=== PATIENT | female | born 1935 | race Caucasian/White ===

== ENCOUNTER → 2017-08-09 | Outpatient (REF) | payer MEDICARE, OTHER ==
[2017-08-09 18:35] LABS: C REACTIVE PROTEIN QUANTITATIV 0.51 MG/DL (0.00-0.30)
== END ==
LOC: M LAB REF 16:33
DX: R79.82 Elevated C-reactive protein (CRP) (principal); M19.90 Unspecified osteoarthritis, unspecified site
CPT/HCPCS: 86140

== ENCOUNTER → 2019-03-09 | Outpatient (REF) | payer MEDICARE ==
[2019-03-10 13:34] LABS: PERCENT SATURATION 20.6 % (13.2-45.0)
== END ==
LOC: M LAB REF 12:43
PROVIDERS: ATTEND Internal Medicine
DX: D64.9 Anemia, unspecified (principal)

== ENCOUNTER → 2020-03-23 | Outpatient (REF) | payer MEDICARE | LOC: M LAB REF 12:21 | PROVIDERS: ATTEND Internal Medicine | DX: M19.90 Unspecified osteoarthritis, unspecified site (principal); R79.82 Elevated C-reactive protein (CRP) ==

== ENCOUNTER 2020-06-27 15:12 | Emergency (ER) | payer MEDICARE ==
[~2020-06-27] VITALS: Ht 149.9 cm; Wt 63.6 kg
--- NOTE | 2020-06-27 16:08 | ECGEPIP ---
[facility] - ED Test Date: 2020-06-27 Pat Name: KAREEN CHOW Department: Room: - Gender: Female Solderer Dipper: ty : 1935 Requested By: Acacia Dye Order Number: [id number] Reading MD: Jason Jefferson Measurements Intervals Rand Rate: 88 P: 59 WA: 164 QRS: 2 QRSD: 82 T: 59 QT: 348 QTc: 421 Interpretive Statements Normal sinus rhythm with sinus arrhythmia Minimal voltage criteria for LVH, may be normal variant Nonspecific ST abnormality NO PRIORS FOR COMPARISON Electronically Signed on 06-27-2020 16:08:16 EST by Jason Jefferson
--- NOTE | 2020-06-27 16:17 | REP ---
INDICATION: Altered Mental Status COMPARISON: None. TECHNIQUE: Axial noncontrast images from the skull base to the thoracic inlet with coronal reformations. This CT examination was performed using the following dose reduction techniques: Automated exposure control, adjustment of mA and/or kv according to the patient's size, and use of iterative reconstruction technique. FINDINGS: Age-related atrophy and microvascular ischemic changes are appreciated. The ventricles and sulci are symmetric. Perez-white differentiation is maintained. There is no evidence for acute intracranial hemorrhage, mass/mass effect, pathology or infarction. No extra-axial fluid collection. Calvarium is intact. Paranasal sinuses and mastoid air cells are clear. IMPRESSION: Age related atrophy and microvascular ischemic changes. No acute intracranial hemorrhage, infarction, or mass/mass effect. <Electronically signed by Jacinto Wolff > 06/27/20 [id number]
[2020-06-27 17:12] LABS: BASO # 0.1 10^3/uL (0.0-0.2); BASO % 0.9 % (0.0-1.0); HEMATOCRIT 38.1 % (36.0-47.0); HEMOGLOBIN 12.1 g/dl (12.0-15.5); LYMPH # 1.5 10^3/uL (1.5-5.0); LYMPH % 15.9 % (24.0-44.0); MEAN CORPUSCULAR HEMOGLOBIN 33.4 pg (27.0-33.0); MEAN CORPUSCULAR HGB CONC 31.8 g/dl (32.0-36.5); MEAN CORPUSCULAR VOLUME 105.2 fl (80.0-96.0); MONO # 0.9 10^3/uL (0.0-0.8); NEUTROPHILS # 5.6 10^3/uL (1.5-8.5); NEUTROPHILS % 61.7 % (36.0-66.0); PLATELET COUNT, AUTOMATED 227 10^3/uL (150-450); RED BLOOD COUNT 3.62 10^6/uL (4.00-5.40); WHITE BLOOD COUNT 9.1 10^3/uL (4.0-10.0)
[2020-06-27 17:43] LABS: ALBUMIN 3.9 GM/DL (3.2-5.2); ALT/SGPT 19 U/L (12-78); BILIRUBIN,DIRECT < 0.1 MG/DL (0.0-0.2); BILIRUBIN,TOTAL 0.2 MG/DL (0.2-1.0); BLOOD UREA NITROGEN 54 MG/DL (7-18); CALCIUM LEVEL 9.4 MG/DL (8.8-10.2); CARBON DIOXIDE LEVEL 26 MEQ/L (21-32); CHLORIDE LEVEL 104 MEQ/L (98-107); CK-MB VALUE MASS 2.3 NG/ML (<3.6); CPK CREATINE PHOSPHOKINASE 56 U/L (26-192); CREATININE FOR GFR 1.12 MG/DL (0.55-1.30); GLOMERULAR FILTRATION RATE 49.2 (>32); GLUCOSE, FASTING 100 MG/DL (70-100); MB/CK RELATIVE INDEX 4.11 (< OR =4); SODIUM LEVEL 138 MEQ/L (136-145); TOTAL PROTEIN 7.6 GM/DL (6.4-8.2); TROPONIN I < 0.02 NG/ML (< 0.10)
[2020-06-27 18:00] LABS: OSMOLALITY SERUM 303 MOSM/KG (280-301)
[2020-06-27 18:51] VITALS: BP 211/98
== END 2020-06-27 18:54 | disposition home or self-care (01) ==
LOC: M ED 15:12
DX: R40.4 Transient alteration of awareness (principal); I10 Essential (primary) hypertension; E03.9 Hypothyroidism, unspecified; Z88.1 Allergy status to other antibiotic agents; Z88.8 Allergy status to other drugs, medicaments and biological substances

== ENCOUNTER → 2021-02-08 | Outpatient (CLI) | payer MEDICARE ==
--- NOTE | 2021-02-08 11:09 | REP ---
INDICATION: RT LEG PAIN SWELLING ? DVT. COMPARISON: None. TECHNIQUE: Multiple ultrasonographic images of the deep venous structures of the right lower extremity were obtained from the inguinal ligament to the ankle. Venous compression techniques, color doppler imaging, and augmentation techniques were also obtained where appropriate. As per the ACR guidelines the anterior tibial vein can not be effectively evaluated. Only compression techniques in the calf on the peroneal and posterior tibial veins was attempted/performed. FINDINGS: There is no abnormal echogenic material seen within any of the visualized deep venous structures that would suggest acute thrombosis. Coaptation is unremarkable throughout. Doppler interrogation shows an expected response to respiratory variability and augmentation in the thigh. Compression techniques in the calf were unobtainable. The color flow images show what appears to be a normal vascular pattern throughout the thigh. IMPRESSION: There is no ultrasonographic evidence of deep venous thrombosis involving any of the visualized deep venous structures of the right lower extremity as described above. Due to technical parameters calf vein DVT can not be ruled out. <Electronically signed by To Cruz > 02/08/21 [id number]
== END ==
LOC: M RAD 10:14
PROVIDERS: ATTEND Internal Medicine
DX: M79.604 Pain in right leg (principal)

== ENCOUNTER 2021-02-21 09:31 | Inpatient (IN) | payer MEDICARE ==
[~2021-02-21] VITALS: Ht 149.9 cm; Wt 67.9 kg
--- OUTSIDE RECORDS SUMMARY | 2021-02-21 09:37 | CCD | Continuity of Care Document ---
Author Author Jessica Coronel M.D. Organization Unknown Address [address] [address] Phone [phone] Care Team Providers Care Accounting Recruiter Name Role Phone Maira Coronel MD AUTM [phone] Koko Sher MD AUTM [phone] Bg Bardales DO AUTM [phone] Problems Active Problems Provider Date Gastroesophageal reflux disease Maira Coronel M.D. Onse t: 12/27/2010 Benign essential hypertension Maira Coronel M.D. Onset: 12/27/2010 Osteoarthritis Maira Coronel M.D. Onset: 1 Osteoporosis Maira Coronel M.D. Onset: 1 Rheumatoid arthritis Maira Coronel M.D. Onset: 12/28/19 11 Pure hypercholesterolemia Maira Coronel M.D. Onset: 10/2010 Anemia Maira Coronel M.D. Onset: 1 Unspecified osteoarthritis, unspecified site Maira slaughter M.D. Onset: 12/21/2014 Social History Type Date Description Comments Sex Unknown ETOH Use Denies alcohol use Tobacco Use Start: Unknown Patient has never smoked Allergies and adverse reactions Active Allergies Criticality Reaction | Severity Comments Date Biaxin Unable to assess criticality 01/05/2010 Sudafed Unable to assess criticality 01/05/2010 Medications Active Medications SIG Qnty Indications Ordering Provide r Date Cephalexin 500mg Capsules 1 by mouth twice times a day x 10 days 20caps Maira Coronel M.D. Salonpas Deep Relieving 3.1-10-15% Gel roll 2-4x/d Maira Coronel M.D. 02/09/20 21 Pepto-Bismol 262mg/15ML Suspension 30ml three times a day by mouth as needed dyspepsia 236ml J shelby Coronel M.D. 09/28/[address] 1 by mouth every day 90caps Maira Coronel M.D. 06/30/19 21 Aspercreme W/Lidocaine 4% Cream 2-4x/d as directed 30gm Maira Coronel M.D. 03/24/20 20 Tums Chewy Delights 1177mg Chewtab s 1-2 every night at bedtime as needed Maira slaughter M.D. 03/10/2019 Excedrin Extra Strength [id number] Tablets 2 po 1-2x/d with food prn Maira slaughter M.D. 11/04/2018 Walker W/ Seat W/Basket as prescribed dx-OA, ra, dysequalibrium 1un its Maira Coronel M.D. 11/04/2018 Prednisone 10mg Tablets 1 by mouth every day for 5 days 5tabs Maira Coronel M.D. 08/27/19 19 Align 4mg Capsules 1 by mo [facility] every day Maira Coronel M.D. 07/28/2018 Flonase Allergy Relief 50mcg/Act Suspension one spray each nare twice a day as needed 1mo Maira Coronel M.D. 08/12/2017 Tylenol Extra Strength 500mg Table ts 2 pills 2-3x/d as needed Maira Coronel M.D. 1 Biofreeze 4% Gel 2-4x/dejesus nee ded Maira Coronel M.D. 01/26/2016 Magnesium 500mg Tablets 1 by mouth every day Maira Coronel M.D. 01/11/20 15 Calcium Citrate-Vitamin D3 [id number] Tablets 3/d Maira Coronel M.D. 04/2014 Saline Nasal Ramsay 0.65% Solution 3-4x/d as directed 1units Maira Coronel M.D. 08/15/19 13 Zyrtec Allergy 10mg Tablets 1 by mouth every day prn 30tabs Maira Coronel M.D. 08/15/19 13 Vitamin D-3 1000Unit Tablets 2 po qd Maira Coronel M.D. 01/29/2012 27-1mg Tablets Take 1 Tablet Daily 90tabs Maira Coronel M.D. 11/21/19 12 Amoxicillin 500mg 4 Tabs Po1 HR Before Procedure 4undelphine Coronel M.D. 03/23/20 03 Medications Administered in Office Medication SIG Qnty Indications Ordering Provider Date Reclast 1MG [id number] Injection Dhara Diaz, TOLU 09/19/2011 IV Infusion Up To 1 Hour Injection Dhara Diaz, TOLU 09/19/2011 Reclast 1MG [id number] Injection Dhara Diaz, [facility] 08/31/2010 IV Infusion Up To 1 Hour Injection Dhara Diaz, [facility] 08/31/2010 Reclast 1MG [id number] Injection Dhara Diaz, [facility] 08/29/2009 IV Infusion Up To 1 Hour Injection Dhara Diaz, [facility] 08/29/2009 Immunizations CPT Code Status Date Vaccine Lot # [id number] Given 07/04/2020 Covid-19 Moderna vaccine, 13779 Given 06/06/2020 Covid-19 Moderna vaccine, U-Flu Given 03/26/2020 Influenza,Unspecified U-Td Refused 03/24/2020 Td(Adult)(Tetanus, Diphtheri a) unspecified [id number] Refused 03/24/2020 Pneumovax 23 [id number] Refused 03/24/2020 Prevnar 13 [id number] Refused 07/28/2018 Influenza Virus Vaccine, Quadrivalent (Cciiv4), Derived From Cell 60621 Refused 07/28/2018 Shingrix Zoster Vaccine (HZV), Recombinant, Subunit, Adjuvanted 38859 Refused 07/28/2018 Zoster Vaccine 23638 Refused 07/28/2018 Pneumovax 23 52591 Refused 07/28/2018 Adacel- Tetanus Diphtheria P ertussis 02428 Refused 07/28/2018 Prevnar 13 [id number] Refused 01/29/2012 Fluvirin Virus Vaccine Q2037 Refused 02/26/2011 Fluvirin Virus Vaccine Vital Signs Date Vital Result Comment 02/08/2021 8:44am BP Systolic 134 mmHg RT Arm BP Diastolic 84 mmHg RT Arm Heart Rate 88 /min Height 59.50 inches 4'11.50" Weight 145.25 lb BMI (Body Mass Index) 28.8 kg/m2 09/28/2020 12:08pm BP Systolic 140 mmHg BP Diastolic 70 mmHg BP Systolic Recheck 138 mmHg BP Diastolic Recheck 66 mmHg Heart Rate 68 /min Height 59.50 inches 4'11.50" Weight 148.00 lb BMI (Body Mass Index) 29.4 kg/m2 Results Test Acquired Date Facility Test Result H/L Range Note Complete Blood Count 02/08/2021 [facility] Toggle Press Folder And Feeder: Dr Alcon Guzman [place], [place] [id number] [phone] WBC 7.9 x10*3/UL 4.1 - 10.9 1 RBC 3.58 x10*6/UL Low 4.20 - 6.30 Hemoglobin 11.8 g/dL Low 12.0 - 18.0 Hematocrit 35.5 % Low 37.0 - 51.0 MCV 99.2 fL High 80.0 - 97.0 MCH 33.0 pg High 26.0 - 32.0 MCHC 33.3 g/dL 31.0 - 38.0 RDW 15.0 % High 11.6 - 13.7 PLT 291 x10*3/UL 140 - 440 MPV 8.2 FL 7.8 - 11.0 Lymph % 20.8 % 10.0 - 58.5 Mid % 5.7 % 1.7 - 9.3 Neut % 73.5 % 37.0 - 92.0 Lymph # 1.6 x10*3/UL 0.6 - 4.1 Mid # 0.5 x10*3/UL 0.1 - 0.6 Neut # 5.8 x10*3/UL 2.0 - 7.8 Laboratory test finding 02/08/2021 [facility] Toggle Press Folder And Feeder: [place] [address] [phone] Sed Rate 50 mm/hr High 0 - 15 Basic Metabolic Panel 02/08/2021 [facility] Toggle Press Folder And Feeder: [place] [address] [phone] Glucose 97 mg/dL 74 - 99 2 BUN 33 mg/dL High 7 - 18 Creatinine 1.2 mg/dL 0.6 - 1.3 Sodium 140 mEq/L 136 - 145 Potassium 4.5 mEq/L 3.5 - 5.1 Chloride 103 mEq/L 98 - 107 Carbon Dioxide 26 mEq/L 21 - 32 Calcium 9.9 mg/dL 8.5 - 10.1 GFR 43 mL/min Low >60 GFR 52 mL/min Low >60 3 Laboratory test finding 02/08/2021 [facility] [address] [place] [address] [phone] C Reactive Protein Quantitativ 2.84 mg/dL High 0 .00-0.30 Complete Blood Count 09/26/2020 [facility] Toggle Press Folder And Feeder: [place] [address] [phone] WBC 6.4 x10*3/UL 4.1 - 10.9 4 RBC 3.69 x10*6/UL Low 4.20 - 6.30 Hemoglobin 12.2 g/dL 12.0 - 18.0 Hematocrit 37.3 % 37.0 - 51.0 MCV 101.1 fL High 80.0 - 97.0 MCH 33.1 pg High 26.0 - 32.0 MCHC 32.7 g/dL 31.0 - 38.0 RDW 15.7 % High 11.6 - 13.7 PLT 237 x10*3/UL 140 - 440 MPV 8.7 FL 7.8 - 11.0 Lymph % 32.3 % 10.0 - 58.5 Mid % 8.3 % 1.7 - 9.3 Neut % 59.4 % 37.0 - 92.0 Lymph # 2.0 x10*3/UL 0.6 - 4.1 Mid # 0.6 x10*3/UL 0.1 - 0.6 Neut # 3.8 x10*3/UL 2.0 - 7.8 Basic Metabolic Panel 09/26/2020 [facility] Toggle Press Folder And Feeder: [place] [address] [phone] Glucose 95 mg/dL 74 - 99 5 BUN 40 mg/dL High 7 - 18 Creatinine 1.1 mg/dL 0.6 - 1.3 Sodium 144 mEq/L 136 - 145 Potassium 4.5 mEq/L 3.5 - 5.1 Chloride 106 mEq/L 98 - 107 Carbon Dioxide 27 mEq/L 21 - 32 Calcium 9.4 mg/dL 8.5 - 10.1 GFR 47 mL/min Low >60 GFR 57 mL/min Low >60 6 Laboratory test finding 09/26/2020 [facility] Toggle Press Folder And Feeder: [place] [address] [phone] Thyroid Stimulating Hormone 4.42 uIU/mL High 0.3 6 - 3.74 1 NOTE: CBC VERIFIED 2 100-125 mg/dL PRE-DIABET ES/FASTING >126 mg/dL DIABETES/FASTING 3 CHRONIC KIDNEY DISEASE STAGI NG PER NKF STAGE I & II GFR >= 60 NORMAL TO MILDLY DECREASED STAGE III GFR 30-59 MODERATELY DECREASED STAGE IV GFR 15-29 SEVERELY DECREASED STAGE V GFR <15 VERY LITTLE GFR LEFT ESRD GFR <15 ON WALLPAPERER HELPER 4 NOTE: CBC VERIFIED 5 100-125 mg/dL PRE-DIABET ES/FASTING >126 mg/dL DIABETES/FASTING 6 CHRONIC KIDNEY DISEASE STAGI NG PER NKF STAGE I & II GFR >= 60 NORMAL TO MILDLY DECREASED STAGE III GFR 30-59 MODERATELY DECREASED STAGE IV GFR 15-29 SEVERELY DECREASED STAGE V GFR <15 VERY LITTLE GFR LEFT ESRD GFR <15 ON WALLPAPERER HELPER Procedures Date Code Description Status 02/08/2021 70862 Office/Outpatient Established Mo d MDM 30-39 Min Completed 09/28/2020 28286 Office/Outpatient Established Mo d MDM 30-39 Min Completed 02/10/2015 [id number] Bone Mineral Density Test Comple salazar 07/30/2012 398676224 Bone Mineral Density Test Comple salazar 12/08/2008 165735372 Bone Mineral Density Test Comple salazar 01/08/2007 65090290 Mammogram Completed 11/05/2002 74081910 Colonoscopy Completed Medical Devices Description No Information Available Encounters Type Date Location Provider Dx Diagnosis Office Visit 02/08[facility]2021 [facility] M79.604 Pain in right leg M06.9 Rheumatoid arthritis, unspec ified B35.1 Tinea unguium Office Visit 09/28/2020 11:30a [facility] I12.9 Hypertensive chronic kidney disease w stg 1-4/unsp chr kdny N18.32 Chronic kidney disease, stag e 3b G31.84 Mild cognitive impairment, s o stated M06.9 Rheumatoid arthritis, unspec ified R25.1 Tremor, unspecified K21.9 Gastro-esophageal reflux dis ease without esophagitis Assessments Date Code Description Provider 02/08/2021 M79.604 Pain in right leg Maira moctezuma M.D. 02/08/2021 M06.9 Rheumatoid arthritis, unspecifie d Maira Coronel M.D. 02/08/2021 B35.1 Onychomycosis Maira colbert M.D. 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 09/28/2020 N18.32 Chronic kidney disease, stage 3b Maira Coronel M.D. 09/28/2020 G31.84 Mild cognitive impairment, so st ated Maira Coronle M.D. 09/28/2020 M06.9 Rheumatoid arthritis, unspecifie d Maira Coronel M.D. 09/28/2020 R25.1 Tremor, unspecified Maira boothe M.D. 09/28/2020 K21.9 Gastro-esophageal reflux disease without esophagitis Maira Coronel M.D. 09/26/2020 E78.00 Pure hypercholesterolemia, unspe cified Maira Coronel M.D. 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 09/26/2020 N18.32 Chronic kidney disease, stage 3b Lab Schedule Plan of Treatment Future Appointment(s):* 03/27/2021 10:20 am - Lab Schedule at [facility] * 03/28/2021 11:00 am - Maira Coronel M.D. at [facility] * 03/28/2021 10:40 am - [facility] 02/08/2021 - Maira Coronel M.D.* M79.604 Pain in right leg * M06.9 Rheumatoid arthritis, unspecified * B35.1 Onychomycosis * All * New Medication:* Salonpas Deep Relieving 3.1-10-15 % - roll 2-4x/d * Cephalexin 500 mg - 1 by mouth twice times a day x 10 days * Comments:* Health maintenance. Hold off on flu shot and COVID booster until resolving symptoms of cellulitis. Functional Status Description No Information Available Mental Status Description No Information Available Referrals Refer to Reason for Referral Status Appt Date Lavell Leone DPM Referral DX: Onychomycosis/RA/toe deformity Created [address] [place] [address] [phone]
--- OUTSIDE RECORDS SUMMARY | 2021-02-21 09:37 | CCD ---
Continuity of Care Document (CCD) Created on: 02/08/2021 Jessica Luciano External Reference #: [id number] : 1935 Sex: Female Author Author Jessica Coronel M.D. Organization Unknown Address [address] [address] Phone [phone] Care Team Providers Care Manager Environmental Health And Safety Name Role Phone Maira Coronel MD AUTM [phone] Koko Sher MD AUTM [phone] Bg Bardales DO AUTM [phone] Problems Active Problems Provider Date Gastroesophageal reflux disease Maira Coronel M.D. Onse t: 12/27/2010 Benign essential hypertension Maira Coronel M.D. Onset: 12/27/2010 Osteoarthritis aMira Coronel M.D. Onset: 1 Osteoporosis Maira Coronel [...] Maira slaughter M.D. 03/10/2019 Excedrin Extra Strength [id number] Tablets 2 po 1-2x/d with food prn Maira slaughter M.D. 11/04/2018 Walker W/ Seat W/Basket as prescribed dx-OA, ra, dysequalibrium 1un its Maira Coronel M.D. 11/04/2018 Prednisone 10mg Tablets 1 by mouth every day for 5 days 5tabs Maira Coronel M.D. 08/27/19 19 Align 4mg Capsules 1 by mo [facility] every day Maira Coronel M.D. 07/28/2018 Flonase [...] Coronel M.D. 01/11/20 15 Calcium Citrate-Vitamin D3 [id number]-[id number] Tablets 3/d Maira Coronel M.D. 04/2014 Saline Nasal Slater 0.65% Solution 3-4x/d as directed 1units Maira Coronel M.D. 08/15/19 13 Zyrtec Allergy 10mg Tablets 1 by mouth every day prn 30tabs Maira Coronel M.D. 08/15/19 13 Vitamin D-3 1000Unit Tablets 2 po qd Maiar Coronel M.D. 01/29/2012 27-1mg Tablets Take 1 Tablet Daily 90tabs Maira Coronel M.D. 11/21/19 12 Amoxicillin 500mg 4 Tabs Po1 HR Before Procedure 4undelphine Coronel M.D. 03/23/20 03 Medications Administered in Office Medication SIG Qnty Indications Ordering Provider Date Reclast 1MG [id number] Injection Dhara Diaz, TOLU 09/19/2011 IV Infusion Up To 1 Hour Injection Dhara Diaz, TOLU 09/19/2011 Reclast 1MG [id number] Injection Dhara Diaz, BANNER 08/31/2010 IV Infusion Up To 1 Hour Injection Dhara Diaz, TOLU 08/31/2010 Reclast 1MG [id number] Injection Dhara Diaz, BANNER 08/29/2009 IV Infusion Up To 1 Hour Injection Dhara Diaz, BANNER 08/29/2009 Immunizations CPT Code Status Date Vaccine Lot # [id number]-[id number] Refused 03/24/2020 Td(Adult)(Tetanus, Diphtheri a) unspecified 86894 Refused 03/24/2020 Pneumovax 23 62646 Refused 03/24/2020 Prevnar 13 42434 Refused 07/28/2018 Influenza Virus Vaccine, Quadrivalent (Cciiv4), Derived From Cell 81509 Refused 07/28/2018 Shingrix Zoster Vaccine (HZV), Recombinant, Subunit, Adjuvanted 88491 Refused 07/28/2018 Zoster Vaccine 03059 Refused 07/28/2018 Pneumovax 23 73184 Refused 07/28/2018 Adacel- Tetanus Diphtheria P ertussis 53412 Refused 07/28/2018 Prevnar 13 [id number] Refused 01/29/2012 [...] H/L Range Note Complete Blood Count 02/08/2021 [facility] Film Processor: Dr [place] [address] [phone] WBC 7.9 x10*3/UL 4.1 - 10.9 1 [...] 2.0 - 7.8 Laboratory test finding 02/08/2021 [facility] Film Processor: Dr [place] [address] [phone] Sed Rate 50 mm/hr High 0 - 15 Basic Metabolic Panel 02/08/2021 [facility] Film Processor: Dr Alcon Guzman [place], [place] [id number] [phone] Glucose 97 mg/dL 74 - 99 2 [...] Low >60 3 Laboratory test finding 02/08/2021 [facility] [address] [place] [address] [phone] C Reactive Protein Quantitativ 2.84 mg/dL High 0 .00-0.30 Complete Blood Count 09/26/2020 [facility] Film Processor: Dr Alcon Guzman [place], [place] [id number] [phone] WBC 6.4 x10*3/UL 4.1 - 10.9 4 [...] 2.0 - 7.8 Basic Metabolic Panel 09/26/2020 [facility] Film Processor: Dr Alcon Guzman [place], [place] [id number] [phone] Glucose 95 mg/dL 74 - 99 5 [...] Low >60 6 Laboratory test finding 09/26/2020 [facility] karmen [facility]rose Film Processor: Dr Alcon Guzman [place], [place] [id number] [phone] Thyroid Stimulating Hormone 4.42 uIU/mL High 0.3 [...] LITTLE GFR LEFT ESRD GFR <15 ON COMMUNICATION EQUIPMENT MECHANIC 4 NOTE: CBC VERIFIED 5 100-125 mg/dL PRE-DIABET ES/FASTING >126 mg/dL DIABETES/FASTING 6 CHRONIC KIDNEY DISEASE STAGI NG PER NKF STAGE I & II GFR >= 60 NORMAL TO MILDLY DECREASED STAGE III GFR 30-59 MODERATELY DECREASED STAGE IV GFR 15-29 SEVERELY DECREASED STAGE V GFR <15 VERY LITTLE GFR LEFT ESRD GFR <15 ON COMMUNICATION EQUIPMENT MECHANIC Procedures Date Code Description Status 09/28/2020 77073 Office/Outpatient Established Mo d MDM 30-39 Min Completed 02/10/2015 [id number] Bone Mineral Density Test Comple salazar 07/30/2012 475663516 Bone Mineral Density Test Comple salazar 12/08/2008 918635278 Bone Mineral Density Test Comple salazar 01/08/2007 05126612 Mammogram Completed 11/05/2002 67510352 Colonoscopy Completed Medical Devices Description No Information Available Encounters Type Date Location Provider Dx Diagnosis Office Visit 09/28/2020 11:30a [facility] Jose Alfredo Coronel M.D. I12.9 Hypertensive chronic kidney disease w [...] Mild cognitive impairment, so st ated Maira Coronel M.D. 09/28/2020 M06.9 Rheumatoid arthritis, unspecifie d [...] 03/27/2021 10:20 am - Lab Schedule at [facility] * 03/28/2021 11:00 am - Maira Coronel M.D. at [facility] * 03/28/2021 10:40 am - Nurse #2 at [facility] 02/08/2021 - Maira Coronel M.D.* M79.604 [...] Mental Status Description No Information Available Referrals Description No Information Available
--- OUTSIDE RECORDS SUMMARY | 2021-02-21 09:37 | CCD | Continuity of Care Document ---
Author Author Jessica Coronel M.D. Organization Unknown Address [address] [address] Phone [phone] Care Team Providers Care Railcar Switcher Name Role Phone Maira Coronel MD AUTM [phone] Koko Sher MD AUTM [phone] Bg Bardales DO AUTM [phone] Problems Active Problems Provider Date Gastroesophageal reflux [...] every night at bedtime as needed Maira slaguhter M.D. 03/10/2019 Excedrin Extra Strength [id number] Tablets 2 po 1-2x/d with food prn Maira slaughter M.D. 11/04/2018 Walker W/ Seat W/Basket as prescribed dx-OA, ra, dysequalibrium 1un its Maira Coronel M.D. 11/04/2018 Prednisone 10mg Tablets 1 by mouth every day for 5 days 5tabs Maira Coronel M.D. 08/27/19 19 Align 4mg Capsules 1 by mo [facility] every day Maira Coronel M.D. 07/28/2018 [...] Coronel M.D. 01/11/20 15 Calcium Citrate-Vitamin D3 [id number] Tablets 3/d Maira Coronel M.D. 04/2014 Saline Nasal [place] 0.65% Solution 3-4x/d as directed 1units Maira [...] Qnty Indications Ordering Provider Date Reclast 1MG [id number] Injection Dhara Diaz, [facility] 09/19/2011 IV Infusion Up To 1 Hour Injection Dhara Diaz, [facility] 09/19/2011 Reclast 1MG [id number] Injection Dhara Diaz, [facility] 08/31/2010 IV Infusion Up To 1 Hour Injection Dahra Diaz, [facility] 08/31/2010 Reclast 1MG [id number] Injection Dhara Diaz, [facility] 08/29/2009 IV Infusion Up To 1 Hour Injection Dhara Diaz, [facility] 08/29/2009 Immunizations CPT Code Status Date Vaccine Lot # [id number] Refused 03/24/2020 Td(Adult)(Tetanus, Diphtheri a) unspecified [id number] Refused 03/24/2020 Pneumovax 23 [id number] Refused 03/24/2020 Prevnar 13 [id number] Refused 07/28/2018 Influenza Virus Vaccine, Quadrivalent (Cciiv4), Derived From Cell 58132 Refused 07/28/2018 Shingrix Zoster Vaccine (HZV), Recombinant, Subunit, Adjuvanted 64512 Refused 07/28/2018 Zoster Vaccine [id number] Refused 07/28/2018 Pneumovax 23 52106 Refused 07/28/2018 Adacel- Tetanus Diphtheria P ertussis 89095 Refused 07/28/2018 Prevnar 13 [id number] Refused 01/29/2012 [...] Date Facility Test Result H/L Range Note Laboratory test finding 02/08/2021 [facility] karmen ambrose Stockroom Attendant: Dr Alcon Guzman [place], [place] [id number] [phone] Sed Rate <pending> Complete Blood Count 09/26/2020 [facility] Stockroom Attendant: [place] [address] [phone] WBC 6.4 x10*3/UL 4.1 - 10.9 1 RBC 3.69 x10*6/UL Low 4.20 - 6.30 [...] 2.0 - 7.8 Basic Metabolic Panel 09/26/2020 [facility] Stockroom Attendant: Dr Alcon Guzman [place], [place] [id number] [phone] Glucose 95 mg/dL 74 - 99 2 BUN 40 mg/dL High 7 - 18 Creatinine 1.1 mg/dL 0.6 - 1.3 Sodium 144 mEq/L 136 - 145 Potassium 4.5 mEq/L 3.5 - 5.1 Chloride 106 mEq/L 98 - 107 Carbon Dioxide 27 mEq/L 21 - 32 Calcium 9.4 mg/dL 8.5 - 10.1 GFR 47 mL/min Low >60 GFR 57 mL/min Low >60 3 Laboratory test finding 09/26/2020 [facility] Stockroom Attendant: Dr Alcon Guzman [place], [place] [id number] [phone] Thyroid Stimulating Hormone 4.42 uIU/mL High 0.3 [...] LITTLE GFR LEFT ESRD GFR <15 ON CRITICAL CARE RN Procedures Date Code Description Status 09/28/2020 86603 Office/Outpatient Established Mo d MDM 30-39 Min Completed 02/10/2015 [id number] Bone Mineral Density Test [facility] 07/30/2012 [id number] Bone Mineral Density Test [facility] 12/08/2008 [id number] Bone Mineral Density Test [facility] 01/08/2007 [id number] Mammogram Completed 11/05/2002 [id number] Colonoscopy Completed Medical Devices Description No Information Available Encounters Type Date Location Provider Dx Diagnosis Office Visit 09/28/2020 11[facility] I12.9 Hypertensive chronic kidney disease [...] 03/27/2021 10:20 am - Lab Schedule at [facility] * 03/28/2021 11:00 am - Maira Coronel M.D. at [facility] * 03/28/2021 10:40 am - Nurse #2 at [facility] 02/08/2021 - Maira Coronel M.D.* M79.604 Pain in right leg * M06.9 Rheumatoid arthritis, unspecified * B35.1 Onychomycosis * All * New Medication:* Salonpas Deep Relieving 3.1-10-15 % - roll 2-4x/d * Cephalexin 500 mg - 1 by mouth twice times a day x 10 days Functional Status Description No Information Available Mental Status Description No Information Available Referrals Description No Information Available
--- OUTSIDE RECORDS SUMMARY | 2021-02-21 09:37 | CCD | Continuity of Care Document ---
Author Author Jessica Coronel M.D. Organization Unknown Address [address] [address] Phone [phone] Care Team Providers Care Veterinary Technician Name Role Phone Maira Coronel MD AUTM [phone] Koko Sher MD AUTM [phone] Bg Bardales DO AUTM [phone] Problems Active Problems Provider Date Gastroesophageal reflux [...] Maira slaughter M.D. 03/10/2019 Excedrin Extra Strength [id number] Tablets 2 po 1-2x/d with food prn Maira slaughter M.D. 11/04/2018 Walker W/ Seat W/Basket as prescribed dx-OA, ra, dysequalibrium 1un its Maira Coronel M.D. 11/04/2018 Prednisone 10mg Tablets 1 by mouth every day for 5 days 5tabs Maira Coronel M.D. 08/27/19 19 Align 4mg Capsules 1 by mo [facility] every day Maira Coronel M.D. 07/28/2018 Flonase [...] Coronel M.D. 01/11/20 15 Calcium Citrate-Vitamin D3 [id number] Tablets 3/d Maira Coronel M.D. 04/2014 Saline Nasal [place] 0.65% Solution 3-4x/d as directed 1units Maira [...] Qnty Indications Ordering Provider Date Reclast 1MG [id number] Injection Dhara Diaz, [facility] 09/19/2011 IV Infusion Up To 1 Hour Injection Dhara Diaz, [facility] 09/19/2011 Reclast 1MG [id number] Injection Dhara Diaz, [facility] 08/31/2010 IV Infusion Up To 1 Hour Injection Dhara Diaz, [facility] 08/31/2010 Reclast 1MG [id number] Injection Dhara Diaz, [facility] 08/29/2009 IV Infusion Up To 1 Hour Injection Dhara Diaz, [facility] 08/29/2009 Immunizations CPT Code Status Date Vaccine Lot # [id number] Refused 03/24/2020 Td(Adult)(Tetanus, Diphtheri a) unspecified [id number] Refused 03/24/2020 Pneumovax 23 80769 Refused 03/24/2020 Prevnar 13 [id number] Refused 07/28/2018 Influenza Virus Vaccine, Quadrivalent (Cciiv4), Derived From Cell 13095 Refused 07/28/2018 Shingrix Zoster Vaccine (HZV), Recombinant, Subunit, Adjuvanted 59476 Refused 07/28/2018 Zoster Vaccine 34841 Refused 07/28/2018 Pneumovax 23 06202 Refused 07/28/2018 Adacel- Tetanus Diphtheria P ertussis 47850 Refused 07/28/2018 Prevnar 13 [id number] Refused 01/29/2012 [...] H/L Range Note Complete Blood Count 02/08/2021 [facility] Manifest/Order Organizer Print Orders: [place] [address] [phone] WBC 7.9 x10*3/UL 4.1 - 10.9 1 [...] 2.0 - 7.8 Laboratory test finding 02/08/2021 [facility] Manifest/Order Organizer Print Orders: [place] [address] [phone] Sed Rate 50 mm/hr High 0 - 15 Basic Metabolic Panel 02/08/2021 [facility]Order Organizer Print Orders: Dr Alcon Guzman [place], [place] [id number] [phone] Glucose 97 mg/dL 74 - 99 2 [...] Low >60 3 Laboratory test finding 02/08/2021 [facility] [address] [place] [address] [phone] C Reactive Protein Quantitativ 2.84 mg/dL High 0 .00-0.30 Complete Blood Count 09/26/2020 [facility] Manifest/Order Organizer Print Orders: Dr Alcon Guzman [place], [place] [id number] [phone] WBC 6.4 x10*3/UL 4.1 - 10.9 4 [...] 2.0 - 7.8 Basic Metabolic Panel 09/26/2020 [facility] Manifest/Order Organizer Print Orders: Dr Alcon Guzman [place], [place] [id number] [phone] Glucose 95 mg/dL 74 - 99 5 [...] Low >60 6 Laboratory test finding 09/26/2020 [facility] karmen ambrose Manifest/Order Organizer Print Orders: Dr Alcon Guzman [place], [place] [id number] [phone] Thyroid Stimulating Hormone 4.42 uIU/mL High 0.3 [...] LITTLE GFR LEFT ESRD GFR <15 ON GANG HEAD SAW OPERATOR 4 NOTE: CBC VERIFIED 5 100-125 mg/dL PRE-DIABET ES/FASTING >126 mg/dL DIABETES/FASTING 6 CHRONIC KIDNEY DISEASE STAGI NG PER NKF STAGE I & II GFR >= 60 NORMAL TO MILDLY DECREASED STAGE III GFR 30-59 MODERATELY DECREASED STAGE IV GFR 15-29 SEVERELY DECREASED STAGE V GFR <15 VERY LITTLE GFR LEFT ESRD GFR <15 ON GANG HEAD SAW OPERATOR Procedures Date Code Description Status 09/28/2020 61555 Office/Outpatient Established Mo d MDM 30-39 Min Completed 02/10/2015 [id number] Bone Mineral Density Test [facility] 07/30/2012 [id number] Bone Mineral Density Test [facility] 12/08/2008 [id number] Bone Mineral Density Test [facility] 01/08/2007 [id number] Mammogram Completed 11/05/2002 [id number] Colonoscopy Completed Medical Devices Description No Information Available Encounters Type Date Location Provider Dx Diagnosis Office Visit 09/28/2020 11:30a [facility] Jose Alfredo Coronel M.D. I12.9 [...] 03/27/2021 10:20 am - Lab Schedule at [facility] * 03/28/2021 11:00 am - Maira Coronel M.D. at [facility] * 03/28/2021 10:40 am - Nurse #2 at [facility] 02/08/2021 - Maira Coronel M.D.* M79.604 [...]
--- OUTSIDE RECORDS SUMMARY | 2021-02-21 09:38 | CCD ---
Author Author [facility] Organization [facility] Address Unknown Phone Unavailable Care Team Providers Care Hand Cloth Examiner Name Role Phone Santiago Coronel MD Unavailable Unavailable Santiago Coronel MD Unavailable Unavailable Santiago Coronel MD Unavailable Unavailable Santiago Coronel MD Unavailable Unavailable Santiago Coronel MD Unavailable Unavailable Santiago Coronel MD Unavailable Unavailable Santiago Coronel MD Unavailable Unavailable Santiago Coronel MD Unavailable Unavailable Santiago Coronel MD Unavailable Unavailable Santiago Coronel MD Unavailable Unavailable Santiago Coronel MD Unavailable Unavailable Santiago Coronel MD Unavailable Unavailable Santiago Coronel MD Unavailable Unavailable Santiago Coronel MD Unavailable Unavailable Santiago Coronel MD Unavailable Unavailable Santiago Coronel MD Unavailable Unavailable Santiago Coronel MD Unavailable Santiago Voss MD Unavailable Unavailable Snatiago Coronel MD Unavailable Unavailable Santiago Coronel MD Unavailable Unavailable Santiago Coronel MD Unavailable Unavailable Santiago Coronel MD Unavailable Unavailable Santiago Coronel MD Unavailable Unavailable Santiago Coronel MD Unavailable Unavailable Santiago Coronel MD Unavailable Unavailable Santiago Coronel MD Unavailable Unavailable Santiago Coronel MD Unavailable Unavailable Santiago Coronel MD Unavailable Unavailable BernaSantiago boothe MD Unavailable Unavailable BernaSantiago MD Unavailable Unavailable BernaSantiago boothe MD Unavailable Unavailable BernaSantiago MD Unavailable Unavailable BernaSantiago MD Unavailable Unavailable BernaSantiago MD Unavailable Unavailable BernaSantiago MD Unavailable Unavailable Santiago Coronel MD Unavailable Unavailable BernaSantiago MD Unavailable Unavailable BernaSantiago MD Unavailable Unavailable BernaSantiago MD Unavailable Unavailable BernaSantiago MD Unavailable Unavailable BernaSantiago MD Unavailable Unavailable BernaSantiago MD Unavailable Unavailable BernaSantiago MD Unavailable Unavailable BernaSantiago MD Unavailable Unavailable BernaSantiago MD Unavailable Unavailable BernaSantiago colbert MD Unavailable Unavailable BernaSantiago boothe MD Unavailable Unavailable Santiago Coronel MD Unavailable Unavailable Santiago Coronel MD Unavailable Unavailable Santiago Coronel MD Unavailable Unavailable Santiago Coronel MD Unavailable Unavailable Santiago Coronel MD Unavailable Unavailable Santiago Coronel MD Unavailable Unavailable Santiago Coronel MD Unavailable Unavailable Santiago Coronel MD Unavailable Unavailable Santiago Coronel MD Unavailable Unavailable Santiago Coronel MD Unavailable Unavailable Santiago Coronel MD Unavailable Unavailable Santiago Coronel MD Unavailable Unavailable Santiago Coronel MD Unavailable Unavailable Santiago Coronel MD Unavailable Unavailable Santiago Coronel MD Unavailable Unavailable Santiago Coronel MD Unavailable Unavailable Santiago Coronel MD Unavailable Unavailable Santiago Coronel MD Unavailable Unavailable Santiago Coronel MD Unavailable Unavailable Santiago Coronel MD Unavailable Unavailable Santiago Coronel MD Unavailable Unavailable Santiago Coronel MD Unavailable Unavailable Santiago Coronel MD Unavailable Unavailable Santiago Coronel MD Unavailable Unavailable Santiago Coronel MD Unavailable Unavailable Santiago Coronel MD Unavailable Unavailable Santiago Coronel MD Unavailable Unavailable Santiago Coronel MD Unavailable Unavailable Santiago Coronel MD Unavailable Unavailable BernaSantiago MD Unavailable Unavailable Santiago Coronel MD Unavailable Unavailable Santiago Coronel MD Unavailable Unavailable Santiago Coronel MD Unavailable Unavailable Santiago Coronel MD Unavailable Unavailable Santiago Coronel MD Unavailable Unavailable Santiago Coronel MD Unavailable Unavailable Santiago Coronel MD Unavailable Unavailable Re-disclosure Warning The records that you are about to access may contain information from federally-assisted alcohol or drug abuse programs. If such information is present, then the following federally mandated warning applies: This information has been disclosed to you from records protected by federal confidentiality rules (42 CFR part 2). The federal rules prohibit you from making any further disclosure of this information unless further disclosure is expressly permitted by the written consent of the person to whom it pertains or as otherwise permitted by 42 CFR part 2. A general authorization for the release of medical or other information is NOT sufficient for this purpose. The Federal rules restrict any use of the information to criminally investigate or prosecute any alcohol or drug abuse patient.The records that you are about to access may contain highly sensitive health information, the redisclosure of which is protected by Article 27-F of the [facility] Public Health law. If you continue you may have access to information: Regarding HIV / AIDS; Provided by facilities licensed or operated by the [facility] Office of Mental Health; or Provided by the [facility] Office for People With Developmental Disabilities. If such information is present, then the following [facility] mandated warning applies: This information has been disclosed to you from confidential records which are protected by state law. State law prohibits you from making any further disclosure of this information without the specific written consent of the person to whom it pertains, or as otherwise permitted by law. Any unauthorized further disclosure in violation of state law may result in a fine or skilled nursing sentence or both. A general authorization for the release of medical or other information is NOT sufficient authorization for further disc losure. Family History Family Member Name Family Member Gender Family Member Status Date o f Status Description Data Source(s) Unknown Male Problem [facility] ([facility]) Unknown Male Problem [facility] ([facility]) Encounters Encounter Providers Location Date Indications Data Source(s ) Outpatient Attender: Maira Keith 08:45:00 AM EDT [facility] ([facility] ) Outpatient Attender: Maira Keith 11:30:00 AM EDT [facility] ([facility] ) Outpatient Attender: Maira Keith 01:45:00 PM EST [facility] ([facility] ) Outpatient Attender: Maira Keith 12:30:00 PM EST [facility] ([facility] ) Immunizations Vaccine Date Status Description Data Source(s) Covid-19 Moderna vaccine, 07/04/2020 02:37:00 PM EDT completed [facility] ([facility]) COVID-19 VACCINE Moderna 07/04/2020 12:00:00 AM EDT completed [facility] Vaccine Series Complete: YESThis Data wa s Submitted to [facility] Via [employer]. Covid-19 Moderna vaccine, 06/06/2020 01:37:00 PM EST completed [facility] ([facility]) COVID-19 VACCINE Moderna 06/06/2020 12:00:00 AM EST completed [facility] Vaccine Series Complete: NOThis Data was Submitted to [facility] Via [employer]. This CVX code allows reporting of a vacc ination when formulation is unknown (for example, when recording a Influenza vaccination when noted on a vaccination card) 03/26/2020 01:37:00 PM EST completed [facility] ([facility]) INFLUENZA VACCINE QUADRIVALENT 2019- (65 YR UP)/MF59 C.1/PF 03/26/2020 12:00:00 AM EST completed [facility] Note that this Td is not adsorbed. 03/24/2020 12:43:00 PM EST compl eted [facility] ([facility]) Pneumococcal conjugate PCV 13 03/24/2020 12:42:00 PM EST completed [facility] ([facility]) pneumococcal polysaccharide PPV23 03/24/2020 12:42:00 PM EST comple salazar [facility] ([facility]) Medications Medication Brand Name Start Date Product Form Dose Route Admi nistrative Instructions Pharmacy Instructions Status Indications Reaction Description Data Source(s) Camphor 0.031 MG/MG / Menthol 0.1 MG/MG / methyl salicylate 0.15 MG/MG Topical Gel Salonpas Deep Relieving 02/08/2021 12:00:00 AM EDT active [facility] ([facility]) Cephalexin 500 MG Oral Capsule CEPHALEXIN 02/08/2021 12:00:00 AM EDT capsule 20 TAKE ONE CAPSULE BY MOUTH TWICE A DAY FOR 10 DAYS TAKE ONE CAPSULE BY MOUTH TWICE A DAY FOR 10 DAYS SOLD: 02/08/2021 [facility] Cephalexin 500 MG Oral Capsule Cephalexin 02/08/2021 12:00:00 AM EDT ORAL active [facility] ([facility]) bismuth subsalicylate 17.5 MG/ML Oral Suspension [Pepto-bism ol] Pepto-Bismol 09/28/2020 12:00:00 AM EDT ORAL active [facility] ([facility]) 40 mg 06/30/2020 12:00:00 AM EST capsule,delayed release (DR/EC) 30 TAKE ONE TABLET BY MOUTH EVERY DAY TAKE ONE TABLET BY MOUTH EVERY DAY SOLD: 06/30/2020 [facility] 10 mg 06/30/2020 12:00:00 AM EST tablet 5 TAKE ONE TABLET BY MOUTH EVERY DAY FOR 5 DAYS TAKE ONE TABLET BY MOUTH EVERY DAY FOR 5 DAYS SOLD: 06/30/2020 [facility] Omeprazole 40 MG Delayed Release Oral Capsule Omeprazole 06/29/2020 12:00:00 AM EST ORAL active [facility] ([facility]) 27 mg iron- 1 mg 03/25/2020 12:00:00 AM EST tablet 90 TAKE ONE TABLET BY MOUTH EVERY DAY TAKE ONE TABLET BY MOUTH EVERY DAY SOLD: 03/26/2020 [facility] Lidocaine Hydrochloride 40 MG/ML Topical Cream Aspercreme W/ Lidocaine 03/24/2020 12:00:00 AM EST active [facility] ([facility]) Insurance Providers Payer name Policy type / Coverage type Policy ID Covered libertarian ID Covered libertarian's relationship to cherry Policy Cherry Plan Information Medicare Natl Govt Servic Medicare Primary [id number] Self [id number] Medicare Natl Govt Servic Medicare Primary [id number] Self [id number] Medicare Natl Govt Servic Medicare Primary [id number] Self [id number] Medicare Natl Govt Servic Medicare Primary [id number] Self [id number] Medicare Natl Govt Servic Medicare Primary [id number] Self [id number] MEDICARE [id number] SP [id number] Medicare Natl Govt Servic Medicare Primary [id number] Self [id number] A Medicare Natl Govt Servic Medicare Primary [id number] Self [id number] Medicare Natl Govt Servic Medicare Primary [id number] Self [id number] Medicare Natl Govt Servic Medicare Primary [id number] Self [id number] MEDICARE [id number] SP [id number] A [place] (Old) Medigap Part B [id number] Family Dependent [id number] [place] Ppo Medigap Part B [id number] Family Dependent [id number] [employer] (Old) Medigap Part B [id number] Family Dependent [id number] [place] [employer] Medigap Part B [id number] Family Dependent [id number] [employer] (Old) Medigap Part B [id number] Family Dependent [id number] [place] Ppo Medigap Part B [id number] Family Dependent Umr [place] Ppo Medigap Part B [id number] Family Dependent [id number] Umr [place] Ppo Medigap Part B [id number] Family Dependent [id number] [place] Medigap Part B [id number] Family Dependent [id number] [facility] Medigap Part B [id number] Self [id number] [facility] Medigap Part B [id number] Self [id number] [facility] Medigap Part B [id number] Self [id number] 11 [id number] Medicare Part B [facility] Other 0 [id number] Self 0 Medicare Part B [facility] Other 0 [id number] Self 0 [employer] OPTIONS [id number] S [id number] [employer] [id number] S [id number] MEDICARE - [place] [id number] S [id number] Medicare Part B of [place] - [facility] Other 0 [id number] Self 0 [employer] [id number] SP [id number] [facility] Medigap Part B [id number] Family Dependent [id number] [employer] [id number] HU2 [id number] [employer] PPO O [id number] S [id number] MEDICARE C [id number] S [id number] A [facility] Medigap Part B [id number] Family Dependent [employer] [id number] SP [id number] Problems, Conditions, and Diagnoses No Information Surgeries/Procedures Procedure Description Date Indications Data Source(s) OFFICE OUTPATIENT VISIT 25 MINUTES 02/08/2021 12:00:00 AM EDT [facility] OFFICE OUTPATIENT VISIT 25 MINUTES 09/28/2020 12:00:00 AM EDT [facility] ([facility]) Results ID Date Data Source [id number] 02/08/2021 09:26:00 AM EDT [facility] ([facility]) Name Value Range Interpretation Code Description Data Altagracia rce(s) Supporting Document(s) C reactive protein [Mass/volume] in Serum or Plasma by High sensitivity method 2.84 mg/dL 0.00-0.30 [facility] ([facility] ) ID Date Data Source [id number] 02/08/2021 09:26:00 AM EDT [facility] ([facility]) Name Value Range Interpretation Code Description Data Altagracia rce(s) Supporting Document(s) Glucose [Mass/volume] in Serum or Plasma 97 mg/dL 74-99 [facility] ([facility]) 100-125 mg/dL PRE-DIABETES/FASTING >126 mg/dL DIABETES/FASTING Creatinine 1.2 mg/dL 0.6-1.3 [facility] Sodium [Moles/volume] in Serum or Plasma 140 meq/L 136-145 [facility] Urea nitrogen [Mass/volume] in Serum or Plasma 33 mg/dL 7-18 [facility]) Chloride [Moles/volume] in Serum or Plasma 103 meq/L 98-107 [facility] ([facility]) Potassium [Moles/volume] in Serum or Plasma 4.5 meq/L 3.5-5.1 [facility] Carbon dioxide, total [Moles/volume] in Serum or Plasma 26 meq/L 21 -32 [facility] Calcium [Mass/volume] in Serum or Plasma 9.9 mg/dL 8.5-10.1 [facility] Glomerular filtration rate/1.73 sq M pre dicted among blacks [Volume Rate/Area] in Serum or Plasma by Creatinine-based formula (MDRD) 52 mL/min [facility]) <content>CHRONIC KIDNEY DISEASE STAGING PER NKF</content>
<content></content>
<content>STAGE I & II GFR >= 60 NORMAL TO MILDLY DECREASED</content>
<content>STAGE III GFR 30-59 MODERATELY DECREASED</content>
<content>STAGE IV GFR 15-29 SEVERELY DECREASED</content>
<content>STAGE V GFR <15 VERY LITTLE GFR LEFT</content>
<content>ESRD GFR <15 ON [employer]</content>
<content></content> Glomerular filtration rate/1.73 sq M pre dicted among non-blacks [Volume Rate/Area] in Serum or Plasma by Creatinine-based formula (MDRD) 43 mL/min [facility]) ID Date Data Source [id number] 02/08/2021 09:26:00 AM EDT [facility] ([facility]) Name Value Range Interpretation Code Description Data Altagracia rce(s) Supporting Document(s) Erythrocyte sedimentation rate by Westergren method 50 mm/hr 0-15 [facility] ([facility]) ID Date Data Source [id number] 02/08/2021 09:26:00 AM EDT [facility] Name Value Range Interpretation Code Description Data Altagracia rce(s) Supporting Document(s) Leukocytes [#/volume] in Blood by Automated count 7.9 x10*3/UL 4.1-10 .9 [facility] NOTE: CBC VERIFIED Erythrocytes [#/volume] in Blood by Automated count 3.58 x10*6/UL 4.2 0-6.30 [facility] Hematocrit [Volume Fraction] of Blood by Automated count 35.5 % 3 7.0-51.0 [facility] Hemoglobin [Mass/volume] in Blood 11.8 g/dL 12.0-18.0 [facility] MCV 99.2 fL 80.0-97.0 [facility]) MCHC 33.3 g/dL 31.0-38.0 [facility] ([facility]) MCH 33.0 pg 26.0-32.0 [facility] ([facility]) Erythrocyte distribution width [Ratio] by Automated count 15.0 % 11.6-13.7 [facility] Platelets [#/volume] in Blood by Automated count 291 x10*3/UL 140-440 [facility] Lymph % 20.8 % 10.0-58.5 [facility]) Mid % 5.7 % 1.7-9.3 [facility] ([facility]) MPV 8.2 FL 7.8-11.0 [facility] ([facility]) Neut % 73.5 % 37.0-92.0 [facility] ([facility]) Lymph # 1.6 x10*3/UL 0.6-4.1 [facility] ([facility]) Mid # 0.5 x10*3/UL 0.1-0.6 [facility] ([facility]) Neut # 5.8 x10*3/UL 2.0-7.8 [facility] ([facility]) ID Date Data Source [id number] 09/26/2020 09:30:00 AM EDT [facility] Name Value Range Interpretation Code Description Data Altagracia rce(s) Supporting Document(s) Thyrotropin [Units/volume] in Serum or Plasma by Detec tion limit <= 0.05 mIU/L 4.42 uIU/mL 0.36-3.74 [facility] ([facility] ) ID Date Data Source [id number] 09/26/2020 09:30:00 AM EDT [facility] ([facility]) Name Value Range Interpretation Code Description Data Altagracia rce(s) Supporting Document(s) Glucose [Mass/volume] in Serum or Plasma 95 mg/dL 74-99 [facility] ([facility]) 100-125 mg/dL PRE-DIABETES/FASTING >126 mg/dL DIABETES/FASTING Urea nitrogen [Mass/volume] in Serum or Plasma 40 mg/dL 7-18 [facility] ([facility]) Creatinine 1.1 mg/dL 0.6-1.3 [facility] Potassium [Moles/volume] in Serum or Plasma 4.5 meq/L 3.5-5.1 [facility] ([facility]) Sodium [Moles/volume] in Serum or Plasma 144 meq/L 136-145 [facility] ([facility]) Carbon dioxide, total [Moles/volume] in Serum or Plasma 27 meq/L 21 -32 [facility] ([facility]) Chloride [Moles/volume] in Serum or Plasma 106 meq/L 98-107 [facility] Calcium [Mass/volume] in Serum or Plasma 9.4 mg/dL 8.5-10.1 [facility] ([facility]) Glomerular filtration rate/1.73 sq M pre dicted among non-blacks [Volume Rate/Area] in Serum or Plasma by Creatinine-based formula (MDRD) 47 mL/min [facility] Glomerular filtration rate/1.73 sq M pre dicted among blacks [Volume Rate/Area] in Serum or Plasma by Creatinine-based formula (MDRD) 57 mL/min [facility] <content>CHRONIC KIDNEY DISEASE STAGING PER NKF</content>
<content></content>
<content>STAGE I & II GFR >= 60 NORMAL TO MILDLY DECREASED</content>
<content>STAGE III GFR 30-59 MODERATELY DECREASED</content>
<content>STAGE IV GFR 15-29 SEVERELY DECREASED</content>
<content>STAGE V GFR <15 VERY LITTLE GFR LEFT</content>
<content>ESRD GFR <15 ON [employer]</content>
<content></content> ID Date Data Source [id number] 09/26/2020 09:30:00 AM EDT [facility] ([facility]) Name Value Range Interpretation Code Description Data Altagracia rce(s) Supporting Document(s) Leukocytes [#/volume] in Blood by Automated count 6.4 x10*3/UL 4.1-10 .9 [facility] ([facility]) NOTE: CBC VERIFIED Hemoglobin [Mass/volume] in Blood 12.2 g/dL 12.0-18.0 [facility] Hematocrit [Volume Fraction] of Blood by Automated count 37.3 % 3 7.0-51.0 [facility] Erythrocytes [#/volume] in Blood by Automated count 3.69 x10*6/UL 4.2 0-6.30 [facility] MCH 33.1 pg 26.0-32.0 [facility]) MCV 101.1 fL 80.0-97.0 [facility] ([facility]) MCHC 32.7 g/dL 31.0-38.0 [facility] ([facility]) Erythrocyte distribution width [Ratio] by Automated count 15.7 % 11.6-13.7 [facility] MPV 8.7 FL 7.8-11.0 [facility]) Platelets [#/volume] in Blood by Automated count 237 x10*3/UL 140-440 [facility] ([facility]) Lymph % 32.3 % 10.0-58.5 [facility]) Mid % 8.3 % 1.7-9.3 [facility]) Neut % 59.4 % 37.0-92.0 [facility] ([facility]) Mid # 0.6 x10*3/UL 0.1-0.6 [facility] ([facility]) Lymph # 2.0 x10*3/UL 0.6-4.1 [facility] ([facility]) Neut # 3.8 x10*3/UL 2.0-7.8 [facility] ([facility]) ID Date Data Source [id number] 07/01/2020 12:30:00 PM EST [facility] Name Value Range Interpretation Code Description Data Altagracia rce(s) Supporting Document(s) Urine Color Laboratory test result [facility] ([facility]) Urine Appearance Laboratory test result Abnormal (applies to non-numeric results) [facility] Urine PH 5.0 units 5.0-9.0 [facility] ([facility]) Urine Leukocytes Laboratory test result Abnormal (applies to non-numeric results) [facility] Specific gravity of Urine 1.025 1.005-1.030 [facility] ([facility] Urine Blood Laboratory test result [facility] Urine Protein Laboratory test result 0-0 [facility] ([facility]) Urine Nitrite Laboratory test result [facility] ([facility]) Glucose [Presence] in Urine Laboratory test result [facility] Bilirubin.total [Mass/volume] in Serum or Plasma Laboratory test resu lt [facility] ([facility]) Urine Ketone Laboratory test result [facility] ([facility]) Urine Urobilinogen 0.2 mg/dL 0.2-1.0 [facility] ([facility]) ID Date Data Source [id number] 06/27/2020 04:47:00 PM EST [facility] ([facility]) Name Value Range Interpretation Code Description Data Altagracia rce(s) Supporting Document(s) Lactate [Mass/volume] in Serum or Plasma 0.9 mmol/L 0.4-2.0 [facility] ([facility]) Y/N query for Sepsis Lactate Rule: Y ID Date Data Source [id number] 06/27/2020 04:47:00 PM EST [facility] ([facility]) Name Value Range Interpretation Code Description Data Altagracia rce(s) Supporting Document(s) Red Blood Count 3.62 10 4.00-5.40 [facility] ([facility]) White Blood Count 9.1 10 4.0-10.0 [facility] ([facility]) Hemoglobin 12.1 g/dL 12.0-15.5 [facility] Hematocrit 38.1 % 36.0-47.0 [facility] Mean Corpuscular Volume 105.2 fl 80.0-96.0 [facility] ([facility]) Mean Corpuscular Hemoglobin 33.4 pg 27.0-33.0 [facility] ([facility]) Mean Corpuscular HGB Conc 31.8 g/dL 32.0-36.5 [facility] ([facility]) Red Cell Distribution Width 16.1 % 11.5-14.5 [facility] ([facility]) Platelet Count, Automated 227 10 150-450 [facility] ([facility]) Neutrophils % 61.7 % 36.0-66.0 [facility] ([facility]) Lymph % 15.9 % 24.0-44.0 [facility] Eos % 11.0 % 0.0-3.0 [facility]) Lake % 10.0 % 2.0-8.0 [facility] Immature Granulocyte % 0.5 % 0-3.0 [facility] ([facility]) Baso % 0.9 % 0.0-1.0 [facility]) Neutrophils # 5.6 10 1.5-8.5 [facility] ([facility]) Nucleated Red Blood Cell % 0.0 % 0-0 [facility] ([facility]) Lymph # 1.5 10 1.5-5.0 [facility] Lake # 0.9 10 0.0-0.8 [facility] Eos # 1.0 10 0.0-0.5 [facility]) Baso # 0.1 10 0.0-0.2 [facility] ([facility]) ID Date Data Source [id number] 06/27/2020 04:46:00 PM EST MED[facility] ([facility]) Name Value Range Interpretation Code Description Data Altagracia rce(s) Supporting Document(s) Osmolality of Serum or Plasma 303 MOSM/KG 280-301 [facility] ([facility]) Thyrotropin [Units/volume] in Serum or Plasma by Detec tion limit <= 0.05 mIU/L 3.910 uIU/ML 0.358-3.740 [facility] ([facility] ) ID Date Data Source [id number] 06/27/2020 04:46:00 PM EST MED[facility] ([facility]) Name Value Range Interpretation Code Description Data Altagracia rce(s) Supporting Document(s) Glucose, Fasting 100 mg/dL 70-100 [facility] ([facility]) Blood Urea Nitrogen 54 mg/dL 7-18 [facility] ([facility]) Creatinine For GFR 1.12 mg/dL 0.55-1.30 [facility] ([facility]) Glomerular Filtration Rate 49.2 [facility] ([facility]) <content>Units are mL/min/1.73 m2</content>
<content></content>
<content>Chronic Kidney Disease Staging per NKF:</content>
<content></content>
<content>Stage I & II GFR >=60 Normal to Mildly Decreased</content>
<content>Stage III GFR 30- 59 Moderately Decreased</content>
<content>Stage IV GFR 15-29 Severely Decreased</content>
<content>Stage V GFR <15 Very Little GFR Left</content>
<content>ESRD GFR <15 on [employer]</content>
<content></content> Sodium Level 138 meq/L 136-145 [facility] ([facility]) Potassium Serum 5.0 meq/L 3.5-5.1 [facility] ([facility]) Chloride Level 104 meq/L 98-107 [facility] ([facility]) Anion Gap 8 meq/L 8-16 [facility] ([facility]) Carbon Dioxide Level 26 meq/L 21-32 [facility] ([facility]) Calcium Level 9.4 mg/dL 8.8-10.2 [facility] ([facility]) ID Date Data Source [id number] 06/27/2020 04:46:00 PM EST [facility] ([facility]) Name Value Range Interpretation Code Description Data Altagracia rce(s) Supporting Document(s) Ast/Sgot 18 U/L 7-37 [facility] ([facility]) Alt/SGPT 19 U/L 12-78 [facility] ([facility]) Alkaline Phosphatase 116 U/L 45-117 [facility] ([facility]) Bilirubin,Total 0.2 mg/dL 0.2-1.0 [facility] ([facility]) Bilirubin,Direct Laboratory test result 0.0-0.2 [facility] ([facility]) Total Protein 7.6 GM/DL 6.4-8.2 [facility] ([facility]) Albumin 3.9 GM/DL 3.2-5.2 [facility] ([facility]) Albumin/Globulin Ratio 1.1 1.2-2.2 [facility] ([facility]) ID Date Data Source [id number] 06/27/2020 04:46:00 PM EST MED[facility] ([facility]) Name Value Range Interpretation Code Description Data Altagracia e(s) Supporting Document(s) CPK Creatine Phosphokinase 56 U/L 26-192 [facility] ([facility]) CK-MB Value Mass 2.3 ng/mL [facility] ([facility]) MB/CK Relative Index 4.11 [facility] ([facility]) <content>DIAGNOSIS CRITERIA</content>
<content>MMB ng/ml Relative Index (RI)</content>
<content>NON-AMI < or = 5 N/A</content>
<content>SANTO ZONE > 5 < or = 4</content>
<content>AMI > 5 > 4</content>
<content></content> Troponin I Laboratory test result [facility] ([facility]) <content>Troponin I Reference Interval f or Siemens [place] LOCI:</content>
<content></content>
<content>99th Percentile= 0.00-0.045 ng/ml</content>
<content></content>
<content>Risk Stratification:</content>
<content><= 0.10 ng/ml Decreased Risk for Adverse Clinical</content>
<content>Events.</content>
<content>0.10-1.50 ng/ml Increased Risk for Adverse Clinical</content>
<content>Events. Evaluation of additional</content>
<content>criterion and/or repeat testing in 2-6</content>
<content>hours is suggested to rule out myocardial</content>
<content>damage.</content>
<content>>= 1.50 ng/ml Indicative of Myocardial Injury.</content>
<content></content> ID Date Data Source [id number] 06/27/2020 04:46:00 PM EST [facility] ([facility]) Name Value Range Interpretation Code Description Data Altagracia rce(s) Supporting Document(s) Ammonia [Mass/volume] in Blood [facility] ID Date Data Source [id number] 03/23/2020 08:26:00 AM EST [facility] ([facility]) Name Value Range Interpretation Code Description Data Altagracia rce(s) Supporting Document(s) C reactive protein [Mass/volume] in Serum or Plasma by High sensitivity method 0.70 mg/dL 0.00-0.30 [facility] ) ID Date Data Source [id number] 03/23/2020 08:25:00 AM EST [facility]) Name Value Range Interpretation Code Description Data Altagracia rce(s) Supporting Document(s) Thyrotropin [Units/volume] in Serum or Plasma by Detec tion limit <= 0.05 mIU/L 3.14 uIU/mL 0.36-3.74 [facility] ([facility] ) ID Date Data Source [id number] 03/23/2020 08:25:00 AM EST [facility] ([facility]) Name Value Range Interpretation Code Description Data Altagracia rce(s) Supporting Document(s) Triglyceride [Mass/volume] in Serum or Plasma 95 mg/dL 30-150 [facility] ([facility]) Cholesterol [Mass/volume] in Serum or Plasma 204 mg/dL 131-200 [facility] ([facility]) Cholesterol in HDL [Mass/volume] in Serum or Plasma 66 mg/dL 35-60 [facility] ([facility]) Cholesterol in LDL [Mass/volume] in Serum or Plasma by calcu lation 119 CALC 50-159 [facility] ([facility]) ID Date Data Source [id number] 03/23/2020 08:25:00 AM EST [facility] ([facility]) Name Value Range Interpretation Code Description Data Altagracia rce(s) Supporting Document(s) Glucose [Mass/volume] in Serum or Plasma 82 mg/dL 74-99 [facility] ([facility]) 100-125 mg/dL PRE-DIABETES/FASTING >126 mg/dL DIABETES/FASTING Creatinine 1.2 mg/dL 0.6-1.3 [facility]) Urea nitrogen [Mass/volume] in Serum or Plasma 40 mg/dL 7-18 [facility] ([facility]) NOTE: RESULT VERIFIED. Potassium [Moles/volume] in Serum or Plasma 4.1 meq/L 3.5-5.1 [facility] ([facility]) Chloride [Moles/volume] in Serum or Plasma 104 meq/L 98-107 [facility] ([facility]) Sodium [Moles/volume] in Serum or Plasma 143 meq/L 136-145 [facility] ([facility]) Alkaline phosphatase isoenzyme [Units/volume] in Serum or Pl asma 100 mg/dL 46-116 [facility] ([facility]) Carbon dioxide, total [Moles/volume] in Serum or Plasma 28 meq/L 21 -32 [facility] ([facility]) Calcium [Mass/volume] in Serum or Plasma 8.9 mg/dL 8.5-10.1 [facility] ([facility]) Total Bilirubin 0.4 mg/dL 0.2-1.0 [facility] ([facility]) Aspartate aminotransferase [Enzymatic activity/volume] in Serum or Plasma 25 U/L 15-37 [facility] ([facility] ) Alanine aminotransferase [Enzymatic activity/volume] in Seru m or Plasma 22 U/L 12-78 [facility] ([facility]) Proteinase 3 Ab [Units/volume] in Serum 7.6 g/dL 6.4-8.2 [facility] ([facility]) Glomerular filtration rate/1.73 sq M pre dicted among non-blacks [Volume Rate/Area] in Serum or Plasma by Creatinine-based formula (MDRD) 43 mL/min [facility] ([facility]) A/G Ratio 1.05 CALC 1.00-1.90 [facility] Albumin [Mass/volume] in Serum or Plasma 3.9 g/dL 3.4-5.0 [facility] ([facility]) Glomerular filtration rate/1.73 sq M pre dicted among blacks [Volume Rate/Area] in Serum or Plasma by Creatinine-based formula (MDRD) 52 mL/min [facility] ([facility]) <content>CHRONIC KIDNEY DISEASE STAGING PER NKF</content>
<content></content>
<content>STAGE I & II GFR >= 60 NORMAL TO MILDLY DECREASED</content>
<content>STAGE III GFR 30-59 MODERATELY DECREASED</content>
<content>STAGE IV GFR 15-29 SEVERELY DECREASED</content>
<content>STAGE V GFR <15 VERY LITTLE GFR LEFT</content>
<content>ESRD GFR <15 ON [employer]</content>
<content></content> ID Date Data Source [id number] 03/23/2020 08:25:00 AM EST MED[facility] ([facility]) Name Value Range Interpretation Code Description Data Altagracia rce(s) Supporting Document(s) Erythrocyte sedimentation rate by Westergren method 46 mm/hr 0-15 [facility] ([facility]) ID Date Data Source [id number] 03/23/2020 08:25:00 AM EST [facility] ([facility]) Name Value Range Interpretation Code Description Data Altagracia rce(s) Supporting Document(s) Leukocytes [#/volume] in Blood by Automated count 6.1 x10*3/UL 4.1-10 .9 [facility] ([facility]) NOTE: CBC VERIFIED Hematocrit [Volume Fraction] of Blood by Automated count 34.6 % 3 7.0-51.0 [facility] ([facility]) Erythrocytes [#/volume] in Blood by Automated count 3.45 x10*6/UL 4.2 0-6.30 [facility] ([facility]) Hemoglobin [Mass/volume] in Blood 12.0 g/dL 12.0-18.0 [facility] ([facility]) MCHC 34.8 g/dL 31.0-38.0 [facility] MCH 34.9 pg 26.0-32.0 [facility] MCV 100.3 fL 80.0-97.0 [facility] ([facility]) Erythrocyte distribution width [Ratio] by Automated count 15.0 % 11.6-13.7 [facility] ([facility]) Platelets [#/volume] in Blood by Automated count 221 x10*3/UL 140-440 [facility] ([facility]) MPV 8.8 FL 7.8-11.0 [facility] Neut % 62.6 % 37.0-92.0 [facility] Mid % 8.3 % 1.7-9.3 [facility] Lymph % 29.1 % 10.0-58.5 [facility] Mid # 0.6 x10*3/UL 0.1-0.6 [facility] ([facility]) Lymph # 1.7 x10*3/UL 0.6-4.1 [facility] ([facility]) Neut # 3.8 x10*3/UL 2.0-7.8 [facility] ([facility]) Procedure Social History No Information Vital Signs ID Date Data Source UNK Name Value Range Interpretation Code Description Data Source(s) Systolic blood pressure 134 mm[Hg] 134 mm[Hg] [facility] RT Arm Diastolic blood pressure 84 mm[Hg] 84 mm[Hg] [facility] ([facility]) RT Arm Heart rate 88 /min 88 /min [facility] ([facility]) Body height 59.50 [in_i] 59.50 [in_i] [facility] ([facility]) 4'.50" Body weight 145.25 [lb_av] 145.25 [lb_av] MEDEN T ([facility]) Body mass index (BMI) [Ratio] 28.8 kg/m2 28.8 k g/m2 [facility] ([facility]) Systolic blood pressure 140 mm[Hg] 140 mm[Hg] [facility] ([facility]) Body weight 148.00 [lb_av] 148.00 [lb_av] [facility] Systolic blood pressure 138 mm[Hg] 138 mm[Hg] [facility] ([facility]) Diastolic blood pressure 70 mm[Hg] 70 mm[Hg] [facility] ([facility]) Diastolic blood pressure 66 mm[Hg] 66 mm[Hg] [facility] ([facility]) Heart rate 68 /min 68 /min [facility] ([facility]) Body height 59.50 [in_i] 59.50 [in_i] [facility] ([facility]) 4'11.50" Body mass index (BMI) [Ratio] 29.4 kg/m2 29.4 k g/m2 [facility] ([facility]) Systolic blood pressure 152 mm[Hg] 152 mm[Hg] [facility] RT Arm Diastolic blood pressure 72 mm[Hg] 72 mm[Hg] [facility] RT Arm Heart rate 80 /min 80 /min [facility] ([facility]) Body height 59.50 [in_i] 59.50 [in_i] [facility] ([facility]) 4'.50" Body weight 146.38 [lb_av] 146.38 [lb_av] [facility] ([facility]) Body mass index (BMI) [Ratio] 29.1 kg/m2 29.1 k g/m2 [facility] ([facility]) Diastolic blood pressure 76 mm[Hg] 76 mm[Hg] [facility] ([facility]) Systolic blood pressure 138 mm[Hg] 138 mm[Hg] M EDENT ([facility]) Body height 59.50 [in_i] 59.50 [in_i] [facility] ([facility]) 4'.50" Body weight 148.00 [lb_av] 148.00 [lb_av] SATISH T ([facility]) Body mass index (BMI) [Ratio] 29.4 kg/m2 29.4 k g/m2 [facility] ([facility])
--- OUTSIDE RECORDS SUMMARY | 2021-02-21 10:46 | CCD ---
Author Author [facility] Organization [facility] Address Unknown Phone Unavailable Care Team Providers Care [place] Hand Name Role Phone Santiago Coronel MD Unavailable [...] Unavailable BernaSantiago boothe MD Unavailable Unavailable BernaSantiago boothe MD Unavailable Unavailable BernaSantiago boothe MD Unavailable Unavailable BernaSantiago MD Unavailable Unavailable BernaSantiago MD Unavailable Unavailable BernaSantiago MD Unavailable Unavailable BernaSantiago MD Unavailable Unavailable Snatiago Coronel MD Unavailable Unavailable BernaSantiago colbert MD Unavailable Unavailable Santiago Coronel MD Unavailable Unavailable BernaSantiago MD Unavailable Unavailable BernaSantiago MD Unavailable Unavailable BernaSantiago MD Unavailable Unavailable Santiago Coronel MD Unavailable Unavailable BernaSantiago MD Unavailable Unavailable BernaSantiago colbert MD Unavailable Unavailable BernaSantiago MD Unavailable Unavailable BernaSantiago colbert MD Unavailable Unavailable BernaSantiago colbert MD Unavailable Unavailable Santiago Coronel MD Unavailable [...] Unavailable Unavailable Santiago Coronel MD Unavailable Unavailable Berna, M Maira MD Unavailable Unavailable Santiago Coronel MD Unavailable Unavailable Santiago Coronel MD Unavailable Unavailable Santiago Coronel MD Unavailable Unavailable Santiago Coronel MD Unavailable Unavailable Santiago Coronel MD Unavailable Unavailable Berna, Santiago Rao MD Unavailable Unavailable Berna, Santiago Rao MD Unavailable Unavailable Berna, Santiago Maira HARDY Unavailable Unavailable Re-disclosure Warning The records that [...] is protected by Article 27-F of the [facility] Public Health law. If you continue you may have access to information: Regarding HIV / AIDS; Provided by facilities licensed or operated by the [facility] Office of Mental Health; or Provided by the [facility] Office for People With Developmental Disabilities. If such information is present, then the following [facility] mandated warning applies: This information has [...] law may result in a fine or retirement sentence or both. A general authorization for [...] Attender: Maira Keith 08:45:00 AM EDT [facility] ([facility] ) Outpatient Attender: Maira Keith 11:30:00 AM EDT [facility] ([facility] ) Outpatient Attender: Maira Keith 01:45:00 PM EST [facility] ([facility] ) Outpatient Attender: Maira Keith 12:30:00 PM EST [facility] ([facility] ) Immunizations Vaccine Date Status Description Data Source(s) Covid-19 Moderna vaccine, 07/04/2020 02:37:00 PM EDT completed [facility] ([facility]) COVID-19 VACCINE Moderna 07/04/2020 12:00:00 AM EDT completed [facility] Vaccine Series Complete: YESThis Data wa s Submitted to [facility] Via [employer]. Covid-19 Moderna vaccine, 06/06/2020 01:37:00 PM EST completed [facility] ([facility]) COVID-19 VACCINE Moderna 06/06/2020 12:00:00 AM EST completed [facility] Vaccine Series Complete: NOThis Data was Submitted to [facility] Via [employer]. This CVX code allows reporting of a vacc ination when formulation is unknown (for example, when recording a Influenza vaccination when noted on a vaccination card) 03/26/2020 01:37:00 PM EST completed [facility] ([facility]) INFLUENZA VACCINE QUADRIVALENT (65 YR UP)/MF59 C.1/PF 03/26/2020 12:00:00 AM EST completed [facility] Note that this Td is not adsorbed. 03/24/2020 12:43:00 PM EST compl eted [facility] ([facility]) Pneumococcal conjugate PCV 13 03/24/2020 12:42:00 PM EST completed [facility] ([facility]) pneumococcal polysaccharide PPV23 03/24/2020 12:42:00 PM EST comple salazar [facility] ([facility]) Medications Medication Brand Name Start Date Product Form Dose Route Admi nistrative Instructions Pharmacy Instructions Status Indications Reaction Description Data Source(s) Camphor 0.031 MG/MG / Menthol 0.1 MG/MG / methyl salicylate 0.15 MG/MG Topical Gel Salonpas Deep Relieving 02/08/2021 12:00:00 AM EDT active [facility] ([facility]) Cephalexin 500 MG Oral Capsule CEPHALEXIN 02/08/2021 12:00:00 AM EDT capsule 20 TAKE ONE CAPSULE BY MOUTH TWICE A DAY FOR 10 DAYS TAKE ONE CAPSULE BY MOUTH TWICE A DAY FOR 10 DAYS SOLD: 02/08/2021 [facility] Cephalexin 500 MG Oral Capsule Cephalexin 02/08/2021 12:00:00 AM EDT ORAL active [facility] ([facility]) bismuth subsalicylate 17.5 MG/ML Oral Suspension [Pepto-bism ol] Pepto-Bismol 09/28/2020 12:00:00 AM EDT ORAL active [facility] ([facility]) 40 mg 06/30/2020 12:00:00 AM EST capsule,delayed release (DR/EC) 30 TAKE ONE TABLET BY MOUTH EVERY DAY TAKE ONE TABLET BY MOUTH EVERY DAY SOLD: 06/30/2020 [facility] 10 mg 06/30/2020 12:00:00 AM EST tablet 5 TAKE ONE TABLET BY MOUTH EVERY DAY FOR 5 DAYS TAKE ONE TABLET BY MOUTH EVERY DAY FOR 5 DAYS SOLD: 06/30/2020 [facility] Omeprazole 40 MG Delayed Release Oral Capsule Omeprazole 06/29/2020 12:00:00 AM EST ORAL active [facility] ([facility]) 27 mg iron- 1 mg 03/25/2020 12:00:00 AM EST tablet 90 TAKE ONE TABLET BY MOUTH EVERY DAY TAKE ONE TABLET BY MOUTH EVERY DAY SOLD: 03/26/2020 [facility] Lidocaine Hydrochloride 40 MG/ML Topical Cream Aspercreme W/ Lidocaine 03/24/2020 12:00:00 AM EST active [facility] ([facility]) Insurance Providers Payer name Policy type / Coverage type Policy ID Covered democrat ID Covered democrat's relationship to cherry Policy Hcerry Plan Information Medicare Natl Govt Servic Medicare Primary [id number] Self [id number] Medicare Natl Govt Servic Medicare Primary [id number] Self [id number] Medicare Natl Govt Servic Medicare Primary [id number] Self [id number] Medicare Natl Govt Servic Medicare Primary [id number] Self [id number] Medicare Natl Govt Servic Medicare Primary [id number] Self [id number] MEDICARE [id number] SP [id number] Medicare Natl Govt Servic Medicare Primary [id number] Self [id number] A Medicare Natl Govt Servic Medicare Primary [id number] Self [id number] Medicare Natl Govt Servic Medicare Primary [id number] Self [id number] Medicare Natl Govt Servic Medicare Primary [id number] Self [id number] MEDICARE [id number] SP [id number] A [place] (Old) Medigap Part B [id number] Family Dependent [id number] [place] Ppo Medigap Part B [id number] Family Dependent [id number] [employer] (Old) Medigap Part B [id number] Family Dependent [id number] [place] Ppo Medigap Part B [id number] Family Dependent [id number] [employer] (Old) Medigap Part B [id number] Family Dependent [id number] [place] Ppo Medigap Part B [id number] Family Dependent Umr [place] Ppo Medigap Part B [id number] Family Dependent [id number] Umr [place] Ppo Medigap Part B [id number] Family Dependent [id number] [place] Ppo Medigap Part B [id number] Family Dependent [id number] [facility] Medigap Part B [id number] Self [id number] [facility] Medigap Part B [id number] Self [id number] [facility] Medigap Part B [id number] Self [id number] Medicare Part B [facility] [place] Other 0 [id number] Self 0 Medicare Part B [facility] [place] Other 0 [id number] Self 0 [employer] HE[employer] CARE OPTIONS [id number] S [id number] [employer] MED[employer] [id number] S [id number] MEDICARE - [place] [id number] S [id number] Medicare Part B [facility] [place] Other 0 [id number] Self 0 [facility] HEALTH CARE OPTIONS [id number] SP [id number] [facility] [id number] Family Dependent [id number] [employer] [id number] HU2 [id number] [employer] PPO O [id number] S [id number] MEDICARE C [id number] S [id number] A [facility] [id number] Family Dependent [facility] HEALTH CARE OPTIONS [id number] SP [id number] Problems, Conditions, and Diagnoses No Information Surgeries/Procedures Procedure Description Date Indications Data Source(s) OFFICE OUTPATIENT VISIT 25 MINUTES 02/08/2021 12:00:00 AM EDT [facility] ([facility]) OFFICE OUTPATIENT VISIT 25 MINUTES 09/28/2020 12:00:00 AM EDT [facility] ([facility]) Results ID Date Data Source [id number] 02/08/2021 09:26:00 AM EDT [facility] ([facility]) Name Value Range Interpretation Code Description Data Altagracia rce(s) Supporting Document(s) C reactive protein [Mass/volume] in Serum or Plasma by High sensitivity method 2.84 mg/dL 0.00-0.30 [facility] ([facility] ) ID Date Data Source [id number] 02/08/2021 09:26:00 AM EDT [facility] ([facility]) Name Value Range Interpretation Code Description Data Altagracia rce(s) Supporting Document(s) Creatinine 1.2 mg/dL 0.6-1.3 [facility] Glucose [Mass/volume] in Serum or Plasma 97 mg/dL 74-99 [facility] ([facility]) 100-125 mg/dL PRE-DIABETES/FASTING >126 mg/dL DIABETES/FASTING Urea nitrogen [Mass/volume] in Serum or Plasma 33 mg/dL 7-18 [facility] ([facility]) Sodium [Moles/volume] in Serum or Plasma 140 meq/L 136-145 [facility] ([facility]) Chloride [Moles/volume] in Serum or Plasma 103 meq/L 98-107 [facility] ([facility]) Potassium [Moles/volume] in Serum or Plasma 4.5 meq/L 3.5-5.1 [facility] ([facility]) Calcium [Mass/volume] in Serum or Plasma 9.9 mg/dL 8.5-10.1 [facility] Glomerular filtration rate/1.73 sq M pre dicted among non-blacks [Volume Rate/Area] in Serum or Plasma by Creatinine-based formula (MDRD) 43 mL/min [facility] Carbon dioxide, total [Moles/volume] in Serum or Plasma 26 meq/L 21 -32 [facility] Glomerular filtration rate/1.73 sq M pre dicted among blacks [Volume Rate/Area] in Serum or Plasma by Creatinine-based formula (MDRD) 52 mL/min [facility] <content>CHRONIC KIDNEY DISEASE STAGING PER NKF</content>
<content></content>
<content>STAGE I & II GFR >= 60 NORMAL TO MILDLY DECREASED</content>
<content>STAGE III GFR 30-59 MODERATELY DECREASED</content>
<content>STAGE IV GFR 15-29 SEVERELY DECREASED</content>
<content>STAGE V GFR <15 VERY LITTLE GFR LEFT</content>
<content>ESRD GFR <15 ON BULK PLANT AGENT</content>
<content></content> ID Date Data Source [id number] 02/08/2021 09:26:00 AM EDT [facility] Name Value Range Interpretation Code Description Data Altagracia rce(s) Supporting Document(s) Erythrocyte sedimentation rate by Westergren method 50 mm/hr 0-15 [facility] ID Date Data Source [id number] 02/08/2021 09:26:00 AM EDT [facility] Name Value Range Interpretation Code Description Data Altagracia rce(s) Supporting Document(s) Leukocytes [#/volume] in Blood by Automated count 7.9 x10*3/UL 4.1-10 .9 [facility] ([facility]) NOTE: CBC VERIFIED Erythrocytes [#/volume] in Blood by Automated count 3.58 x10*6/UL 4.2 0-6.30 [facility] ([facility]) Hematocrit [Volume Fraction] of Blood by Automated count 35.5 % 3 7.0-51.0 [facility] ([facility]) Hemoglobin [Mass/volume] in Blood 11.8 g/dL 12.0-18.0 [facility] ([facility]) MCV 99.2 fL 80.0-97.0 [facility]) MCHC 33.3 g/dL 31.0-38.0 [facility]) MCH 33.0 pg 26.0-32.0 [facility]) MPV 8.2 FL 7.8-11.0 [facility]) Erythrocyte distribution width [Ratio] by Automated count 15.0 % 11.6-13.7 [facility] ([facility]) Platelets [#/volume] in Blood by Automated count 291 x10*3/UL 140-440 [facility] ([facility]) Lymph % 20.8 % 10.0-58.5 [facility]) Mid % 5.7 % 1.7-9.3 [facility] Neut % 73.5 % 37.0-92.0 [facility]) Lymph # 1.6 x10*3/UL 0.6-4.1 [facility] ([facility]) Mid # 0.5 x10*3/UL 0.1-0.6 [facility] ([facility]) Neut # 5.8 x10*3/UL 2.0-7.8 [facility] ([facility]) ID Date Data Source [id number] 09/26/2020 09:30:00 AM EDT [facility] ([facility]) Name Value Range Interpretation Code Description Data Altagracia rce(s) Supporting Document(s) Thyrotropin [Units/volume] in Serum or Plasma by Detec tion limit <= 0.05 mIU/L 4.42 uIU/mL 0.36-3.74 [facility] ([facility] ) ID Date Data Source [id number] 09/26/2020 09:30:00 AM EDT [facility] Name Value Range Interpretation Code Description Data Altagracia rce(s) Supporting Document(s) Glucose [Mass/volume] in Serum or Plasma 95 mg/dL 74-99 [facility] ([facility]) 100-125 mg/dL PRE-DIABETES/FASTING >126 mg/dL DIABETES/FASTING Urea nitrogen [Mass/volume] in Serum or Plasma 40 mg/dL 7-18 [facility] ([facility]) Creatinine 1.1 mg/dL 0.6-1.3 [facility] Sodium [Moles/volume] in Serum or Plasma 144 meq/L 136-145 [facility] ([facility]) Potassium [Moles/volume] in Serum or Plasma 4.5 meq/L 3.5-5.1 [facility] ([facility]) Carbon dioxide, total [Moles/volume] in Serum or Plasma 27 meq/L 21 -32 [facility] ([facility]) Calcium [Mass/volume] in Serum or Plasma 9.4 mg/dL 8.5-10.1 [facility] ([facility]) Chloride [Moles/volume] in Serum or Plasma 106 meq/L 98-107 [facility] ([facility]) Glomerular filtration rate/1.73 sq M pre dicted among non-blacks [Volume Rate/Area] in Serum or Plasma by Creatinine-based formula (MDRD) 47 mL/min [facility] ([facility]) Glomerular filtration rate/1.73 sq M pre dicted among blacks [Volume Rate/Area] in Serum or Plasma by Creatinine-based formula (MDRD) 57 mL/min [facility] ([facility]) <content>CHRONIC KIDNEY DISEASE STAGING PER NKF</content>
<content></content>
<content>STAGE I & II GFR >= 60 NORMAL TO MILDLY DECREASED</content>
<content>STAGE III GFR 30-59 MODERATELY DECREASED</content>
<content>STAGE IV GFR 15-29 SEVERELY DECREASED</content>
<content>STAGE V GFR <15 VERY LITTLE GFR LEFT</content>
<content>ESRD GFR <15 ON BULK PLANT AGENT</content>
<content></content> ID Date Data Source [id number] 09/26/2020 09:30:00 AM EDT [facility] ([facility]) Name Value Range Interpretation Code Description Data Altagracia rce(s) Supporting Document(s) Leukocytes [#/volume] in Blood by Automated count 6.4 x10*3/UL 4.1-10 .9 [facility] ([facility]) NOTE: CBC VERIFIED Hemoglobin [Mass/volume] in Blood 12.2 g/dL 12.0-18.0 [facility] ([facility]) Erythrocytes [#/volume] in Blood by Automated count 3.69 x10*6/UL 4.2 0-6.30 [facility] ([facility]) Hematocrit [Volume Fraction] of Blood by Automated count 37.3 % 3 7.0-51.0 [facility] ([facility]) MCV 101.1 fL 80.0-97.0 [facility]) MCH 33.1 pg 26.0-32.0 [facility]) MCHC 32.7 g/dL 31.0-38.0 [facility]) Platelets [#/volume] in Blood by Automated count 237 x10*3/UL 140-440 [facility] ([facility]) Erythrocyte distribution width [Ratio] by Automated count 15.7 % 11.6-13.7 [facility] ([facility]) MPV 8.7 FL 7.8-11.0 [facility] ([facility]) Lymph % 32.3 % 10.0-58.5 [facility]) Mid % 8.3 % 1.7-9.3 [facility] ([facility]) Lymph # 2.0 x10*3/UL 0.6-4.1 [facility] ([facility]) Neut % 59.4 % 37.0-92.0 [facility] Mid # 0.6 x10*3/UL 0.1-0.6 [facility] ([facility]) Neut # 3.8 x10*3/UL 2.0-7.8 [facility] ([facility]) ID Date Data Source [id number] 07/01/2020 12:30:00 PM EST [facility] ([facility]) Name Value Range Interpretation Code Description Data Altagracia rce(s) Supporting Document(s) Urine Color Laboratory test result [facility] Urine Appearance Laboratory test result Abnormal (applies to non-numeric results) [facility] Urine PH 5.0 units 5.0-9.0 [facility] ([facility]) Urine Leukocytes Laboratory test result Abnormal (applies to non-numeric results) [facility] Specific gravity of Urine 1.025 1.005-1.030 [facility] Urine Blood Laboratory test result [facility] Urine Protein Laboratory test result 0-0 [facility] ([facility]) Urine Nitrite Laboratory test result [facility] Glucose [Presence] in Urine [facility] Bilirubin.total [Mass/volume] in Serum or Plasma Laboratory test resu lt [facility] ([facility]) Urine Ketone Laboratory test result [facility] ([facility]) Urine Urobilinogen 0.2 mg/dL 0.2-1.0 [facility] ID Date Data Source [id number] 06/27/2020 04:47:00 PM EST [facility] ([facility]) Name Value Range Interpretation Code Description Data Altagracia rce(s) Supporting Document(s) Lactate [Mass/volume] in Serum or Plasma 0.9 mmol/L 0.4-2.0 [facility] Y/N query for Sepsis Lactate Rule: Y ID Date Data Source [id number] 06/27/2020 04:47:00 PM EST [facility] ([facility]) Name Value Range Interpretation Code Description Data Altagracia rce(s) Supporting Document(s) Red Blood Count 3.62 10 4.00-5.40 [facility] ([facility]) White Blood Count 9.1 10 4.0-10.0 [facility] ([facility]) Hemoglobin 12.1 g/dL 12.0-15.5 [facility] Hematocrit 38.1 % 36.0-47.0 [facility] ([facility]) Mean Corpuscular Volume 105.2 fl 80.0-96.0 [facility] ([facility]) Mean Corpuscular Hemoglobin 33.4 pg 27.0-33.0 [facility] ([facility]) Mean Corpuscular HGB Conc 31.8 g/dL 32.0-36.5 [facility] ([facility]) Red Cell Distribution Width 16.1 % 11.5-14.5 [facility] ([facility]) Platelet Count, Automated 227 10 150-450 [facility] ([facility]) Neutrophils % 61.7 % 36.0-66.0 [facility] ([facility]) Lymph % 15.9 % 24.0-44.0 [facility] Eos % 11.0 % 0.0-3.0 [facility]) [place] % 10.0 % 2.0-8.0 [facility] Immature Granulocyte % 0.5 % 0-3.0 [facility] ([facility]) Baso % 0.9 % 0.0-1.0 [facility]) Neutrophils # 5.6 10 1.5-8.5 [facility] ([facility]) Nucleated Red Blood Cell % 0.0 % 0-0 [facility] ([facility]) Lymph # 1.5 10 1.5-5.0 [facility]) [place] # 0.9 10 0.0-0.8 [facility] Eos # 1.0 10 0.0-0.5 [facility] Baso # 0.1 10 0.0-0.2 [facility] ID Date Data Source [id number] 06/27/2020 04:46:00 PM EST [facility] ([facility]) Name Value Range Interpretation Code Description Data Altagracia rce(s) Supporting Document(s) Osmolality of Serum or Plasma 303 MOSM/KG 280-301 [facility] ([facility]) Thyrotropin [Units/volume] in Serum or Plasma by Detec tion limit <= 0.05 mIU/L 3.910 uIU/ML 0.358-3.740 [facility] ([facility] ) ID Date Data Source [id number] 06/27/2020 04:46:00 PM EST [facility] ([facility]) Name Value Range Interpretation Code Description Data Altagracia rce(s) Supporting Document(s) Glucose, Fasting 100 mg/dL 70-100 [facility] ([facility]) Blood Urea Nitrogen 54 mg/dL 7-18 [facility] ([facility]) Creatinine For GFR 1.12 mg/dL 0.55-1.30 [facility] ([facility]) Glomerular Filtration Rate 49.2 [facility] ([facility]) <content>Units are mL/min/1.73 m2</content>
<content></content>
<content>Chronic Kidney Disease Staging per NKF:</content>
<content></content>
<content>Stage I & II GFR >=60 Normal to Mildly Decreased</content>
<content>Stage III GFR 30- 59 Moderately Decreased</content>
<content>Stage IV GFR 15-29 Severely Decreased</content>
<content>Stage V GFR <15 Very Little GFR Left</content>
<content>ESRD GFR <15 on BULK PLANT AGENT</content>
<content></content> Sodium Level 138 meq/L 136-145 [facility] ([facility]) Potassium Serum 5.0 meq/L 3.5-5.1 [facility] ([facility]) Chloride Level 104 meq/L 98-107 [facility] ([facility]) Anion Gap 8 meq/L 8-16 [facility] ([facility]) Carbon Dioxide Level 26 meq/L 21-32 [facility] ([facility]) Calcium Level 9.4 mg/dL 8.8-10.2 [facility] ([facility]) ID Date Data Source [id number] 06/27/2020 04:46:00 PM EST [facility] ([facility]) Name Value Range Interpretation Code Description Data Altagracia rce(s) Supporting Document(s) Ast/Sgot 18 U/L 7-37 [facility] ([facility]) Alt/SGPT 19 U/L 12-78 [facility] ([facility]) Alkaline Phosphatase 116 U/L 45-117 [facility] ([facility]) Bilirubin,Total 0.2 mg/dL 0.2-1.0 [facility] ([facility]) Bilirubin,Direct Laboratory test result 0.0-0.2 [facility] ([facility]) Total Protein 7.6 GM/DL 6.4-8.2 [facility] ([facility]) Albumin 3.9 GM/DL 3.2-5.2 [facility] ([facility]) Albumin/Globulin Ratio 1.1 1.2-2.2 [facility] ([facility]) ID Date Data Source [id number] 06/27/2020 04:46:00 PM EST [facility] ([facility]) Name Value Range Interpretation Code Description Data Altagracia rce(s) Supporting Document(s) CPK Creatine Phosphokinase 56 U/L 26-192 [facility] ([facility]) CK-MB Value Mass 2.3 ng/mL [facility] ([facility]) MB/CK Relative Index 4.11 [facility] ([facility]) <content>DIAGNOSIS CRITERIA</content>
<content>MMB ng/ml Relative Index (RI)</content>
<content>NON-AMI < or = 5 N/A</content>
<content>SANTO ZONE > 5 < or = 4</content>
<content>AMI > 5 > 4</content>
<content></content> Troponin I Laboratory [facility] <content>Troponin I Reference Interval f or Siemens [place] LOCI:</content>
<content></content>
<content>99th Percentile= 0.00-0.045 ng/ml</content>
<content></content>
<content>Risk Stratification:</content>
<content><= 0.10 ng/ml Decreased Risk for Adverse Clinical</content>
<content>Events.</content>
<content>0.10-1.50 ng/ml Increased Risk for Adverse Clinical</content>
<content>Events. Evaluation of additional</content>
<content>criterion and/or repeat testing in 2-6</content>
<content>hours is suggested to rule out myocardial</content>
<content>damage.</content>
<content>>= 1.50 ng/ml Indicative of Myocardial Injury.</content>
<content></content> ID Date Data Source [id number] 06/27/2020 04:46:00 PM EST [facility] ([facility]) Name Value Range Interpretation Code Description Data Altagracia rce(s) Supporting Document(s) Ammonia [Mass/volume] in Blood Laboratory test result [facility] ([facility]) ID Date Data Source [id number] 03/23/2020 08:26:00 AM EST [facility] ([facility]) Name Value Range Interpretation Code Description Data Altagracia rce(s) Supporting Document(s) C reactive protein [Mass/volume] in Serum or Plasma by High sensitivity method 0.70 mg/dL 0.00-0.30 [facility] ([facility] ) ID Date Data Source [id number] 03/23/2020 08:25:00 AM EST [facility] ([facility]) Name Value Range Interpretation Code Description Data Altagracia rce(s) Supporting Document(s) Thyrotropin [Units/volume] in Serum or Plasma by Detec tion limit <= 0.05 mIU/L 3.14 uIU/mL 0.36-3.74 [facility] ([facility] ) ID Date Data Source [id number] 03/23/2020 08:25:00 AM EST [facility] ([facility]) Name Value Range Interpretation Code Description Data Altagracia rce(s) Supporting Document(s) Triglyceride [Mass/volume] in Serum or Plasma 95 mg/dL 30-150 [facility] ([facility]) Cholesterol [Mass/volume] in Serum or Plasma 204 mg/dL 131-200 [facility] ([facility]) Cholesterol in HDL [Mass/volume] in Serum or Plasma 66 mg/dL 35-60 [facility] ([facility]) Cholesterol in LDL [Mass/volume] in Serum or Plasma by calcu lation 119 CALC 50-159 [facility] ID Date Data Source [id number] 03/23/2020 08:25:00 AM EST [facility] ([facility]) Name Value Range Interpretation Code Description Data Altagracia rce(s) Supporting Document(s) Glucose [Mass/volume] in Serum or Plasma 82 mg/dL 74-99 [facility] ([facility]) 100-125 mg/dL PRE-DIABETES/FASTING >126 mg/dL DIABETES/FASTING Creatinine 1.2 mg/dL 0.6-1.3 [facility] Urea nitrogen [Mass/volume] in Serum or Plasma 40 mg/dL 7-18 [facility] ([facility]) NOTE: RESULT VERIFIED. Potassium [Moles/volume] in Serum or Plasma 4.1 meq/L 3.5-5.1 [facility] ([facility]) Chloride [Moles/volume] in Serum or Plasma 104 meq/L 98-107 [facility] ([facility]) Sodium [Moles/volume] in Serum or Plasma 143 meq/L 136-145 [facility] ([facility]) Alkaline phosphatase isoenzyme [Units/volume] in Serum or Pl asma 100 mg/dL 46-116 [facility] ([facility]) Carbon dioxide, total [Moles/volume] in Serum or Plasma 28 meq/L 21 -32 [facility] ([facility]) Calcium [Mass/volume] in Serum or Plasma 8.9 mg/dL 8.5-10.1 [facility] ([facility]) Total Bilirubin 0.4 mg/dL 0.2-1.0 [facility] ([facility]) Aspartate aminotransferase [Enzymatic activity/volume] in Serum or Plasma 25 U/L 15-37 [facility] ([facility] ) Alanine aminotransferase [Enzymatic activity/volume] in Seru m or Plasma 22 U/L 12-78 [facility] ([facility]) Proteinase 3 Ab [Units/volume] in Serum 7.6 g/dL 6.4-8.2 [facility] ([facility]) Glomerular filtration rate/1.73 sq M pre dicted among non-blacks [Volume Rate/Area] in Serum or Plasma by Creatinine-based formula (MDRD) 43 mL/min [facility] ([facility]) A/G Ratio 1.05 CALC 1.00-1.90 [facility]) Albumin [Mass/volume] in Serum or Plasma 3.9 g/dL 3.4-5.0 [facility] ([facility]) Glomerular filtration rate/1.73 sq M pre dicted among blacks [Volume Rate/Area] in Serum or Plasma by Creatinine-based formula (MDRD) 52 mL/min [facility] ([facility]) <content>CHRONIC KIDNEY DISEASE STAGING PER NKF</content>
<content></content>
<content>STAGE I & II GFR >= 60 NORMAL TO MILDLY DECREASED</content>
<content>STAGE III GFR 30-59 MODERATELY DECREASED</content>
<content>STAGE IV GFR 15-29 SEVERELY DECREASED</content>
<content>STAGE V GFR <15 VERY LITTLE GFR LEFT</content>
<content>ESRD GFR <15 ON BULK PLANT AGENT</content>
<content></content> ID Date Data Source [id number] 03/23/2020 08:25:00 AM EST [facility] ([facility]) Name Value Range Interpretation Code Description Data Altagracia rce(s) Supporting Document(s) Erythrocyte sedimentation rate by Westergren method 46 mm/hr 0-15 [facility] ([facility]) ID Date Data Source [id number] 03/23/2020 08:25:00 AM EST [facility] ([facility]) Name Value Range Interpretation Code Description Data Altagracia rce(s) Supporting Document(s) Leukocytes [#/volume] in Blood by Automated count 6.1 x10*3/UL 4.1-10 .9 [facility] ([facility]) NOTE: CBC VERIFIED Hematocrit [Volume Fraction] of Blood by Automated count 34.6 % 3 7.0-51.0 [facility] ([facility]) Erythrocytes [#/volume] in Blood by Automated count 3.45 x10*6/UL 4.2 0-6.30 [facility] ([facility]) Hemoglobin [Mass/volume] in Blood 12.0 g/dL 12.0-18.0 [facility] ([facility]) MCHC 34.8 g/dL 31.0-38.0 [facility] MCH 34.9 pg 26.0-32.0 [facility] MCV 100.3 fL 80.0-97.0 [facility] Erythrocyte distribution width [Ratio] by Automated count 15.0 % 11.6-13.7 [facility] ([facility]) Platelets [#/volume] in Blood by Automated count 221 x10*3/UL 140-440 [facility] ([facility]) MPV 8.8 FL 7.8-11.0 [facility]) Neut % 62.6 % 37.0-92.0 [facility]) Mid % 8.3 % 1.7-9.3 [facility] Lymph % 29.1 % 10.0-58.5 [facility] Mid # 0.6 x10*3/UL 0.1-0.6 [facility] ([facility]) Lymph # 1.7 x10*3/UL 0.6-4.1 [facility] ([facility]) Neut # 3.8 x10*3/UL 2.0-7.8 [facility] ([facility]) Procedure Social History No Information Vital Signs ID Date Data Source UNK Name Value Range Interpretation Code Description Data Source(s) Systolic blood pressure 132 mm[Hg] 132 mm[Hg] [facility] ([facility]) RT Arm Diastolic blood pressure 70 mm[Hg] 70 mm[Hg] [facility] RT Arm Body height 59.50 [in_i] 59.50 [in_i] [facility] ([facility]) " Heart rate 76 /min 76 /min [facility] ([facility]) Body height 59.50 [in_i] 59.50 [in_i] [facility] ([facility]) " Diastolic blood pressure 84 mm[Hg] 84 mm[Hg] [facility] ([facility]) RT Arm Heart rate 88 /min 88 /min [facility] ([facility]) Body weight 145.25 [lb_av] 145.25 [lb_av] [facility] ([facility]) Systolic blood pressure 134 mm[Hg] 134 mm[Hg] [facility] ([facility]) RT Arm Body mass index (BMI) [Ratio] 28.8 kg/m2 28.8 k g/m2 [facility] ([facility]) Systolic blood pressure 140 mm[Hg] 140 mm[Hg] [facility] ([facility]) Body weight 148.00 [lb_av] 148.00 [lb_av] [facility] ([facility]) Diastolic blood pressure 70 mm[Hg] 70 mm[Hg] [facility] ([facility]) Diastolic blood pressure 66 mm[Hg] 66 mm[Hg] [facility] ([facility]) Heart rate 68 /min 68 /min [facility] ([facility]) Body height 59.50 [in_i] 59.50 [in_i] [facility] ([facility]) " Body mass index (BMI) [Ratio] 29.4 kg/m2 29.4 k g/m2 [facility] ([facility]) Systolic blood pressure 138 mm[Hg] 138 mm[Hg] [facility] ([facility]) Systolic blood pressure 152 mm[Hg] 152 mm[Hg] [facility] ([facility]) RT Arm Diastolic blood pressure 72 mm[Hg] 72 mm[Hg] [facility] ([facility]) RT Arm Heart rate 80 /min 80 /min [facility] ([facility]) Body height 59.50 [in_i] 59.50 [in_i] [facility] ([facility] " Body weight 146.38 [lb_av] 146.38 [lb_av] [facility] ([facility]) Body mass index (BMI) [Ratio] 29.1 kg/m2 29.1 k g/m2 [facility] ([facility]) Systolic blood pressure 138 mm[Hg] 138 mm[Hg] [facility] Diastolic blood pressure 76 mm[Hg] 76 mm[Hg] [facility] ([facility]) Body height 59.50 [in_i] 59.50 [in_i] [facility] " Body weight 148.00 [lb_av] 148.00 [lb_av] [facility] ([facility]) Body mass index (BMI) [Ratio] 29.4 kg/m2 29.4 k g/m2 [facility] ([facility])
[2021-02-21] MEDS ORDERED: VANCOMYCIN HCL 750 MG, VIAL MATE ADAPTER 1 EACH in NS 250 ML IV ONE (10:55)
[2021-02-21] MEDS ORDERED: VANCOMYCIN HCL 500 MG in D5W MINI-BAG PLUS 100 ML IV ONE (10:55)
[2021-02-21] MEDS ORDERED: VANCOMYCIN HCL 1,250 MG in NS 250 ML IV ONE (10:55)
[2021-02-21] MEDS ORDERED: PREN27TA3 PO (11:53)
[2021-02-21 11:59] LABS: BASO # 0.1 10^3/uL (0.0-0.2); BASO % 0.8 % (0.0-1.0); EOS # 1.1 10^3/uL (0.0-0.5); EOS % 12.3 % (0.0-3.0); HEMOGLOBIN 11.9 g/dl (12.0-15.5); LYMPH # 1.6 10^3/uL (1.5-5.0); LYMPH % 18.4 % (24.0-44.0); MEAN CORPUSCULAR HEMOGLOBIN 33.3 pg (27.0-33.0); MEAN CORPUSCULAR HGB CONC 32.2 g/dl (32.0-36.5); MEAN CORPUSCULAR VOLUME 103.6 fl (80.0-96.0); MONO % 11.8 % (2.0-8.0); NEUTROPHILS # 4.9 10^3/uL (1.5-8.5); NEUTROPHILS % 56.2 % (36.0-66.0); PLATELET COUNT, AUTOMATED 275 10^3/uL (150-450); RED BLOOD COUNT 3.57 10^6/uL (4.00-5.40); WHITE BLOOD COUNT 8.7 10^3/uL (4.0-10.0)
[2021-02-21 12:23] LABS: C REACTIVE PROTEIN QUANTITATIV 6.88 MG/DL (0.00-0.30); CALCIUM LEVEL 10.3 MG/DL (8.8-10.2); CREATININE FOR GFR 0.96 MG/DL (0.55-1.30); GLOMERULAR FILTRATION RATE 58.7 (>32); POTASSIUM SERUM 4.2 MEQ/L (3.5-5.1)
[2021-02-21 12:26] LABS: ERYTHROCYTE SEDIMENTATION RATE 70 mm/hr (0-30)
[2021-02-21 12:59] LABS: RSV AMPLIFICATION NEGATIVE (NEGATIVE)
[2021-02-21] MEDS ORDERED: HOME MED LIST COMPLETE! XX SCH (13:10)
--- OUTSIDE RECORDS SUMMARY | 2021-02-21 13:59 | CCD ---
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 If you continue you may have access to information: Regarding HIV / AIDS; Provided by facilities licensed or operated by the [facility] Office of Mental Health; or Provided by the [facility] Office for People With Developmental Disabilities. If such information is present, then the following [facility] mandated warning applies: This information has [...] law may result in a fine or intermediate sentence or both. A general authorization for [...] Attender: Maira Keith 08:45:00 AM EDT [facility] ([facility] ) Outpatient Attender: Maira Keith 11:30:00 AM EDT [facility] ([facility] ) Outpatient Attender: Maira Keith 01:45:00 PM EST [facility] ([facility] ) Outpatient Attender: Maira Keith 12:30:00 PM EST [facility] ([facility] ) Immunizations Vaccine Date Status Description Data Source(s) Covid-19 Moderna vaccine, 07/04/2020 02:37:00 PM EDT completed [facility] ([facility]) COVID-19 VACCINE Moderna 07/04/2020 12:00:00 AM EDT completed [facility] Vaccine Series Complete: YESThis Data wa s Submitted to [facility] Via [employer]. Covid-19 Moderna vaccine, 06/06/2020 01:37:00 PM EST completed [facility] ([facility]) COVID-19 VACCINE Moderna 06/06/2020 12:00:00 AM EST completed [facility] Vaccine Series Complete: NOThis Data was Submitted to [facility] Via [employer]. This CVX code allows reporting of a vacc ination when formulation is unknown (for example, when recording a Influenza vaccination when noted on a vaccination card) 03/26/2020 01:37:00 PM EST completed [facility] ([facility]) INFLUENZA VACCINE QUADRIVALENT (65 YR UP)/MF59 C.1/PF 03/26/2020 12:00:00 AM EST completed [facility] Note that this Td is not adsorbed. 03/24/2020 12:43:00 PM EST compl eted [facility] ([facility]) Pneumococcal conjugate PCV 13 03/24/2020 12:42:00 PM EST completed [facility] ([facility]) pneumococcal polysaccharide PPV23 03/24/2020 12:42:00 PM EST comple salazar [facility] ([facility]) Medications Medication Brand Name Start Date Product Form Dose Route Admi nistrative Instructions Pharmacy Instructions Status Indications Reaction Description Data Source(s) Camphor 0.031 MG/MG / Menthol 0.1 MG/MG / methyl salicylate 0.15 MG/MG Topical Gel Salonpas Deep Relieving 02/08/2021 12:00:00 AM EDT active [facility] ([facility]) Cephalexin 500 MG Oral Capsule CEPHALEXIN 02/08/2021 12:00:00 AM EDT capsule 20 TAKE ONE CAPSULE BY MOUTH TWICE A DAY FOR 10 DAYS TAKE ONE CAPSULE BY MOUTH TWICE A DAY FOR 10 DAYS SOLD: 02/08/2021 [facility] Cephalexin 500 MG Oral Capsule Cephalexin 02/08/2021 12:00:00 AM EDT ORAL active [facility] ([facility]) bismuth subsalicylate 17.5 MG/ML Oral Suspension [Pepto-bism ol] Pepto-Bismol 09/28/2020 12:00:00 AM EDT ORAL active [facility] ([facility]) 40 mg 06/30/2020 12:00:00 AM EST [...] 06/29/2020 12:00:00 AM EST ORAL active [facility] ([facility]) 27 mg iron- 1 mg 03/25/2020 12:00:00 AM EST tablet 90 TAKE ONE TABLET BY MOUTH EVERY DAY TAKE ONE TABLET BY MOUTH EVERY DAY SOLD: 03/26/2020 [facility] Lidocaine Hydrochloride 40 MG/ML Topical Cream Aspercreme W/ Lidocaine 03/24/2020 12:00:00 AM EST active [facility] ([facility]) Insurance Providers Payer name Policy type / Coverage type Policy ID Covered democrat ID Covered democrat's relationship to cherry Policy Cherry Plan Information Medicare Natl Govt Servic Medicare Primary [id number] Self [id number] Medicare Natl Govt Servic Medicare Primary [id number] Self [id number] Medicare Natl Govt Servic Medicare Primary [id number] Self [id number] Medicare Natl Govt Servic Medicare Primary [id number] Self [id number] Medicare Natl Govt Servic Medicare Primary [id number] Self [id number] MEDICARE [id number] SP [id number] Medicare Natl Govt Servic Medicare Primary [id number] Self [id number] A Medicare Natl Govt Servic Medicare Primary [id number] Self [id number] Medicare Natl Govt Servic Medicare Primary [id number] Self [id number] Medicare Natl Govt Servic Medicare Primary [id number] Self [id number] MEDICARE [id number] SP [id number] A [employer] (Old) Medigap Part B [id number] Family Dependent [id number] [place] Ppo Medigap Part B [id number] Family Dependent [id number] [employer] (Old) Medigap Part B [id number] Family Dependent [id number] [place] Ppo Medigap Part B [id number] Family Dependent [id number] [employer] (Old) Medigap Part B [id number] Family Dependent [id number] [place] Ppo Medigap Part B [id number] Family Dependent Umr [place] Ppo Medigap Part B [id number] Family Dependent [id number] Umr [place] Ppo Medigap Part B [id number] Family Dependent [id number] [employer] Ppo Medigap Part B [id number] Family Dependent [id number] [facility] Medigap Part B [id number] Self [id number] [facility] Medigap Part B [id number] Self [id number] 11 [facility] Opt Medigap Part B [id number] Self [id number] Medicare Part B [facility] [place] Other 0 [id number] Self 0 Medicare Part B of [place] [facility] [place] Other 0 [id number] Self 0 [employer] HE[employer] CARE OPTIONS [id number] S [id number] [employer] [id number] S [id number] MEDICARE - [place] [id number] S [id number] Medicare Part B [facility] Other 0 [id number] Self 0 [facility] HE[facility] CARE OPTIONS [id number] SP [id number] [facility] Part B [id number] Family Dependent [id number] [employer] [id number] HU2 [id number] [employer] PPO O [id number] S [id number] MEDICARE C [id number] S [id number] A [facility] Part B [id number] Family Dependent [facility] HE[facility] CARE OPTIONS [id number] SP [id number] Problems, Conditions, and Diagnoses No Information Surgeries/Procedures Procedure Description Date Indications Data Source(s) OFFICE OUTPATIENT VISIT 25 MINUTES 02/08/2021 12:00:00 AM EDT [facility] ([facility]) OFFICE OUTPATIENT VISIT 25 MINUTES 09/28/2020 12:00:00 AM EDT [facility] ([facility]) Results ID Date Data Source [id number] 02/08/2021 09:26:00 AM EDT [facility] ([facility]) Name Value Range Interpretation Code Description Data Altagracia rce(s) Supporting Document(s) C reactive protein [Mass/volume] in Serum or Plasma by High sensitivity method 2.84 mg/dL 0.00-0.30 [facility] ([facility] ) ID Date Data Source [id number] 02/08/2021 09:26:00 AM EDT [facility] ([facility]) Name Value Range Interpretation Code Description Data Altagracia rce(s) Supporting Document(s) Creatinine 1.2 mg/dL 0.6-1.3 [facility] Glucose [Mass/volume] in Serum or Plasma 97 mg/dL 74-99 [facility] ([facility]) 100-125 mg/dL PRE-DIABETES/FASTING >126 mg/dL DIABETES/FASTING Urea nitrogen [Mass/volume] in Serum or Plasma 33 mg/dL 7-18 [facility] ([facility]) Sodium [Moles/volume] in Serum or Plasma 140 meq/L 136-145 [facility] ([facility]) Chloride [Moles/volume] in Serum or Plasma 103 meq/L 98-107 [facility] ([facility]) Potassium [Moles/volume] in Serum or Plasma 4.5 meq/L 3.5-5.1 [facility] ([facility]) Calcium [Mass/volume] in Serum or Plasma 9.9 mg/dL 8.5-10.1 [facility] Glomerular filtration rate/1.73 sq M pre dicted among non-blacks [Volume Rate/Area] in Serum or Plasma by Creatinine-based formula (MDRD) 43 mL/min [facility] Carbon dioxide, total [Moles/volume] in Serum or Plasma 26 meq/L 21 -32 [facility] Glomerular filtration rate/1.73 sq M pre dicted among blacks [Volume Rate/Area] in Serum or Plasma by Creatinine-based formula (MDRD) 52 mL/min [facility] <content>CHRONIC KIDNEY DISEASE STAGING PER NKF</content>
<content></content>
<content>STAGE I & II GFR >= 60 NORMAL TO MILDLY DECREASED</content>
<content>STAGE III GFR 30-59 MODERATELY DECREASED</content>
<content>STAGE IV GFR 15-29 SEVERELY DECREASED</content>
<content>STAGE V GFR <15 VERY LITTLE GFR LEFT</content>
<content>ESRD GFR <15 ON HOME HEALTH OUTREACH COORDINATOR</content>
<content></content> ID Date Data Source [id number] 02/08/2021 09:26:00 AM EDT [facility] Name Value Range Interpretation Code Description Data Altagracia rce(s) Supporting Document(s) Erythrocyte sedimentation rate by Westergren method 50 mm/hr 0-15 [facility] ID Date Data Source [id number] 02/08/2021 09:26:00 AM EDT [facility] Name Value Range Interpretation Code Description Data Altagracia rce(s) Supporting Document(s) Leukocytes [#/volume] in Blood by Automated count 7.9 x10*3/UL 4.1-10 .9 [facility] ([facility]) NOTE: CBC VERIFIED Erythrocytes [#/volume] in Blood by Automated count 3.58 x10*6/UL 4.2 0-6.30 [facility] ([facility]) Hematocrit [Volume Fraction] of Blood by Automated count 35.5 % 3 7.0-51.0 [facility] ([facility]) Hemoglobin [Mass/volume] in Blood 11.8 g/dL 12.0-18.0 [facility] ([facility]) MCV 99.2 fL 80.0-97.0 [facility] MCHC 33.3 g/dL 31.0-38.0 [facility]) MCH 33.0 pg 26.0-32.0 [facility]) MPV 8.2 FL 7.8-11.0 [facility] Erythrocyte distribution width [Ratio] by Automated count 15.0 % 11.6-13.7 [facility] ([facility]) Platelets [#/volume] in Blood by Automated count 291 x10*3/UL 140-440 [facility] ([facility]) Lymph % 20.8 % 10.0-58.5 [facility] Mid % 5.7 % 1.7-9.3 [facility] Neut % 73.5 % 37.0-92.0 [facility] Lymph # 1.6 x10*3/UL 0.6-4.1 [facility] ([facility]) Mid # 0.5 x10*3/UL 0.1-0.6 [facility] ([facility]) Neut # 5.8 x10*3/UL 2.0-7.8 [facility] ([facility]) ID Date Data Source [id number] 09/26/2020 09:30:00 AM EDT [facility] ([facility]) Name Value Range Interpretation Code Description Data Altagracia rce(s) Supporting Document(s) Thyrotropin [Units/volume] in Serum or Plasma by Detec tion limit <= 0.05 mIU/L 4.42 uIU/mL 0.36-3.74 [facility] ([facility] ) ID Date Data Source [id number] 09/26/2020 09:30:00 AM EDT [facility]) Name Value Range Interpretation Code Description Data Altagracia rce(s) Supporting Document(s) Glucose [Mass/volume] in Serum or Plasma 95 mg/dL 74-99 [facility] ([facility]) 100-125 mg/dL PRE-DIABETES/FASTING >126 mg/dL DIABETES/FASTING Urea nitrogen [Mass/volume] in Serum or Plasma 40 mg/dL 7-18 [facility] ([facility]) Creatinine 1.1 mg/dL 0.6-1.3 [facility] Sodium [Moles/volume] in Serum or Plasma 144 meq/L 136-145 [facility] ([facility]) Potassium [Moles/volume] in Serum or Plasma 4.5 meq/L 3.5-5.1 [facility] ([facility]) Carbon dioxide, total [Moles/volume] in Serum or Plasma 27 meq/L 21 -32 [facility] ([facility]) Calcium [Mass/volume] in Serum or Plasma 9.4 mg/dL 8.5-10.1 [facility] ([facility]) Chloride [Moles/volume] in Serum or Plasma 106 meq/L 98-107 [facility] ([facility]) Glomerular filtration rate/1.73 sq M pre dicted among non-blacks [Volume Rate/Area] in Serum or Plasma by Creatinine-based formula (MDRD) 47 mL/min [facility] ([facility]) Glomerular filtration rate/1.73 sq M pre dicted among blacks [Volume Rate/Area] in Serum or Plasma by Creatinine-based formula (MDRD) 57 mL/min [facility] ([facility]) <content>CHRONIC KIDNEY DISEASE STAGING PER NKF</content>
<content></content>
<content>STAGE I & II GFR >= 60 NORMAL TO MILDLY DECREASED</content>
<content>STAGE III GFR 30-59 MODERATELY DECREASED</content>
<content>STAGE IV GFR 15-29 SEVERELY DECREASED</content>
<content>STAGE V GFR <15 VERY LITTLE GFR LEFT</content>
<content>ESRD GFR <15 ON HOME HEALTH OUTREACH COORDINATOR</content>
<content></content> ID Date Data Source [id number] 09/26/2020 09:30:00 AM EDT [facility] ([facility]) Name Value Range Interpretation Code Description Data Altagracia rce(s) Supporting Document(s) Leukocytes [#/volume] in Blood by Automated count 6.4 x10*3/UL 4.1-10 .9 [facility] ([facility]) NOTE: CBC VERIFIED Hemoglobin [Mass/volume] in Blood 12.2 g/dL 12.0-18.0 [facility] ([facility]) Erythrocytes [#/volume] in Blood by Automated count 3.69 x10*6/UL 4.2 0-6.30 [facility] ([facility]) Hematocrit [Volume Fraction] of Blood by Automated count 37.3 % 3 7.0-51.0 [facility] ([facility]) MCV 101.1 fL 80.0-97.0 [facility] MCH 33.1 pg 26.0-32.0 [facility]) MCHC 32.7 g/dL 31.0-38.0 [facility] ([facility]) Platelets [#/volume] in Blood by Automated count 237 x10*3/UL 140-440 [facility] ([facility]) Erythrocyte distribution width [Ratio] by Automated count 15.7 % 11.6-13.7 [facility] ([facility]) MPV 8.7 FL 7.8-11.0 [facility] Lymph % 32.3 % 10.0-58.5 [facility] ([facility]) Mid % 8.3 % 1.7-9.3 [facility] ([facility]) Lymph # 2.0 x10*3/UL 0.6-4.1 [facility] ([facility]) Neut % 59.4 % 37.0-92.0 [facility]) Mid # 0.6 x10*3/UL 0.1-0.6 [facility] ([facility]) Neut # 3.8 x10*3/UL 2.0-7.8 [facility] ([facility]) ID Date Data Source [id number] 07/01/2020 12:30:00 PM EST [facility] ([facility]) Name Value Range Interpretation Code Description Data Altagracia rce(s) Supporting Document(s) Urine Color Laboratory test result [facility] Urine Appearance Laboratory test result Abnormal (applies to non-numeric results) [facility] Urine PH 5.0 units 5.0-9.0 [facility] ([facility]) Urine Leukocytes Laboratory test result Abnormal (applies to non-numeric results) [facility] Specific gravity of Urine 1.025 1.005-1.030 [facility] Urine Blood Laboratory test result [facility] Urine Protein Laboratory test result 0-0 [facility] ([facility]) Urine Nitrite Laboratory test result [facility] Glucose [Presence] in Urine [facility] Bilirubin.total [Mass/volume] in Serum or Plasma Laboratory test resu lt [facility] ([facility]) Urine Ketone Laboratory test result [facility] ([facility]) Urine Urobilinogen 0.2 mg/dL 0.2-1.0 [facility]) ID Date Data Source [id number] 06/27/2020 04:47:00 PM EST [facility] ([facility]) Name Value Range Interpretation Code Description Data Altagracia rce(s) Supporting Document(s) Lactate [Mass/volume] in Serum or Plasma 0.9 mmol/L 0.4-2.0 [facility]) Y/N query for Sepsis Lactate Rule: Y ID Date Data Source [id number] 06/27/2020 04:47:00 PM EST [facility] ([facility]) Name Value Range Interpretation Code Description Data Altagracia rce(s) Supporting Document(s) Red Blood Count 3.62 10 4.00-5.40 [facility] ([facility]) White Blood Count 9.1 10 4.0-10.0 [facility] ([facility]) Hemoglobin 12.1 g/dL 12.0-15.5 [facility] Hematocrit 38.1 % 36.0-47.0 [facility] ([facility]) Mean Corpuscular Volume 105.2 fl 80.0-96.0 [facility] ([facility]) Mean Corpuscular Hemoglobin 33.4 pg 27.0-33.0 [facility] ([facility]) Mean Corpuscular HGB Conc 31.8 g/dL 32.0-36.5 [facility] ([facility]) Red Cell Distribution Width 16.1 % 11.5-14.5 [facility] ([facility]) Platelet Count, Automated 227 10 150-450 [facility] ([facility]) Neutrophils % 61.7 % 36.0-66.0 [facility] ([facility]) Lymph % 15.9 % 24.0-44.0 [facility] Eos % 11.0 % 0.0-3.0 [facility]) [place] % 10.0 % 2.0-8.0 [facility] Immature Granulocyte % 0.5 % 0-3.0 [facility] ([facility]) Baso % 0.9 % 0.0-1.0 [facility] Neutrophils # 5.6 10 1.5-8.5 [facility] ([facility]) Nucleated Red Blood Cell % 0.0 % 0-0 [facility] ([facility]) Lymph # 1.5 10 1.5-5.0 [facility]) [place] # 0.9 10 0.0-0.8 [facility] Eos # 1.0 10 0.0-0.5 [facility] Baso # 0.1 10 0.0-0.2 [facility] ID Date Data Source [id number] 06/27/2020 04:46:00 PM EST [facility] ([facility]) Name Value Range Interpretation Code Description Data Altagracia rce(s) Supporting Document(s) Osmolality of Serum or Plasma 303 MOSM/KG 280-301 [facility] ([facility]) Thyrotropin [Units/volume] in Serum or Plasma by Detec tion limit <= 0.05 mIU/L 3.910 uIU/ML 0.358-3.740 [facility] ([facility] ) ID Date Data Source [id number] 06/27/2020 04:46:00 PM EST [facility] ([facility]) Name Value Range Interpretation Code Description Data Altagracia rce(s) Supporting Document(s) Glucose, Fasting 100 mg/dL 70-100 [facility] ([facility]) Blood Urea Nitrogen 54 mg/dL 7-18 [facility] ([facility]) Creatinine For GFR 1.12 mg/dL 0.55-1.30 [facility] ([facility]) Glomerular Filtration Rate 49.2 [facility] ([facility]) <content>Units are mL/min/1.73 m2</content>
<content></content>
<content>Chronic Kidney Disease Staging per NKF:</content>
<content></content>
<content>Stage I & II GFR >=60 Normal to Mildly Decreased</content>
<content>Stage III GFR 30- 59 Moderately Decreased</content>
<content>Stage IV GFR 15-29 Severely Decreased</content>
<content>Stage V GFR <15 Very Little GFR Left</content>
<content>ESRD GFR <15 on HOME HEALTH OUTREACH COORDINATOR</content>
<content></content> Sodium Level 138 meq/L 136-145 [facility] ([facility]) Potassium Serum 5.0 meq/L 3.5-5.1 [facility] ([facility]) Chloride Level 104 meq/L 98-107 [facility] ([facility]) Anion Gap 8 meq/L 8-16 [facility] Carbon Dioxide Level 26 meq/L 21-32 [facility] ([facility]) Calcium Level 9.4 mg/dL 8.8-10.2 [facility] ([facility]) ID Date Data Source [id number] 06/27/2020 04:46:00 PM EST [facility] ([facility]) Name Value Range Interpretation Code Description Data Altagracia rce(s) Supporting Document(s) Ast/Sgot 18 U/L 7-37 [facility] ([facility]) Alt/SGPT 19 U/L 12-78 [facility] ([facility]) Alkaline Phosphatase 116 U/L 45-117 [facility] ([facility]) Bilirubin,Total 0.2 mg/dL 0.2-1.0 [facility] ([facility]) Bilirubin,Direct Laboratory test result 0.0-0.2 [facility] ([facility]) Total Protein 7.6 GM/DL 6.4-8.2 [facility] ([facility]) Albumin 3.9 GM/DL 3.2-5.2 [facility] ([facility]) Albumin/Globulin Ratio 1.1 1.2-2.2 [facility] ([facility]) ID Date Data Source [id number] 06/27/2020 04:46:00 PM EST [facility] ([facility]) Name Value Range Interpretation Code Description Data Altagracia rce(s) Supporting Document(s) CPK Creatine Phosphokinase 56 U/L 26-192 [facility] ([facility]) CK-MB Value Mass 2.3 ng/mL [facility] ([facility]) MB/CK Relative Index 4.11 [facility] ([facility]) <content>DIAGNOSIS CRITERIA</content>
<content>MMB ng/ml Relative Index (RI)</content>
<content>NON-AMI < or = 5 N/A</content>
<content>SANTO ZONE > 5 < or = 4</content>
<content>AMI > 5 > 4</content>
<content></content> Troponin I Laboratory [facility] <content>Troponin I Reference Interval f or Siemens [place] LOCI:</content>
<content></content>
<content>99th Percentile= 0.00-0.045 ng/ml</content>
<content></content>
<content>Risk Stratification:</content>
<content><= 0.10 ng/ml Decreased Risk for Adverse Clinical</content>
<content>Events.</content>
<content>0.10-1.50 ng/ml Increased Risk for Adverse Clinical</content>
<content>Events. Evaluation of additional</content>
<content>criterion and/or repeat testing in 2-6</content>
<content>hours is suggested to rule out myocardial</content>
<content>damage.</content>
<content>>= 1.50 ng/ml Indicative of Myocardial Injury.</content>
<content></content> ID Date Data Source [id number] 06/27/2020 04:46:00 PM EST [facility] ([facility]) Name Value Range Interpretation Code Description Data Altagracia rce(s) Supporting Document(s) Ammonia [Mass/volume] in Blood Laboratory test result [facility] ([facility]) ID Date Data Source [id number] 03/23/2020 08:26:00 AM EST [facility] ([facility]) Name Value Range Interpretation Code Description Data Altagracia rce(s) Supporting Document(s) C reactive protein [Mass/volume] in Serum or Plasma by High sensitivity method 0.70 mg/dL 0.00-0.30 [facility] ([facility] ) ID Date Data Source [id number] 03/23/2020 08:25:00 AM EST [facility] ([facility]) Name Value Range Interpretation Code Description Data Altagracia rce(s) Supporting Document(s) Thyrotropin [Units/volume] in Serum or Plasma by Detec tion limit <= 0.05 mIU/L 3.14 uIU/mL 0.36-3.74 [facility] ([facility] ) ID Date Data Source [id number] 03/23/2020 08:25:00 AM EST [facility] ([facility]) Name Value Range Interpretation Code Description Data Altagracia rce(s) Supporting Document(s) Triglyceride [Mass/volume] in Serum or Plasma 95 mg/dL 30-150 [facility] ([facility]) Cholesterol [Mass/volume] in Serum or Plasma 204 mg/dL 131-200 [facility] ([facility]) Cholesterol in HDL [Mass/volume] in Serum or Plasma 66 mg/dL 35-60 [facility] ([facility]) Cholesterol in LDL [Mass/volume] in Serum or Plasma by calcu lation 119 CALC 50-159 [facility] ID Date Data Source [id number] 03/23/2020 08:25:00 AM EST [facility] ([facility]) Name Value Range Interpretation Code Description Data Altagracia rce(s) Supporting Document(s) Glucose [Mass/volume] in Serum or Plasma 82 mg/dL 74-99 [facility] ([facility]) 100-125 mg/dL PRE-DIABETES/FASTING >126 mg/dL DIABETES/FASTING Creatinine 1.2 mg/dL 0.6-1.3 [facility] Urea nitrogen [Mass/volume] in Serum or Plasma 40 mg/dL 7-18 [facility] ([facility]) NOTE: RESULT VERIFIED. Potassium [Moles/volume] in Serum or Plasma 4.1 meq/L 3.5-5.1 [facility] ([facility]) Chloride [Moles/volume] in Serum or Plasma 104 meq/L 98-107 [facility] ([facility]) Sodium [Moles/volume] in Serum or Plasma 143 meq/L 136-145 [facility] ([facility]) Alkaline phosphatase isoenzyme [Units/volume] in Serum or Pl asma 100 mg/dL 46-116 [facility] ([facility]) Carbon dioxide, total [Moles/volume] in Serum or Plasma 28 meq/L 21 -32 [facility] ([facility]) Calcium [Mass/volume] in Serum or Plasma 8.9 mg/dL 8.5-10.1 [facility] ([facility]) Total Bilirubin 0.4 mg/dL 0.2-1.0 [facility] ([facility]) Aspartate aminotransferase [Enzymatic activity/volume] in Serum or Plasma 25 U/L 15-37 [facility] ([facility] ) Alanine aminotransferase [Enzymatic activity/volume] in Seru m or Plasma 22 U/L 12-78 [facility] ([facility]) Proteinase 3 Ab [Units/volume] in Serum 7.6 g/dL 6.4-8.2 [facility] ([facility]) Glomerular filtration rate/1.73 sq M pre dicted among non-blacks [Volume Rate/Area] in Serum or Plasma by Creatinine-based formula (MDRD) 43 mL/min [facility] ([facility]) A/G Ratio 1.05 CALC 1.00-1.90 [facility]) Albumin [Mass/volume] in Serum or Plasma 3.9 g/dL 3.4-5.0 [facility] ([facility]) Glomerular filtration rate/1.73 sq M pre dicted among blacks [Volume Rate/Area] in Serum or Plasma by Creatinine-based formula (MDRD) 52 mL/min [facility] ([facility]) <content>CHRONIC KIDNEY DISEASE STAGING PER NKF</content>
<content></content>
<content>STAGE I & II GFR >= 60 NORMAL TO MILDLY DECREASED</content>
<content>STAGE III GFR 30-59 MODERATELY DECREASED</content>
<content>STAGE IV GFR 15-29 SEVERELY DECREASED</content>
<content>STAGE V GFR <15 VERY LITTLE GFR LEFT</content>
<content>ESRD GFR <15 ON HOME HEALTH OUTREACH COORDINATOR</content>
<content></content> ID Date Data Source [id number] 03/23/2020 08:25:00 AM EST [facility] ([facility]) Name Value Range Interpretation Code Description Data Altagracia rce(s) Supporting Document(s) Erythrocyte sedimentation rate by Westergren method 46 mm/hr 0-15 [facility] ([facility]) ID Date Data Source [id number] 03/23/2020 08:25:00 AM EST [facility] ([facility]) Name Value Range Interpretation Code Description Data Altagracia rce(s) Supporting Document(s) Leukocytes [#/volume] in Blood by Automated count 6.1 x10*3/UL 4.1-10 .9 [facility] ([facility]) NOTE: CBC VERIFIED Hematocrit [Volume Fraction] of Blood by Automated count 34.6 % 3 7.0-51.0 [facility] ([facility]) Erythrocytes [#/volume] in Blood by Automated count 3.45 x10*6/UL 4.2 0-6.30 [facility] ([facility]) Hemoglobin [Mass/volume] in Blood 12.0 g/dL 12.0-18.0 [facility] ([facility]) MCHC 34.8 g/dL 31.0-38.0 [facility] MCH 34.9 pg 26.0-32.0 [facility] MCV 100.3 fL 80.0-97.0 [facility] Erythrocyte distribution width [Ratio] by Automated count 15.0 % 11.6-13.7 [facility] ([facility]) Platelets [#/volume] in Blood by Automated count 221 x10*3/UL 140-440 [facility] ([facility]) MPV 8.8 FL 7.8-11.0 [facility]) Neut % 62.6 % 37.0-92.0 [facility] Mid % 8.3 % 1.7-9.3 [facility] Lymph % 29.1 % 10.0-58.5 [facility] Mid # 0.6 x10*3/UL 0.1-0.6 [facility] ([facility]) Lymph # 1.7 x10*3/UL 0.6-4.1 [facility] ([facility]) Neut # 3.8 x10*3/UL 2.0-7.8 [facility] Procedure Social History No Information Vital Signs ID Date Data Source UNK Name Value Range Interpretation Code Description Data Source(s) Systolic blood pressure 132 mm[Hg] 132 mm[Hg] [facility] RT Arm Diastolic blood pressure 70 mm[Hg] 70 mm[Hg] [facility] ([facility]) RT Arm Heart rate 76 /min 76 /min [facility] Body height 59.50 [in_i] 59.50 [in_i] [facility] ([facility]) 4'11.50" Body height 59.50 [in_i] 59.50 [in_i] [facility] ([facility]) 4'11.50" Diastolic blood pressure 84 mm[Hg] 84 mm[Hg] [facility] ([facility]) RT Arm Heart rate 88 /min 88 /min [facility] ([facility]) Body weight 145.25 [lb_av] 145.25 [lb_av] [facility] ([facility]) Systolic blood pressure 134 mm[Hg] 134 mm[Hg] [facility] ([facility]) RT Arm Body mass index (BMI) [Ratio] 28.8 kg/m2 28.8 k g/m2 [facility] ([facility]) Systolic blood pressure 140 mm[Hg] 140 mm[Hg] [facility] ([facility]) Systolic blood pressure 138 mm[Hg] 138 mm[Hg] [facility] ([facility]) Body weight 148.00 [lb_av] 148.00 [lb_av] [facility] ([facility]) Diastolic blood pressure 70 mm[Hg] 70 mm[Hg] [facility] ([facility]) Diastolic blood pressure 66 mm[Hg] 66 mm[Hg] [facility] ([facility]) Heart rate 68 /min 68 /min [facility] ([facility]) Body height 59.50 [in_i] 59.50 [in_i] [facility] " Body mass index (BMI) [Ratio] 29.4 kg/m2 29.4 k g/m2 [facility] ([facility]) Systolic blood pressure 152 mm[Hg] 152 mm[Hg] [facility] ([facility]) RT Arm Diastolic blood pressure 72 mm[Hg] 72 mm[Hg] [facility] ([facility]) RT Arm Heart rate 80 /min 80 /min [facility] ([facility]) Body height 59.50 [in_i] 59.50 [in_i] [facility] ([facility] " Body weight 146.38 [lb_av] 146.38 [lb_av] [facility] ([facility]) Body mass index (BMI) [Ratio] 29.1 kg/m2 29.1 k g/m2 [facility] ([facility]) Systolic blood pressure 138 mm[Hg] 138 mm[Hg] [facility] ([facility]) Diastolic blood pressure 76 mm[Hg] 76 mm[Hg] [facility] ([facility]) Body height 59.50 [in_i] 59.50 [in_i] [facility] ([facility] " Body weight 148.00 [lb_av] 148.00 [lb_av] [facility] ([facility]) Body mass index (BMI) [Ratio] 29.4 kg/m2 29.4 k g/m2 [facility] ([facility])
[2021-02-21 14:45] VITALS: BP 175/77
[2021-02-21] MEDS ORDERED: MOM 30ML SUSPENSION UDC PO PRN (14:45)
[2021-02-21] MEDS ORDERED: MAALOX 30 ML SUSP *UDC PO PRN (14:45)
--- NOTE | 2021-02-21 15:27 | HPEPDOC ---
General Date of Admission Feb 21, 2021 at 13:47 Date of Service: Feb 21, 2021 Attending Physician: ANDREW HARDEN MD Chief Complaint The patient is a 86-year-old female admitted with a reason for visit of Cellulitis Of R Lower Extremity,Elevated Blood Pre. History of Present Illness History of present illness: Mrs. Luciano is a pleasant 86 year old female presenting to the emergency room after she was advised to do so by her primary care provider for cellulitis of right lower extremity that failed to improve after a course of antibiotics. She reports having "cellulitis" of her right lower extremity for the last month. It is located at the level of her ankle and causes her pain when she puts weight on her foot. The pain is localized and rated as a 10/10 while walking and a 6/10 at rest. She describes the pain as sharp and burning. In addition to the pain she has also noticed her right lower extremity appears more swollen than usual and is warm. She denies hx of c ellulitis, trauma to the area, fevers, chills, night sweats, numbness, tingling, or muscle weakness. Dr. Coronel started Mrs. Luciano on a 10 day course of Cephalexin approximately a week ago with a follow up appointment scheduled for today. Upon examination of the patient's right lower extremity, it was decided she should present to the emergency department for further evaluation. She had a vascular u/s on 02/08/21 that could not rule out a DVT of her RLE. In the ED she was found to have an increased CRP/ESR and was started on IV vancomycin. Past medical history: Hypertension Dementia Hypercholesterolemia Rheumatoid arthritis Osteoarthritis GERD History of anemia Past surgical history: Tonsillectomy Social history: Patient does not use tobacco products, ETOH, or illicits drugs Family history: Mother: age 84, renal failure and cardiac failure Father: age 81, diabetes mellitus Allergies: see below Review of systems: General: denies fevers, chills, night sweats, fatigue. HEENT: denies changes in vision, difficulty swallowing, swollen glands Cardiovascular: denies chest pain or palpitations Respiratory: denies shortness of breath, cough, wheezing, pain with inspiration Abdomen: denies nausea, vomiting, diarrhea, blood in urine or stool, loss of appetite Extremities: admits to right ankle/foot pain, swelling, redness. Denies numbness, tingling, muscle weakness Skin: admits to redness and swelling of right ankle and foot Physical examination: General: an elderly female sitting in bed in no acute distress. She is able to answer almost all of my questions but does have some trouble recalling certain events. She is pleasant to converse with. HEENT: PERRLA, EOMI, mucous membranes moist and pink, no lymphadenopathy Neck: supple Cardiovascular: regular rate and rhythm with occasional PACs, systolic ejection murmur noted. Respiratory: clear to auscultation bilaterally, no wheezes, rhonchi, or rales noted Abdomen: soft, positive bowel sounds, nontender to palpation Extremities: 2+ pulses radial and dorsalis pedis, unable to appreciate posterior tibial pulse, capillary refill <2 seconds. There is 2+ pitting edema noted on the right lower extremity to the knee. There is trace edema noted on left lower extremity to the knee. Patient is able to move toes on both feet and has full sensation. Skin: A circumferential erythemtous edematous area of the right lower extremity is noted on the dorsum of the foot and extends proximally 2 inches above the medial and lateral malleoli. Psych: patient is alert and oriented x 4 Imaging: Vascular ultrasound 02/21/21: No evidence of deep venous thrombosis of the right lower extremity femoral popliteal venous system. Assessment: Mrs. Luciano is a pleasant 86 year old female with past medical history of Hypertension, Dementia, Hypercholesterolemia, Rheumatoid arthritis, Osteoarthritis, GERD, and a history of anemia who presented to the emergency room after she was advised to do so by her primary care provider for cellulitis of right lower extremity that failed to improve after a course of antibiotics. In the ED she was found to have an increased CRP/ESR and was started on IV vancomycin. She is being admitted for further workup for cellulitis vs DVT as well as to receive IV antibiotics after failed outpatient treatment. Plan: Cellulitis -r/o DVT with vascular u/s and CT scan of right ankle. Imaging results as above -patient failed outpatient course of cephalexin -patient given vancomycin in the ED -started Vancomycin, MRSA PCR pending -started patient on 75ml/hr NS maintenance fluids x 2 bags -patient is afebrile with WBC of 8.7 and lactic acid of 1.0 -ESR and CRP elevated -Will have patient elevate affected extremity Hypertensive urgency -patient has history of hypertension -BP is 196/88 -she is not currently taking any antihypertensives -Will continue to monitor, if BP continues to be elevated will start on Lisinopril 2.5mg Hypercalcemia: -10.3 -holding patient calcium supplement -Ionized calcium and PTH pending Dementia -patient is alert and oriented x 4 -She is able to answer most of my questions but does have some confusion Hypercholesterolemia -not currently taking any prescribed medications Rheumatoid arthritis -not currently taking any prescribed medications Osteoarthritis -tylenol prn pain DVT prophylaxis: -Teds and Sequentials Disposition: Continue patient on IV vancomycin. MRSA PCR is pending. Will continue to monitor for clinical improvement. Patient is unsure of whether or not she would like to be DNR/DNI, will need to call her healthcare proxy in the AM to discuss this further, until then she is a FULL CODE. Home Medications Scheduled Ascorbic Acid (Vitamin C) 100 Mg Tablet, 1 TAB PO DAILY, (Reported) Calcium Carbonate/Vitamin D3 (Calcium 600+D Softgel) 1 Each Capsule, 3 CAP PO DAILY, (Reported) Clindamycin Hcl (Clindamycin HCl) 150 Mg Capsule, 450 MG PO TID Lisinopril (Lisinopril) 5 Mg Tablet, 5 MG PO DAILY Magnesium Oxide (Magnesium) 250 Mg Tablet, 1 TAB PO DAILY, (Reported) Pnv,Calcium 72/Iron/Folic Acid ( Vitamin Plus Low Iron) 1 Each Tablet, 1 TAB PO DAILY, (Reported) Scheduled PRN Cetirizine HCl (ZyrTEC) 10 Mg Capsule, 10 MG PO DAILYPRN PRN for HEADACHE, (Reported) Allergies Coded Allergies: clarithromycin (Verified Allergy, Intermediate, shakes and heart race, 06/27/20) pseudoephedrine (Verified Allergy, Intermediate, heart race, shakes, 06/27/20) A-FIB/CHADSVASC A-FIB History Current/History of A-Fib/PAF?: No Current PO Anticoag Therapy: No Vital Signs Vital Signs Date Time Temp Pulse Resp B/P (MAP) Pulse Ox O2 Delivery O2 Flow Rate FiO2 02/21/21 09:31 98.7 75 18 196/88 (124) 99 Room Air Laboratory Data Labs 24H Laboratory Tests 2 02/21/21 11:23: Immature Granulocyte % (Auto) 0.5, Neutrophils (%) (Auto) 56.2, Lymphocytes (%) (Auto) 18.4L, Monocytes (%) (Auto) 11.8H, Eosinophils (%) (Auto) 12.3H, Basophils (%) (Auto) 0.8, Neutrophils # (Auto) 4.9, Lymphocytes # (Auto) 1.6, Monocytes # (Auto) 1.0H, Eosinophils # (Auto) 1.1H, Basophils # (Auto) 0.1, Nucleated Red Blood Cells % (auto) 0.0, Erythrocyte Sedimentation Rate 70H, Anion Gap 7L, Glomerular Filtration Rate 58.7, Calcium Level 10.3H, C-Reactive Protein, Quantitative 6.88H, Coronavirus (COVID-19)(PCR) NEGATIVE, Influenza Type A (RT-PCR) NEGATIVE, Influenza Type B (RT-PCR) NEGATIVE, Respiratory Syncytial Virus (PCR) NEGATIVE 02/21/21 13:58: Lactic Acid Level 1.0 CBC/BMP Laboratory Tests 02/21/21 11:23 Microbiology Microbiology 02/21/21 Blood Culture, Received Pending 02/21/21 Blood Culture, Received Pending Plan / VTE VTE Prophylaxis Ordered?: Yes GME ATTESTATION GME ATTESTATION My faculty preceptor for this patient encounter was physically present during the encounter and was fully available. All aspects of the patient interview, examination, medical decision making process, and medical care plan development were reviewed and approved by the faculty preceptor. The faculty preceptor is aware and concurs with the plan as stated in the body of this note and will attest to such by his/her cosignature. ATTENDING NOTE I, Andrew Harden MD, have independently examined this patient and performed my own physical exam with the student and the resident in the room with me, as well as reviewed the documentation and edited where necessary. I have discussed in detail with the resident and the student the findings and plan of treatment as documented by the resident and edited their note. I agree with their findings and treatment plan and have edited their documentation. ITA VÁSQUEZ DO Feb 21, 2021 15:27 ANDREW HARDEN MD Feb 23, 2021 13:49
--- NOTE | 2021-02-21 15:38 | REP ---
INDICATION: rule out DVT COMPARISON: 02/08/2021. TECHNIQUE: Real time compression and duplex Doppler interrogation of the right lower extremity deep venous system is performed, including the left common femoral vein.Compression of the right peroneal and posterior tibial veins is performed. FINDINGS: The right common femoral, superficial femoral and popliteal veins are fully compressible with transducer pressure and demonstrate normal spontaneous and phasic flow, without evidence of deep venous thrombosis.The left common femoral vein demonstrates no thrombus.The right peroneal and posterior tibial veins could not be visualized. IMPRESSION: No evidence of deep venous thrombosis of the right lower extremity femoral popliteal venous system. <Electronically signed by Henry Perez > 02/21/21 1531
[2021-02-21] MEDS ORDERED: ISOVUE-370 76% 100ML VIAL As Ordered ONE (15:46)
[2021-02-21] MEDS: NS 1,000 ML IV SCH (16:03)
[2021-02-21] MEDS: ACETAMINOPHEN TAB 650MG DOSE (2X325MG) PO PRN (16:03)
[2021-02-21 17:37] LABS: THYROID STIMULATING HORMONE 1.93 uIU/ML (0.358-3.740)
[2021-02-21 17:38] LABS: PTH INTACT 18.3 PG/ML (18.5-88.0)
--- NOTE | 2021-02-21 18:09 | REP ---
INDICATION: cellulitis. COMPARISON: None. TECHNIQUE: Axial images from mid calf to the hindfoot and including the midfoot as well. Coronal and sagittal reconstructions were performed. FINDINGS: 1 there are some degenerative changes small marginal osteophytes at the posterior subtalar joint minimally at the anterior margin of the posterior subtalar joint is a 2 subtalar joints were grossly intact anterior process of the calcaneus articulates normally with the cuboid and the talonavicular joint shows no erosion or significant degenerative change. An os naviculare is present as anatomic variation. An os trigonum is seen on the sagittal and axial images posterior to the posterior subtalar joint. I do not see definite fluid collection that would suggest an abscess at this time. Small amounts of fluid may be seen adjacent to the tendon sheath of the peroneal and posterior tibial tendons but no loculated fluid collection. I see no destructive bone lesion in the visible tarsal bones and proximal metatarsals. Tiny plantar calcaneal heel spur seen without Achilles insertional spur. The Achilles tendon shows no abnormal thickening or adjacent edema. IMPRESSION: 1. Subcutaneous edema and dermal thickening consistent with cellulitis greater laterally than medially. No destructive changes to suggest osteomyelitis. 2. There are degenerative changes at the ankle joint with subchondral cysts but the cortical integrity is preserved. Other joints with degenerative spurring and a small plantar calcaneal spur also noted. <Electronically signed by Jaime Wilkinson > 02/21/21 [id number]
[2021-02-21 18:30] LABS: HEMOGLOBIN A1c 5.7 %
[2021-02-21] MEDS: DOCUSATE SODIUM 100MG CAPSULE PO SCH (20:39)
[2021-02-21 22:00] VITALS: BP 131/56
[2021-02-21 23:51] VITALS: O2SAT 92
[2021-02-22] MEDS: NS 1,000 ML IV SCH (05:06)
[2021-02-22] MEDS: ACETAMINOPHEN TAB 650MG DOSE (2X325MG) PO PRN ×2 (05:09→16:05)
[2021-02-22 06:00] VITALS: BP 143/79
[2021-02-22 06:46] LABS: HEMATOCRIT 32.5 % (36.0-47.0); HEMOGLOBIN 10.5 g/dl (12.0-15.5); MEAN CORPUSCULAR HGB CONC 32.3 g/dl (32.0-36.5); MEAN CORPUSCULAR VOLUME 105.2 fl (80.0-96.0); PLATELET COUNT, AUTOMATED 238 10^3/uL (150-450); RED BLOOD COUNT 3.09 10^6/uL (4.00-5.40); WHITE BLOOD COUNT 5.9 10^3/uL (4.0-10.0)
[2021-02-22 07:10] LABS: ERYTHROCYTE SEDIMENTATION RATE 65 mm/hr (0-30)
[2021-02-22 07:11] LABS: BLOOD UREA NITROGEN 30 MG/DL (7-18); C REACTIVE PROTEIN QUANTITATIV 4.74 MG/DL (0.00-0.30); CALCIUM LEVEL 8.6 MG/DL (8.8-10.2); CARBON DIOXIDE LEVEL 26 MEQ/L (21-32); CHLORIDE LEVEL 112 MEQ/L (98-107); GLOMERULAR FILTRATION RATE > 60.0 (>32); GLUCOSE, FASTING 95 MG/DL (70-100); POTASSIUM SERUM 4.3 MEQ/L (3.5-5.1); SODIUM LEVEL 141 MEQ/L (136-145)
[2021-02-22] MEDS ORDERED: CETI10CA2 PO (08:23)
[2021-02-22] MEDS ORDERED: EXCEDRIN MIGRAINE TABLET PO PRN (08:30)
[2021-02-22 09:00] VITALS: O2SAT 95
[2021-02-22] MEDS: DOCUSATE SODIUM 100MG CAPSULE PO SCH ×2 (09:00→20:36)
[2021-02-22] MEDS: VANCOMYCIN HCL 1,000 MG, VIAL MATE ADAPTER 1 EACH in NS 250 ML IV SCH (09:23)
[2021-02-22] MEDS ORDERED: VITA100T59 PO (09:33)
[2021-02-22] MEDS ORDERED: CALC600C3 PO (09:33)
[2021-02-22] MEDS ORDERED: GNP250TA9 PO (09:33)
[2021-02-22] MEDS ORDERED: CETIRIZINE (ZyrTEC) 10 MG TAB PO PRN (11:25)
--- NOTE | 2021-02-22 11:53 | IPNPDOC ---
Text Note Date of Service The patient was seen on 02/22/21. NOTE SUBJECTIVE: Patient was seen and examined this morning at bedside. She states she continues to have pain in the right ankle. She has not noticed much improvement. She also reports a headache this morning which she thinks is related to her sinuses. She states she takes Zyrtec at home for this. OBJECTIVE: VITAL SIGNS: See below GENERAL: Alert, comfortable, in no acute distress HEENT: Normocephalic, atraumatic, moist mucous membranes NECK: Supple, trachea midline, no lymphadenopathy CARDIOVASCULAR: Regular rate and rhythm, normal S1 and S2. 3/6 systolic ejection murmur best heard at the right upper sternal border. RESPIRATORY: Clear to auscultation bilaterally with equal air entry bilaterally. No wheezing, rhonchi, or rales. ABDOMEN: Soft, nontender, nondistended, bowel sounds present. EXTREMITIES: 2+ pitting edema noted on the right lower extremity extending up to the mid calf. Trace edema in the left lower extremity. 2+ pulses present in bilateral dorsalis pedis arteries. SKIN: The right foot and lower calf is erythematous and warm extending up about 2 inches above the ankle. There are no areas of drainage or fluctuance. This area is tender to palpation. NEUROLOGIC: No focal deficits appreciated PSYCHIATRIC: Mood and affect appropriate ASSESSMENT/PLAN: 86-year-old female with past medical history of hypertension, rheumatoid arthritis, osteoarthritis, dementia, GERD who presented with right lower extremity swelling and redness which had not improved after a 10-day course of Keflex admitted to the hospital for right lower extremity cellulitis and failure on outpatient oral antibiotics #Right lower extremity cellulitis Failed outpatient course of Keflex for 10 days Mildly improved today on physical exam Blood cultures x2 pending No leukocytosis. ESR and CRP trending down Continue to elevate affected extremity Status post IV fluids Continue IV vancomycin day #2. MRSA PCR pending. #Uncontrolled hypertension, improved Continue monitor hypertension. We will consider starting her on lisinopril if not resolved with treatment of her acute illness #Hypercalcemia, resolved Ionized calcium level was normal. PTH mildly low Likely due to some dehydration and resolved with IV fluids No further intervention at this point #Headaches Continue with Excedrin as needed. #Osteoarthritis and rheumatoid arthritis Continue with Tylenol. Patient is not on any additional medications at home. #Dementia Patient is alert and oriented x4 DVT prophylaxis: Lovenox Disposition: Pending clinical improvement, expect discharge home when medically stable VS,Fishbone, I+O VS, Fishbone, I+O Laboratory Tests 02/21/21 11:23 02/22/21 06:23 Vital Signs Date Time Temp Pulse Resp B/P (MAP) Pulse Ox O2 Delivery O2 Flow Rate FiO2 02/22/21 06:00 98.1 62 16 143/79 (100) 96 Room Air I&O- Last 24 Hours up to 6 AM 02/22/21 06:00 Intake Total 505 ml Balance 505 ml SHIVANI KUO D.O. Feb 22, 2021 11:53
[2021-02-22] MEDS: ENOXAPARIN 40MG/0.4ML SYRINGE (J1650 PER 10MG) SC SCH (12:35)
[2021-02-22] MEDS: lisinopriL 5 MG TAB PO SCH (16:04)
[2021-02-22 22:00] VITALS: BP 146/68
[2021-02-23] MEDS: VANCOMYCIN HCL 1,000 MG, VIAL MATE ADAPTER 1 EACH in NS 250 ML IV SCH (03:22)
[2021-02-23] MEDS: ACETAMINOPHEN TAB 650MG DOSE (2X325MG) PO PRN ×3 (04:25→14:57)
[2021-02-23 06:00] VITALS: BP 153/66
[2021-02-23 08:10] LABS: HEMATOCRIT 31.1 % (36.0-47.0); HEMOGLOBIN 9.7 g/dl (12.0-15.5); MEAN CORPUSCULAR HEMOGLOBIN 33.1 pg (27.0-33.0); MEAN CORPUSCULAR HGB CONC 31.2 g/dl (32.0-36.5); MEAN CORPUSCULAR VOLUME 106.1 fl (80.0-96.0); PLATELET COUNT, AUTOMATED 228 10^3/uL (150-450); RED BLOOD COUNT 2.93 10^6/uL (4.00-5.40); WHITE BLOOD COUNT 6.4 10^3/uL (4.0-10.0)
[2021-02-23 08:30] VITALS: BP 136/72
[2021-02-23 08:30] LABS: BLOOD UREA NITROGEN 29 MG/DL (7-18); CALCIUM LEVEL 7.9 MG/DL (8.8-10.2); CARBON DIOXIDE LEVEL 27 MEQ/L (21-32); CHLORIDE LEVEL 114 MEQ/L (98-107); CREATININE FOR GFR 0.88 MG/DL (0.55-1.30); GLOMERULAR FILTRATION RATE > 60.0 (>32); GLUCOSE, FASTING 86 MG/DL (70-100); POTASSIUM SERUM 4.6 MEQ/L (3.5-5.1); SODIUM LEVEL 144 MEQ/L (136-145)
[2021-02-23 09:55] VITALS: BP 136/72
[2021-02-23] MEDS: lisinopriL 5 MG TAB PO SCH (09:55)
[2021-02-23] MEDS: ENOXAPARIN 40MG/0.4ML SYRINGE (J1650 PER 10MG) SC SCH (09:57)
[2021-02-23] MEDS: DOCUSATE SODIUM 100MG CAPSULE PO SCH (09:58)
[2021-02-23] MEDS ORDERED: CLIN150C17 PO (10:25)
[2021-02-23] MEDS ORDERED: LISI-898 PO (10:40)
--- NOTE | 2021-02-23 10:42 | DS.PDOC ---
Discharge Summary General Date of Admission Feb 21, 2021 at 13:47 Date of Discharge 02/23/21 Attending Physician: MIREYA DONAHUE MD Discharge Summary PROCEDURES PERFORMED DURING STAY: None ADMITTING DIAGNOSES: Hypertension Dementia Hypercholesterolemia Rheumatoid arthritis Osteoarthritis GERD History of anemia DISCHARGE DIAGNOSES: Cellulitis Hypertensive urgency Hypercalcemia Hypertension Dementia Hypercholesterolemia Rheumatoid arthritis Osteoarthritis GERD History of anemia COMPLICATIONS/CHIEF COMPLAINT: Cellulitis Of R Lower Extremity,Elevated Blood Pre. HISTORY OF PRESENT ILLNESS: History of present illness: Mrs. Luciano is a pleasant 86 year old female presenting to the emergency room after she was advised to do so by her primary care provider for cellulitis of right lower extremity that failed to improve after a course of antibiotics. She reports having "cellulitis" of her right lower extremity for the last month. It is located at the level of her ankle and causes her pain when she puts weight on her foot. The pain is localized and rated as a 10/10 while walking and a 6/10 at rest. She describes the pain as sharp and burning. In addition to the pain she has also noticed her right lower extremity appears more swollen than usual and is warm. She denies hx of cellulitis, trauma to the area, fevers, chills, night sweats, numbness, tingling, or muscle weakness. Dr. Coronel started Mrs. Luciano on a 10 day course of Cephalexin approximately a week ago with a follow up appointment scheduled for today. Upon examination of the patient's right lower extremity, it was decided she should present to the emergency department for further evaluation. She had a vascular u/s on 02/08/21 that could not rule out a DVT of her RLE. In the ED she was found to have an increased CRP/ESR and was started on IV vancomycin. HOSPITAL COURSE: Cellulitis -Patient had failed an outpatient course of cephalexin and was started on IV vancomycin while MRSA PCR was pending. -Venous u/s ruled out a DVT and an ankle CT r/o osteomyelitis. -Ankle CT exhibited likely cellulitis -Patient's foot was elevated during hospitalization, patient was evaluated by PT and recommended she receive home services upon discharge. -She was given 2 bags of maintenance fluids at a rate of 75ml/hr NS -She was afebrile during hospitalization with a WBC within normal limits -ESR and CRP downtrended -Lactic acid within normal limits -Patient was disharged upon clinical improvement on 5 days of oral clindamycin for a total of 8 days on antibiotics Hypertensive urgency -Patient has history of hypertension and presented to the ED with a blood pressure of 196/88 -Her blood pressure was monitored as she is not prescribed any antihypertensive medications. -She was started on lisinopril 5mg and discharged with a prescription for continued hypertension. Hypercalcemia: -Patient presented to the ED with a calcium of 10.3. -We ordered an ionized calcium which came back within normal range. -The patient's calcium supplements were held during hospitalization. Dementia -Patient was alert and oriented x 4 during her hospitalization, her son is her POA. -She was able to answer most of my questions but did appear to have trouble recalling certain events accurately. Hypercholesterolemia -not currently taking any prescribed medications Rheumatoid arthritis -not currently taking any prescribed medications Osteoarthritis -Patient was given tylenol as needed for pain DISCHARGE MEDICATIONS: Please see below. ALLERGIES: Please see below. PHYSICAL EXAMINATION ON DISCHARGE: VITAL SIGNS: Please see below. General: an elderly female sitting in bed who is pleasant to converse with. She does not appear to be in acute distress and is able to answer most of my questions without difficulty. HEENT: PERRLA, EOMI, mucous membranes moist and pink, no lymphadenopathy, neck is supple Cardiovascular: regular rate and rhythm with occasional PACs, systolic ejection murmur noted. Respiratory: clear to auscultation bilaterally, no wheezes, rhonchi, or rales noted Abdomen: soft, positive bowel sounds, nontender to palpation Extremities: 2+ pulses radial and dorsalis pedis, unable to appreciate posterior tibial pulse, capillary refill <2 seconds. There is 1+ pitting edema noted on the right lower extremity to the knee. There is trace edema noted on left lower extremity to the knee. Patient is able to move toes on both feet and has full sensation. Skin: The circumferential erythemtous edematous area of the right lower extremity that was previously mentioned appears less edematous and erythematous, patient states that lower extremity is not causing her pain while at rest. Psych: patient is alert and oriented x 4 LABORATORY DATA: Please see below. IMAGING: Vascular ultrasound 02/21/21: No evidence of deep venous thrombosis of the right lower extremity femoral popliteal venous system. Ankle CT: Subcutaneous edema and dermal thickening consistent with cellulitis greater laterally than medially. No destructive changes to suggest osteomyelitis. There are degenerative changes at the ankle joint with subchondral cysts but the cortical integrity is preserved. Other joints with degenerative spurring and a small plantar calcaneal spur also noted. PROGNOSIS: Good ACTIVITY: As tolerated DIET: Regular diet DISCHARGE PLAN: Discharge to home with services DISPOSITION: Patient is medically cleared to be discharged home with medical services. DISCHARGE INSTRUCTIONS: 1. Follow up with Primary care provider within 7-10 days 2. Take full course of antibiotics (Clindamycin 450mg x 5 days). ITEMS TO FOLLOWUP ON ON OUTPATIENT: 1. Discuss receiving home services with family members. 2. Return to the emergency department if similar symptoms develop. DISCHARGE CONDITION: Stable TIME SPENT ON DISCHARGE: 25 minutes. Vital Signs/I&Os Vital Signs Date Time Temp Pulse Resp B/P (MAP) Pulse Ox O2 Delivery O2 Flow Rate FiO2 02/23/21 09:55 136/72 02/23/21 08:30 98.1 66 20 Nasal Cannula 02/23/21 06:00 96 I&O- Last 24 Hours up to 6 AM 02/23/21 06:00 Intake Total 1910 ml Output Total 0 ml Balance 1910 ml Laboratory Data Labs 24H Laboratory Tests 2 02/23/21 07:23: Nucleated Red Blood Cells % (auto) 0.0, Anion Gap 3L, Glomerular Filtration Rate > 60.0, Calcium Level 7.9L 02/23/21 07:35: Methicillin-Resist S.aureus DNA PCR NOT DETECTED CBC/BMP Laboratory Tests 02/23/21 07:23 Microbiology Microbiology 02/21/21 Blood Culture - Preliminary, Resulted No growth after 24 hours . All specim... 02/21/21 Blood Culture - Preliminary, Resulted No growth after 24 hours . All specim... Discharge Medications Scheduled Ascorbic Acid (Vitamin C) 100 Mg Tablet, 1 TAB PO DAILY, (Reported) Calcium Carbonate/Vitamin D3 (Calcium 600+D Softgel) 1 Each Capsule, 3 CAP PO DAILY, (Reported) Clindamycin Hcl (Clindamycin HCl) 150 Mg Capsule, 450 MG PO TID Lisinopril (Lisinopril) 5 Mg Tablet, 5 MG PO DAILY Magnesium Oxide (Magnesium) 250 Mg Tablet, 1 TAB PO DAILY, (Reported) Pnv,Calcium 72/Iron/Folic Acid ( Vitamin Plus Low Iron) 1 Each Tablet, 1 TAB PO DAILY, (Reported) Scheduled PRN Cetirizine HCl (ZyrTEC) 10 Mg Capsule, 10 MG PO DAILYPRN PRN for HEADACHE, (Reported) Allergies Coded Allergies: clarithromycin (Verified Allergy, Intermediate, shakes and heart race, 06/27/20) pseudoephedrine (Verified Allergy, Intermediate, heart race, shakes, 06/27/20) ITA VÁSQUEZ DO Feb 23, 2021 10:42
[2021-02-23 12:22] VITALS: BP 138/80
[2021-02-23 13:31] VITALS: O2SAT 95
[2021-02-23 14:00] VITALS: BP 124/74
== END 2021-02-23 16:20 | disposition home health service (06) | DRG 603 ==
LOC: M ED 09:31 → M ED INP 13:47 → ENRESERV 14:21 → M MSPAV 16:46
PROVIDERS: ADMIT Internal Medicine; ATTEND Internal Medicine
DX: L03.115 Cellulitis of right lower limb (principal); I16.0 Hypertensive urgency; E83.52 Hypercalcemia; F03.90 Unspecified dementia, unspecified severity, without behavioral disturbance, psychotic disturbance, mood disturbance, and anxiety; I10 Essential (primary) hypertension; K21.9 Gastro-esophageal reflux disease without esophagitis; M19.90 Unspecified osteoarthritis, unspecified site; E78.00 Pure hypercholesterolemia, unspecified; M06.9 Rheumatoid arthritis, unspecified; Z79.899 Other long term (current) drug therapy; Z88.8 Allergy status to other drugs, medicaments and biological substances

== ENCOUNTER 2021-03-01 16:18 | Inpatient (IN) | payer MEDICARE ==
[~2021-03-01] VITALS: Ht 149.9 cm; Wt 66.4 kg
[~2021-03-01 16:18] MED LIST: CALC600C3 PO; CETI10CA2 PO; CLIN150C17 PO; GNP250TA9 PO; LISI-898 PO; PREN27TA3 PO; VITA100T59 PO
--- OUTSIDE RECORDS SUMMARY | 2021-03-01 16:27 | CCD ---
Author Author [facility] Organization [facility] Address Unknown Phone Unavailable Care Team Providers Care Piccoloist Name Role Phone Santiago Coronel MD Unavailable [...] Unavailable BernaSantiago boothe MD Unavailable Unavailable BernaSantiago colbert MD Unavailable [...] MD Unavailable Unavailable BernaSantiago MD Unavailable Unavailable Berna, Santiago Maira HARDY Unavailable Unavailable Berna, Santiago Maira HARDY Unavailable Unavailable Berna, Santiago Rao MD Unavailable Unavailable Berna, Santiago Rao MD Unavailable Unavailable Berna, M Maira HARDY Unavailable Unavailable Berna, Santiago Maira HARDY Unavailable Unavailable Berna, Santiago Maira HARDY Unavailable Unavailable Berna, Santiago Maira HARDY Unavailable Unavailable Berna, M Maira HARDY Unavailable Unavailable Berna, Santiago Maira HARDY Unavailable Unavailable Berna, M Maira HARDY Unavailable Unavailable Berna, M Maira HARDY Unavailable Unavailable Berna, Santiago Maira HARDY Unavailable [...] is protected by Article 27-F of the [facility] Public Health law. If you continue you may have access to information: Regarding HIV / AIDS; Provided by facilities licensed or operated by the [facility] Office of Mental Health; or Provided by the [facility] Office for People With Developmental Disabilities. If such information is present, then the following [facility] mandated warning applies: This information has been [...] ([facility]) Unknown Male Problem [facility] ([facility]) Encounters Encounter Providers Location Date Indications Data Source(s ) Outpatient Attender: Maira Keith 08:45:00 AM EDT MED[facility] ([facility] ) Outpatient Attender: Maira Keith 11:30:00 AM EDT [facility] ([facility] ) Outpatient Attender: Maira Keith 01:45:00 PM EST [facility] ([facility] ) Outpatient Attender: Maira Keith 12:30:00 PM EST [facility] ([facility] ) Immunizations Vaccine Date Status Description Data Source(s) Covid-19 Moderna vaccine, 07/04/2020 02:37:00 PM EDT completed [facility] ([facility]) COVID-19 VACCINE Moderna 07/04/2020 12:00:00 AM EDT completed [facility] Vaccine Series Complete: YESThis Data wa s Submitted to [facility] Via [employer]. Covid-19 Moderna vaccine, 06/06/2020 01:37:00 PM EST completed [facility] ([facility]) COVID-19 VACCINE Moderna 06/06/2020 12:00:00 AM EST completed [facility] Vaccine Series Complete: NOThis Data was Submitted to [facility] Via [employer]. This CVX code allows reporting of a vacc ination when formulation is unknown (for example, when recording a Influenza vaccination when noted on a vaccination card) 03/26/2020 01:37:00 PM EST completed MEDEN T ([facility]) INFLUENZA VACCINE QUADRIVALENT 2019- (65 YR UP)/MF59 C.1/PF 03/26/2020 12:00:00 AM EST completed [facility] Note that this Td is not adsorbed. 03/24/2020 12:43:00 PM EST compl eted MEDENT ([facility]) Pneumococcal conjugate PCV 13 03/24/2020 12:42:00 PM EST completed [email or web address] pneumococcal polysaccharide PPV23 03/24/2020 12:42:00 PM EST comple salazar [facility] ([email or web address] Medications Medication Brand Name Start Date Product Form Dose Route Admi nistrative Instructions Pharmacy Instructions Status Indications Reaction Description Data Source(s) 150 mg 02/23/2021 12:00:00 AM EDT capsule 45 TAKE THREE CAPSULES BY MOUTH THREE TIMES A DAY TAKE THREE CAPSULES BY MOUTH THREE TIMES A DAY SOLD: 02/23/2021 [facility] 5 mg 02/23/2021 12:00:00 AM EDT tablet 30 TAKE ONE TABLET BY MOUTH EVERY DAY TAKE ONE TABLET BY MOUTH EVERY DAY SOLD: 02/23/2021 [facility] Camphor 0.031 MG/MG / Menthol 0.1 MG/MG / methyl salicylate 0.15 MG/MG Topical Gel Salonpas Deep Relieving 02/08/2021 12:00:00 AM EDT active [email or web address] Cephalexin 500 MG Oral Capsule CEPHALEXIN 02/08/2021 12:00:00 AM EDT capsule 20 TAKE ONE CAPSULE BY MOUTH TWICE A DAY FOR 10 DAYS TAKE ONE CAPSULE BY MOUTH TWICE A DAY FOR 10 DAYS SOLD: 02/08/2021 [facility] Cephalexin 500 MG Oral Capsule Cephalexin 02/08/2021 12:00:00 AM EDT ORAL active [facility] ([email or web address] bismuth subsalicylate 17.5 MG/ML Oral Suspension [Pepto-bism ol] Pepto-Bismol 09/28/2020 12:00:00 AM EDT ORAL active [facility] ([email or web address] 40 mg 06/30/2020 12:00:00 AM EST capsule,delayed [...] 06/29/2020 12:00:00 AM EST ORAL active [facility] ([facility]) 27 mg iron- 1 mg 03/25/2020 12:00:00 AM EST tablet 90 TAKE ONE TABLET BY MOUTH EVERY DAY TAKE ONE TABLET BY MOUTH EVERY DAY SOLD: 03/26/2020 [facility] Lidocaine Hydrochloride 40 MG/ML Topical Cream Aspercreme W/ Lidocaine 03/24/2020 12:00:00 AM EST active [facility] ([facility]) Insurance Providers Payer name Policy type / Coverage type Policy ID Covered democrat ID Covered democrat's relationship to cherry Policy Cherry Plan Information Medicare Natl Govt Servic Medicare Primary [id number] Self [id number] Medicare Natl Govt Servic Medicare Primary [id number] Self [id number] Medicare Natl Govt Servic Medicare Primary [id number] Self [id number] Medicare Natl Govt Servic Medicare Primary [id number] Self [id number] Medicare Natl Govt Servic Medicare Primary [id number] Self [id number] MEDICARE [id number] SP [id number] [id number] Medicare Natl Govt Servic Medicare Primary [id number] Self [id number] A Medicare Natl Govt Servic Medicare Primary [id number] Self [id number] Medicare Natl Govt Servic Medicare Primary [id number] Self [id number] Medicare Natl Govt Servic Medicare Primary [id number] Self [id number] MEDICARE [id number] SP [id number] A [employer] (Old) Medigap Part B [id number] Family Dependent [id number] [place] Ppo Medigap Part B [id number] Family Dependent [id number] [employer] (Old) Medigap Part B [id number] Family Dependent [id number] [employer] Ppo Medigap Part B [id number] Family Dependent [id number] [employer] (Old) Medigap Part B [id number] Family Dependent [id number] [employer] Ppo Medigap Part B [id number] Family Dependent Umr [place] Ppo Medigap Part B [id number] Family Dependent [id number] Umr [place] P[employer] Medigap Part B [id number] Family Dependent [id number] [employer] Medigap Part B [id number] Family Dependent [id number] [facility] Medigap Part B [id number] Self [id number] [facility] Medigap Part B [id number] Self [id number] 11 [facility] Part B [id number] Self [id number] 11 [id number] Medicare Part B [facility] Other 0 [id number] Self 0 Medicare Part B [facility] Other 0 [id number] Self 0 [employer] OPTIONS [id number] S [id number] [employer] [id number] S [id number] MEDICARE - [place] [id number] S [id number] Medicare Part B [facility] Other 0 [id number] Self 0 [employer] OPTIONS [id number] SP [id number] [facility] Part B [id number] Family Dependent [id number] [employer] [id number] HU2 [id number] [employer] PPO O [id number] S [id number] MEDICARE C [id number] S [id number] [id number] Family Dependent [employer] OPTIONS [id number] SP [id number] Problems, Conditions, and Diagnoses No Information Surgeries/Procedures Procedure Description Date Indications Data Source(s) OFFICE OUTPATIENT VISIT 25 MINUTES 02/08/2021 12:00:00 AM EDT [facility] ([facility]) OFFICE OUTPATIENT VISIT 25 MINUTES 09/28/2020 12:00:00 AM EDT [facility] ([facility]) Results ID Date Data Source [id number] 02/21/2021 11:23:00 AM EDT [facility] Name Value Range Interpretation Code Description Data Altagracia rce(s) Supporting Document(s) SARS coronavirus 2 RNA [Presence] in Res piratory specimen by LEAH with probe detection NEGATIVE [facility] This lab was ordered by [facility] a nd reported by [facility]. ID Date Data Source [id number] 02/21/2021 11:23:00 AM EDT [email or web address] Name Value Range Interpretation Code Description Data Altagracia rce(s) Supporting Document(s) Influenza A Amplification Laboratory test result [facility] ([email or web address] Negative results do not preclude influen za or RSV virus infection and should not be used as the sole basis for treatment or other patient management decisions. Influenza B Amplification Laboratory test result [facility] ([email or web address] Negative results do not preclude influen za or RSV virus infection and should not be used as the sole basis for treatment or other patient management decisions. RSV Amplification Laboratory test result [facility] ([email or web address] Negative results do not preclude influen za or RSV virus infection and should not be used as the sole basis for treatment or other patient management decisions. Laboratory test finding (navigational concept) Laboratory test result [facility] ([facility]) A false negative result may occur if a s pecimen is improperly collected, transported or handled. False negative results may also occur if inadequate numbers of organisms are present in the specimen. As with any molecular test, mutations within the target regions of Xpert Xpress SARS-CoV-2 could affect primer and/or probe binding resulting in failure to detect the presence of virus. This test cannot rule out diseases caused by other bacterial or viral pathogens. DISCLAIMER: Testing was performed using the [facility] SARS-CoV-2 test. This test was developed and its performance characteristics determined by [facility]. This test has not been FDA cleared or approved. This test has been authorized by FDA under an Emergency Use Authorization (EUA). This test is only authorized for the duration of time the declaration that circumstances exist justifying the authorization of the emergency use of in vitro diagnostic tests for detection of SARS-CoV-2 virus and/or diagnosis of COVID-19 infection under section 564(b)(1) of the Act, 21 U.S.C. 360bbb-3(b)(1), unless the authorization is terminated or revoked sooner. ID Date Data Source [id number] 02/21/2021 11:23:00 AM EDT [email or web address] Name Value Range Interpretation Code Description Data Altagracia rce(s) Supporting Document(s) Erythrocyte sedimentation rate by Westergren method 70 mm/hr 0-30 [facility] ([facility]) ID Date Data Source [id number] 02/21/2021 11:23:00 AM EDT [facility] ([facility]) Name Value Range Interpretation Code Description Data Altagracia rce(s) Supporting Document(s) Red Blood Count 3.57 10 4.00-5.40 [facility] ([facility]) White Blood Count 8.7 10 4.0-10.0 [facility] ([facility]) Hemoglobin 11.9 g/dL 12.0-15.5 [facility] Mean Corpuscular Volume 103.6 fl 80.0-96.0 [facility] ([facility]) Hematocrit 37.0 % 36.0-47.0 MED[facility] ([facility]) Mean Corpuscular Hemoglobin 33.3 pg 27.0-33.0 ME DENT ([facility]) Platelet Count, Automated 275 10 150-450 MEDE NT ([facility]) Red Cell Distribution Width 16.2 % 11.5-14.5 ME DENT ([facility]) Mean Corpuscular HGB Conc 32.2 g/dL 32.0-36.5 MEDE NT ([facility]) Lymph % 18.4 % 24.0-44.0 [facility]) Neutrophils % 56.2 % 36.0-66.0 [facility] ([facility]) Baso % 0.8 % 0.0-1.0 [facility]) [place] % 11.8 % 2.0-8.0 [facility]) Eos % 12.3 % 0.0-3.0 [facility]) Neutrophils # 4.9 10 1.5-8.5 [facility] ([facility]) Immature Granulocyte % 0.5 % 0-3.0 [facility] ([facility]) Nucleated Red Blood Cell % 0.0 % 0-0 MED ENT ([facility]) [place] # 1.0 10 0.0-0.8 [facility]) Eos # 1.1 10 0.0-0.5 [facility]) Lymph # 1.6 10 1.5-5.0 [facility]) Baso # 0.1 10 0.0-0.2 [facility] ID Date Data Source [id number] 02/21/2021 11:23:00 AM EDT [facility] ([facility]) Name Value Range Interpretation Code Description Data Altagracia rce(s) Supporting Document(s) C reactive protein [Mass/volume] in Serum or Plasma by High sensitivity method 6.88 mg/dL 0.00-0.30 [facility] ([facility] ) ID Date Data Source [id number] 02/21/2021 11:23:00 AM EDT [facility] ([facility]) Name Value Range Interpretation Code Description Data Altagracia rce(s) Supporting Document(s) Glucose, Fasting 98 mg/dL 70-100 [facility] ([facility]) Blood Urea Nitrogen 43 mg/dL 7-18 [facility] ([facility]) Creatinine For GFR 0.96 mg/dL 0.55-1.30 [facility] ([facility]) Glomerular Filtration Rate 58.7 MED ENT ([facility]) <content>Units are mL/min/1.73 m2</content>
<content></content>
<content>Chronic Kidney Disease Staging per NKF:</content>
<content></content>
<content>Stage I & II GFR >=60 Normal to Mildly Decreased</content>
<content>Stage III GFR 30- 59 Moderately Decreased</content>
<content>Stage IV GFR 15-29 Severely Decreased</content>
<content>Stage V GFR <15 Very Little GFR Left</content>
<content>ESRD GFR <15 on ROUTING CLERK</content>
<content></content> Sodium Level 138 meq/L 136-145 [facility] ([facility]) Chloride Level 106 meq/L 98-107 [facility] ([facility]) Carbon Dioxide Level 25 meq/L 21-32 [facility] ([facility]) Potassium Serum 4.2 meq/L 3.5-5.1 [facility] ([facility]) Anion Gap 7 meq/L 8-16 [facility] ([facility] Calcium Level 10.3 mg/dL 8.8-10.2 [facility] ([facility]) ID Date Data Source [id number] 02/08/2021 09:26:00 AM EDT [facility] ([facility]) Name Value Range Interpretation Code Description Data Altagracia rce(s) Supporting Document(s) C reactive protein [Mass/volume] in Serum or Plasma by High sensitivity method 2.84 mg/dL 0.00-0.30 [facility] ([facility] ) ID Date Data Source [id number] 02/08/2021 09:26:00 AM EDT [facility] ([facility]) Name Value Range Interpretation Code Description Data Altagracia rce(s) Supporting Document(s) Glucose [Mass/volume] in Serum or Plasma 97 mg/dL 74-99 [facility] ([facility]) 100-125 mg/dL PRE-DIABETES/FASTING >126 mg/dL DIABETES/FASTING Creatinine 1.2 mg/dL 0.6-1.3 [facility] Urea nitrogen [Mass/volume] in Serum or Plasma 33 mg/dL 7-18 [facility] ([facility]) Sodium [Moles/volume] in Serum or Plasma 140 meq/L 136-145 [facility] ([facility]) Chloride [Moles/volume] in Serum or Plasma 103 meq/L 98-107 [facility] ([facility]) Potassium [Moles/volume] in Serum or Plasma 4.5 meq/L 3.5-5.1 [facility] ([facility]) Calcium [Mass/volume] in Serum or Plasma 9.9 mg/dL 8.5-10.1 [facility] ([facility]) Glomerular filtration rate/1.73 sq M pre dicted among non-blacks [Volume Rate/Area] in Serum or Plasma by Creatinine-based formula (MDRD) 43 mL/min [facility] ([facility]) Carbon dioxide, total [Moles/volume] in Serum or Plasma 26 meq/L 21 -32 [facility] ([facility]) Glomerular filtration rate/1.73 sq M pre dicted among blacks [Volume Rate/Area] in Serum or Plasma by Creatinine-based formula (MDRD) 52 mL/min [facility] ([email or web address] <content>CHRONIC KIDNEY DISEASE STAGING PER NKF</content>
<content></content>
<content>STAGE I & II GFR >= 60 NORMAL TO MILDLY DECREASED</content>
<content>STAGE III GFR 30-59 MODERATELY DECREASED</content>
<content>STAGE IV GFR 15-29 SEVERELY DECREASED</content>
<content>STAGE V GFR <15 VERY LITTLE GFR LEFT</content>
<content>ESRD GFR <15 ON ROUTING CLERK</content>
<content></content> ID Date Data Source [id number] 02/08/2021 09:26:00 AM EDT [facility] ([facility]) Name Value Range Interpretation Code Description Data Altagracia rce(s) Supporting Document(s) Erythrocyte sedimentation rate by Westergren method 50 mm/hr 0-15 [facility]) ID Date Data Source [id number] 02/08/2021 09:26:00 AM EDT [facility]) Name Value Range Interpretation Code Description Data Altagracia rce(s) Supporting Document(s) Erythrocytes [#/volume] in Blood by Automated count 3.58 x10*6/UL 4.2 0-6.30 [facility] ([facility]) Leukocytes [#/volume] in Blood by Automated count 7.9 x10*3/UL 4.1-10 .9 [facility] ([facility]) NOTE: CBC VERIFIED Hemoglobin [Mass/volume] in Blood 11.8 g/dL 12.0-18.0 [facility] ([facility]) Hematocrit [Volume Fraction] of Blood by Automated count 35.5 % 3 7.0-51.0 [facility] ([facility]) MCV 99.2 fL 80.0-97.0 [facility]) MCHC 33.3 g/dL 31.0-38.0 [facility] ([facility] [place] MCH 33.0 pg 26.0-32.0 [facility] ([facility] [place] [place]) MPV 8.2 FL 7.8-11.0 [facility] ([facility] [place]) Erythrocyte distribution width [Ratio] by Automated count 15.0 % 11.6-13.7 [facility] ([email or web address] Platelets [#/volume] in Blood by Automated count 291 x10*3/UL 140-440 [facility] ([email or web address] Lymph % 20.8 % 10.0-58.5 [facility] ([facility] [place] Mid % 5.7 % 1.7-9.3 [facility] ([facility] [place] [place] Neut % 73.5 % 37.0-92.0 [facility] ([facility] [place]) Lymph # 1.6 x10*3/UL 0.6-4.1 [facility] ([facility]) Neut # 5.8 x10*3/UL 2.0-7.8 [facility] ([facility]) Mid # 0.5 x10*3/UL 0.1-0.6 [facility] ([facility]) ID Date Data Source [id number] 09/26/2020 09:30:00 AM EDT [facility] ([email or web address] Name Value Range Interpretation Code Description Data Altagracia rce(s) Supporting Document(s) Thyrotropin [Units/volume] in Serum or Plasma by Detec tion limit <= 0.05 mIU/L 4.42 uIU/mL 0.36-3.74 [facility] ([email or web address] ) ID Date Data Source [id number] 09/26/2020 09:30:00 AM EDT [facility] ([email or web address] Name Value Range Interpretation Code Description Data Altagracia rce(s) Supporting Document(s) Glucose [Mass/volume] in Serum or Plasma 95 mg/dL 74-99 [facility] ([facility]) 100-125 mg/dL PRE-DIABETES/FASTING >126 mg/dL DIABETES/FASTING Urea nitrogen [Mass/volume] in Serum or Plasma 40 mg/dL 7-18 [facility] ([facility]) Creatinine 1.1 mg/dL 0.6-1.3 [facility] Sodium [Moles/volume] in Serum or Plasma 144 meq/L 136-145 [facility] ([facility]) Chloride [Moles/volume] in Serum or Plasma 106 meq/L 98-107 [facility] ([facility]) Potassium [Moles/volume] in Serum or Plasma 4.5 meq/L 3.5-5.1 [facility] ([facility]) Carbon dioxide, total [Moles/volume] in Serum or Plasma 27 meq/L 21 -32 [facility] ([facility]) Calcium [Mass/volume] in Serum or Plasma 9.4 mg/dL 8.5-10.1 [facility] ([facility]) Glomerular filtration rate/1.73 sq M pre dicted among non-blacks [Volume Rate/Area] in Serum or Plasma by Creatinine-based formula (MDRD) 47 mL/min [email or web address] Glomerular filtration rate/1.73 sq M pre dicted among blacks [Volume Rate/Area] in Serum or Plasma by Creatinine-based formula (MDRD) 57 mL/min [facility] ([email or web address] <content>CHRONIC KIDNEY DISEASE STAGING PER NKF</content>
<content></content>
<content>STAGE I & II GFR >= 60 NORMAL TO MILDLY DECREASED</content>
<content>STAGE III GFR 30-59 MODERATELY DECREASED</content>
<content>STAGE IV GFR 15-29 SEVERELY DECREASED</content>
<content>STAGE V GFR <15 VERY LITTLE GFR LEFT</content>
<content>ESRD GFR <15 ON ROUTING CLERK</content>
<content></content> ID Date Data Source [id number] 09/26/2020 09:30:00 AM EDT [facility] ([facility]) Name Value Range Interpretation Code Description Data Altagracia rce(s) Supporting Document(s) Leukocytes [#/volume] in Blood by Automated count 6.4 x10*3/UL 4.1-10 .9 [facility] ([facility]) NOTE: CBC VERIFIED Hemoglobin [Mass/volume] in Blood 12.2 g/dL 12.0-18.0 [facility] ([email or web address] Hematocrit [Volume Fraction] of Blood by Automated count 37.3 % 3 7.0-51.0 [facility] ([email or web address] Erythrocytes [#/volume] in Blood by Automated count 3.69 x10*6/UL 4.2 0-6.30 [facility] ([facility]) MCH 33.1 pg 26.0-32.0 [facility] MCV 101.1 fL 80.0-97.0 [facility] ([facility] [place] MCHC 32.7 g/dL 31.0-38.0 [facility] ([facility] [place]) Platelets [#/volume] in Blood by Automated count 237 x10*3/UL 140-440 [facility] ([email or web address] Erythrocyte distribution width [Ratio] by Automated count 15.7 % 11.6-13.7 [facility] ([facility]) Mid % 8.3 % 1.7-9.3 [facility] MPV 8.7 FL 7.8-11.0 [facility] ([facility] [place] Lymph % 32.3 % 10.0-58.5 [facility] ([facility] [place] Neut % 59.4 % 37.0-92.0 [facility] ([facility] [place] Mid # 0.6 x10*3/UL 0.1-0.6 [facility] ([facility]) Lymph # 2.0 x10*3/UL 0.6-4.1 [facility] ([facility]) Neut # 3.8 x10*3/UL 2.0-7.8 [facility] ([facility]) ID Date Data Source [id number] 07/01/2020 12:30:00 PM EST [facility] ([facility]) Name Value Range Interpretation Code Description Data Altagracia rce(s) Supporting Document(s) Urine Color Laboratory test result [facility] T ([facility]) Urine Appearance Laboratory test result Abnormal (applies to non-numeric results) [facility] ([facility]) Urine PH 5.0 units 5.0-9.0 [facility] Urine Leukocytes Laboratory test result Abnormal (applies to non-numeric results) [facility] [facility] ([facility]) Specific gravity of Urine 1.025 1.005-1.030 CT DENT ([facility]) Urine Blood Laboratory test result [facility] ([facility]) Urine Protein Laboratory test result 0-0 [facility] ([facility]) Urine Nitrite Laboratory test result [facility] ([facility]) Glucose [Presence] in Urine Laboratory test result [facility] ([facility]) Bilirubin.total [Mass/volume] in Serum or Plasma Laboratory test resu lt [email or web address] Urine Ketone Laboratory test result [facility] [place]) Urine Urobilinogen 0.2 mg/dL 0.2-1.0 [facility] ([facility]) ID Date Data Source [id number] 06/27/2020 04:47:00 PM EST [facility] ([facility]) Name Value Range Interpretation Code Description Data Altagracia rce(s) Supporting Document(s) Lactate [Mass/volume] in Serum or Plasma 0.9 mmol/L 0.4-2.0 [facility] ([facility]) Y/N query for Sepsis Lactate Rule: Y ID Date Data Source [id number] 06/27/2020 04:47:00 PM EST [facility] ([facility]) Name Value Range Interpretation Code Description Data Altagracia rce(s) Supporting Document(s) Red Blood Count 3.62 10 4.00-5.40 [facility] ([facility]) White Blood Count 9.1 10 4.0-10.0 [facility] ([facility]) Hemoglobin 12.1 g/dL 12.0-15.5 [facility] ([facility]) Hematocrit 38.1 % 36.0-47.0 [facility] Mean Corpuscular Volume 105.2 fl 80.0-96.0 [facility] ([facility]) Mean Corpuscular Hemoglobin 33.4 pg 27.0-33.0 [facility] ([facility]) Mean Corpuscular HGB Conc 31.8 g/dL 32.0-36.5 [facility] NT ([facility]) Red Cell Distribution Width 16.1 % 11.5-14.5 [facility] ([facility]) Platelet Count, Automated 227 10 150-450 [facility] NT ([facility]) Neutrophils % 61.7 % 36.0-66.0 [facility] ([facility]) Lymph % 15.9 % 24.0-44.0 [facility]) Eos % 11.0 % 0.0-3.0 [facility] [place] % 10.0 % 2.0-8.0 [facility] Immature Granulocyte % 0.5 % 0-3.0 [facility] ([facility]) Baso % 0.9 % 0.0-1.0 [facility] Neutrophils # 5.6 10 1.5-8.5 [facility] ([facility]) Nucleated Red Blood Cell % 0.0 % 0-0 [facility] ([facility]) Lymph # 1.5 10 1.5-5.0 [facility]) [place] # 0.9 10 0.0-0.8 [facility] Eos # 1.0 10 0.0-0.5 [facility] Baso # 0.1 10 0.0-0.2 [facility]) ID Date Data Source [id number] 06/27/2020 04:46:00 PM EST [facility] ([facility]) Name Value Range Interpretation Code Description Data Altagracia rce(s) Supporting Document(s) Osmolality of Serum or Plasma 303 MOSM/KG 280-301 [facility] ([facility]) Thyrotropin [Units/volume] in Serum or Plasma by Detec tion limit <= 0.05 mIU/L 3.910 uIU/ML 0.358-3.740 [facility] ([facility] ) ID Date Data Source [id number] 06/27/2020 04:46:00 PM EST [facility] ([facility]) Name Value Range Interpretation Code Description Data Altagracia rce(s) Supporting Document(s) Glucose, Fasting 100 mg/dL 70-100 [facility] ([facility]) Blood Urea Nitrogen 54 mg/dL 7-18 [facility] ([facility]) Creatinine For GFR 1.12 mg/dL 0.55-1.30 [facility] ([facility]) Glomerular Filtration Rate 49.2 [facility] ([facility]) <content>Units are mL/min/1.73 m2</content>
<content></content>
<content>Chronic Kidney Disease Staging per NKF:</content>
<content></content>
<content>Stage I & II GFR >=60 Normal to Mildly Decreased</content>
<content>Stage III GFR 30- 59 Moderately Decreased</content>
<content>Stage IV GFR 15-29 Severely Decreased</content>
<content>Stage V GFR <15 Very Little GFR Left</content>
<content>ESRD GFR <15 on ROUTING CLERK</content>
<content></content> Sodium Level 138 meq/L 136-145 [facility] ([facility]) Potassium Serum 5.0 meq/L 3.5-5.1 [facility] ([facility]) Chloride Level 104 meq/L 98-107 [facility] ([facility]) Anion Gap 8 meq/L 8-16 [facility] Carbon Dioxide Level 26 meq/L 21-32 [facility] ([facility]) Calcium Level 9.4 mg/dL 8.8-10.2 [facility] ([facility]) ID Date Data Source [id number] 06/27/2020 04:46:00 PM EST [facility] ([facility]) Name Value Range Interpretation Code Description Data Altagracia rce(s) Supporting Document(s) Ast/Sgot 18 U/L 7-37 [facility]) Alt/SGPT 19 U/L 12-78 [facility] [place] [place] Alkaline Phosphatase 116 U/L 45-117 [facility] ([facility]) Bilirubin,Total 0.2 mg/dL 0.2-1.0 [facility] ([facility]) Bilirubin,Direct Laboratory test result 0.0-0.2 [facility] ([facility]) Total Protein 7.6 GM/DL 6.4-8.2 [facility] ([facility]) Albumin 3.9 GM/DL 3.2-5.2 [facility] ([facility] [place]) Albumin/Globulin Ratio 1.1 1.2-2.2 [facility] ([facility]) ID Date Data Source [id number] 06/27/2020 04:46:00 PM EST [facility] Name Value Range Interpretation Code Description Data Altagracia rce(s) Supporting Document(s) CPK Creatine Phosphokinase 56 U/L 26-192 [facility] ([facility]) CK-MB Value Mass 2.3 ng/mL [facility] ([facility]) MB/CK Relative Index 4.11 [facility]) <content>DIAGNOSIS CRITERIA</content>
<content>MMB ng/ml Relative Index (RI)</content>
<content>NON-AMI < or = 5 N/A</content>
<content>SANTO ZONE > 5 < or = 4</content>
<content>AMI > 5 > 4</content>
<content></content> Troponin I Laboratory test result [email or web address] <content>Troponin I Reference Interval f or Siemens [place] LOCI:</content>
<content></content>
<content>99th Percentile= 0.00-0.045 ng/ml</content>
<content></content>
<content>Risk Stratification:</content>
<content><= 0.10 ng/ml Decreased Risk for Adverse Clinical</content>
<content>Events.</content>
<content>0.10-1.50 ng/ml Increased Risk for Adverse Clinical</content>
<content>Events. Evaluation of additional</content>
<content>criterion and/or repeat testing in 2-6</content>
<content>hours is suggested to rule out myocardial</content>
<content>damage.</content>
<content>>= 1.50 ng/ml Indicative of Myocardial Injury.</content>
<content></content> ID Date Data Source [id number] 06/27/2020 04:46:00 PM EST [facility] ([facility]) Name Value Range Interpretation Code Description Data Altagracia rce(s) Supporting Document(s) Ammonia [Mass/volume] in Blood Laboratory test result [email or web address] ID Date Data Source [id number] 03/23/2020 08:26:00 AM EST [facility] ([facility]) Name Value Range Interpretation Code Description Data Altagracia rce(s) Supporting Document(s) C reactive protein [Mass/volume] in Serum or Plasma by High sensitivity method 0.70 mg/dL 0.00-0.30 [facility] ([facility] ) ID Date Data Source [id number] 03/23/2020 08:25:00 AM EST [facility] ([facility]) Name Value Range Interpretation Code Description Data Altagracia rce(s) Supporting Document(s) Thyrotropin [Units/volume] in Serum or Plasma by Detec tion limit <= 0.05 mIU/L 3.14 uIU/mL 0.36-3.74 [facility] ([facility] ) ID Date Data Source [id number] 03/23/2020 08:25:00 AM EST [facility] ([facility]) Name Value Range Interpretation Code Description Data Altagracia rce(s) Supporting Document(s) Triglyceride [Mass/volume] in Serum or Plasma 95 mg/dL 30-150 [facility] ([facility]) Cholesterol [Mass/volume] in Serum or Plasma 204 mg/dL 131-200 [facility] ([facility]) Cholesterol in HDL [Mass/volume] in Serum or Plasma 66 mg/dL 35-60 [facility] ([facility]) Cholesterol in LDL [Mass/volume] in Serum or Plasma by calcu lation 119 CALC 50-159 [facility] ([facility]) ID Date Data Source [id number] 03/23/2020 08:25:00 AM EST [facility] ([facility]) Name Value Range Interpretation Code Description Data Altagracia rce(s) Supporting Document(s) Glucose [Mass/volume] in Serum or Plasma 82 mg/dL 74-99 [facility] ([facility]) 100-125 mg/dL PRE-DIABETES/FASTING >126 mg/dL DIABETES/FASTING Creatinine 1.2 mg/dL 0.6-1.3 [facility] ([facility]) Urea nitrogen [Mass/volume] in Serum or Plasma 40 mg/dL 7-18 [facility] ([facility]) NOTE: RESULT VERIFIED. Potassium [Moles/volume] in Serum or Plasma 4.1 meq/L 3.5-5.1 [facility] ([facility]) Chloride [Moles/volume] in Serum or Plasma 104 meq/L 98-107 [facility] ([facility]) Sodium [Moles/volume] in Serum or Plasma 143 meq/L 136-145 [facility] ([facility]) Alkaline phosphatase isoenzyme [Units/volume] in Serum or Pl asma 100 mg/dL 46-116 [facility] ([facility]) Carbon dioxide, total [Moles/volume] in Serum or Plasma 28 meq/L 21 -32 [facility] ([facility]) Calcium [Mass/volume] in Serum or Plasma 8.9 mg/dL 8.5-10.1 [facility] ([facility]) Total Bilirubin 0.4 mg/dL 0.2-1.0 [facility] ([facility]) Aspartate aminotransferase [Enzymatic activity/volume] in Serum or Plasma 25 U/L 15-37 [facility] ([facility] ) Alanine aminotransferase [Enzymatic activity/volume] in Seru m or Plasma 22 U/L 12-78 [facility] ([facility]) Proteinase 3 Ab [Units/volume] in Serum 7.6 g/dL 6.4-8.2 [facility] ([facility]) Glomerular filtration rate/1.73 sq M pre dicted among non-blacks [Volume Rate/Area] in Serum or Plasma by Creatinine-based formula (MDRD) 43 mL/min [facility] ([email or web address] A/G Ratio 1.05 CALC 1.00-1.90 [facility] ([facility]) Albumin [Mass/volume] in Serum or Plasma 3.9 g/dL 3.4-5.0 [facility] ([email or web address] Glomerular filtration rate/1.73 sq M pre dicted among blacks [Volume Rate/Area] in Serum or Plasma by Creatinine-based formula (MDRD) 52 mL/min [facility] ([email or web address] <content>CHRONIC KIDNEY DISEASE STAGING PER NKF</content>
<content></content>
<content>STAGE I & II GFR >= 60 NORMAL TO MILDLY DECREASED</content>
<content>STAGE III GFR 30-59 MODERATELY DECREASED</content>
<content>STAGE IV GFR 15-29 SEVERELY DECREASED</content>
<content>STAGE V GFR <15 VERY LITTLE GFR LEFT</content>
<content>ESRD GFR <15 ON ROUTING CLERK</content>
<content></content> ID Date Data Source [id number] 03/23/2020 08:25:00 AM EST [facility] ([email or web address] Name Value Range Interpretation Code Description Data Altagracia rce(s) Supporting Document(s) Erythrocyte sedimentation rate by Westergren method 46 mm/hr 0-15 [facility] ([email or web address] ID Date Data Source [id number] 03/23/2020 08:25:00 AM EST [facility] ([email or web address] Name Value Range Interpretation Code Description Data Altagracia rce(s) Supporting Document(s) Leukocytes [#/volume] in Blood by Automated count 6.1 x10*3/UL 4.1-10 .9 [email or web address] NOTE: CBC VERIFIED Hematocrit [Volume Fraction] of Blood by Automated count 34.6 % 3 7.0-51.0 [facility] Erythrocytes [#/volume] in Blood by Automated count 3.45 x10*6/UL 4.2 0-6.30 [facility] ([facility]) Hemoglobin [Mass/volume] in Blood 12.0 g/dL 12.0-18.0 [facility] ([facility]) MCHC 34.8 g/dL 31.0-38.0 [facility] ([facility]) MCH 34.9 pg 26.0-32.0 [facility] ([facility]) MCV 100.3 fL 80.0-97.0 [facility] ([facility]) Erythrocyte distribution width [Ratio] by Automated count 15.0 % 11.6-13.7 [facility] ([facility]) Platelets [#/volume] in Blood by Automated count 221 x10*3/UL 140-440 [facility] ([facility]) MPV 8.8 FL 7.8-11.0 [facility] ([facility]) Neut % 62.6 % 37.0-92.0 [facility] ([facility]) Mid % 8.3 % 1.7-9.3 [facility] ([facility]) Lymph % 29.1 % 10.0-58.5 [facility] ([facility]) Mid # 0.6 x10*3/UL 0.1-0.6 [facility] ([facility]) Lymph # 1.7 x10*3/UL 0.6-4.1 [facility] ([facility]) Neut # 3.8 x10*3/UL 2.0-7.8 [facility] ([facility]) Procedure Social History No Information Vital Signs ID Date Data Source UNK Name Value Range Interpretation Code Description Data Source(s) Systolic blood pressure 132 mm[Hg] 132 mm[Hg] M [facility]ENT ([facility]) RT Arm Body height 59.50 [in_i] 59.50 [in_i] [facility] 4'11.50" Diastolic blood pressure 70 mm[Hg] 70 mm[Hg] [facility] ([facility]) RT Arm Heart rate 76 /min 76 /min [facility] ([facility]) Diastolic blood pressure 84 mm[Hg] 84 mm[Hg] [facility] ([facility]) RT Arm Heart rate 88 /min 88 /min [facility] ([facility]) Body height 59.50 [in_i] 59.50 [in_i] [facility] ([facility]) 50" Body weight 145.25 [lb_av] 145.25 [lb_av] [facility] T ([facility]) Body mass index (BMI) [Ratio] 28.8 kg/m2 28.8 k g/m2 [facility] ([facility]) Systolic blood pressure 134 mm[Hg] 134 mm[Hg] M EDENT ([facility]) RT Arm Body weight 148.00 [lb_av] 148.00 [lb_av] [facility] ([facility]) Systolic blood pressure 140 mm[Hg] 140 mm[Hg] [facility] Diastolic blood pressure 70 mm[Hg] 70 mm[Hg] [facility] ([facility]) Diastolic blood pressure 66 mm[Hg] 66 mm[Hg] [facility] ([facility]) Heart rate 68 /min 68 /min [facility] ([facility]) Body height 59.50 [in_i] 59.50 [in_i] [facility] ([facility]) 50" Body mass index (BMI) [Ratio] 29.4 kg/m2 29.4 k g/m2 [facility] ([facility]) Systolic blood pressure 138 mm[Hg] 138 mm[Hg] [facility] ([facility]) Systolic blood pressure 152 mm[Hg] 152 mm[Hg] M EDENT ([facility]) RT Arm Diastolic blood pressure 72 mm[Hg] 72 mm[Hg] [facility] ([facility]) RT Arm Heart rate 80 /min 80 /min [facility] ([facility]) Body height 59.50 [in_i] 59.50 [in_i] [facility] ([facility]) .50" Body weight 146.38 [lb_av] 146.38 [lb_av] [facility] T ([facility]) Body mass index (BMI) [Ratio] 29.1 kg/m2 29.1 k g/m2 [facility] ([facility]) Diastolic blood pressure 76 mm[Hg] 76 mm[Hg] [facility] ([facility]) Systolic blood pressure 138 mm[Hg] 138 mm[Hg] M RACHANA ([facility]) Body height 59.50 [in_i] 59.50 [in_i] 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
--- OUTSIDE RECORDS SUMMARY | 2021-03-01 16:27 | CCD | Continuity of Care Document ---
Author Author Jessica Coronel M.D. Organization Unknown Address [address] [address] Phone [phone] Care Team Providers Care Communication Spec Name Role Phone Maira Coronel MD AUTM [phone] Koko Sher MD AUTM [phone] Bg Bardales DO AUTM [phone] Problems Active Problems Provider Date Gastroesophageal reflux [...] Deep Relieving 3.1-10-15% Gel roll 2-4x/d Maira oCronel M.D. 02/09/20 21 Pepto-Bismol 262mg/15ML Suspension 30ml [...] Maira slaughter M.D. 03/10/2019 Excedrin Extra Strength [id number] Tablets 2 po 1-2x/d with food prn Maira slaughter M.D. 11/04/2018 Walker W/ Seat W/Basket as prescribed dx-OA, ra, dysequalibrium 1un its aMira Coronel M.D. 11/04/2018 Prednisone 10mg Tablets 1 by mouth every day for 5 days 5tabs Maira Coronel M.D. 08/27/19 19 Align 4mg Capsules 1 by mo [facility] every day Maira Coronel M.D. 07/28/2018 Flonase Allergy Relief 50mcg/Act Suspension one spray each nare twice a day as needed 1mo Maira Coronel M.D. 08/12/2017 Tylenol Extra Strength 500mg Table ts 2 pills 2-3x/d as needed Maira Coronel M.D. 1 Biofreeze 4% Gel 2-4x/dejesus nee ded Maira Coronel M.D. 01/26/2016 Magnesium 500mg Tablets 1 by mouth every day Maira Coornel M.D. 01/11/20 15 Calcium Citrate-Vitamin D3 [id number] Tablets 3/d Maira Coronel M.D. 04/2014 Saline Nasal [place] 0.65% Solution 3-4x/d as directed 1units Maira [...] Qnty Indications Ordering Provider Date Reclast 1MG [id number] Injection Dhara Diaz, [facility] 09/19/2011 IV Infusion Up To 1 Hour Injection Dhara Diaz, [facility] 09/19/2011 Reclast 1MG [id number] Injection Dhara Diaz, [facility] 08/31/2010 IV Infusion Up To 1 Hour Injection Dhara Diaz, [facility] 08/31/2010 Reclast 1MG [id number] Injection Dhara Diaz, [facility] 08/29/2009 IV Infusion Up To 1 Hour Injection Dhraa Diaz, [facility] 08/29/2009 Immunizations CPT Code Status Date Vaccine Lot # [id number] Given 07/04/2020 Covid-19 Moderna vaccine, [id number] Given 06/06/2020 Covid-19 Moderna vaccine, U-Flu Given 03/26/2020 Influenza,Unspecified U-Td Refused 03/24/2020 Td(Adult)(Tetanus, Diphtheri a) unspecified [id number] Refused 03/24/2020 Pneumovax 23 09645 Refused 03/24/2020 Prevnar 13 00583 Refused 07/28/2018 Influenza Virus Vaccine, Quadrivalent (Cciiv4), Derived From Cell 59453 Refused 07/28/2018 Shingrix Zoster Vaccine (HZV), Recombinant, Subunit, Adjuvanted 72604 Refused 07/28/2018 Zoster Vaccine 52278 Refused 07/28/2018 Pneumovax 23 02171 Refused 07/28/2018 Adacel- Tetanus Diphtheria P ertussis 27856 Refused 07/28/2018 Prevnar 13 [id number] Refused 01/29/2012 Fluvirin Virus Vaccine [id number] Refused 02/26/2011 Fluvirin Virus Vaccine Vital Signs Date Vital Result Comment 02/21/2021 8:33am BP Systolic 132 mmHg RT Arm BP Diastolic 70 mmHg RT Arm Heart Rate 76 /min Height 59.50 inches 4'11.50" 02/08/2021 8:44am BP Systolic 134 mmHg RT Arm BP Diastolic 84 mmHg RT Arm Heart Rate 88 /min Height 59.50 inches 4'11.50" Weight 145.25 lb BMI (Body Mass Index) 28.8 kg/m2 Results Test Acquired Date Facility Test Result H/L Range Note Complete Blood Count 02/08/2021 [facility] Gathering Machine Setter: [place] [address] [phone] WBC 7.9 x10*3/UL 4.1 - 10.9 1 [...] 2.0 - 7.8 Laboratory test finding 02/08/2021 [facility] Gathering Machine Setter: [place] [address] [phone] Sed Rate 50 mm/hr High 0 - 15 Basic Metabolic Panel 02/08/2021 [facility] Gathering Machine Setter: [place] [address] [phone] Glucose 97 mg/dL 74 - 99 2 [...] Low >60 3 Laboratory test finding 02/08/2021 [facility] [address] [place] [address] [phone] C Reactive Protein Quantitativ 2.84 mg/dL High 0 .00-0.30 Complete Blood Count 09/26/2020 [facility] Gathering Machine Setter: Dr Alcon Guzman [place], [place] [address] [phone] WBC 6.4 x10*3/UL 4.1 - 10.9 4 [...] 2.0 - 7.8 Basic Metabolic Panel 09/26/2020 [facility] Gathering Machine Setter: [place] [address] [phone] Glucose 95 mg/dL 74 - 99 5 [...] Low >60 6 Laboratory test finding 09/26/2020 [facility] Gathering Machine Setter: [place] [address] [phone] Thyroid Stimulating Hormone 4.42 uIU/mL High 0.3 [...] LITTLE GFR LEFT ESRD GFR <15 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 4 NOTE: CBC VERIFIED 5 100-125 mg/dL PRE-DIABET ES/FASTING >126 mg/dL DIABETES/FASTING 6 CHRONIC KIDNEY DISEASE STAGI NG PER NKF STAGE I & II GFR >= 60 NORMAL TO MILDLY DECREASED STAGE III GFR 30-59 MODERATELY DECREASED STAGE IV GFR 15-29 SEVERELY DECREASED STAGE V GFR <15 VERY LITTLE GFR LEFT ESRD GFR <15 ON MVA 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 Procedures Date Code Description Status 02/08/2021 85595 Office/Outpatient Established Mo d MDM 30-39 Min Completed 09/28/2020 69120 Office/Outpatient Established Mo d MDM 30-39 Min Completed 02/10/2015 [id number] Bone Mineral Density Test Comple salazar 07/30/2012 [id number] Bone Mineral Density Test Comple salazar 12/08/2008 [id number] Bone Mineral Density Test Comple salazar 01/08/2007 [id number] Mammogram Completed 11/05/2002 [id number] Colonoscopy Completed Medical Devices Description No Information Available Encounters Type Date Location Provider Dx Diagnosis Office Visit 02/08/2021 8:45a [facility] POliviaCOlivia Coronel M.D. M79.604 Pain in right leg M06.9 Rheumatoid arthritis, unspec ified B35.1 Tinea unguium Office Visit 09/28/2020 11:30a [facility], PKita Coronel M.D. I12.9 Hypertensive chronic kidney disease [...] Maira Coronel M.D. 02/08/2021 B35.1 Onychomycosis Maira coblert M.D. 09/28/2020 I12.9 Hypertensive chronic kidney disease [...] 03/27/2021 10:20 am - Lab Schedule at [facility] * 03/28/2021 11:00 am - Maira Coronel M.D. at [facility] * 03/28/2021 10:40 am - [email or web address] 02/08/2021 - Maira Coronel M.D.* M79.604 [...] Description No Information Available Referrals Refer to Dr Reason for Referral Status Appt Date Lavell Leone DPM Referral DX: Onychomycosis/RA/toe deformity Created [address] [place] [address] [phone]
--- OUTSIDE RECORDS SUMMARY | 2021-03-01 16:27 | CCD | Continuity of Care Document ---
Author Author Jessica Coronel M.D. Organization Unknown Address [address] [address] Phone [phone] Care Team Providers Care Systems Manager Name Role Phone Maira Coronel MD AUTM [phone] Koko Sher MD AUTM [phone] Bg Bardales DO AUTM [phone] Problems Active Problems Provider Date Gastroesophageal reflux [...] Maira slaughter M.D. 03/10/2019 Excedrin Extra Strength [id number] Tablets 2 po 1-2x/d with food prn Maira slaughter M.D. 11/04/2018 Walker W/ Seat W/Basket as prescribed dx-OA, ra, dysequalibrium 1un its Maira Coronel M.D. 11/04/2018 Prednisone 10mg Tablets 1 by mouth every day for 5 days 5tabs Maira Coronel M.D. 08/27/19 19 Align 4mg Capsules 1 by mo [facility] every day Maira Coronel M.D. 07/28/2018 Flonase [...] Coronel M.D. 01/11/20 15 Calcium Citrate-Vitamin D3 160-393ds-Uplk Tablets 3/d Maira Coronel M.D. 04/2014 Saline Nasal [place] 0.65% Solution 3-4x/d as directed 1units Maira [...] Qnty Indications Ordering Provider Date Reclast 1MG [id number] Injection Dhara Diaz, [facility] 09/19/2011 IV Infusion Up To 1 Hour Injection Dhara Diaz, [facility] 09/19/2011 Reclast 1MG [id number] Injection Dhara Diaz, [employer] [facility] 08/31/2010 IV Infusion Up To 1 Hour Injection Dhara Diaz, [employer] [facility] 08/31/2010 Reclast 1MG [id number] Injection Dhara Diaz, [employer] [facility] 08/29/2009 IV Infusion Up To 1 Hour Injection Dhara Diaz, [employer] [facility] 08/29/2009 Immunizations CPT Code Status Date Vaccine Lot # [id number] Given 07/04/2020 Covid-19 Moderna vaccine, 65042 Given 06/06/2020 Covid-19 Moderna vaccine, U-Flu Given 03/26/2020 Influenza,Unspecified U-Td Refused 03/24/2020 Td(Adult)(Tetanus, Diphtheri a) unspecified 76315 Refused 03/24/2020 Pneumovax 23 [id number] Refused 03/24/2020 Prevnar 13 [id number] Refused 07/28/2018 Influenza Virus Vaccine, Quadrivalent (Cciiv4), Derived From Cell [id number] Refused 07/28/2018 Shingrix Zoster Vaccine (HZV), Recombinant, Subunit, Adjuvanted 07438 Refused 07/28/2018 Zoster Vaccine 41683 Refused 07/28/2018 Pneumovax 23 [id number] Refused 07/28/2018 Adacel- Tetanus Diphtheria P ertussis 11428 Refused 07/28/2018 Prevnar 13 [id number] Refused 01/29/2012 [...] Date Facility Test Result H/L Range Note Basic Metabolic Profile 02/21/[address] [address] [phone] Glucose, Fasting 98 mg/dL Normal 70-100 Blood Urea Nitrogen 43 mg/dL High 7-18 Creatinine For GFR 0.96 mg/dL Normal 0.55-1.30 Glomerular Filtration Rate 58.7 Normal >32 1 Sodium Level 138 mEq/L Normal 136-145 Potassium Serum 4.2 mEq/L Normal 3.5-5.1 Chloride Level 106 mEq/L Normal 98-107 Carbon Dioxide Level 25 mEq/L Normal 21-32 Anion Gap 7 mEq/L Low 8-16 Calcium Level 10.3 mg/dL High 8.8-10.2 Laboratory test finding 02/21/[address] [address] [phone] C Reactive Protein Quantitativ 6.88 mg/dL High 0 .00-0.30 CBC With Differential 02/21/[address] [address] [phone] White Blood Count 8.7 10 Normal 4.0-10.0 Red Blood Count 3.57 10 Low 4.00-5.40 Hemoglobin 11.9 g/dL Low 12.0-15.5 Hematocrit 37.0 % Normal 36.0-47.0 Mean Corpuscular Volume 103.6 fl High 80.0-96.0 Mean Corpuscular Hemoglobin 33.3 pg High 27.0-33.0 Mean Corpuscular HGB Conc 32.2 g/dL Normal 32.0-36.5 Red Cell Distribution Width 16.2 % High 11.5-14.5 Platelet Count, Automated 275 10 Normal 150-450 Neutrophils % 56.2 % Normal 36.0-66.0 Lymph % 18.4 % Low 24.0-44.0 Mower % 11.8 % High 2.0-8.0 Eos % 12.3 % High 0.0-3.0 Baso % 0.8 % Normal 0.0-1.0 Immature Granulocyte % 0.5 % Normal 0-3.0 Nucleated Red Blood Cell % 0.0 % Normal 0-0 Neutrophils # 4.9 10 Normal 1.5-8.5 Lymph # 1.6 10 Normal 1.5-5.0 Mower # 1.0 10 High 0.0-0.8 Eos # 1.1 10 High 0.0-0.5 Baso # 0.1 10 Normal 0.0-0.2 Laboratory test finding 02/21/2021 [facility] [address], [place] [id number] [phone] Erythrocyte Sedimentation Rate 70 mm/hr High 0 -30 Influenza A/B RSV Covid Amp 02/21/2021 [facility] [address], [place] [id number] [phone] Influenza A Amplification NEGATIVE Normal Negati ve 2 Influenza B Amplification NEGATIVE Normal Negative 3 RSV Amplification NEGATIVE Normal Negative 4 Sars Covid-19 Amplification NEGATIVE Normal Negative 5 Complete Blood Count 02/08/2021 [facility] Slurry Tank Tender: [place] [address] [phone] WBC 7.9 x10*3/UL 4.1 - 10.9 6 RBC 3.58 x10*6/UL Low 4.20 - 6.30 [...] 2.0 - 7.8 Laboratory test finding 02/08/2021 [facility] Slurry Tank Tender: [place] [address] [phone] Sed Rate 50 mm/hr High 0 - 15 Basic Metabolic Panel 02/08/2021 [facility] Tender: [place] [address] [phone] Glucose 97 mg/dL 74 - 99 7 BUN 33 mg/dL High 7 - 18 Creatinine 1.2 mg/dL 0.6 - 1.3 Sodium 140 mEq/L 136 - 145 Potassium 4.5 mEq/L 3.5 - 5.1 Chloride 103 mEq/L 98 - 107 Carbon Dioxide 26 mEq/L 21 - 32 Calcium 9.9 mg/dL 8.5 - 10.1 GFR 43 mL/min Low >60 GFR 52 mL/min Low >60 8 Laboratory test finding 02/08/2021 [facility] [address] [place] [address] [phone] C Reactive Protein Quantitativ 2.84 mg/dL High 0 .00-0.30 Complete Blood Count 09/26/2020 [facility] Slurry Tank Tender: [place] [address] [phone] WBC 6.4 x10*3/UL 4.1 - 10.9 9 RBC 3.69 x10*6/UL Low 4.20 - 6.30 [...] 2.0 - 7.8 Basic Metabolic Panel 09/26/2020 [facility] Sl[facility] Tank Tender: [place] [address] [phone] Glucose 95 mg/dL 74 - 99 10 BUN 40 mg/dL High 7 - 18 Creatinine 1.1 mg/dL 0.6 - 1.3 Sodium 144 mEq/L 136 - 145 Potassium 4.5 mEq/L 3.5 - 5.1 Chloride 106 mEq/L 98 - 107 Carbon Dioxide 27 mEq/L 21 - 32 Calcium 9.4 mg/dL 8.5 - 10.1 GFR 47 mL/min Low >60 GFR 57 mL/min Low >60 11 Laboratory test finding 09/26/2020 [facility] Slurry Tank Tender: [place] [address] [phone] Thyroid Stimulating Hormone 4.42 uIU/mL High 0.3 6 - 3.74 1 Units are mL/min/1.73 m2 Chronic Kidney Disease Staging per NKF: Stage I & II GFR >=60 Normal to Mildly Decreased Stage III GFR 30-59 Moderately Decreased Stage IV GFR 15-29 Severely Decreased Stage V GFR <15 Very Little GFR Left ESRD GFR <15 on SPINNING MULE TENDER 2 Negative results do not prec lude influenza or RSV virus infection and should not be used as the sole basis for treatment or other patient management decisions. 3 Negative results do not prec lude influenza or RSV virus infection and should not be used as the sole basis for treatment or other patient management decisions. 4 Negative results do not prec lude influenza or RSV virus infection and should not be used as the sole basis for treatment or other patient management decisions. 5 A false negative result may occur if a specimen is improperly collected, transported or handled. False [...] pathogens. DISCLAIMER: Testing was performed using the [employer] SARS-CoV-2 test. This test was developed and its performance characteristics determined by [employer]. This test has not been FDA cleared [...] the authorization is terminated or revoked sooner. 6 NOTE: CBC VERIFIED 7 100-125 mg/dL PRE-DIABET ES/FASTING >126 mg/dL DIABETES/FASTING 8 CHRONIC KIDNEY DISEASE STAGI NG PER NKF STAGE I & II GFR >= 60 NORMAL TO MILDLY DECREASED STAGE III GFR 30-59 MODERATELY DECREASED STAGE IV GFR 15-29 SEVERELY DECREASED STAGE V GFR <15 VERY LITTLE GFR LEFT ESRD GFR <15 ON SPINNING MULE TENDER 9 NOTE: CBC VERIFIED 10 100-125 mg/dL PRE-DIABET ES/FASTING >126 mg/dL DIABETES/FASTING 11 CHRONIC KIDNEY DISEASE STAGI NG PER NKF STAGE I & II GFR >= 60 NORMAL TO MILDLY DECREASED STAGE III GFR 30-59 MODERATELY DECREASED STAGE IV GFR 15-29 SEVERELY DECREASED STAGE V GFR <15 VERY LITTLE GFR LEFT ESRD GFR <15 ON SPINNING MULE TENDER Procedures Date Code Description Status 02/08/2021 29762 Office/Outpatient Established Mo d MDM 30-39 Min Completed 09/28/2020 64158 Office/Outpatient Established Mo d MDM 30-39 Min Completed 02/10/2015 [id number] Bone Mineral Density Test Comple [facility]azar 07/30/2012 [id number] Bone Mineral Density Test [facility] 12/08/2008 [id number] Bone Mineral Density Test Comple salazar 01/08/2007 [id number] Mammogram Completed 11/05/2002 [id number] Colonoscopy Completed Medical Devices Description No Information Available Encounters Type Date Location Provider Dx Diagnosis Office Visit 02/08/2021 8:45a [facility] PKita Coronel M.D. M79.604 Pain in right leg M06.9 Rheumatoid arthritis, unspec ified B35.1 Tinea unguium Office Visit 09/28/2020 11[facility]a [facility] I12.9 Hypertensive chronic kidney disease w stg 1-4/unsp chr kdny N18.32 Chronic kidney disease, stag e 3b G31.84 Mild cognitive impairment, s o stated M06.9 Rheumatoid arthritis, unspec ified R25.1 Tremor, unspecified K21.9 Gastro-esophageal reflux dis ease without esophagitis Assessments Date Code Description Provider 02/21/2021 M79.604 Pain in right leg Maira moctezuma M.D. 02/21/2021 G31.84 Mild cognitive impairment, so st ated Maira Coronel M.D. 02/21/2021 M06.9 Rheumatoid arthritis, unspecifie d Maira Coronel M.D. 02/21/2021 B35.1 Onychomycosis Maira colbert M.D. 02/21/2021 I12.9 Hypertensive chronic kidney disease with stage 1 through stage 4 chronic kidney disease, or unspecified chronic kidney disease Maira Coronel M.D. 02/21/2021 N18.32 Chronic kidney disease, stage 3b Maira Coronel M.D. 02/21/2021 R25.1 Tremor, unspecified Maira boothe M.D. 02/21/2021 K21.9 Gastro-esophageal reflux disease without esophagitis Maira Coronel M.D. 02/08/2021 M79.604 Pain in right leg Maira [...] 03/27/2021 10:20 am - Lab Schedule at [facility] * 03/28/2021 11:00 am - Maira Coronel M.D. at [facility] * 03/28/2021 10:40 am - Nurse #2 at [facility] 02/21/2021 - Maira Coronel M.D.* M79.604 Pain in right leg * G31.84 Mild cognitive impairment, so stated * M06.9 Rheumatoid arthritis, unspecified * B35.1 Onychomycosis * I12.9 Hypertensive chronic kidney disease with stage 1 through stage 4 chronic kidney disease, or unspecified chronic kidney disease * N18.32 Chronic kidney disease, stage 3b * R25.1 Tremor, unspecified * K21.9 Gastro-esophageal reflux disease without esophagitis Functional Status Description No Information Available Mental Status Description No Information Available Referrals Refer to Dr Reason for Referral Status Appt Date Lavell Leone DPM 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
[2021-03-01] MEDS ORDERED: NS 1,000 ML IV ONE (18:15)
--- OUTSIDE RECORDS SUMMARY | 2021-03-01 19:00 | CCD ---
Author Author [facility] Organization [facility] Address Unknown Phone Unavailable Care Team Providers Care Paleology Teacher Name Role Phone Santiago Coronel MD Unavailable [...] MD Unavailable Unavailable BernaSantiago MD Unavailable Unavailable BernaSantaigo MD Unavailable Unavailable BernaSantiago MD Unavailable Unavailable [...] Unavailable Unavailable BernaSantiago colbert MD Unavailable Unavailable Snatiago Coronel MD Unavailable Unavailable BernaSantiago MD Unavailable Unavailable Berna, Santiago Maira HARDY Unavailable Unavailable Berna, Santiago Maira HARDY Unavailable Unavailable Berna, Santiago Rao MD Unavailable Unavailable Berna, aSntiago Rao MD Unavailable Unavailable Berna, M Maira [...] is protected by Article 27-F of the [facility] Public Health law. If you continue you may have access to information: Regarding HIV / AIDS; Provided by facilities licensed or operated by the [facility] Office of Mental Health; or Provided by the [facility] Office for People With Developmental Disabilities. If such information is present, then the following [facility] mandated warning applies: This information has been [...] law may result in a fine or long-term sentence or both. A general authorization for the release of medical or other information is NOT sufficient authorization for further disc losure. Family History Family Member Name Family Member Gender Family Member Status Date o f Status Description Data Source(s) Unknown Male Problem [facility] ([facility]) Unknown Male Problem [facility] ([facility]) Encounters Encounter Providers Location Date Indications Data Source(s ) Outpatient Attender: Maira Keith 08:45:00 AM EDT [facility] ([facility] ) Outpatient Attender: Maira Keith 11:30:00 AM EDT [facility] ([facility] ) Outpatient Attender: Maira Keith 01:45:00 PM EST [facility] ([facility] ) Outpatient Attender: Maira Keith 12:30:00 PM EST [facility] ([facility] ) Immunizations Vaccine Date Status Description Data Source(s) Covid-19 Moderna vaccine, 07/04/2020 02:37:00 PM EDT completed [facility] ([facility]) COVID-19 VACCINE Moderna 07/04/2020 12:00:00 AM EDT completed [facility] Vaccine Series Complete: YESThis Data wa s Submitted to [facility] Via Traansmission. Covid-19 Moderna vaccine, 06/06/2020 01:37:00 PM EST completed [facility] ([facility]) COVID-19 VACCINE Moderna 06/06/2020 12:00:00 AM EST completed [facility] Vaccine Series Complete: NOThis Data was Submitted to [facility] Via ioSemanticsIS. This CVX code allows reporting of a vacc ination when formulation is unknown (for example, when recording a Influenza vaccination when noted on a vaccination card) 03/26/2020 01:37:00 PM EST completed MEDEN T ([facility]) INFLUENZA VACCINE QUADRIVALENT 2019- (65 YR UP)/MF59 C.1/PF 03/26/2020 12:00:00 AM EST completed [facility] Note that this Td is not adsorbed. 03/24/2020 12:43:00 PM EST compl eted [facility] ([facility]) Pneumococcal conjugate PCV 13 03/24/2020 12:42:00 PM EST [facility] pneumococcal polysaccharide PPV23 03/24/2020 12:42:00 PM EST comple salazar [facility] Medications Medication Brand Name Start Date Product [...] Relieving 02/08/2021 12:00:00 AM EDT active [facility] Cephalexin 500 MG Oral Capsule CEPHALEXIN 02/08/2021 12:00:00 AM EDT capsule 20 TAKE ONE CAPSULE BY MOUTH TWICE A DAY FOR 10 DAYS TAKE ONE CAPSULE BY MOUTH TWICE A DAY FOR 10 DAYS SOLD: 02/08/2021 [facility] Cephalexin 500 MG Oral Capsule Cephalexin 02/08/2021 12:00:00 AM EDT ORAL active [facility] bismuth subsalicylate 17.5 MG/ML Oral Suspension [Pepto-bism ol] Pepto-Bismol 09/28/2020 12:00:00 AM EDT ORAL active [facility] 40 mg 06/30/2020 12:00:00 AM EST capsule,delayed [...] 06/29/2020 12:00:00 AM EST ORAL active [facility] ([facility]) 27 mg iron- 1 mg 03/25/2020 12:00:00 AM EST tablet 90 TAKE ONE TABLET BY MOUTH EVERY DAY TAKE ONE TABLET BY MOUTH EVERY DAY SOLD: 03/26/2020 [facility] Lidocaine Hydrochloride 40 MG/ML Topical Cream Aspercreme W/ Lidocaine 03/24/2020 12:00:00 AM EST active [facility] ([facility]) Insurance Providers Payer name Policy type / Coverage type Policy ID Covered green party ID Covered green party's relationship to cherry Policy Cherry Plan Information Medicare Natl Govt Servic Medicare Primary [id number] Self [id number] Medicare Natl Govt Servic Medicare Primary [id number] Self [id number] Medicare Natl Govt Servic Medicare Primary [id number] Self [id number] Medicare Natl Govt Servic Medicare Primary [id number] Self [id number] Medicare Natl Govt Servic Medicare Primary [id number] Self [id number] MEDICARE [id number] SP [id number] Medicare Natl Govt Servic Medicare Primary [id number] Self [id number] A Medicare Natl Govt Servic Medicare Primary [id number] Self [id number] Medicare Natl Govt Servic Medicare Primary [id number] Self [id number] Medicare Natl Govt Servic Medicare Primary [id number] Self [id number] MEDICARE [id number] SP [id number] A [place] (Old) Medigap Part B [id number] Family Dependent [id number] [place] P[employer] Medigap Part B [id number] Family Dependent [id number] [employer] (Old) Medigap Part B [id number] Family Dependent [id number] [place] Medigap Part B [id number] Family Dependent [id number] [employer] (Old) Medigap Part B [id number] Family Dependent [id number] [place] Medigap Part B [id number] Family Dependent Umr [place] Ppo Medigap Part B [id number] Family Dependent [id number] Umr [place] [employer] Medigap Part B [id number] Family Dependent [id number] [place] Medigap Part B [id number] Family Dependent [id number] [facility] Medigap Part B [id number] Self [id number] [facility] Medigap Part B [id number] Self [id number] [facility] Part B [id number] Self [id number] 11 [id number] Medicare Part B [facility] Other 0 [id number] Self 0 Medicare Part B [facility] Other 0 [id number] Self 0 [employer] OPTIONS [id number] S [id number] [employer] MEDICARE DIVISION [id number] S [id number] MEDICARE - [place] [id number] S [id number] Medicare Part B [facility] Other 0 [id number] Self 0 [employer] HE[employer] C[employer] OPTIONS [id number] SP [id number] [facility] [id number] Family Dependent [id number] [employer] [id number] HU2 [id number] [employer] PPO O [id number] S [id number] MEDICARE C [id number] S [id number] A [id number] Family Dependent [employer] HE[employer] CARE OPTIONS [id number] SP [id number] Problems, Conditions, and Diagnoses No Information Surgeries/Procedures Procedure Description Date Indications Data Source(s) OFFICE OUTPATIENT VISIT 25 MINUTES 02/08/2021 12:00:00 AM EDT [facility] ([facility]) OFFICE OUTPATIENT VISIT 25 MINUTES 09/28/2020 12:00:00 AM EDT [facility] ([facility]) Results ID Date Data Source [id number] 02/21/2021 11:23:00 AM EDT [facility] Name Value Range Interpretation Code Description Data Altagracia rce(s) Supporting Document(s) SARS coronavirus 2 RNA [Presence] in Res piratory specimen by LEAH with probe detection NEGATIVE [facility] This lab was ordered by [facility] a nd reported by [facility]. ID Date Data Source [id number] 02/21/2021 11:23:00 AM EDT [facility] Name Value Range Interpretation Code Description Data Altagracia rce(s) Supporting Document(s) Influenza A Amplification Laboratory test result [facility] Negative results do not preclude influen za or RSV virus infection and should not be used as the sole basis for treatment or other patient management decisions. Influenza B Amplification Laboratory test result [facility] Negative results do not preclude influen za or RSV virus infection and should not be used as the sole basis for treatment or other patient management decisions. RSV Amplification Laboratory test result [facility] Negative results do not preclude influen za or RSV virus infection and should not be used as the sole basis for treatment or other patient management decisions. Laboratory test finding (navigational concept) Laboratory test result [facility] ([facility]) A false negative result may occur [...] pathogens. DISCLAIMER: Testing was performed using the [employer] SARS-CoV-2 test. This test was developed and its performance characteristics determined by [employer]. This test has not been FDA cleared [...] or revoked sooner. ID Date Data Source [id number] 02/21/2021 11:23:00 AM EDT [facility] Name Value Range Interpretation Code Description Data Altagracia rce(s) Supporting Document(s) Erythrocyte sedimentation rate by Westergren method 70 mm/hr 0-30 [facility] ([facility]) ID Date Data Source [id number] 02/21/2021 11:23:00 AM EDT [facility] ([facility]) Name Value Range Interpretation Code Description Data Altagracia rce(s) Supporting Document(s) Red Blood Count 3.57 10 4.00-5.40 [facility] ([facility]) White Blood Count 8.7 10 4.0-10.0 [facility] ([facility]) Hemoglobin 11.9 g/dL 12.0-15.5 [facility] Mean Corpuscular Volume 103.6 fl 80.0-96.0 [facility] ([facility]) Hematocrit 37.0 % 36.0-47.0 [facility] ([facility]) Mean Corpuscular Hemoglobin 33.3 pg 27.0-33.0 ME DENT ([facility]) Platelet Count, Automated 275 10 150-450 MEDE NT ([facility]) Red Cell Distribution Width 16.2 % 11.5-14.5 [facility] ([facility]) Mean Corpuscular HGB Conc 32.2 g/dL 32.0-36.5 MEDE NT ([facility]) Lymph % 18.4 % 24.0-44.0 [facility] Neutrophils % 56.2 % 36.0-66.0 [facility] ([facility]) Baso % 0.8 % 0.0-1.0 [facility]) [place] % 11.8 % 2.0-8.0 [facility] Eos % 12.3 % 0.0-3.0 [facility] Neutrophils # 4.9 10 1.5-8.5 [facility] ([facility]) Immature Granulocyte % 0.5 % 0-3.0 [facility] ([facility]) Nucleated Red Blood Cell % 0.0 % 0-0 MED ENT ([facility]) [place] # 1.0 10 0.0-0.8 [facility] Eos # 1.1 10 0.0-0.5 [facility] Lymph # 1.6 10 1.5-5.0 [facility] Baso # 0.1 10 0.0-0.2 [facility] ID Date Data Source [id number] 02/21/2021 11:23:00 AM EDT [facility] ([facility]) Name Value Range Interpretation Code Description Data Altagracia rce(s) Supporting Document(s) C reactive protein [Mass/volume] in Serum or Plasma by High sensitivity method 6.88 mg/dL 0.00-0.30 [facility] ([facility] ) ID Date Data Source [id number] 02/21/2021 11:23:00 AM EDT [facility] ([facility]) Name Value Range Interpretation Code Description Data Altagracia rce(s) Supporting Document(s) Glucose, Fasting 98 mg/dL 70-100 [facility] ([facility]) Blood Urea Nitrogen 43 mg/dL 7-18 [facility] ([facility]) Creatinine For GFR 0.96 mg/dL 0.55-1.30 [facility] ([facility]) Glomerular Filtration Rate 58.7 MED ENT ([facility]) <content>Units are mL/min/1.73 m2</content>
<content></content>
<content>Chronic Kidney Disease Staging per NKF:</content>
<content></content>
<content>Stage I & II GFR >=60 Normal to Mildly Decreased</content>
<content>Stage III GFR 30- 59 Moderately Decreased</content>
<content>Stage IV GFR 15-29 Severely Decreased</content>
<content>Stage V GFR <15 Very Little GFR Left</content>
<content>ESRD GFR <15 on TREE THINNER</content>
<content></content> Sodium Level 138 meq/L 136-145 [facility] ([facility]) Chloride Level 106 meq/L 98-107 [facility] ([facility]) Carbon Dioxide Level 25 meq/L 21-32 [facility] ([facility]) Potassium Serum 4.2 meq/L 3.5-5.1 [facility] ([facility]) Anion Gap 7 meq/L 8-16 [facility] ([facility]) Calcium Level 10.3 mg/dL 8.8-10.2 [facility] ([facility]) ID Date Data Source [id number] 02/08/2021 09:26:00 AM EDT [facility] ([facility]) Name Value Range Interpretation Code Description Data Altagracia rce(s) Supporting Document(s) C reactive protein [Mass/volume] in Serum or Plasma by High sensitivity method 2.84 mg/dL 0.00-0.30 [facility] ([facility] ) ID Date Data Source [id number] 02/08/2021 09:26:00 AM EDT [facility] ([facility]) Name Value Range Interpretation Code Description Data Altagracia rce(s) Supporting Document(s) Glucose [Mass/volume] in Serum or Plasma 97 mg/dL 74-99 [facility] ([facility]) 100-125 mg/dL PRE-DIABETES/FASTING >126 mg/dL DIABETES/FASTING Creatinine 1.2 mg/dL 0.6-1.3 [facility] Urea nitrogen [Mass/volume] in Serum or Plasma 33 mg/dL 7-18 [facility] ([facility]) Sodium [Moles/volume] in Serum or Plasma 140 meq/L 136-145 [facility] ([facility]) Chloride [Moles/volume] in Serum or Plasma 103 meq/L 98-107 [facility] ([facility]) Potassium [Moles/volume] in Serum or Plasma 4.5 meq/L 3.5-5.1 [facility] ([facility]) Calcium [Mass/volume] in Serum or Plasma 9.9 mg/dL 8.5-10.1 [facility] ([facility]) Glomerular filtration rate/1.73 sq M pre dicted among non-blacks [Volume Rate/Area] in Serum or Plasma by Creatinine-based formula (MDRD) 43 mL/min [facility] ([facility]) Carbon dioxide, total [Moles/volume] in Serum or Plasma 26 meq/L 21 -32 [facility] ([facility]) Glomerular filtration rate/1.73 sq M pre dicted among blacks [Volume Rate/Area] in Serum or Plasma by Creatinine-based formula (MDRD) 52 mL/min [facility] <content>CHRONIC KIDNEY DISEASE STAGING PER NKF</content>
<content></content>
<content>STAGE I & II GFR >= 60 NORMAL TO MILDLY DECREASED</content>
<content>STAGE III GFR 30-59 MODERATELY DECREASED</content>
<content>STAGE IV GFR 15-29 SEVERELY DECREASED</content>
<content>STAGE V GFR <15 VERY LITTLE GFR LEFT</content>
<content>ESRD GFR <15 ON TREE THINNER</content>
<content></content> ID Date Data Source [id number] 02/08/2021 09:26:00 AM EDT [facility] ([facility]) Name Value Range Interpretation Code Description Data Altagracia rce(s) Supporting Document(s) Erythrocyte sedimentation rate by Westergren method 50 mm/hr 0-15 [facility] ID Date Data Source [id number] 02/08/2021 09:26:00 AM EDT [facility]) Name Value Range Interpretation Code Description Data Altagracia rce(s) Supporting Document(s) Erythrocytes [#/volume] in Blood by Automated count 3.58 x10*6/UL 4.2 0-6.30 [facility] ([facility]) Leukocytes [#/volume] in Blood by Automated count 7.9 x10*3/UL 4.1-10 .9 [facility] ([facility]) NOTE: CBC VERIFIED Hemoglobin [Mass/volume] in Blood 11.8 g/dL 12.0-18.0 [facility] ([facility]) Hematocrit [Volume Fraction] of Blood by Automated count 35.5 % 3 7.0-51.0 [facility] ([facility]) MCV 99.2 fL 80.0-97.0 [facility] MCHC 33.3 g/dL 31.0-38.0 [facility] ([facility]) MCH 33.0 pg 26.0-32.0 [facility] ([facility]) MPV 8.2 FL 7.8-11.0 [facility] ([facility]) Erythrocyte distribution width [Ratio] by Automated count 15.0 % 11.6-13.7 [facility] Platelets [#/volume] in Blood by Automated count 291 x10*3/UL 140-440 [facility] Lymph % 20.8 % 10.0-58.5 [facility] ([facility]) Mid % 5.7 % 1.7-9.3 [facility] ([facility]) Neut % 73.5 % 37.0-92.0 [facility] ([facility]) Lymph # 1.6 x10*3/UL 0.6-4.1 [facility] ([facility]) Neut # 5.8 x10*3/UL 2.0-7.8 [facility] ([facility]) Mid # 0.5 x10*3/UL 0.1-0.6 [facility] ([facility]) ID Date Data Source [id number] 09/26/2020 09:30:00 AM EDT [facility] Name Value Range Interpretation Code Description Data Altagracia rce(s) Supporting Document(s) Thyrotropin [Units/volume] in Serum or Plasma by Detec tion limit <= 0.05 mIU/L 4.42 uIU/mL 0.36-3.74 [facility] ID Date Data Source [id number] 09/26/2020 09:30:00 AM EDT [facility] Name Value Range Interpretation Code Description Data Altagracia rce(s) Supporting Document(s) Glucose [Mass/volume] in Serum or Plasma 95 mg/dL 74-99 [facility] ([facility]) 100-125 mg/dL PRE-DIABETES/FASTING >126 mg/dL DIABETES/FASTING Urea nitrogen [Mass/volume] in Serum or Plasma 40 mg/dL 7-18 [facility] ([facility]) Creatinine 1.1 mg/dL 0.6-1.3 [facility] ([facility]) Sodium [Moles/volume] in Serum or Plasma 144 meq/L 136-145 [facility] ([facility]) Chloride [Moles/volume] in Serum or Plasma 106 meq/L 98-107 [facility] ([facility]) Potassium [Moles/volume] in Serum or Plasma 4.5 meq/L 3.5-5.1 [facility] ([facility]) Carbon dioxide, total [Moles/volume] in Serum or Plasma 27 meq/L 21 -32 [facility] ([facility]) Calcium [Mass/volume] in Serum or Plasma 9.4 mg/dL 8.5-10.1 [facility] ([facility]) Glomerular filtration rate/1.73 sq M pre dicted among non-blacks [Volume Rate/Area] in Serum or Plasma by Creatinine-based formula (MDRD) 47 mL/min [facility] Glomerular filtration rate/1.73 sq M pre dicted among blacks [Volume Rate/Area] in Serum or Plasma by Creatinine-based formula (MDRD) 57 mL/min [facility] <content>CHRONIC KIDNEY DISEASE STAGING PER NKF</content>
<content></content>
<content>STAGE I & II GFR >= 60 NORMAL TO MILDLY DECREASED</content>
<content>STAGE III GFR 30-59 MODERATELY DECREASED</content>
<content>STAGE IV GFR 15-29 SEVERELY DECREASED</content>
<content>STAGE V GFR <15 VERY LITTLE GFR LEFT</content>
<content>ESRD GFR <15 ON TREE THINNER</content>
<content></content> ID Date Data Source [id number] 09/26/2020 09:30:00 AM EDT [facility] ([facility]) Name Value Range Interpretation Code Description Data Altagracia rce(s) Supporting Document(s) Leukocytes [#/volume] in Blood by Automated count 6.4 x10*3/UL 4.1-10 .9 [facility] ([facility]) NOTE: CBC VERIFIED Hemoglobin [Mass/volume] in Blood 12.2 g/dL 12.0-18.0 [facility] Hematocrit [Volume Fraction] of Blood by Automated count 37.3 % 3 7.0-51.0 [facility] Erythrocytes [#/volume] in Blood by Automated count 3.69 x10*6/UL 4.2 0-6.30 [facility] ([facility]) MCH 33.1 pg 26.0-32.0 [facility] MCV 101.1 fL 80.0-97.0 [facility] ([facility]) MCHC 32.7 g/dL 31.0-38.0 [facility] ([facility]) Platelets [#/volume] in Blood by Automated count 237 x10*3/UL 140-440 [facility] Erythrocyte distribution width [Ratio] by Automated count 15.7 % 11.6-13.7 [facility] ([facility]) Mid % 8.3 % 1.7-9.3 [facility] MPV 8.7 FL 7.8-11.0 [facility] ([facility]) Lymph % 32.3 % 10.0-58.5 [facility] ([facility]) Neut % 59.4 % 37.0-92.0 [facility] ([facility]) Mid # 0.6 x10*3/UL 0.1-0.6 [facility] ([facility]) Lymph # 2.0 x10*3/UL 0.6-4.1 [facility] ([facility]) Neut # 3.8 x10*3/UL 2.0-7.8 [facility] ([facility]) ID Date Data Source [id number] 07/01/2020 12:30:00 PM EST [facility] ([facility]) Name Value Range Interpretation Code Description Data Altagracia rce(s) Supporting Document(s) Urine Color Laboratory test result [facility] T ([facility]) Urine Appearance Laboratory test result Abnormal (applies to non-numeric results) [facility] ([facility]) Urine PH 5.0 units 5.0-9.0 [facility] Urine Leukocytes Laboratory test result Abnormal (applies to non-numeric results) [facility] Specific gravity of Urine 1.025 1.005-1.030 [facility]) Urine Blood Laboratory test result [facility] T ([facility]) Urine Protein Laboratory test result 0-0 [facility] ([facility]) Urine Nitrite Laboratory test result [facility] ([facility]) Glucose [Presence] in Urine Laboratory test result [facility] ([facility]) Bilirubin.total [Mass/volume] in Serum or Plasma Laboratory test resu lt [facility] Urine Ketone Laboratory test result [facility] ([facility]) Urine Urobilinogen 0.2 mg/dL 0.2-1.0 [facility] ([facility]) ID Date Data Source [id number] 06/27/2020 04:47:00 PM EST [facility] ([facility]) Name Value Range Interpretation Code Description Data Altagracia rce(s) Supporting Document(s) Lactate [Mass/volume] in Serum or Plasma 0.9 mmol/L 0.4-2.0 [facility] ([facility]) Y/N query for Sepsis Lactate Rule: Y ID Date Data Source [id number] 06/27/2020 04:47:00 PM EST [facility] ([facility]) Name Value Range Interpretation Code Description Data Altagracia rce(s) Supporting Document(s) Red Blood Count 3.62 10 4.00-5.40 [facility] ([facility]) White Blood Count 9.1 10 4.0-10.0 [facility] ([facility]) Hemoglobin 12.1 g/dL 12.0-15.5 [facility] ([facility]) Hematocrit 38.1 % 36.0-47.0 [facility] Mean Corpuscular Volume 105.2 fl 80.0-96.0 [facility] ([facility]) Mean Corpuscular Hemoglobin 33.4 pg 27.0-33.0 [facility] ([facility]) Mean Corpuscular HGB Conc 31.8 g/dL 32.0-36.5 [facility] ([facility]) Red Cell Distribution Width 16.1 % 11.5-14.5 [facility] ([facility]) Platelet Count, Automated 227 10 150-450 [facility] ([facility]) Neutrophils % 61.7 % 36.0-66.0 [facility] ([facility]) Lymph % 15.9 % 24.0-44.0 [facility] Eos % 11.0 % 0.0-3.0 [facility] [place] % 10.0 % 2.0-8.0 [facility] Immature Granulocyte % 0.5 % 0-3.0 [facility] ([facility]) Baso % 0.9 % 0.0-1.0 [facility] Neutrophils # 5.6 10 1.5-8.5 [facility] ([facility]) Nucleated Red Blood Cell % 0.0 % 0-0 [facility] ([facility]) Lymph # 1.5 10 1.5-5.0 [facility] [place] # 0.9 10 0.0-0.8 [facility] Eos # 1.0 10 0.0-0.5 [facility] Baso # 0.1 10 0.0-0.2 [facility] ID Date Data Source [id number] 06/27/2020 04:46:00 PM EST [facility] ([facility]) Name Value Range Interpretation Code Description Data Altagracia rce(s) Supporting Document(s) Osmolality of Serum or Plasma 303 MOSM/KG 280-301 [facility] ([facility]) Thyrotropin [Units/volume] in Serum or Plasma by Detec tion limit <= 0.05 mIU/L 3.910 uIU/ML 0.358-3.740 [facility] ([facility] ) ID Date Data Source [id number] 06/27/2020 04:46:00 PM EST [facility] ([facility]) Name Value Range Interpretation Code Description Data Altagracia rce(s) Supporting Document(s) Glucose, Fasting 100 mg/dL 70-100 [facility] ([facility]) Blood Urea Nitrogen 54 mg/dL 7-18 [facility] ([facility]) Creatinine For GFR 1.12 mg/dL 0.55-1.30 [facility] ([facility]) Glomerular Filtration Rate 49.2 [facility] ([facility]) <content>Units are mL/min/1.73 m2</content>
<content></content>
<content>Chronic Kidney Disease Staging per NKF:</content>
<content></content>
<content>Stage I & II GFR >=60 Normal to Mildly Decreased</content>
<content>Stage III GFR 30- 59 Moderately Decreased</content>
<content>Stage IV GFR 15-29 Severely Decreased</content>
<content>Stage V GFR <15 Very Little GFR Left</content>
<content>ESRD GFR <15 on TREE THINNER</content>
<content></content> Sodium Level 138 meq/L 136-145 [facility] ([facility]) Potassium Serum 5.0 meq/L 3.5-5.1 [facility] ([facility]) Chloride Level 104 meq/L 98-107 [facility] ([facility]) Anion Gap 8 meq/L 8-16 [facility]) Carbon Dioxide Level 26 meq/L 21-32 [facility] ([facility]) Calcium Level 9.4 mg/dL 8.8-10.2 [facility] ([facility]) ID Date Data Source [id number] 06/27/2020 04:46:00 PM EST [facility] ([facility]) Name Value Range Interpretation Code Description Data Altagracia rce(s) Supporting Document(s) Ast/Sgot 18 U/L 7-37 [facility]) Alt/SGPT 19 U/L 12-78 [facility] ([facility]) Alkaline Phosphatase 116 U/L 45-117 [facility] ([facility]) Bilirubin,Total 0.2 mg/dL 0.2-1.0 [facility] ([facility]) Bilirubin,Direct Laboratory test result 0.0-0.2 [facility] ([facility]) Total Protein 7.6 GM/DL 6.4-8.2 [facility] ([facility]) Albumin 3.9 GM/DL 3.2-5.2 [facility]) Albumin/Globulin Ratio 1.1 1.2-2.2 [facility] ([facility]) ID Date Data Source [id number] 06/27/2020 04:46:00 PM EST [facility] Name Value Range Interpretation Code Description Data Altagracia rce(s) Supporting Document(s) CPK Creatine Phosphokinase 56 U/L 26-192 [facility] ([facility]) CK-MB Value Mass 2.3 ng/mL [facility] ([facility]) MB/CK Relative Index 4.11 [facility]) <content>DIAGNOSIS CRITERIA</content>
<content>MMB ng/ml Relative Index (RI)</content>
<content>NON-AMI < or = 5 N/A</content>
<content>SANTO ZONE > 5 < or = 4</content>
<content>AMI > 5 > 4</content>
<content></content> Troponin I Laboratory [facility] <content>Troponin I Reference Interval f or Siemens [place] LOCI:</content>
<content></content>
<content>99th Percentile= 0.00-0.045 ng/ml</content>
<content></content>
<content>Risk Stratification:</content>
<content><= 0.10 ng/ml Decreased Risk for Adverse Clinical</content>
<content>Events.</content>
<content>0.10-1.50 ng/ml Increased Risk for Adverse Clinical</content>
<content>Events. Evaluation of additional</content>
<content>criterion and/or repeat testing in 2-6</content>
<content>hours is suggested to rule out myocardial</content>
<content>damage.</content>
<content>>= 1.50 ng/ml Indicative of Myocardial Injury.</content>
<content></content> ID Date Data Source [id number] 06/27/2020 04:46:00 PM EST [facility] ([facility]) Name Value Range Interpretation Code Description Data Altagracia rce(s) Supporting Document(s) Ammonia [Mass/volume] in Blood Laboratory test result [facility] ID Date Data Source [id number] 03/23/2020 08:26:00 AM EST [facility] ([facility]) Name Value Range Interpretation Code Description Data Altagracia rce(s) Supporting Document(s) C reactive protein [Mass/volume] in Serum or Plasma by High sensitivity method 0.70 mg/dL 0.00-0.30 [facility] ([facility] ) ID Date Data Source [id number] 03/23/2020 08:25:00 AM EST [facility] ([facility]) Name Value Range Interpretation Code Description Data Altagracia rce(s) Supporting Document(s) Thyrotropin [Units/volume] in Serum or Plasma by Detec tion limit <= 0.05 mIU/L 3.14 uIU/mL 0.36-3.74 [facility] ([facility] ) ID Date Data Source [id number] 03/23/2020 08:25:00 AM EST [facility] ([facility]) Name Value Range Interpretation Code Description Data Altagracia rce(s) Supporting Document(s) Triglyceride [Mass/volume] in Serum or Plasma 95 mg/dL 30-150 [facility] ([facility]) Cholesterol [Mass/volume] in Serum or Plasma 204 mg/dL 131-200 [facility] ([facility]) Cholesterol in HDL [Mass/volume] in Serum or Plasma 66 mg/dL 35-60 [facility] ([facility]) Cholesterol in LDL [Mass/volume] in Serum or Plasma by calcu lation 119 CALC 50-159 [facility] ([facility]) ID Date Data Source [id number] 03/23/2020 08:25:00 AM EST [facility] ([facility]) Name Value Range Interpretation Code Description Data Altagracia rce(s) Supporting Document(s) Glucose [Mass/volume] in Serum or Plasma 82 mg/dL 74-99 [facility] ([facility]) 100-125 mg/dL PRE-DIABETES/FASTING >126 mg/dL DIABETES/FASTING Creatinine 1.2 mg/dL 0.6-1.3 [facility] ([facility]) Urea nitrogen [Mass/volume] in Serum or Plasma 40 mg/dL 7-18 [facility] ([facility]) NOTE: RESULT VERIFIED. Potassium [Moles/volume] in Serum or Plasma 4.1 meq/L 3.5-5.1 [facility] ([facility]) Chloride [Moles/volume] in Serum or Plasma 104 meq/L 98-107 [facility] ([facility]) Sodium [Moles/volume] in Serum or Plasma 143 meq/L 136-145 [facility] ([facility]) Alkaline phosphatase isoenzyme [Units/volume] in Serum or Pl asma 100 mg/dL 46-116 [facility] ([facility]) Carbon dioxide, total [Moles/volume] in Serum or Plasma 28 meq/L 21 -32 [facility] ([facility]) Calcium [Mass/volume] in Serum or Plasma 8.9 mg/dL 8.5-10.1 [facility] ([facility]) Total Bilirubin 0.4 mg/dL 0.2-1.0 [facility] ([facility]) Aspartate aminotransferase [Enzymatic activity/volume] in Serum or Plasma 25 U/L 15-37 [facility] ([facility] ) Alanine aminotransferase [Enzymatic activity/volume] in Seru m or Plasma 22 U/L 12-78 [facility] ([facility]) Proteinase 3 Ab [Units/volume] in Serum 7.6 g/dL 6.4-8.2 [facility] ([facility]) Glomerular filtration rate/1.73 sq M pre dicted among non-blacks [Volume Rate/Area] in Serum or Plasma by Creatinine-based formula (MDRD) 43 mL/min [facility] A/G Ratio 1.05 CALC 1.00-1.90 [facility]) Albumin [Mass/volume] in Serum or Plasma 3.9 g/dL 3.4-5.0 [facility] Glomerular filtration rate/1.73 sq M pre dicted among blacks [Volume Rate/Area] in Serum or Plasma by Creatinine-based formula (MDRD) 52 mL/min [facility] <content>CHRONIC KIDNEY DISEASE STAGING PER NKF</content>
<content></content>
<content>STAGE I & II GFR >= 60 NORMAL TO MILDLY DECREASED</content>
<content>STAGE III GFR 30-59 MODERATELY DECREASED</content>
<content>STAGE IV GFR 15-29 SEVERELY DECREASED</content>
<content>STAGE V GFR <15 VERY LITTLE GFR LEFT</content>
<content>ESRD GFR <15 ON TREE THINNER</content>
<content></content> ID Date Data Source [id number] 03/23/2020 08:25:00 AM EST [facility] Name Value Range Interpretation Code Description Data Altagracia rce(s) Supporting Document(s) Erythrocyte sedimentation rate by Westergren method 46 mm/hr 0-15 [facility] ID Date Data Source [id number] 03/23/2020 08:25:00 AM EST [facility] Name Value Range Interpretation Code Description Data Altagracia rce(s) Supporting Document(s) Leukocytes [#/volume] in Blood by Automated count 6.1 x10*3/UL 4.1-10 .9 [facility] NOTE: CBC VERIFIED Hematocrit [Volume Fraction] of Blood by Automated count 34.6 % 3 7.0-51.0 [facility] Erythrocytes [#/volume] in Blood by Automated count 3.45 x10*6/UL 4.2 0-6.30 [facility] ([facility]) Hemoglobin [Mass/volume] in Blood 12.0 g/dL 12.0-18.0 [facility] ([facility]) MCHC 34.8 g/dL 31.0-38.0 [facility] MCH 34.9 pg 26.0-32.0 [facility] MCV 100.3 fL 80.0-97.0 [facility]) Erythrocyte distribution width [Ratio] by Automated count 15.0 % 11.6-13.7 [facility] ([facility]) Platelets [#/volume] in Blood by Automated count 221 x10*3/UL 140-440 [facility] ([facility]) MPV 8.8 FL 7.8-11.0 [facility]) Neut % 62.6 % 37.0-92.0 [facility]) Mid % 8.3 % 1.7-9.3 [facility] Lymph % 29.1 % 10.0-58.5 [facility]) Mid # 0.6 x10*3/UL 0.1-0.6 [facility] ([facility]) Lymph # 1.7 x10*3/UL 0.6-4.1 [facility] ([facility]) Neut # 3.8 x10*3/UL 2.0-7.8 [facility] ([facility]) Procedure Social History No Information Vital Signs ID Date Data Source UNK Name Value Range Interpretation Code Description Data Source(s) Systolic blood pressure 132 mm[Hg] 132 mm[Hg] M [facility]ENT ([facility]) RT Arm Diastolic blood pressure 70 mm[Hg] 70 mm[Hg] [facility] ([facility]) RT Arm Heart rate 76 /min 76 /min [facility] ([facility]) Body height 59.50 [in_i] 59.50 [in_i] [facility] " Body height 59.50 [in_i] 59.50 [in_i] [facility] ([facility]) " Diastolic blood pressure 84 mm[Hg] 84 mm[Hg] [facility] ([facility]) RT Arm Heart rate 88 /min 88 /min [facility] ([facility]) Body weight 145.25 [lb_av] 145.25 [lb_av] MED[facility] T ([facility]) Body mass index (BMI) [Ratio] 28.8 kg/m2 28.8 k g/m2 [facility] ([facility]) Systolic blood pressure 134 mm[Hg] 134 mm[Hg] M [facility]ENT ([facility]) RT Arm Systolic blood pressure 140 mm[Hg] 140 mm[facility]Hg] [facility] Body weight 148.00 [lb_av] 148.00 [lb_av] [facility] T ([facility]) Systolic blood pressure 138 mm[Hg] 138 mm[Hg] [facility] Diastolic blood pressure 70 mm[Hg] 70 mm[Hg] [facility] ([facility]) Diastolic blood pressure 66 mm[Hg] 66 mm[Hg] [facility] ([facility]) Heart rate 68 /min 68 /min [facility] ([facility]) Body height 59.50 [in_i] 59.50 [in_i] [facility] ([facility]) " Body mass index (BMI) [Ratio] 29.4 kg/m2 29.4 k g/m2 [facility] ([facility]) Heart rate 80 /min 80 /min [facility] ([facility]) Systolic blood pressure 152 mm[Hg] 152 mm[Hg] M EDENT ([facility]) RT Arm Diastolic blood pressure 72 mm[Hg] 72 mm[Hg] [facility] ([facility]) RT Arm Body height 59.50 [in_i] 59.50 [in_i] [facility] ([facility]) " Body weight 146.38 [lb_av] 146.38 [lb_av] MEDEN T ([facility]) Body mass index (BMI) [Ratio] 29.1 kg/m2 29.1 k g/m2 [facility] ([facility]) Diastolic blood pressure 76 mm[Hg] 76 mm[Hg] [facility] ([facility]) Systolic blood pressure 138 mm[Hg] 138 mm[Hg] M RACHANA ([facility]) Body height 59.50 [in_i] 59.50 [in_i] [facility] ( [facility] 4'11.50" Body weight 148.00 [lb_av] 148.00 [lb_av] SATISH Seaman ([facility]) Body mass index (BMI) [Ratio] 29.4 kg/m2 29.4 k g/m2 [facility] ([facility])
--- NOTE | 2021-03-01 19:09 | REP ---
INDICATION: R/O DVT COMPARISON: 02/21/2021. TECHNIQUE: Real time compression and duplex Doppler interrogation of the right lower extremity deep venous system is performed, including the left common femoral vein.Compression of the right peroneal and posterior tibial veins is performed. FINDINGS: The right common femoral, superficial femoral and popliteal veins are fully compressible with transducer pressure and demonstrate normal spontaneous and phasic flow, without evidence of deep venous thrombosis.The left common femoral vein demonstrates no thrombus.The right peroneal and posterior tibial veins could not be visualized due to edema and body habitus. IMPRESSION: No evidence of deep venous thrombosis of the right lower extremity femoral popliteal venous system. <Electronically signed by Henry Perez > 03/01/21 [id number]
[2021-03-01 20:29] LABS: BASO # 0.1 10^3/uL (0.0-0.2); BASO % 0.7 % (0.0-1.0); EOS # 1.3 10^3/uL (0.0-0.5); EOS % 11.9 % (0.0-3.0); HEMATOCRIT 32.1 % (36.0-47.0); HEMOGLOBIN 10.4 g/dl (12.0-15.5); LYMPH % 18.7 % (24.0-44.0); MEAN CORPUSCULAR HEMOGLOBIN 33.2 pg (27.0-33.0); MEAN CORPUSCULAR HGB CONC 32.4 g/dl (32.0-36.5); MEAN CORPUSCULAR VOLUME 102.6 fl (80.0-96.0); MONO # 1.2 10^3/uL (0.0-0.8); MONO % 11.5 % (2.0-8.0); NEUTROPHILS # 6.1 10^3/uL (1.5-8.5); NEUTROPHILS % 56.6 % (36.0-66.0); PLATELET COUNT, AUTOMATED 261 10^3/uL (150-450); RED BLOOD COUNT 3.13 10^6/uL (4.00-5.40); WHITE BLOOD COUNT 10.8 10^3/uL (4.0-10.0)
[2021-03-01 20:55] LABS: ALT/SGPT 20 U/L (12-78); BILIRUBIN,DIRECT < 0.1 MG/DL (0.0-0.2); BILIRUBIN,TOTAL 0.3 MG/DL (0.2-1.0); BLOOD UREA NITROGEN 34 MG/DL (7-18); C REACTIVE PROTEIN QUANTITATIV 4.43 MG/DL (0.00-0.30); CALCIUM LEVEL 9.8 MG/DL (8.8-10.2); CARBON DIOXIDE LEVEL 28 MEQ/L (21-32); CHLORIDE LEVEL 105 MEQ/L (98-107); CREATININE FOR GFR 1.01 MG/DL (0.55-1.30); GLOMERULAR FILTRATION RATE 55.3 (>32); GLUCOSE, FASTING 90 MG/DL (70-100); POTASSIUM SERUM 4.8 MEQ/L (3.5-5.1); SODIUM LEVEL 137 MEQ/L (136-145)
[2021-03-01] MEDS ORDERED: ceFAZolin SOD 2 GM in IV 1 EA IV ONE (22:00)
[2021-03-01 22:03] LABS: ERYTHROCYTE SEDIMENTATION RATE 68 mm/hr (0-30)
[2021-03-01] MEDS ORDERED: CLEO300C2 PO (22:03)
[2021-03-02] MEDS ORDERED: ACETAMINOPHEN TAB 650MG DOSE (2X325MG) PO PRN (02:35)
[2021-03-02] MEDS ORDERED: MAALOX 30 ML SUSP *UDC PO PRN (02:35)
[2021-03-02] MEDS ORDERED: MOM 30ML SUSPENSION UDC PO PRN (02:35)
--- OUTSIDE RECORDS SUMMARY | 2021-03-02 03:09 | CCD ---
Author Author [facility] Organization [facility] Address Unknown Phone Unavailable Care Team Providers Care Supervising Broker Name Role Phone Santiago Coronel MD Unavailable [...] Unavailable Unavailable Santiago Coronel MD Unavailable Unavailable Santaigo Coronel MD Unavailable Unavailable Santiago Coronel MD [...] Maira HARDY Unavailable Unavailable Berna, Santiago Maira HADRY Unavailable Unavailable Re-disclosure Warning The records that [...] is protected by Article 27-F of the [facility] Public Health law. If you continue you may have access to information: Regarding HIV / AIDS; Provided by facilities licensed or operated by the [facility] Office of Mental Health; or Provided by the [facility] Office for People With Developmental Disabilities. If such information is present, then the following [facility] mandated warning applies: This information [...] law may result in a fine or prison sentence or both. A general authorization for the release of medical or other information is NOT sufficient authorization for further disc losure. Family History Family Member Name Family Member Gender Family Member Status Date o f Status Description Data Source(s) Unknown Male Problem [facility] ([facility]) Unknown Male Problem [facility] ([facility]) Encounters Encounter Providers Location Date Indications Data Source(s ) Outpatient Attender: Maira Keith 08:45:00 AM EDT [facility] ([facility] ) Outpatient Attender: Maira Keith 11:30:00 AM EDT [facility] ([facility] ) Outpatient Attender: Maira Keith 01:45:00 PM EST [facility] ([facility] ) Outpatient Attender: Maira Keith 12:30:00 PM EST [facility] ([facility] ) Immunizations Vaccine Date Status Description Data Source(s) Covid-19 Moderna vaccine, 07/04/2020 02:37:00 PM EDT completed [facility] ([facility]) COVID-19 VACCINE Moderna 07/04/2020 12:00:00 AM EDT completed [facility] Vaccine Series Complete: YESThis Data wa s Submitted to [facility] Via [employer]. Covid-19 Moderna vaccine, 06/06/2020 01:37:00 PM EST completed [facility] ([facility]) COVID-19 VACCINE Moderna 06/06/2020 12:00:00 AM EST completed [facility] Vaccine Series Complete: NOThis Data was Submitted to [facility] Via [employer]. This CVX code allows reporting of a vacc ination when formulation is unknown (for example, when recording a Influenza vaccination when noted on a vaccination card) 03/26/2020 01:37:00 PM EST completed MEDEN T ([facility]) INFLUENZA VACCINE QUADRIVALENT 2019- (65 YR UP)/MF59 C.1/PF 03/26/2020 12:00:00 AM EST completed [facility] Note that this Td is not adsorbed. 03/24/2020 12:43:00 PM EST compl eted [facility] ([facility]) Pneumococcal conjugate PCV 13 03/24/2020 12:42:00 PM EST completed [facility] pneumococcal polysaccharide PPV23 03/24/2020 12:42:00 PM EST comple salazar [facility] Medications Medication Brand Name Start Date Product [...] Relieving 02/08/2021 12:00:00 AM EDT active [facility] Cephalexin 500 MG Oral Capsule CEPHALEXIN 02/08/2021 12:00:00 AM EDT capsule 20 TAKE ONE CAPSULE BY MOUTH TWICE A DAY FOR 10 DAYS TAKE ONE CAPSULE BY MOUTH TWICE A DAY FOR 10 DAYS SOLD: 02/08/2021 [facility] Cephalexin 500 MG Oral Capsule Cephalexin 02/08/2021 12:00:00 AM EDT ORAL active [facility] bismuth subsalicylate 17.5 MG/ML Oral Suspension [Pepto-bism ol] Pepto-Bismol 09/28/2020 12:00:00 AM EDT ORAL active [facility] 40 mg 06/30/2020 12:00:00 AM EST capsule,delayed release (DR/EC) 30 TAKE ONE TABLET BY MOUTH EVERY DAY TAKE ONE TABLET BY MOUTH EVERY DAY SOLD: 06/30/2020 [facility] 10 mg 06/30/2020 12:00:00 AM EST tablet 5 TAKE ONE TABLET BY MOUTH EVERY DAY FOR 5 DAYS TAKE ONE TABLET BY MOUTH EVERY DAY FOR 5 DAYS SOLD: 06/30/2020 [facility] Omeprazole 40 MG Delayed Release Oral Capsule Omeprazole 06/29/2020 12:00:00 AM EST ORAL active [facility] ([facility]) 27 mg iron- 1 mg 03/25/2020 [...] Information Medicare Natl Govt Servic Medicare Primary [id number] Self [id number] Medicare Natl Govt Servic Medicare Primary [id number] Self [id number] Medicare Natl Govt Servic Medicare Primary [id number] Self [id number] Medicare Natl Govt Servic Medicare Primary [id number] Self [id number] Medicare Natl Govt Servic Medicare Primary [id number] Self [id number] MEDICARE [id number] SP [id number] Medicare Natl Govt Servic Medicare Primary [id number] Self [id number] A Medicare Natl Govt Servic Medicare Primary [id number] Self [id number] Medicare Natl Govt Servic Medicare Primary [id number] Self [id number] Medicare Natl Govt Servic Medicare Primary [id number] Self [id number] MEDICARE [id number] SP [id number] A [employer] (Old) Medigap Part B [id number] Family Dependent [id number] [place] Ppo Medigap Part B [id number] Family Dependent [id number] [employer] (Old) Medigap Part B [id number] Family Dependent [id number] [employer] P[employer] Medigap Part B [id number] Family Dependent [id number] [employer] (Old) Medigap Part B [id number] Family Dependent [id number] [employer] Ppo Medigap Part B [id number] Family Dependent Umr [place] Ppo Medigap Part B [id number] Family Dependent [id number] Umr [place] Ppo Medigap Part B [id number] Family Dependent [id number] [employer] Medigap Part B [id number] Family Dependent [id number] [facility] Medigap Part B [id number] Self [id number] [facility] Medigap Part B [id number] 11 [id number] Self [id number] 11 [facility] Part B [id number] 11 [id number] Self [id number] Medicare Part B [facility] Other 0 [id number] Self 0 Medicare Part B [facility] Other 0 [id number] Self 0 [employer] OPTIONS [id number] S [id number] [employer] MEDICARE DIVISION [id number] S [id number] MEDICARE - [place] [id number] S [id number] Medicare Part B [facility] Other 0 [id number] Self 0 [employer] HE[employer] C[employer] OPTIONS [id number] SP [id number] [facility] [id number] Family Dependent [id number] [employer] [id number] HU2 [id number] [employer] PPO O [id number] S [id number] MEDICARE C [id number] S [id number] A [facility] [id number] Family Dependent [employer] C[employer] OPTIONS [id number] SP [id number] Problems, Conditions, and Diagnoses No Information Surgeries/Procedures Procedure Description Date Indications Data Source(s) OFFICE OUTPATIENT VISIT 25 MINUTES 02/08/2021 12:00:00 AM EDT [facility] ([facility]) OFFICE OUTPATIENT VISIT 25 MINUTES 09/28/2020 12:00:00 AM EDT [facility] ([facility]) Results ID Date Data Source [id number] 02/21/2021 11:23:00 AM EDT [facility] Name Value Range Interpretation Code Description Data Altagracia rce(s) Supporting Document(s) SARS coronavirus 2 RNA [Presence] in Res piratory specimen by LEAH with probe detection NEGATIVE [facility] This lab was ordered by [facility] a nd reported by [facility]. ID Date Data Source [id number] 02/21/2021 11:23:00 AM EDT [facility] Name Value Range Interpretation Code Description Data Altagracia rce(s) Supporting Document(s) Influenza A Amplification Laboratory test result [facility] ([facility]) Negative results do not preclude influen za or RSV virus infection and should not be used as the sole basis for treatment or other patient management decisions. Influenza B Amplification Laboratory test result [facility] ([facility] Negative results do not preclude influen za or RSV virus infection and should not be used as the sole basis for treatment or other patient management decisions. RSV Amplification Laboratory test result [facility] ([facility] Negative results do not preclude influen za or RSV virus infection and should not be used as the sole basis for treatment or other patient management decisions. Laboratory test finding (navigational concept) Laboratory test result [facility] ([facility]) A false negative result may occur [...] pathogens. DISCLAIMER: Testing was performed using the [employer] SARS-CoV-2 test. This test was developed and its performance characteristics determined by [employer]. This test has not been FDA cleared [...] or revoked sooner. ID Date Data Source [id number] 02/21/2021 11:23:00 AM EDT [facility] Name Value Range Interpretation Code Description Data Altagracia rce(s) Supporting Document(s) Erythrocyte sedimentation rate by Westergren method 70 mm/hr 0-30 [facility] ([facility]) ID Date Data Source [id number] 02/21/2021 11:23:00 AM EDT [facility] ([facility]) Name Value Range Interpretation Code Description Data Altagracia rce(s) Supporting Document(s) Red Blood Count 3.57 10 4.00-5.40 [facility] ([facility]) White Blood Count 8.7 10 4.0-10.0 [facility] ([facility]) Hemoglobin 11.9 g/dL 12.0-15.5 [facility] Mean Corpuscular Volume 103.6 fl 80.0-96.0 [facility] ([facility]) Hematocrit 37.0 % 36.0-47.0 [facility] ([facility]) Mean Corpuscular Hemoglobin 33.3 pg 27.0-33.0 ME [facility] ([facility]) Platelet Count, Automated 275 10 150-450 MEDE NT ([facility]) Red Cell Distribution Width 16.2 % 11.5-14.5 [facility] ([facility]) Mean Corpuscular HGB Conc 32.2 g/dL 32.0-36.5 MEDE NT ([facility]) Lymph % 18.4 % 24.0-44.0 [facility]) Neutrophils % 56.2 % 36.0-66.0 [facility] ([facility]) Baso % 0.8 % 0.0-1.0 [facility] Dodge % 11.8 % 2.0-8.0 [facility] Eos % 12.3 % 0.0-3.0 [facility] Neutrophils # 4.9 10 1.5-8.5 [facility] ([facility]) Immature Granulocyte % 0.5 % 0-3.0 [facility] ([facility]) Nucleated Red Blood Cell % 0.0 % 0-0 [facility] ([facility]) Dodge # 1.0 10 0.0-0.8 [facility] Eos # 1.1 10 0.0-0.5 [facility] Lymph # 1.6 10 1.5-5.0 [facility] Baso # 0.1 10 0.0-0.2 [facility] ID Date Data Source [id number] 02/21/2021 11:23:00 AM EDT [facility] ([facility]) Name Value Range Interpretation Code Description Data Altagracia rce(s) Supporting Document(s) C reactive protein [Mass/volume] in Serum or Plasma by High sensitivity method 6.88 mg/dL 0.00-0.30 [facility] ([facility] ) ID Date Data Source [id number] 02/21/2021 11:23:00 AM EDT [facility] ([facility]) Name Value Range Interpretation Code Description Data Altagracia rce(s) Supporting Document(s) Glucose, Fasting 98 mg/dL 70-100 [facility] ([facility]) Blood Urea Nitrogen 43 mg/dL 7-18 [facility] ([facility]) Creatinine For GFR 0.96 mg/dL 0.55-1.30 [facility] ([facility]) Glomerular Filtration Rate 58.7 [facility] ([facility]) <content>Units are mL/min/1.73 m2</content>
<content></content>
<content>Chronic Kidney Disease Staging per NKF:</content>
<content></content>
<content>Stage I & II GFR >=60 Normal to Mildly Decreased</content>
<content>Stage III GFR 30- 59 Moderately Decreased</content>
<content>Stage IV GFR 15-29 Severely Decreased</content>
<content>Stage V GFR <15 Very Little GFR Left</content>
<content>ESRD GFR <15 on OVEN BAKER</content>
<content></content> Sodium Level 138 meq/L 136-145 [facility] ([facility]) Chloride Level 106 meq/L 98-107 [facility] ([facility]) Carbon Dioxide Level 25 meq/L 21-32 [facility] ([facility]) Potassium Serum 4.2 meq/L 3.5-5.1 [facility] ([facility]) Anion Gap 7 meq/L 8-16 [facility] ([facility]) Calcium Level 10.3 mg/dL 8.8-10.2 [facility] ([facility]) ID Date Data Source [id number] 02/08/2021 09:26:00 AM EDT [facility] ([facility]) Name Value Range Interpretation Code Description Data Altagracia rce(s) Supporting Document(s) C reactive protein [Mass/volume] in Serum or Plasma by High sensitivity method 2.84 mg/dL 0.00-0.30 [facility] ([facility] ) ID Date Data Source [id number] 02/08/2021 09:26:00 AM EDT [facility] ([facility]) Name Value Range Interpretation Code Description Data Altagracia rce(s) Supporting Document(s) Glucose [Mass/volume] in Serum or Plasma 97 mg/dL 74-99 [facility] ([facility]) 100-125 mg/dL PRE-DIABETES/FASTING >126 mg/dL DIABETES/FASTING Creatinine 1.2 mg/dL 0.6-1.3 [facility] ([facility]) Urea nitrogen [Mass/volume] in Serum or Plasma 33 mg/dL 7-18 [facility] ([facility]) Sodium [Moles/volume] in Serum or Plasma 140 meq/L 136-145 [facility] ([facility]) Chloride [Moles/volume] in Serum or Plasma 103 meq/L 98-107 [facility] ([facility]) Potassium [Moles/volume] in Serum or Plasma 4.5 meq/L 3.5-5.1 [facility] ([facility]) Calcium [Mass/volume] in Serum or Plasma 9.9 mg/dL 8.5-10.1 [facility] ([facility]) Glomerular filtration rate/1.73 sq M pre dicted among non-blacks [Volume Rate/Area] in Serum or Plasma by Creatinine-based formula (MDRD) 43 mL/min [facility] ([facility]) Carbon dioxide, total [Moles/volume] in Serum or Plasma 26 meq/L 21 -32 [facility] ([facility]) Glomerular filtration rate/1.73 sq M pre dicted among blacks [Volume Rate/Area] in Serum or Plasma by Creatinine-based formula (MDRD) 52 mL/min [facility] <content>CHRONIC KIDNEY DISEASE STAGING PER NKF</content>
<content></content>
<content>STAGE I & II GFR >= 60 NORMAL TO MILDLY DECREASED</content>
<content>STAGE III GFR 30-59 MODERATELY DECREASED</content>
<content>STAGE IV GFR 15-29 SEVERELY DECREASED</content>
<content>STAGE V GFR <15 VERY LITTLE GFR LEFT</content>
<content>ESRD GFR <15 ON OVEN BAKER</content>
<content></content> ID Date Data Source [id number] 02/08/2021 09:26:00 AM EDT [facility] ([facility]) Name Value Range Interpretation Code Description Data Altagracia rce(s) Supporting Document(s) Erythrocyte sedimentation rate by Westergren method 50 mm/hr 0-15 [facility] ID Date Data Source [id number] 02/08/2021 09:26:00 AM EDT [facility] Name Value Range Interpretation Code Description Data Altagracia rce(s) Supporting Document(s) Erythrocytes [#/volume] in Blood by Automated count 3.58 x10*6/UL 4.2 0-6.30 [facility] ([facility]) Leukocytes [#/volume] in Blood by Automated count 7.9 x10*3/UL 4.1-10 .9 [facility] ([facility]) NOTE: CBC VERIFIED Hemoglobin [Mass/volume] in Blood 11.8 g/dL 12.0-18.0 [facility] ([facility]) Hematocrit [Volume Fraction] of Blood by Automated count 35.5 % 3 7.0-51.0 [facility] ([facility]) MCV 99.2 fL 80.0-97.0 [facility]) MCHC 33.3 g/dL 31.0-38.0 [facility] ([facility]) MCH 33.0 pg 26.0-32.0 [facility] ([facility]) MPV 8.2 FL 7.8-11.0 [facility] ([facility]) Erythrocyte distribution width [Ratio] by Automated count 15.0 % 11.6-13.7 [facility] Platelets [#/volume] in Blood by Automated count 291 x10*3/UL 140-440 [facility] ([facility] Lymph % 20.8 % 10.0-58.5 [facility] ([facility]) Mid % 5.7 % 1.7-9.3 [facility] ([facility]) Neut % 73.5 % 37.0-92.0 [facility] ([facility]) Lymph # 1.6 x10*3/UL 0.6-4.1 [facility] ([facility]) Neut # 5.8 x10*3/UL 2.0-7.8 [facility] ([facility]) Mid # 0.5 x10*3/UL 0.1-0.6 [facility] ([facility]) ID Date Data Source [id number] 09/26/2020 09:30:00 AM EDT [facility] ([facility] Name Value Range Interpretation Code Description Data Altagracia rce(s) Supporting Document(s) Thyrotropin [Units/volume] in Serum or Plasma by Detec tion limit <= 0.05 mIU/L 4.42 uIU/mL 0.36-3.74 [facility] ([facility] ID Date Data Source [id number] 09/26/2020 09:30:00 AM EDT [facility] ([facility] Name Value Range Interpretation Code Description Data Altagracia rce(s) Supporting Document(s) Glucose [Mass/volume] in Serum or Plasma 95 mg/dL 74-99 [facility] ([facility]) 100-125 mg/dL PRE-DIABETES/FASTING >126 mg/dL DIABETES/FASTING Urea nitrogen [Mass/volume] in Serum or Plasma 40 mg/dL 7-18 [facility] ([facility]) Creatinine 1.1 mg/dL 0.6-1.3 [facility] Sodium [Moles/volume] in Serum or Plasma 144 meq/L 136-145 [facility] ([facility]) Chloride [Moles/volume] in Serum or Plasma 106 meq/L 98-107 [facility] ([facility]) Potassium [Moles/volume] in Serum or Plasma 4.5 meq/L 3.5-5.1 [facility] ([facility]) Carbon dioxide, total [Moles/volume] in Serum or Plasma 27 meq/L 21 -32 [facility] ([facility]) Calcium [Mass/volume] in Serum or Plasma 9.4 mg/dL 8.5-10.1 [facility] ([facility]) Glomerular filtration rate/1.73 sq M pre dicted among non-blacks [Volume Rate/Area] in Serum or Plasma by Creatinine-based formula (MDRD) 47 mL/min [facility] Glomerular filtration rate/1.73 sq M pre dicted among blacks [Volume Rate/Area] in Serum or Plasma by Creatinine-based formula (MDRD) 57 mL/min [facility] ([facility] <content>CHRONIC KIDNEY DISEASE STAGING PER NKF</content>
<content></content>
<content>STAGE I & II GFR >= 60 NORMAL TO MILDLY DECREASED</content>
<content>STAGE III GFR 30-59 MODERATELY DECREASED</content>
<content>STAGE IV GFR 15-29 SEVERELY DECREASED</content>
<content>STAGE V GFR <15 VERY LITTLE GFR LEFT</content>
<content>ESRD GFR <15 ON OVEN BAKER</content>
<content></content> ID Date Data Source [id number] 09/26/2020 09:30:00 AM EDT [facility] ([facility]) Name Value Range Interpretation Code Description Data Altagracia rce(s) Supporting Document(s) Leukocytes [#/volume] in Blood by Automated count 6.4 x10*3/UL 4.1-10 .9 [facility] ([facility]) NOTE: CBC VERIFIED Hemoglobin [Mass/volume] in Blood 12.2 g/dL 12.0-18.0 [facility] Hematocrit [Volume Fraction] of Blood by Automated count 37.3 % 3 7.0-51.0 [facility] ([facility] Erythrocytes [#/volume] in Blood by Automated count 3.69 x10*6/UL 4.2 0-6.30 [facility] ([facility]) MCH 33.1 pg 26.0-32.0 [facility] [facility] MCV 101.1 fL 80.0-97.0 [facility] ([facility]) MCHC 32.7 g/dL 31.0-38.0 [facility] ([facility]) Platelets [#/volume] in Blood by Automated count 237 x10*3/UL 140-440 [facility] Erythrocyte distribution width [Ratio] by Automated count 15.7 % 11.6-13.7 [facility] ([facility]) Mid % 8.3 % 1.7-9.3 [facility] [facility]) MPV 8.7 FL 7.8-11.0 [facility] ([facility]) Lymph % 32.3 % 10.0-58.5 [facility] ([facility]) Neut % 59.4 % 37.0-92.0 [facility] ([facility]) Mid # 0.6 x10*3/UL 0.1-0.6 [facility] ([facility]) Lymph # 2.0 x10*3/UL 0.6-4.1 [facility] ([facility]) Neut # 3.8 x10*3/UL 2.0-7.8 [facility] ([facility]) ID Date Data Source [id number] 07/01/2020 12:30:00 PM EST [facility] ([facility]) Name Value Range Interpretation Code Description Data Altagracia rce(s) Supporting Document(s) Urine Color Laboratory test result [facility] ([facility]) Urine Appearance Laboratory test result Abnormal (applies to non-numeric results) [facility] ([facility]) Urine PH 5.0 units 5.0-9.0 [facility] Urine Leukocytes Laboratory test result Abnormal (applies to non-numeric results) [facility] Specific gravity of Urine 1.025 1.005-1.030 [facility] ([facility]) Urine Blood Laboratory test result [facility] ([facility]) Urine Protein Laboratory test result 0-0 [facility] ([facility]) Urine Nitrite Laboratory test result [facility] ([facility]) Glucose [Presence] in Urine Laboratory test result [facility] ([facility]) Bilirubin.total [Mass/volume] in Serum or Plasma Laboratory test resu lt [facility] Urine Ketone Laboratory test result [facility] ([facility]) Urine Urobilinogen 0.2 mg/dL 0.2-1.0 [facility] ([facility]) ID Date Data Source [id number] 06/27/2020 04:47:00 PM EST [facility] ([facility]) Name Value Range Interpretation Code Description Data Altagracia rce(s) Supporting Document(s) Lactate [Mass/volume] in Serum or Plasma 0.9 mmol/L 0.4-2.0 [facility] ([facility]) Y/N query for Sepsis Lactate Rule: Y ID Date Data Source [id number] 06/27/2020 04:47:00 PM EST [facility] ([facility]) Name Value Range Interpretation Code Description Data Altagracia rce(s) Supporting Document(s) Red Blood Count 3.62 10 4.00-5.40 [facility] ([facility]) White Blood Count 9.1 10 4.0-10.0 [facility] ([facility]) Hemoglobin 12.1 g/dL 12.0-15.5 [facility] ([facility]) Hematocrit 38.1 % 36.0-47.0 [facility] Mean Corpuscular Volume 105.2 fl 80.0-96.0 [facility] ([facility]) Mean Corpuscular Hemoglobin 33.4 pg 27.0-33.0 [facility] ([facility]) Mean Corpuscular HGB Conc 31.8 g/dL 32.0-36.5 [facility] ([facility]) Red Cell Distribution Width 16.1 % 11.5-14.5 [facility] ([facility]) Platelet Count, Automated 227 10 150-450 [facility] ([facility]) Neutrophils % 61.7 % 36.0-66.0 [facility] ([facility]) Lymph % 15.9 % 24.0-44.0 [facility] Eos % 11.0 % 0.0-3.0 [facility] Dodge % 10.0 % 2.0-8.0 [facility] Immature Granulocyte % 0.5 % 0-3.0 [facility] ([facility]) Baso % 0.9 % 0.0-1.0 [facility] Neutrophils # 5.6 10 1.5-8.5 [facility] ([facility]) Nucleated Red Blood Cell % 0.0 % 0-0 [facility] ([facility]) Lymph # 1.5 10 1.5-5.0 [facility] Dodge # 0.9 10 0.0-0.8 [facility] ([facility] Eos # 1.0 10 0.0-0.5 [facility] Baso # 0.1 10 0.0-0.2 [facility] ID Date Data Source [id number] 06/27/2020 04:46:00 PM EST [facility] ([facility]) Name Value Range Interpretation Code Description Data Altagracia rce(s) Supporting Document(s) Osmolality of Serum or Plasma 303 MOSM/KG 280-301 [facility] ([facility]) Thyrotropin [Units/volume] in Serum or Plasma by Detec tion limit <= 0.05 mIU/L 3.910 uIU/ML 0.358-3.740 [facility] ([facility] ) ID Date Data Source [id number] 06/27/2020 04:46:00 PM EST [facility] ([facility]) Name Value Range Interpretation Code Description Data Altagracia rce(s) Supporting Document(s) Glucose, Fasting 100 mg/dL 70-100 [facility] ([facility]) Blood Urea Nitrogen 54 mg/dL 7-18 [facility] ([facility]) Creatinine For GFR 1.12 mg/dL 0.55-1.30 [facility] ([facility]) Glomerular Filtration Rate 49.2 [facility] ([facility]) <content>Units are mL/min/1.73 m2</content>
<content></content>
<content>Chronic Kidney Disease Staging per NKF:</content>
<content></content>
<content>Stage I & II GFR >=60 Normal to Mildly Decreased</content>
<content>Stage III GFR 30- 59 Moderately Decreased</content>
<content>Stage IV GFR 15-29 Severely Decreased</content>
<content>Stage V GFR <15 Very Little GFR Left</content>
<content>ESRD GFR <15 on OVEN BAKER</content>
<content></content> Sodium Level 138 meq/L 136-145 [facility] ([facility]) Potassium Serum 5.0 meq/L 3.5-5.1 [facility] ([facility]) Chloride Level 104 meq/L 98-107 [facility] ([facility]) Anion Gap 8 meq/L 8-16 [facility] ([place] [facility]) Carbon Dioxide Level 26 meq/L 21-32 [facility] ([facility]) Calcium Level 9.4 mg/dL 8.8-10.2 [facility] ([facility]) ID Date Data Source [id number] 06/27/2020 04:46:00 PM EST [facility] ([facility]) Name Value Range Interpretation Code Description Data Altagracia rce(s) Supporting Document(s) Ast/Sgot 18 U/L 7-37 [facility] ([place] [facility]) Alt/SGPT 19 U/L 12-78 [facility] ([facility]) Alkaline Phosphatase 116 U/L 45-117 [facility] ([facility]) Bilirubin,Total 0.2 mg/dL 0.2-1.0 [facility] ([facility]) Bilirubin,Direct Laboratory test result 0.0-0.2 [facility] ([facility]) Total Protein 7.6 GM/DL 6.4-8.2 [facility] ([facility]) Albumin 3.9 GM/DL 3.2-5.2 [facility] ([facility]) Albumin/Globulin Ratio 1.1 1.2-2.2 [facility] ([facility]) ID Date Data Source [id number] 06/27/2020 04:46:00 PM EST [facility] ([facility]) Name Value Range Interpretation Code Description Data Altagracia rce(s) Supporting Document(s) CPK Creatine Phosphokinase 56 U/L 26-192 [facility] ([facility]) CK-MB Value Mass 2.3 ng/mL [facility] ([facility]) MB/CK Relative Index 4.11 [facility] ([facility]) <content>DIAGNOSIS CRITERIA</content>
<content>MMB ng/ml Relative Index (RI)</content>
<content>NON-AMI < or = 5 N/A</content>
<content>SANTO ZONE > 5 < or = 4</content>
<content>AMI > 5 > 4</content>
<content></content> Troponin I Laboratory test result [facility] <content>Troponin I Reference Interval f or Siemens Hensley LOCI:</content>
<content></content>
<content>99th Percentile= 0.00-0.045 ng/ml</content>
<content></content>
<content>Risk Stratification:</content>
<content><= 0.10 ng/ml Decreased Risk for Adverse Clinical</content>
<content>Events.</content>
<content>0.10-1.50 ng/ml Increased Risk for Adverse Clinical</content>
<content>Events. Evaluation of additional</content>
<content>criterion and/or repeat testing in 2-6</content>
<content>hours is suggested to rule out myocardial</content>
<content>damage.</content>
<content>>= 1.50 ng/ml Indicative of Myocardial Injury.</content>
<content></content> ID Date Data Source [id number] 06/27/2020 04:46:00 PM EST [facility] ([facility]) Name Value Range Interpretation Code Description Data Altagracia rce(s) Supporting Document(s) Ammonia [Mass/volume] in Blood Laboratory test result [facility] ID Date Data Source [id number] 03/23/2020 08:26:00 AM EST [facility] ([facility]) Name Value Range Interpretation Code Description Data Altagracia rce(s) Supporting Document(s) C reactive protein [Mass/volume] in Serum or Plasma by High sensitivity method 0.70 mg/dL 0.00-0.30 [facility] ([facility] ) ID Date Data Source [id number] 03/23/2020 08:25:00 AM EST [facility] ([facility]) Name Value Range Interpretation Code Description Data Altagracia rce(s) Supporting Document(s) Thyrotropin [Units/volume] in Serum or Plasma by Detec tion limit <= 0.05 mIU/L 3.14 uIU/mL 0.36-3.74 [facility] ([facility] ) ID Date Data Source [id number] 03/23/2020 08:25:00 AM EST [facility] ([facility]) Name Value Range Interpretation Code Description Data Altagracia rce(s) Supporting Document(s) Triglyceride [Mass/volume] in Serum or Plasma 95 mg/dL 30-150 [facility] ([facility]) Cholesterol [Mass/volume] in Serum or Plasma 204 mg/dL 131-200 [facility] ([facility]) Cholesterol in HDL [Mass/volume] in Serum or Plasma 66 mg/dL 35-60 [facility] ([facility]) Cholesterol in LDL [Mass/volume] in Serum or Plasma by calcu lation 119 CALC 50-159 [facility] ([facility]) ID Date Data Source [id number] 03/23/2020 08:25:00 AM EST [facility] ([facility]) Name Value Range Interpretation Code Description Data Altagracia rce(s) Supporting Document(s) Glucose [Mass/volume] in Serum or Plasma 82 mg/dL 74-99 [facility] ([facility]) 100-125 mg/dL PRE-DIABETES/FASTING >126 mg/dL DIABETES/FASTING Creatinine 1.2 mg/dL 0.6-1.3 [facility]) Urea nitrogen [Mass/volume] in Serum or Plasma 40 mg/dL 7-18 [facility] ([facility]) NOTE: RESULT VERIFIED. Potassium [Moles/volume] in Serum or Plasma 4.1 meq/L 3.5-5.1 [facility] ([facility]) Chloride [Moles/volume] in Serum or Plasma 104 meq/L 98-107 [facility] ([facility]) Sodium [Moles/volume] in Serum or Plasma 143 meq/L 136-145 [facility] ([facility]) Alkaline phosphatase isoenzyme [Units/volume] in Serum or Pl asma 100 mg/dL 46-116 [facility] ([facility]) Carbon dioxide, total [Moles/volume] in Serum or Plasma 28 meq/L 21 -32 [facility] ([facility]) Calcium [Mass/volume] in Serum or Plasma 8.9 mg/dL 8.5-10.1 [facility] ([facility]) Total Bilirubin 0.4 mg/dL 0.2-1.0 [facility] ([facility]) Aspartate aminotransferase [Enzymatic activity/volume] in Serum or Plasma 25 U/L 15-37 [facility] ([facility] ) Alanine aminotransferase [Enzymatic activity/volume] in Seru m or Plasma 22 U/L 12-78 [facility] ([facility]) Proteinase 3 Ab [Units/volume] in Serum 7.6 g/dL 6.4-8.2 [facility] ([facility]) Glomerular filtration rate/1.73 sq M pre dicted among non-blacks [Volume Rate/Area] in Serum or Plasma by Creatinine-based formula (MDRD) 43 mL/min [facility] A/G Ratio 1.05 CALC 1.00-1.90 [facility] ([facility]) Albumin [Mass/volume] in Serum or Plasma 3.9 g/dL 3.4-5.0 [facility] Glomerular filtration rate/1.73 sq M pre dicted among blacks [Volume Rate/Area] in Serum or Plasma by Creatinine-based formula (MDRD) 52 mL/min [facility] ([facility] <content>CHRONIC KIDNEY DISEASE STAGING PER NKF</content>
<content></content>
<content>STAGE I & II GFR >= 60 NORMAL TO MILDLY DECREASED</content>
<content>STAGE III GFR 30-59 MODERATELY DECREASED</content>
<content>STAGE IV GFR 15-29 SEVERELY DECREASED</content>
<content>STAGE V GFR <15 VERY LITTLE GFR LEFT</content>
<content>ESRD GFR <15 ON OVEN BAKER</content>
<content></content> ID Date Data Source [id number] 03/23/2020 08:25:00 AM EST [facility] Name Value Range Interpretation Code Description Data Altagracia rce(s) Supporting Document(s) Erythrocyte sedimentation rate by Westergren method 46 mm/hr 0-15 [facility] ID Date Data Source [id number] 03/23/2020 08:25:00 AM EST [facility] Name Value Range Interpretation Code Description Data Altagracia rce(s) Supporting Document(s) Leukocytes [#/volume] in Blood by Automated count 6.1 x10*3/UL 4.1-10 .9 [facility] ([facility] NOTE: CBC VERIFIED Hematocrit [Volume Fraction] of Blood by Automated count 34.6 % 3 7.0-51.0 [facility] ([facility]) Erythrocytes [#/volume] in Blood by Automated count 3.45 x10*6/UL 4.2 0-6.30 [facility] ([facility]) Hemoglobin [Mass/volume] in Blood 12.0 g/dL 12.0-18.0 [facility] ([facility]) MCHC 34.8 g/dL 31.0-38.0 [facility] ([place] [facility]) MCH 34.9 pg 26.0-32.0 [facility] ([place] [facility]) MCV 100.3 fL 80.0-97.0 [facility] ([place] [facility]) Erythrocyte distribution width [Ratio] by Automated count 15.0 % 11.6-13.7 [facility] ([facility]) Platelets [#/volume] in Blood by Automated count 221 x10*3/UL 140-440 [facility] ([facility]) MPV 8.8 FL 7.8-11.0 [facility] ([place] [facility]) Neut % 62.6 % 37.0-92.0 [facility] ([place] [facility]) Mid % 8.3 % 1.7-9.3 [facility] ([place] [facility]) Lymph % 29.1 % 10.0-58.5 [facility] ([place] [facility]) Mid # 0.6 x10*3/UL 0.1-0.6 [facility] ([facility]) Lymph # 1.7 x10*3/UL 0.6-4.1 [facility] ([facility]) Neut # 3.8 x10*3/UL 2.0-7.8 [facility] ([facility]) Procedure Social History No Information Vital Signs ID Date Data Source UNK Name Value Range Interpretation Code Description Data Source(s) Systolic blood pressure 132 mm[Hg] 132 mm[Hg] M EDENT ([facility]) RT Arm Diastolic blood pressure 70 mm[Hg] 70 mm[Hg] [facility] ([facility]) RT Arm Body height 59.50 [in_i] 59.50 [in_i] [facility] ([facility]) 4'11.50" Heart rate 76 /min 76 /min [facility] ([facility]) Diastolic blood pressure 84 mm[Hg] 84 mm[Hg] [facility] ([facility]) RT Arm Body height 59.50 [in_i] 59.50 [in_i] [facility] ([facility]) " Heart rate 88 /min 88 /min [facility] ([facility]) Body weight 145.25 [lb_av] 145.25 [lb_av] MEDEN T ([facility]) Body mass index (BMI) [Ratio] 28.8 kg/m2 28.8 k g/m2 [facility] ([facility]) Systolic blood pressure 134 mm[Hg] 134 mm[Hg] [facility] RT Arm Systolic blood pressure 140 mm[Hg] 140 mm[Hg] [facility] Body weight 148.00 [lb_av] 148.00 [lb_av] MEDEN T ([facility]) Diastolic blood pressure 70 mm[Hg] 70 mm[Hg] [facility] ([facility]) Diastolic blood pressure 66 mm[Hg] 66 mm[Hg] [facility] ([facility]) Heart rate 68 /min 68 /min [facility] ([facility]) Systolic blood pressure 138 mm[Hg] 138 mm[Hg] [facility] Body height 59.50 [in_i] 59.50 [in_i] [facility] ([facility]) " Body mass index (BMI) [Ratio] 29.4 kg/m2 29.4 k g/m2 [facility] ([facility]) Heart rate 80 /min 80 /min [facility] ([facility]) Systolic blood pressure 152 mm[Hg] 152 mm[Hg] [facility] RT Arm Diastolic blood pressure 72 mm[Hg] 72 mm[Hg] [facility] ([facility]) RT Arm Body weight 146.38 [lb_av] 146.38 [lb_av] MEDEN T ([facility]) Body height 59.50 [in_i] 59.50 [in_i] [facility] ([facility]) " Body mass index (BMI) [Ratio] 29.1 kg/m2 29.1 k g/m2 [facility] ([facility]) Systolic blood pressure 138 mm[Hg] 138 mm[Hg] [facility] ([facility]) Diastolic blood pressure 76 mm[Hg] 76 mm[Hg] [facility] ([facility]) Body height 59.50 [in_i] 59.50 [in_i] [facility] ([facility]) " Body weight 148.00 [lb_av] 148.00 [lb_av] SATISH T ([facility]) Body mass index (BMI) [Ratio] 29.4 kg/m2 29.4 k g/m2 [facility] ([facility])
--- NOTE | 2021-03-02 03:35 | HPEPDOC ---
[facility] Medical History & Physical Date of Admission Mar 02, 2021 Date of Service: Mar 02, 2021 History and Physical CHIEF COMPLAINT: Right leg erythema and pain HISTORY OF PRESENT ILLNESS: 86-year-old female with a past medical history of hypertension, dementia, rheumatoid arthritis, GERD, hypercholesterolemia presents with persistent pain and erythema over the right lower extremity. She was recently admitted between February 21 and February 23 for the same. She describes the pain as sharp and burning particularly when walking. She received 3 days of IV vancomycin, which led to clinical improvement and was discharged home with a 5 day course of clindamycin. Patient states that the pain has not improved. ER provider attempted to DC patient after she was given a dose of IV cefazolin, however patient and family refused to depart and requested admission. Hospitalist service will be admitting patient for treatment of cellulitis of RLE. We will continue Iv cefazolin. PAST MEDICAL HISTORY: Hypertension Dementia Hypercholesterolemia Rheumatoid arthritis Osteoarthritis GERD History of anemia PAST SURGICAL HISTORY: Tonsillectomy SOCIAL HISTORY: Patient denies smoking Patient denies etoh use Patient denies illicit drug use FAMILY HISTORY: Mother: age 84, renal failure and cardiac failure Father: age 81, diabetes mellitus ALLERGIES: Please see below. REVIEW OF SYSTEMS: 10 point ROS conducted, relevant findings are noted in the HPI HOME MEDICATIONS: Please see below. PHYSICAL EXAMINATION: VITAL SIGNS: please see below General: NAD, comfortable HEENT: PERRLA, EOMI, sclerae clear Neck: supple, normal ROM, no JVD Respiratory: lungs CTAB, no wheeze, no rales, no crackles CVS: RRR, normal S1, S2, no murmurs Abdo: soft, no masses, no hepatosplenomegaly, BS+, no rebound tenderness Extremities: no edema, pulses 2+. Area of erythema and warmth overlying the right anterior leg MSK: no joint deformities, normal ROM Neuro: no focal neuro deficits, moving all 4 extremities, CN2-12 intact. Strength 5/5 in all 4 extremities. No nystagmus. Psych: calm, cooperative, AAO x 3 LABORATORY DATA: See below. IMAGING: RLE venous duplex (03/01/21): No evidence of deep venous thrombosis of the right lower extremity femoral popliteal venous system. MICROBIOLOGY: Please see below. ASSESSMENT: 86 yo F with a PMHx of HTN, Dementia, hypercholesterolemia, RA, osteoarthritis, GERD, anemia, presented with recurrent cellulitis of the R leg despite recent admission for IV abx and ongoing PO clindamycin therapy. . PLAN: #Cellulitis: WBC 10.8. ESR 68.LA 0.8. S/p cefazolin in ER. Continue. Venous duplex negative for DVT in RLE. Check procal. F/u blood cultures. #HTN: BP labile, not taking antihypertensive. Start amlodipine if BP increased #Dementia: alert and oriented in ER. #OA: c/w tylenol. #RA: takes no DMARDs at this time. c/w Tylenol. To f/u with Rheumatology on outpatient basis. DVT ppx: heparin Dispo: pending clinical improvement. Admitted under observation. Vital Signs Vital Signs Date Time Temp Pulse Resp B/P (MAP) Pulse Ox O2 Delivery O2 Flow Rate FiO2 03/01/21 18:57 138/68 (91) 03/01/21 16:19 97.5 87 16 98 Room Air Laboratory Data Labs 24H Laboratory Tests 2 03/01/21 20:05: Immature Granulocyte % (Auto) 0.6, Neutrophils (%) (Auto) 56.6, Lymphocytes (%) (Auto) 18.7L, Monocytes (%) (Auto) 11.5H, Eosinophils (%) (Auto) 11.9H, Basophils (%) (Auto) 0.7, Neutrophils # (Auto) 6.1, Lymphocytes # (Auto) 2.0, Monocytes # (Auto) 1.2H, Eosinophils # (Auto) 1.3H, Basophils # (Auto) 0.1, Nucleated Red Blood Cells % (auto) 0.0, Erythrocyte Sedimentation Rate 68H, Anion Gap 4L, Glomerular Filtration Rate 55.3, Lactic Acid Level 0.8, Calcium Level 9.8, Total Bilirubin 0.3, Direct Bilirubin < 0.1, Aspartate Amino Transf (AST/SGOT) 20, Alanine Aminotransferase (ALT/SGPT) 20, Alkaline Phosphatase 119H, C-Reactive Protein, Quantitative 4.43H, Total Protein 7.0, Albumin 3.0L, Albumin/Globulin Ratio 0.8L CBC/BMP Laboratory Tests 03/01/21 20:05 Microbiology Microbiology 03/01/21 Blood Culture, Received Pending 03/01/21 Blood Culture, Received Pending Home Medications Scheduled Ascorbic Acid (Vitamin C) 100 Mg Tablet, 100 MG PO DAILY Calcium Carbonate/Vitamin D3 (Calcium 600+D Softgel) 1 Each Capsule, 3 CAP PO DAILY Magnesium Oxide (Magnesium) 250 Mg Tablet, 250 MG PO DAILY Pnv,Calcium 72/Iron/Folic Acid ( Vitamin Plus Low Iron) 1 Each Tablet, 1 TAB PO DAILY Scheduled PRN Cetirizine HCl (ZyrTEC) 10 Mg Capsule, 10 MG PO DAILYPRN PRN for HEADACHE Allergies Coded Allergies: clarithromycin (Verified Allergy, Intermediate, shakes and heart race, 06/27/20) pseudoephedrine (Verified Allergy, Intermediate, heart race, shakes, 06/27/20) GRACE MARADIAGA MD Mar 02, 2021 03:35
[2021-03-02] MEDS ORDERED: HOME MED LIST COMPLETE! XX SCH (03:45)
[2021-03-02 04:35] LABS: RSV AMPLIFICATION NEGATIVE (NEGATIVE)
[2021-03-02] MEDS ORDERED: HEPARIN SOD (PORCINE) 5000UNITS/ML 1ML VIAL/SYRINGE SC SCH (06:00)
[2021-03-02] MEDS: ceFAZolin SOD 1 GM in D5W MINI-BAG PLUS 50 ML IV SCH ×3 (06:53→22:43)
[2021-03-02] MEDS ORDERED: traMADol 50 MG TAB PO PRN (09:50)
[2021-03-02] MEDS ORDERED: FUROSEMIDE 40MG/4ML VIAL (J1940) IV ONE (10:30)
[2021-03-02 12:00] VITALS: BP 155/70
[2021-03-02] MEDS: **hydrALAZINE HCL** 25 MG TAB PO SCH ×2 (12:00→18:00)
[2021-03-02] MEDS ORDERED: KETOROLAC 30 MG/ML 1ML VIAL IV PRN (13:30)
[2021-03-02] MEDS ORDERED: ULTRACET TAB PO SCH (13:30)
[2021-03-02 14:00] VITALS: BP 148/70
[2021-03-02] MEDS ORDERED: ULTRACET TAB PO ONE (14:00)
[2021-03-02] MEDS: ULTRACET TAB PO SCH (20:32)
[2021-03-02] MEDS: HEPARIN SOD (PORCINE) 5000UNITS/ML 1ML VIAL/SYRINGE SC SCH (20:33)
[2021-03-02 22:00] VITALS: BP 135/65
[2021-03-03] MEDS: **hydrALAZINE HCL** 25 MG TAB PO SCH ×3 (05:24→12:00)
[2021-03-03] MEDS: ceFAZolin SOD 1 GM in D5W MINI-BAG PLUS 50 ML IV SCH (05:40)
[2021-03-03 06:00] VITALS: BP 135/64
[2021-03-03 06:28] LABS: BASO # 0.1 10^3/uL (0.0-0.2); BASO % 1.2 % (0.0-1.0); EOS # 1.7 10^3/uL (0.0-0.5); HEMATOCRIT 30.5 % (36.0-47.0); HEMOGLOBIN 9.8 g/dl (12.0-15.5); LYMPH # 2.4 10^3/uL (1.5-5.0); LYMPH % 31.3 % (24.0-44.0); MEAN CORPUSCULAR HEMOGLOBIN 33.3 pg (27.0-33.0); MEAN CORPUSCULAR HGB CONC 32.1 g/dl (32.0-36.5); MEAN CORPUSCULAR VOLUME 103.7 fl (80.0-96.0); MONO # 1.2 10^3/uL (0.0-0.8); MONO % 16.2 % (2.0-8.0); NEUTROPHILS # 2.1 10^3/uL (1.5-8.5); PLATELET COUNT, AUTOMATED 247 10^3/uL (150-450); RED BLOOD COUNT 2.94 10^6/uL (4.00-5.40); WHITE BLOOD COUNT 7.6 10^3/uL (4.0-10.0)
[2021-03-03 06:51] LABS: CALCIUM LEVEL 8.2 MG/DL (8.8-10.2); CREATININE FOR GFR 1.24 MG/DL (0.55-1.30); GLOMERULAR FILTRATION RATE 43.7 (>32); POTASSIUM SERUM 5.3 MEQ/L (3.5-5.1)
[2021-03-03 07:03] LABS: EOS % 22.8 % (0.0-3.0)
[2021-03-03] MEDS ORDERED: CEFUROXIME 500 MG TAB PO SCH (09:00)
[2021-03-03] MEDS: HEPARIN SOD (PORCINE) 5000UNITS/ML 1ML VIAL/SYRINGE SC SCH (10:24)
[2021-03-03] MEDS: ULTRACET TAB PO SCH (10:27)
[2021-03-03 12:00] VITALS: BP 154/74
[2021-03-03] MEDS ORDERED: ACET1TAB55 PO (13:13)
[2021-03-03] MEDS ORDERED: TRAM37.53 PO (13:13)
[2021-03-03] MEDS ORDERED: CEFU50TA PO (13:13)
[2021-03-03] MEDS ORDERED: FUROSEMIDE 40MG/4ML VIAL (J1940) IV ONE (13:15)
--- NOTE | 2021-03-03 13:22 | DS.PDOC ---
Discharge Summary General Date of Admission Mar 02, 2021 at 02:35 Date of Discharge 03/03/21 Discharge Summary PROCEDURES PERFORMED DURING STAY: [None]. DISCHARGE DIAGNOSES: Right leg cellulitis Chronic bilateral leg and foot pain Gait instability Debility Hyperkalemia Secondary diagnosis Hypertension, dementia, rheumatoid arthritis, GERD, hypercholesterolemia , anemia, OA, COMPLICATIONS/CHIEF COMPLAINT: Cellulitis Of Right Lower Extremity. HOSPITAL COURSE: 86-year-old female with a past medical history of hypertension, dementia, rheumatoid arthritis, GERD, hypercholesterolemia , anemia, OA, pres ented with persistent pain and erythema over the right lower extremity. She was recently admitted between February 21 and February 23 for the same. She describes the pain as sharp and burning particularly when walking. She received 3 days of IV vancomycin, which led to clinical improvement and was discharged home with a 5 day course of clindamycin. Rochelle came back on 03/02/21 complaining that the pain and swelling had not improved. She was unable to bear weight and walk. She was given cefazolin and subsequently changed to Cefuroxime . Her pain is now better controlled with ultracet and she was able to work with PT and OT. However she continues to have gait instability and is below her usual functional levels. It is felt that she would benefit from continued rehab after her discharge. At present she no longer needs hospital stay so is being discharged to Rehab unit for continued rehab. Right leg cellulitis improving Continue cefuroxime for 5 days. Gait instability due to continued pain in her leg pain control with ultracet PT/OT DISCHARGE MEDICATIONS: Please see below. ALLERGIES: Please see below. PHYSICAL EXAMINATION ON DISCHARGE: VITAL SIGNS: Please see below. General Exam: Positive: Alert, Cooperative, No Acute Distress Eye Exam: Positive: PERRLA, Conjunctiva & lids normal, EOMI; Negative: Sclera icteric ENT Exam: Positive: Atraumatic, Mucous membr. moist/pink, Pharynx Normal Neck Exam: Positive: Supple; Negative: JVD, thyromegaly Chest Exam: Positive: Clear to auscultation, Normal air movement Heart Exam: Positive: Rate Normal, Regular Rhythm, Normal S1, Normal S2; Negative: Murmurs, Rubs Abdomen Exam: Positive: Normal bowel sounds, Soft; Negative: Tenderness, Hepatosplenomegaly Extremity Exam: Positive: Edema, Tenderness (both legs), Swelling, Other (erythema right foot and lower leg.); Negative: Clubbing, Cyanosis LABORATORY DATA: Please see below. ACTIVITY: [As tolerated]. DIET: As tolerated DISPOSITION: ARU DISCHARGE CONDITION: [Stable]. TIME SPENT ON DISCHARGE: 35 minutes. Vital Signs/I&Os Vital Signs Date Time Temp Pulse Resp B/P (MAP) Pulse Ox O2 Delivery O2 Flow Rate FiO2 03/03/21 12:00 154/74 03/03/21 10:27 16 Room Air 03/03/21 06:00 97.7 66 95 I&O- Last 24 Hours up to 6 AM 03/03/21 06:00 Intake Total 570 ml Output Total 1575 ml Balance -1005 ml Laboratory Data Labs 24H Laboratory Tests 2 03/03/21 06:03: Immature Granulocyte % (Auto) 0.5, Neutrophils (%) (Auto) 28.0L, Lymphocytes (%) (Auto) 31.3, Monocytes (%) (Auto) 16.2H, Eosinophils (%) (Auto) 22.8H, Basophils (%) (Auto) 1.2H, Neutrophils # (Auto) 2.1, Lymphocytes # (Auto) 2.4, Monocytes # (Auto) 1.2H, Eosinophils # (Auto) 1.7H, Basophils # (Auto) 0.1, Nucleated Red Blood Cells % (auto) 0.0, Anion Gap 9, Glomerular Filtration Rate 43.7, Calcium Level 8.2#L CBC/BMP Laboratory Tests 03/03/21 06:03 Microbiology Microbiology 03/01/21 Blood Culture - Preliminary, Resulted No growth after 24 hours . All specim... 03/01/21 Blood Culture - Preliminary, Resulted No growth after 24 hours . All specim... Discharge Medications Scheduled Ascorbic Acid (Vitamin C) 100 Mg Tablet, 100 MG PO DAILY, (Reported) Calcium Carbonate/Vitamin D3 (Calcium 600+D Softgel) 1 Each Capsule, 3 CAP PO DAILY, (Reported) Cefuroxime Axetil (Cefuroxime) 500 Mg Tablet, 500 MG PO BID Magnesium Oxide (Magnesium) 250 Mg Tablet, 250 MG PO DAILY, (Reported) Pnv,Calcium 72/Iron/Folic Acid ( Vitamin Plus Low Iron) 1 Each Tablet, 1 TAB PO DAILY, (Reported) Tramadol HCl/Acetaminophen (Tramadol-Acetaminophn 37.5-325) 1 Each Tablet, 1 TAB PO TID Scheduled PRN Acetaminophen (Acetaminophen) 325 Mg Tablet, 650 MG PO Q4H PRN for MILD PAIN or TEMP > 101 Cetirizine HCl (ZyrTEC) 10 Mg Capsule, 10 MG PO DAILYPRN PRN for HEADACHE, (Reported) Allergies Coded Allergies: clarithromycin (Verified Allergy, Intermediate, shakes and heart race, 06/27/20) pseudoephedrine (Verified Allergy, Intermediate, heart race, shakes, 06/27/20) Prema Calix MD Mar 03, 2021 13:22
[2021-03-03 14:00] VITALS: BP 157/54
== END 2021-03-03 15:17 | DRG 603 ==
LOC: M ED 16:18 → M ED INP 03-02 02:35 → ENRESERV 03-02 11:05 → M MSPAV 03-02 11:44
PROVIDERS: ADMIT Family Medicine; ATTEND Internal Medicine Nephrology
DX: L03.115 Cellulitis of right lower limb (principal); I10 Essential (primary) hypertension; F03.90 Unspecified dementia, unspecified severity, without behavioral disturbance, psychotic disturbance, mood disturbance, and anxiety; M06.9 Rheumatoid arthritis, unspecified; K21.9 Gastro-esophageal reflux disease without esophagitis; E87.5 Hyperkalemia; E78.00 Pure hypercholesterolemia, unspecified; Z79.899 Other long term (current) drug therapy; Z88.8 Allergy status to other drugs, medicaments and biological substances

== ENCOUNTER 2021-03-03 12:39 | Inpatient (IN) | payer MEDICARE ==
[~2021-03-03] VITALS: Ht 149.9 cm; Wt 71.0 kg
[~2021-03-03 12:39] MED LIST changes: +CLEO300C2 PO
[2021-03-03] MEDS ORDERED: ACET1TAB55 PO (13:13)
[2021-03-03] MEDS ORDERED: TRAM37.53 PO (13:13)
[2021-03-03] MEDS ORDERED: CEFU50TA PO (13:13)
[2021-03-03] MEDS ORDERED: MIRALAX *UNIT DOSE* 17GM PACKET PO PRN (14:45)
[2021-03-03] MEDS ORDERED: ACETAMINOPHEN TAB 650MG DOSE (2X325MG) PO PRN (14:45)
[2021-03-03] MEDS ORDERED: MAALOX 30 ML SUSP *UDC PO PRN (14:45)
--- NOTE | 2021-03-03 14:53 | HPEPDOC ---
[employer] Note DATE OF ADMISSION: 03-03-21 DATE OF SERVICE: 03-03-21 TIME OF ADMISSION: Please refer to physician's admission order. SOURCE OF ADMISSION INFORMATION: [facility] record and patient CHIEF COMPLAINT: debility related to cellulitis HISTORY OF PRESENT ILLNESS: 86F pmh HTN, dementia, RA, GERD, HLD, lives alone presents to [facility] ED on 03-02-21 with weakness after having been diagnosed with cellulitis of her RLE for which she received both IV and oral antibiotics after having been admitted about a week prior, but had extreme pain at home with difficulty walking and was re- admitted to for further treatment of her RLE cellulitis. She continued to have pain and difficulty with mobility in addition to hyperkalemia and was deemed medically appropriate for discharge to ARU. REVIEW OF SYSTEMS: The following is a completed review of systems and has been reviewed. Review of systems otherwise unremarkable. PAIN: Patient self reports RLE pain EYES: No recent vision changes EARS, NOSE, & THROAT: No throat pain, or dysphagia, or rhinorrhea CARDIOVASCULAR: Denies chest pain or palpitations PULMONARY: Denies shortness of breath GASTROINTESTINAL: Denies constipation/diarrhea GENITOURINARY: denies dysuria MUSCULOSKELETAL: generalized weakness NEUROLOGICAL:+ RLE neuropathic pain HEMATOLOGICAL: denies easy bruising SKIN: RLE cellulitis PSYCHIATRIC: Unremarkable All other review of systems found to be negative. PAST MEDICAL HISTORY: as per HPI PAST SURGICAL HISTORY: Tonsillectomy ALLERGIES: Please see below. MEDICATIONS: Please see below. FAMILY HISTORY: DM, cardiac, renal failure SOCIAL HISTORY: No etoh/illicit drugs/smoking DIET: low sodium PHYSICAL EXAMINATION: VITAL SIGNS: Please see below. GENERAL: Pleasant and cooperative. No acute distress. HEENT: PERRL. Extraocular movements intact. Clear conjunctiva CARDIOVASCULAR: Regular rate and rhythm. No murmurs, rubs, or gallops LUNGS: Clear to auscultation bilaterally. No wheezes. No rhonchi ABDOMEN: Soft, nontender, nondistended. Positive bowel sounds. Normal active bow el sounds NEUROLOGICAL: Alert and oriented times three. Cranial nerves II through XII grossly intact. Sensation grossly intact EXTREMITIES: 5\5 strength bilateral upper extremities. 5-\5 strength right lower extremity. 5-/5 strength in left lower extremity. +bilat LE edema SKIN: RLE calf erythema, TTP, +warm to touch LABORATORY DATA: Please see below. IMAGING:Imaging documentation personally reviewed by record FUNCTIONAL STATUS: Premorbid: Independent with all activities of daily life as well as mobility On Admission: Independent for ambulation with a RW, Contact Guard for stairs, transfers and toileting GOALS: Mod-I for bed mobility, functional transfers, ambulation, stairs, d ressing, toileting, bathing, IADLs ASSESSMENT:86-year-old F with past medical history of RA, HTN, dementia who lives alone who presents with debility related to RLE cellulitis PLAN: 1. Rehab- PT.OT advance mobility and ADLs, strengthen/stretch/maintain ROM all 4 limbs 2. Neuro- patient with RLE neuropathic pain in setting of cellulitis will start low dose gabapentin 3. Cardiac- hx of HTN cont BP meds adjust prn -ECHo from 2007 on record significant for diastolic CHF, will fluid restrict, daily weights, consider diuretic -medicine consulted to assist in overall management 4. Resp- monitor for infection 5. ID- cont Ceftin for RLE cellulitis, cont bacid 6. Pain- Tramadol and gabapentin 7. DVT ppx- heparin 8. Hyperkalemia- veltassa ordered and Mag levels (d/c'ing home Mag dose for now), f/u BMP tomorrow 9. DIspo- TBD POST ADMISSION PHYSICIAN EVALUATION: Medical and functional status: Description of medical status, medical assessment: As above. Rehabilitation diagnosis and current and prior cold morbid medical conditions as above. Risk of complications and plans to mitigate them as above. Description of functional status current status is as above. Prior status as above. Status compared to preadmission: There are no clinically significant differences between the patient's current status and the information described on the preadmission screening document. Treatment plan anticipated: Treatment plan is as described above. Required disciplines including physical therapy, occupational therapy, others as noted above Intensity of services: 3 hours a day, 6 days a week. Special considerations: There are no specific special or safety considerations that would likely preclude immediate implementation of an intensive rehabilitation program or subsequently influence the plan of care ATTESTATION: Considering all the information above, it is my best judgment that this patient requires intensive rehabilitation therapy as described above and an inpatient hospital environment due to the complexity of nursing, medical, and rehabilitation needs required by the patient. Furthermore, this patient can reasonably be expected to participate in an benefit from an inpatient rehabilitation stay with an interdisciplinary team approach to the delivery of rehabilitation care under the direction and supervision of rehabilitation physician. PROGNOSIS: Excellent ESTIMATED LENGTH OF STAY:7-10 days. PROJECTED DISCHARGE DESTINATION: Home with family support and any durable medical equipment required to increase functional safety and mobility. TIME SPENT COUNSELING AND COORDINATING INITIAL CARE: Greater than 70 minutes. Vital Signs Vital Signs Date Time Temp Pulse Resp B/P (MAP) Pulse Ox O2 Delivery O2 Flow Rate FiO2 03/03/21 15:22 97.6 68 20 148/65 (92) 96 Room Air Home Medications Scheduled Ascorbic Acid (Vitamin C) 100 Mg Tablet, 100 MG PO DAILY, (Reported) Calcium Carbonate/Vitamin D3 (Calcium 600+D Softgel) 1 Each Capsule, 3 CAP PO DAILY, (Reported) Cefuroxime Axetil (Cefuroxime) 500 Mg Tablet, 500 MG PO BID Magnesium Oxide (Magnesium) 250 Mg Tablet, 250 MG PO DAILY, (Reported) Pnv,Calcium 72/Iron/Folic Acid ( Vitamin Plus Low Iron) 1 Each Tablet, 1 TAB PO DAILY, (Reported) Tramadol HCl/Acetaminophen (Tramadol-Acetaminophn 37.5-325) 1 Each Tablet, 1 TAB PO TID Scheduled PRN Acetaminophen (Acetaminophen) 325 Mg Tablet, 650 MG PO Q4H PRN for MILD PAIN or TEMP > 101 Cetirizine HCl (ZyrTEC) 10 Mg Capsule, 10 MG PO DAILYPRN PRN for HEADACHE, (Reported) Allergies Coded Allergies: clarithromycin (Verified Allergy, Intermediate, shakes and heart race, 06/27/20) pseudoephedrine (Verified Allergy, Intermediate, heart race, shakes, 06/27/20) A-FIB/CHADSVASC A-FIB History Current/History of A-Fib/PAF?: No Current PO Anticoag Therapy: No SAKSHI FENTON MD Mar 03, 2021 14:52
[2021-03-03 15:22] VITALS: BP 148/65
--- OUTSIDE RECORDS SUMMARY | 2021-03-03 15:28 | CCD ---
Author Author [facility] Organization [facility] Address Unknown Phone Unavailable Care Team Providers Care Chemistry Department Chair Name Role Phone Santiago Coronel MD Unavailable [...] protected by Article 27-F of the [facility] Public Health law. If you continue you may have access to information: Regarding HIV / AIDS; Provided by facilities licensed or operated by the [facility] Office of Mental Health; or Provided by the [facility] Office for People With Developmental Disabilities. If such information is present, then the following [facility] mandated warning applies: This information has [...] ([facility]) Unknown Male Problem [facility] ([facility]) Encounters Encounter Providers Location Date Indications Data Source(s ) Outpatient Attender: Maira Keith 08:45:00 AM EDT [facility] ([facility] ) Outpatient Attender: Maira Keith 11:30:00 AM EDT [facility] ([facility] ) Outpatient Attender: Maira Keith 01:45:00 PM EST [facility] ([facility] ) Outpatient Attender: Maira Keith 12:30:00 PM EST [facility] ([facility] ) Immunizations Vaccine Date Status Description Data Source(s) Covid-19 Moderna vaccine, 07/04/2020 02:37:00 PM EDT completed [facility] ([facility]) COVID-19 VACCINE Moderna 07/04/2020 12:00:00 AM EDT completed [facility] Vaccine Series Complete: YESThis Data wa s Submitted to [facility] Via [employer]. Covid-19 Moderna vaccine, 06/06/2020 01:37:00 PM EST completed [facility] ([facility]) COVID-19 VACCINE Moderna 06/06/2020 12:00:00 AM EST completed [facility] Vaccine Series Complete: NOThis Data was Submitted to [facility] Via [employer]. This CVX code allows reporting of a vacc ination when formulation is unknown (for example, when recording a Influenza vaccination when noted on a vaccination card) 03/26/2020 01:37:00 PM EST completed MEDEN T ([facility]) INFLUENZA VACCINE QUADRIVALENT 2019- (65 YR UP)/MF59 C.1/PF 03/26/2020 12:00:00 AM EST completed [facility] Note that this Td is not adsorbed. 03/24/2020 12:43:00 PM EST compl eted [facility] ([facility]) Pneumococcal conjugate PCV 13 03/24/2020 12:42:00 PM EST completed [facility] [facility] pneumococcal polysaccharide PPV23 03/24/2020 12:42:00 PM EST comple salazar [facility] [facility] Medications Medication Brand Name Start Date Product [...] Relieving 02/08/2021 12:00:00 AM EDT active [facility] [facility] Cephalexin 500 MG Oral Capsule CEPHALEXIN 02/08/2021 12:00:00 AM EDT capsule 20 TAKE ONE CAPSULE BY MOUTH TWICE A DAY FOR 10 DAYS TAKE ONE CAPSULE BY MOUTH TWICE A DAY FOR 10 DAYS SOLD: 02/08/2021 [facility] Cephalexin 500 MG Oral Capsule Cephalexin 02/08/2021 12:00:00 AM EDT ORAL active [facility] ([facility] bismuth subsalicylate 17.5 MG/ML Oral Suspension [Pepto-bism ol] Pepto-Bismol 09/28/2020 12:00:00 AM EDT ORAL active [facility] ([place] [facility] 40 mg 06/30/2020 12:00:00 AM EST capsule,delayed [...] 06/29/2020 12:00:00 AM EST ORAL active [facility] ([facility]) 27 mg iron- 1 mg 03/25/2020 12:00:00 AM EST tablet 90 TAKE ONE TABLET BY MOUTH EVERY DAY TAKE ONE TABLET BY MOUTH EVERY DAY SOLD: 03/26/2020 [facility] Lidocaine Hydrochloride 40 MG/ML Topical Cream Aspercreme W/ Lidocaine 03/24/2020 12:00:00 AM EST active [facility] ([facility]) Insurance Providers Payer name Policy type / Coverage type Policy ID Covered alliance party ID Covered alliance party's relationship to cherry Policy Cherry Plan Information Medicare Natl Govt Servic Medicare Primary [id number] Self [id number] Medicare Natl Govt Servic Medicare Primary [id number] Self [id number] Medicare Natl Govt Servic Medicare Primary [id number] Self [id number] Medicare Natl Govt Servic Medicare Primary [id number] Self [id number] Medicare Natl Govt Servic Medicare Primary [id number] Self [id number] MEDICARE [id number] SP [id number] Medicare Natl Govt Servic Medicare Primary [id number] Self [id number] A Medicare Natl Govt Servic Medicare Primary [id number] Self [id number] Medicare Natl Govt Servic Medicare Primary [id number] Self [id number] Medicare Natl Govt Servic Medicare Primary [id number] Self [id number] MEDICARE [id number] SP [id number] A [employer] (Old) Medigap Part B [id number] Family Dependent [id number] [place] Ppo Medigap Part B [id number] Family Dependent [id number] [employer] (Old) Medigap Part B [id number] Family Dependent [id number] [place] Ppo Medigap Part B [id number] Family Dependent [id number] [employer] (Old) Medigap Part B [id number] Family Dependent [id number] [employer] Ppo Medigap Part B [id number] Family Dependent Umr [place] Ppo Medigap Part B [id number] Family Dependent [id number] Umr [place] Ppo Medigap Part B [id number] Family Dependent [id number] [employer] Medigap Part B [id number] Family Dependent [id number] [facility] Medigap Part B [id number] Self [id number] [facility] Medigap Part B [id number] Self [id number] [facility] Part B [id number] 11 [id number] Self [id number] 11 [id number] Medicare Part B [facility] Other 0 [id number] Self 0 Medicare Part B [facility] Other 0 [id number] Self 0 [employer]ARP HE[employer] CARE OPTIONS [id number] S [id number] [employer] MEDICARE DIVISION [id number] S [id number] MEDICARE - [place] [id number] S [id number] Medicare Part B [facility] Other 0 [id number] Self 0 AARP HE[employer] CARE OPTIONS [id number] SP [id number] [facility] [id number] Family Dependent [id number] [employer] [id number] HU2 [id number] [employer] PPO O [id number] S [id number] MEDICARE C [id number] S [id number] A [facility] [id number] Family Dependent AAR HE[employer] CARE OPTIONS [id number] SP [id number] Problems, Conditions, and Diagnoses No Information Surgeries/Procedures Procedure Description Date Indications Data Source(s) OFFICE OUTPATIENT VISIT 25 MINUTES 02/08/2021 12:00:00 AM EDT [facility] ([facility]) OFFICE OUTPATIENT VISIT 25 MINUTES 09/28/2020 12:00:00 AM EDT [facility] ([facility]) Results ID Date Data Source [id number] 02/21/2021 11:23:00 AM EDT [facility] Name Value Range Interpretation Code Description Data Altagracia rce(s) Supporting Document(s) SARS coronavirus 2 RNA [Presence] in Res piratory specimen by LEAH with probe detection NEGATIVE [facility] This lab was ordered by [facility] a nd reported by [facility]. ID Date Data Source [id number] 02/21/2021 11:23:00 AM EDT [facility] Name Value Range Interpretation Code Description Data Altagracia rce(s) Supporting Document(s) Influenza A Amplification Laboratory test result [facility] ([place] [facility]) Negative results do not preclude influen za or RSV virus infection and should not be used as the sole basis for treatment or other patient management decisions. Influenza B Amplification Laboratory test result [facility] ([place] [facility] Negative results do not preclude influen za or RSV virus infection and should not be used as the sole basis for treatment or other patient management decisions. RSV Amplification Laboratory test result [facility] ([place] [facility] Negative results do not preclude influen za or RSV virus infection and should not be used as the sole basis for treatment or other patient management decisions. Laboratory test finding (navigational concept) Laboratory test result [facility] ([facility]) A false negative result may occur if [...] pathogens. DISCLAIMER: Testing was performed using the [employer] SARS-CoV-2 test. This test was developed and its performance characteristics determined by [employer]. This test has not been FDA cleared [...] or revoked sooner. ID Date Data Source [id number] 02/21/2021 11:23:00 AM EDT [facility] Name Value Range Interpretation Code Description Data Altagracia rce(s) Supporting Document(s) Erythrocyte sedimentation rate by Westergren method 70 mm/hr 0-30 [facility] ([facility]) ID Date Data Source [id number] 02/21/2021 11:23:00 AM EDT [facility] ([facility]) Name Value Range Interpretation Code Description Data Altagracia rce(s) Supporting Document(s) Red Blood Count 3.57 10 4.00-5.40 [facility] ([facility]) White Blood Count 8.7 10 4.0-10.0 [facility] ([facility]) Hemoglobin 11.9 g/dL 12.0-15.5 [facility] Mean Corpuscular Volume 103.6 fl 80.0-96.0 [facility] ([facility]) Hematocrit 37.0 % 36.0-47.0 [facility] ([facility]) Mean Corpuscular Hemoglobin 33.3 pg 27.0-33.0 ME D[facility] ([facility]) Platelet Count, Automated 275 10 150-450 MEDE NT ([facility]) Red Cell Distribution Width 16.2 % 11.5-14.5 [facility] ([facility]) Mean Corpuscular HGB Conc 32.2 g/dL 32.0-36.5 MEDE NT ([facility]) Lymph % 18.4 % 24.0-44.0 [facility] [facility]) Neutrophils % 56.2 % 36.0-66.0 [facility] ([facility]) Baso % 0.8 % 0.0-1.0 [facility] [facility]) [place] % 11.8 % 2.0-8.0 [facility] [facility]) Eos % 12.3 % 0.0-3.0 [facility] [facility]) Neutrophils # 4.9 10 1.5-8.5 [facility] ([facility]) Immature Granulocyte % 0.5 % 0-3.0 [facility] ([facility]) Nucleated Red Blood Cell % 0.0 % 0-0 [facility] ([facility]) [place] # 1.0 10 0.0-0.8 [facility] [facility]) Eos # 1.1 10 0.0-0.5 [facility] [facility]) Lymph # 1.6 10 1.5-5.0 [facility] [facility]) Baso # 0.1 10 0.0-0.2 [facility] ID Date Data Source [id number] 02/21/2021 11:23:00 AM EDT [facility] ([facility]) Name Value Range Interpretation Code Description Data Altagracia rce(s) Supporting Document(s) C reactive protein [Mass/volume] in Serum or Plasma by High sensitivity method 6.88 mg/dL 0.00-0.30 [facility] ([facility] ) ID Date Data Source [id number] 02/21/2021 11:23:00 AM EDT [facility] ([facility]) Name Value Range Interpretation Code Description Data Altagracia rce(s) Supporting Document(s) Glucose, Fasting 98 mg/dL 70-100 [facility] ([facility]) Blood Urea Nitrogen 43 mg/dL 7-18 [facility] ([facility]) Creatinine For GFR 0.96 mg/dL 0.55-1.30 [facility] ([facility]) Glomerular Filtration Rate 58.7 [facility] ([facility]) <content>Units are mL/min/1.73 m2</content>
<content></content>
<content>Chronic Kidney Disease Staging per NKF:</content>
<content></content>
<content>Stage I & II GFR >=60 Normal to Mildly Decreased</content>
<content>Stage III GFR 30- 59 Moderately Decreased</content>
<content>Stage IV GFR 15-29 Severely Decreased</content>
<content>Stage V GFR <15 Very Little GFR Left</content>
<content>ESRD GFR <15 on EMBRYOLOGY TEACHER</content>
<content></content> Sodium Level 138 meq/L 136-145 [facility] ([facility]) Chloride Level 106 meq/L 98-107 [facility] ([facility]) Carbon Dioxide Level 25 meq/L 21-32 [facility] ([facility]) Potassium Serum 4.2 meq/L 3.5-5.1 [facility] ([facility]) Anion Gap 7 meq/L 8-16 [facility] ([facility]) Calcium Level 10.3 mg/dL 8.8-10.2 [facility] ([facility]) ID Date Data Source [id number] 02/08/2021 09:26:00 AM EDT [facility] ([facility]) Name Value Range Interpretation Code Description Data Altagracia rce(s) Supporting Document(s) C reactive protein [Mass/volume] in Serum or Plasma by High sensitivity method 2.84 mg/dL 0.00-0.30 [facility] ([facility] ) ID Date Data Source [id number] 02/08/2021 09:26:00 AM EDT [facility] ([facility]) Name Value Range Interpretation Code Description Data Altagracia rce(s) Supporting Document(s) Glucose [Mass/volume] in Serum or Plasma 97 mg/dL 74-99 [facility] ([facility]) 100-125 mg/dL PRE-DIABETES/FASTING >126 mg/dL DIABETES/FASTING Creatinine 1.2 mg/dL 0.6-1.3 [facility] Urea nitrogen [Mass/volume] in Serum or Plasma 33 mg/dL 7-18 [facility] ([facility]) Sodium [Moles/volume] in Serum or Plasma 140 meq/L 136-145 [facility] ([facility]) Chloride [Moles/volume] in Serum or Plasma 103 meq/L 98-107 [facility] ([facility]) Potassium [Moles/volume] in Serum or Plasma 4.5 meq/L 3.5-5.1 [facility] ([facility]) Calcium [Mass/volume] in Serum or Plasma 9.9 mg/dL 8.5-10.1 [facility] ([facility]) Glomerular filtration rate/1.73 sq M pre dicted among non-blacks [Volume Rate/Area] in Serum or Plasma by Creatinine-based formula (MDRD) 43 mL/min [facility] ([facility]) Carbon dioxide, total [Moles/volume] in Serum or Plasma 26 meq/L 21 -32 [facility] ([facility]) Glomerular filtration rate/1.73 sq M pre dicted among blacks [Volume Rate/Area] in Serum or Plasma by Creatinine-based formula (MDRD) 52 mL/min [facility] ([place] [facility] <content>CHRONIC KIDNEY DISEASE STAGING PER NKF</content>
<content></content>
<content>STAGE I & II GFR >= 60 NORMAL TO MILDLY DECREASED</content>
<content>STAGE III GFR 30-59 MODERATELY DECREASED</content>
<content>STAGE IV GFR 15-29 SEVERELY DECREASED</content>
<content>STAGE V GFR <15 VERY LITTLE GFR LEFT</content>
<content>ESRD GFR <15 ON EMBRYOLOGY TEACHER</content>
<content></content> ID Date Data Source [id number] 02/08/2021 09:26:00 AM EDT [facility] ([facility]) Name Value Range Interpretation Code Description Data Altagracia rce(s) Supporting Document(s) Erythrocyte sedimentation rate by Westergren method 50 mm/hr 0-15 [facility]) ID Date Data Source [id number] 02/08/2021 09:26:00 AM EDT [facility] ([facility]) Name Value Range Interpretation Code Description Data Altagracia rce(s) Supporting Document(s) Erythrocytes [#/volume] in Blood by Automated count 3.58 x10*6/UL 4.2 0-6.30 [facility] ([facility]) Leukocytes [#/volume] in Blood by Automated count 7.9 x10*3/UL 4.1-10 .9 [facility] ([facility]) NOTE: CBC VERIFIED Hemoglobin [Mass/volume] in Blood 11.8 g/dL 12.0-18.0 [facility] ([facility]) Hematocrit [Volume Fraction] of Blood by Automated count 35.5 % 3 7.0-51.0 [facility] ([facility]) MCV 99.2 fL 80.0-97.0 [facility] [facility]) MCHC 33.3 g/dL 31.0-38.0 [facility] ([facility]) MCH 33.0 pg 26.0-32.0 [facility] ([facility]) MPV 8.2 FL 7.8-11.0 [facility] ([facility]) Erythrocyte distribution width [Ratio] by Automated count 15.0 % 11.6-13.7 [facility] ([place] [facility] Platelets [#/volume] in Blood by Automated count 291 x10*3/UL 140-440 [facility] ([place] [facility] Lymph % 20.8 % 10.0-58.5 [facility] ([facility]) Mid % 5.7 % 1.7-9.3 [facility] ([facility]) Neut % 73.5 % 37.0-92.0 [facility] ([facility]) Lymph # 1.6 x10*3/UL 0.6-4.1 [facility] ([facility]) Neut # 5.8 x10*3/UL 2.0-7.8 [facility] ([facility]) Mid # 0.5 x10*3/UL 0.1-0.6 [facility] ([facility]) ID Date Data Source [id number] 09/26/2020 09:30:00 AM EDT [facility] ([facility] Name Value Range Interpretation Code Description Data Altagracia rce(s) Supporting Document(s) Thyrotropin [Units/volume] in Serum or Plasma by Detec tion limit <= 0.05 mIU/L 4.42 uIU/mL 0.36-3.74 [facility] ([place] [facility] ID Date Data Source [id number] 09/26/2020 09:30:00 AM EDT [facility] ([facility] Name Value Range Interpretation Code Description Data Altagracia rce(s) Supporting Document(s) Glucose [Mass/volume] in Serum or Plasma 95 mg/dL 74-99 [facility] ([facility]) 100-125 mg/dL PRE-DIABETES/FASTING >126 mg/dL DIABETES/FASTING Urea nitrogen [Mass/volume] in Serum or Plasma 40 mg/dL 7-18 [facility] ([facility]) Creatinine 1.1 mg/dL 0.6-1.3 [facility] ([facility]) Sodium [Moles/volume] in Serum or Plasma 144 meq/L 136-145 [facility] ([facility]) Chloride [Moles/volume] in Serum or Plasma 106 meq/L 98-107 [facility] ([facility]) Potassium [Moles/volume] in Serum or Plasma 4.5 meq/L 3.5-5.1 [facility] ([facility]) Carbon dioxide, total [Moles/volume] in Serum or Plasma 27 meq/L 21 -32 [facility] ([facility]) Calcium [Mass/volume] in Serum or Plasma 9.4 mg/dL 8.5-10.1 [facility] ([facility]) Glomerular filtration rate/1.73 sq M pre dicted among non-blacks [Volume Rate/Area] in Serum or Plasma by Creatinine-based formula (MDRD) 47 mL/min [facility] [facility] Glomerular filtration rate/1.73 sq M pre dicted among blacks [Volume Rate/Area] in Serum or Plasma by Creatinine-based formula (MDRD) 57 mL/min [facility] ([place] [facility] <content>CHRONIC KIDNEY DISEASE STAGING PER NKF</content>
<content></content>
<content>STAGE I & II GFR >= 60 NORMAL TO MILDLY DECREASED</content>
<content>STAGE III GFR 30-59 MODERATELY DECREASED</content>
<content>STAGE IV GFR 15-29 SEVERELY DECREASED</content>
<content>STAGE V GFR <15 VERY LITTLE GFR LEFT</content>
<content>ESRD GFR <15 ON EMBRYOLOGY TEACHER</content>
<content></content> ID Date Data Source [id number] 09/26/2020 09:30:00 AM EDT [facility] ([facility]) Name Value Range Interpretation Code Description Data Altagracia rce(s) Supporting Document(s) Leukocytes [#/volume] in Blood by Automated count 6.4 x10*3/UL 4.1-10 .9 [facility] ([facility]) NOTE: CBC VERIFIED Hemoglobin [Mass/volume] in Blood 12.2 g/dL 12.0-18.0 [facility] ([place] [facility] Hematocrit [Volume Fraction] of Blood by Automated count 37.3 % 3 7.0-51.0 [facility] ([place] [facility] Erythrocytes [#/volume] in Blood by Automated count 3.69 x10*6/UL 4.2 0-6.30 [facility] ([facility]) MCH 33.1 pg 26.0-32.0 [facility] [facility] MCV 101.1 fL 80.0-97.0 [facility] ([facility]) MCHC 32.7 g/dL 31.0-38.0 [facility] ([facility]) Platelets [#/volume] in Blood by Automated count 237 x10*3/UL 140-440 [facility] ([place] [facility] Erythrocyte distribution width [Ratio] by Automated count 15.7 % 11.6-13.7 [facility] ([facility]) Mid % 8.3 % 1.7-9.3 [facility] [facility] MPV 8.7 FL 7.8-11.0 [facility] ([facility]) Lymph % 32.3 % 10.0-58.5 [facility] ([facility]) Neut % 59.4 % 37.0-92.0 [facility] ([facility]) Mid # 0.6 x10*3/UL 0.1-0.6 [facility] ([facility]) Lymph # 2.0 x10*3/UL 0.6-4.1 [facility] ([facility]) Neut # 3.8 x10*3/UL 2.0-7.8 [facility] ([facility]) ID Date Data Source [id number] 07/01/2020 12:30:00 PM EST [facility] ([facility]) Name Value Range Interpretation Code Description Data Altagracia rce(s) Supporting Document(s) Urine Color Laboratory test result [facility] ([facility]) Urine Appearance Laboratory test result Abnormal (applies to non-numeric results) [facility] ([facility]) Urine PH 5.0 units 5.0-9.0 [facility] [facility] Urine Leukocytes Laboratory test result Abnormal (applies to non-numeric results) [facility]) Specific gravity of Urine 1.025 1.005-1.030 [facility] ([facility]) Urine Blood Laboratory test result [facility] ([facility]) Urine Protein Laboratory test result 0-0 [facility] ([facility]) Urine Nitrite Laboratory test result [facility] ([facility]) Glucose [Presence] in Urine Laboratory test result [facility] ([facility]) Bilirubin.total [Mass/volume] in Serum or Plasma Laboratory test resu lt [facility] [facility] Urine Ketone Laboratory test result [facility] ([facility]) Urine Urobilinogen 0.2 mg/dL 0.2-1.0 [facility] ([facility]) ID Date Data Source [id number] 06/27/2020 04:47:00 PM EST [facility] ([facility]) Name Value Range Interpretation Code Description Data Altagracia rce(s) Supporting Document(s) Lactate [Mass/volume] in Serum or Plasma 0.9 mmol/L 0.4-2.0 [facility] ([facility]) Y/N query for Sepsis Lactate Rule: Y ID Date Data Source [id number] 06/27/2020 04:47:00 PM EST [facility] ([facility]) Name Value Range Interpretation Code Description Data Altagracia rce(s) Supporting Document(s) Red Blood Count 3.62 10 4.00-5.40 [facility] ([facility]) White Blood Count 9.1 10 4.0-10.0 [facility] ([facility]) Hemoglobin 12.1 g/dL 12.0-15.5 [facility] ([facility]) Hematocrit 38.1 % 36.0-47.0 [facility] Mean Corpuscular Volume 105.2 fl 80.0-96.0 [facility] ([facility]) Mean Corpuscular Hemoglobin 33.4 pg 27.0-33.0 [facility] ([facility]) Mean Corpuscular HGB Conc 31.8 g/dL 32.0-36.5 [facility] ([facility]) Red Cell Distribution Width 16.1 % 11.5-14.5 [facility] ([facility]) Platelet Count, Automated 227 10 150-450 [facility] ([facility]) Neutrophils % 61.7 % 36.0-66.0 [facility] ([facility]) Lymph % 15.9 % 24.0-44.0 [facility] [facility]) Eos % 11.0 % 0.0-3.0 [facility] [facility] [place] % 10.0 % 2.0-8.0 [facility] [facility] Immature Granulocyte % 0.5 % 0-3.0 [facility] ([facility]) Baso % 0.9 % 0.0-1.0 [facility] [facility] Neutrophils # 5.6 10 1.5-8.5 [facility] ([facility]) Nucleated Red Blood Cell % 0.0 % 0-0 [facility] ([facility]) Lymph # 1.5 10 1.5-5.0 [facility] [facility]) [place] # 0.9 10 0.0-0.8 [facility] [facility] [facility]) Eos # 1.0 10 0.0-0.5 [facility] Baso # 0.1 10 0.0-0.2 [facility] [facility] ID Date Data Source [id number] 06/27/2020 04:46:00 PM EST [facility] ([facility]) Name Value Range Interpretation Code Description Data Altagracia rce(s) Supporting Document(s) Osmolality of Serum or Plasma 303 MOSM/KG 280-301 [facility] ([facility]) Thyrotropin [Units/volume] in Serum or Plasma by Detec tion limit <= 0.05 mIU/L 3.910 uIU/ML 0.358-3.740 [facility] ([facility] ) ID Date Data Source [id number] 06/27/2020 04:46:00 PM EST [facility] ([facility]) Name Value Range Interpretation Code Description Data Altagracia rce(s) Supporting Document(s) Glucose, Fasting 100 mg/dL 70-100 [facility] ([facility]) Blood Urea Nitrogen 54 mg/dL 7-18 [facility] ([facility]) Creatinine For GFR 1.12 mg/dL 0.55-1.30 [facility] ([facility]) Glomerular Filtration Rate 49.2 [facility] ([facility]) <content>Units are mL/min/1.73 m2</content>
<content></content>
<content>Chronic Kidney Disease Staging per NKF:</content>
<content></content>
<content>Stage I & II GFR >=60 Normal to Mildly Decreased</content>
<content>Stage III GFR 30- 59 Moderately Decreased</content>
<content>Stage IV GFR 15-29 Severely Decreased</content>
<content>Stage V GFR <15 Very Little GFR Left</content>
<content>ESRD GFR <15 on EMBRYOLOGY TEACHER</content>
<content></content> Sodium Level 138 meq/L 136-145 [facility] ([facility]) Potassium Serum 5.0 meq/L 3.5-5.1 [facility] ([facility]) Chloride Level 104 meq/L 98-107 [facility] ([facility]) Anion Gap 8 meq/L 8-16 [facility] ([place] [facility]) Carbon Dioxide Level 26 meq/L 21-32 [facility] ([facility]) Calcium Level 9.4 mg/dL 8.8-10.2 [facility] ([facility]) ID Date Data Source [id number] 06/27/2020 04:46:00 PM EST [facility] ([facility]) Name Value Range Interpretation Code Description Data Altagracia rce(s) Supporting Document(s) Ast/Sgot 18 U/L 7-37 [facility] ([place] [facility]) Alt/SGPT 19 U/L 12-78 [facility] ([facility]) Alkaline Phosphatase 116 U/L 45-117 [facility] ([facility]) Bilirubin,Total 0.2 mg/dL 0.2-1.0 [facility] ([facility]) Bilirubin,Direct Laboratory test result 0.0-0.2 [facility] ([facility] [facility]) Total Protein 7.6 GM/DL 6.4-8.2 [facility] ([facility]) Albumin 3.9 GM/DL 3.2-5.2 [facility] ([facility]) Albumin/Globulin Ratio 1.1 1.2-2.2 [facility] ([facility]) ID Date Data Source [id number] 06/27/2020 04:46:00 PM EST [facility] ([facility]) Name Value Range Interpretation Code Description Data Altagracia rce(s) Supporting Document(s) CPK Creatine Phosphokinase 56 U/L 26-192 [facility] ([facility] [facility]) CK-MB Value Mass 2.3 ng/mL [facility] ([facility]) MB/CK Relative Index 4.11 [facility] ([facility]) <content>DIAGNOSIS CRITERIA</content>
<content>MMB ng/ml Relative Index (RI)</content>
<content>NON-AMI < or = 5 N/A</content>
<content>SANTO ZONE > 5 < or = 4</content>
<content>AMI > 5 > 4</content>
<content></content> Troponin I Laboratory test result [facility] <content>Troponin I Reference Interval f or Siemens Slinger LOCI:</content>
<content></content>
<content>99th Percentile= 0.00-0.045 ng/ml</content>
<content></content>
<content>Risk Stratification:</content>
<content><= 0.10 ng/ml Decreased Risk for Adverse Clinical</content>
<content>Events.</content>
<content>0.10-1.50 ng/ml Increased Risk for Adverse Clinical</content>
<content>Events. Evaluation of additional</content>
<content>criterion and/or repeat testing in 2-6</content>
<content>hours is suggested to rule out myocardial</content>
<content>damage.</content>
<content>>= 1.50 ng/ml Indicative of Myocardial Injury.</content>
<content></content> ID Date Data Source [id number] 06/27/2020 04:46:00 PM EST [facility] ([facility]) Name Value Range Interpretation Code Description Data Altagracia rce(s) Supporting Document(s) Ammonia [Mass/volume] in Blood Laboratory test result [facility] ID Date Data Source [id number] 03/23/2020 08:26:00 AM EST [facility] ([facility]) Name Value Range Interpretation Code Description Data Altagracia rce(s) Supporting Document(s) C reactive protein [Mass/volume] in Serum or Plasma by High sensitivity method 0.70 mg/dL 0.00-0.30 [facility] ([facility] ) ID Date Data Source [id number] 03/23/2020 08:25:00 AM EST [facility] ([facility]) Name Value Range Interpretation Code Description Data Altagracia rce(s) Supporting Document(s) Thyrotropin [Units/volume] in Serum or Plasma by Detec tion limit <= 0.05 mIU/L 3.14 uIU/mL 0.36-3.74 [facility] ([facility] [facility] ) ID Date Data Source [id number] 03/23/2020 08:25:00 AM EST [facility] ([facility]) Name Value Range Interpretation Code Description Data Altagracia rce(s) Supporting Document(s) Triglyceride [Mass/volume] in Serum or Plasma 95 mg/dL 30-150 [facility] ([facility] [facility]) Cholesterol [Mass/volume] in Serum or Plasma 204 mg/dL 131-200 [facility] ([facility]) Cholesterol in HDL [Mass/volume] in Serum or Plasma 66 mg/dL 35-60 [facility] ([facility]) Cholesterol in LDL [Mass/volume] in Serum or Plasma by calcu lation 119 CALC 50-159 [facility] ([facility] [facility]) ID Date Data Source [id number] 03/23/2020 08:25:00 AM EST [facility] ([facility]) Name Value Range Interpretation Code Description Data Altagracia rce(s) Supporting Document(s) Glucose [Mass/volume] in Serum or Plasma 82 mg/dL 74-99 [facility] ([facility]) 100-125 mg/dL PRE-DIABETES/FASTING >126 mg/dL DIABETES/FASTING Creatinine 1.2 mg/dL 0.6-1.3 [facility] ([facility]) Urea nitrogen [Mass/volume] in Serum or Plasma 40 mg/dL 7-18 [facility] ([facility]) NOTE: RESULT VERIFIED. Potassium [Moles/volume] in Serum or Plasma 4.1 meq/L 3.5-5.1 [facility] ([facility]) Chloride [Moles/volume] in Serum or Plasma 104 meq/L 98-107 [facility] ([facility]) Sodium [Moles/volume] in Serum or Plasma 143 meq/L 136-145 [facility] ([facility]) Alkaline phosphatase isoenzyme [Units/volume] in Serum or Pl asma 100 mg/dL 46-116 [facility] ([facility]) Carbon dioxide, total [Moles/volume] in Serum or Plasma 28 meq/L 21 -32 [facility] ([facility]) Calcium [Mass/volume] in Serum or Plasma 8.9 mg/dL 8.5-10.1 [facility] ([facility]) Total Bilirubin 0.4 mg/dL 0.2-1.0 [facility] ([facility]) Aspartate aminotransferase [Enzymatic activity/volume] in Serum or Plasma 25 U/L 15-37 [facility] ([facility] ) Alanine aminotransferase [Enzymatic activity/volume] in Seru m or Plasma 22 U/L 12-78 [facility] ([facility]) Proteinase 3 Ab [Units/volume] in Serum 7.6 g/dL 6.4-8.2 [facility] ([facility]) Glomerular filtration rate/1.73 sq M pre dicted among non-blacks [Volume Rate/Area] in Serum or Plasma by Creatinine-based formula (MDRD) 43 mL/min [facility] A/G Ratio 1.05 CALC 1.00-1.90 [facility] ([place] [facility]) Albumin [Mass/volume] in Serum or Plasma 3.9 g/dL 3.4-5.0 [facility] Glomerular filtration rate/1.73 sq M pre dicted among blacks [Volume Rate/Area] in Serum or Plasma by Creatinine-based formula (MDRD) 52 mL/min [facility] ([facility] <content>CHRONIC KIDNEY DISEASE STAGING PER NKF</content>
<content></content>
<content>STAGE I & II GFR >= 60 NORMAL TO MILDLY DECREASED</content>
<content>STAGE III GFR 30-59 MODERATELY DECREASED</content>
<content>STAGE IV GFR 15-29 SEVERELY DECREASED</content>
<content>STAGE V GFR <15 VERY LITTLE GFR LEFT</content>
<content>ESRD GFR <15 ON EMBRYOLOGY TEACHER</content>
<content></content> ID Date Data Source [id number] 03/23/2020 08:25:00 AM EST [facility] Name Value Range Interpretation Code Description Data Altagracia rce(s) Supporting Document(s) Erythrocyte sedimentation rate by Westergren method 46 mm/hr 0-15 [facility] ([facility] [facility] ID Date Data Source [id number] 03/23/2020 08:25:00 AM EST [facility] Name Value Range Interpretation Code Description Data Altagracia rce(s) Supporting Document(s) Leukocytes [#/volume] in Blood by Automated count 6.1 x10*3/UL 4.1-10 .9 [facility] [facility] NOTE: CBC VERIFIED Hematocrit [Volume Fraction] of Blood by Automated count 34.6 % 3 7.0-51.0 [facility] ([place] [facility]) Erythrocytes [#/volume] in Blood by Automated count 3.45 x10*6/UL 4.2 0-6.30 [facility] ([facility] [facility]) Hemoglobin [Mass/volume] in Blood 12.0 g/dL 12.0-18.0 [facility] ([facility]) MCHC 34.8 g/dL 31.0-38.0 [facility] ([place] [facility]) MCH 34.9 pg 26.0-32.0 [facility] ([place] [facility] MCV 100.3 fL 80.0-97.0 [facility] [facility] Erythrocyte distribution width [Ratio] by Automated count 15.0 % 11.6-13.7 [facility] ([facility]) Platelets [#/volume] in Blood by Automated count 221 x10*3/UL 140-440 [facility] ([facility]) MPV 8.8 FL 7.8-11.0 [facility] ([place] [facility]) Neut % 62.6 % 37.0-92.0 [facility] ([place] [facility]) Mid % 8.3 % 1.7-9.3 [facility] [facility] Lymph % 29.1 % 10.0-58.5 [facility] [facility] Mid # 0.6 x10*3/UL 0.1-0.6 [facility] ([facility]) Lymph # 1.7 x10*3/UL 0.6-4.1 [facility] ([facility]) Neut # 3.8 x10*3/UL 2.0-7.8 [facility] ([facility]) Procedure Social History No Information Vital Signs ID Date Data Source UNK Name Value Range Interpretation Code Description Data Source(s) Systolic blood pressure 132 mm[Hg] 132 mm[Hg] M [facility] ([facility]) RT Arm Body height 59.50 [in_i] 59.50 [in_i] [facility] ( [facility] 4'11.50" Heart rate 76 /min 76 /min [facility] ([facility]) Diastolic blood pressure 70 mm[Hg] 70 mm[Hg] [facility] ([facility]) RT Arm Diastolic blood pressure 84 mm[Hg] 84 mm[Hg] [facility] ([facility]) RT Arm Body height 59.50 [in_i] 59.50 [in_i] [facility] ([facility]) .50" Heart rate 88 /min 88 /min [facility] ([facility]) Body weight 145.25 [lb_av] 145.25 [lb_av] [facility] T ([facility]) Body mass index (BMI) [Ratio] 28.8 kg/m2 28.8 k g/m2 [facility] ([facility]) Systolic blood pressure 134 mm[Hg] 134 mm[Hg] M [facility] ([facility]) RT Arm Systolic blood pressure 138 mm[Hg] 138 mm[Hg] [facility] ([facility]) Systolic blood pressure 140 mm[Hg] 140 mm[Hg] M [facility] ([facility]) Diastolic blood pressure 70 mm[Hg] 70 mm[Hg] [facility] ([facility]) Diastolic blood pressure 66 mm[Hg] 66 mm[Hg] [facility] ([facility]) Heart rate 68 /min 68 /min [facility] ([facility]) Body height 59.50 [in_i] 59.50 [in_i] [facility] ([facility] .50" Body mass index (BMI) [Ratio] 29.4 kg/m2 29.4 k g/m2 [facility] ([facility]) Body weight 148.00 [lb_av] 148.00 [lb_av] [facility] T ([facility]) Systolic blood pressure 152 mm[Hg] 152 mm[Hg] M [facility] ([facility]) RT Arm Heart rate 80 /min 80 /min [facility] ([facility]) Body height 59.50 [in_i] 59.50 [in_i] [facility] ([facility]) 4'.50" Body weight 146.38 [lb_av] 146.38 [lb_av] [facility] T ([facility]) Body mass index (BMI) [Ratio] 29.1 kg/m2 29.1 k g/m2 [facility] ([facility]) Diastolic blood pressure 72 mm[Hg] 72 mm[Hg] [facility] ([facility]) RT Arm Systolic blood pressure 138 mm[Hg] 138 mm[Hg] M [facility] ([facility]) Diastolic blood pressure 76 mm[Hg] 76 mm[Hg] [facility] ([facility] [facility]) Body height 59.50 [in_i] 59.50 [in_i] [facility] ([facility]) 4'11.50" Body weight 148.00 [lb_av] 148.00 [lb_av] [facility]ISH T ([facility]) Body mass index (BMI) [Ratio] 29.4 kg/m2 29.4 k g/m2 [facility] ([facility])
[2021-03-03] MEDS ORDERED: HOME MED LIST COMPLETE! XX SCH (16:05)
[2021-03-03] MEDS: ACETAMINOPHEN 500 MG TAB PO SCH ×2 (17:26→22:21)
[2021-03-03] MEDS: **hydrALAZINE HCL** 25 MG TAB PO SCH (17:41)
[2021-03-03] MEDS: LACTOBACILLUS ACIDOPHILUS CAP (BACID) PO SCH ×2 (17:41→22:22)
[2021-03-03] MEDS ORDERED: PATIROMER SORBITEX CALCIUM 8.4 GM POWDER PACKET (VELTASSA) PO ONE (18:00)
[2021-03-03 20:00] VITALS: BP 150/71
[2021-03-03] MEDS: CEFUROXIME 500 MG TAB PO SCH (22:21)
[2021-03-03] MEDS: SENNA 8.6 MG TAB (SENOKOT) PO SCH (22:21)
[2021-03-03] MEDS: GABAPENTIN 100 MG CAP PO SCH (22:22)
[2021-03-03] MEDS: DOCUSATE SODIUM 100MG CAPSULE PO SCH (22:22)
[2021-03-03] MEDS: HEPARIN SOD (PORCINE) 5000UNITS/ML 1ML VIAL/SYRINGE SC SCH (22:22)
[2021-03-04] MEDS: **hydrALAZINE HCL** 25 MG TAB PO SCH ×4 (01:09→17:54)
[2021-03-04] MEDS: traMADol 50 MG TAB PO PRN (05:49)
[2021-03-04 05:54] VITALS: BP 144/70
[2021-03-04 07:03] LABS: BASO # 0.1 10^3/uL (0.0-0.2); HEMATOCRIT 32.1 % (36.0-47.0); HEMOGLOBIN 10.3 g/dl (12.0-15.5); LYMPH % 25.7 % (24.0-44.0); MEAN CORPUSCULAR HEMOGLOBIN 32.6 pg (27.0-33.0); MEAN CORPUSCULAR HGB CONC 32.1 g/dl (32.0-36.5); MEAN CORPUSCULAR VOLUME 101.6 fl (80.0-96.0); MONO # 1.1 10^3/uL (0.0-0.8); MONO % 14.4 % (2.0-8.0); NEUTROPHILS # 2.6 10^3/uL (1.5-8.5); PLATELET COUNT, AUTOMATED 265 10^3/uL (150-450); RED BLOOD COUNT 3.16 10^6/uL (4.00-5.40); WHITE BLOOD COUNT 7.7 10^3/uL (4.0-10.0)
[2021-03-04 07:32] LABS: ALBUMIN 2.8 GM/DL (3.2-5.2); BILIRUBIN,TOTAL 0.2 MG/DL (0.2-1.0); CALCIUM LEVEL 8.8 MG/DL (8.8-10.2); CREATININE FOR GFR 1.15 MG/DL (0.55-1.30); GLOMERULAR FILTRATION RATE 47.6 (>32); MAGNESIUM LEVEL 2.3 MG/DL (1.8-2.4); POTASSIUM SERUM 4.9 MEQ/L (3.5-5.1); TOTAL PROTEIN 6.7 GM/DL (6.4-8.2)
[2021-03-04 08:05] LABS: EOS % 25.6 % (0.0-3.0)
[2021-03-04] MEDS: ASCORBIC ACID 500 MG TAB PO SCH (08:33)
[2021-03-04] MEDS: ACETAMINOPHEN 500 MG TAB PO SCH ×3 (08:33→21:20)
[2021-03-04] MEDS: GABAPENTIN 100 MG CAP PO SCH ×2 (08:33→21:20)
[2021-03-04] MEDS: FOLIC ACID 1 MG TAB PO SCH (08:33)
[2021-03-04] MEDS: LACTOBACILLUS ACIDOPHILUS CAP (BACID) PO SCH ×4 (08:33→21:20)
[2021-03-04] MEDS: CALCIUM/VITAMIN D 500 MG TAB PO SCH (08:34)
[2021-03-04] MEDS: CEFUROXIME 500 MG TAB PO SCH ×2 (08:34→21:20)
[2021-03-04] MEDS: HEPARIN SOD (PORCINE) 5000UNITS/ML 1ML VIAL/SYRINGE SC SCH ×2 (08:35→21:19)
[2021-03-04] MEDS: DOCUSATE SODIUM 100MG CAPSULE PO SCH ×2 (08:36→21:20)
[2021-03-04] MEDS ORDERED: MAGNESIUM GLUCONATE 500 MG TAB PO SCH (09:00)
[2021-03-04] MEDS ORDERED: FUROSEMIDE 20 MG TAB PO SCH (09:00)
[2021-03-04] MEDS ORDERED: FERROUS GLUCONATE 324 MG TAB PO SCH (09:00)
--- NOTE | 2021-03-04 10:34 | IPNPDOC ---
Subjective Date Seen The patient was seen on 03/04/21. Subjective Chief Complaint/HPI Complains of some persistent bilateral foot and leg pain right little worse than left which is still causing difficulty in some her walking. No fever or chills. Swelling is getting better. Objective Physical Examination General Exam: Positive: Alert, Cooperative, No Acute Distress Eye Exam: Positive: PERRLA, Conjunctiva & lids normal, EOMI; Negative: Sclera icteric ENT Exam: Positive: Atraumatic, Mucous membr. moist/pink, Pharynx Normal Neck Exam: Positive: Supple; Negative: JVD, thyromegaly Chest Exam: Positive: Clear to auscultation, Normal air movement Heart Exam: Positive: Rate Normal, Regular Rhythm, Normal S1, Normal S2; Negative: Murmurs, Rubs Abdomen Exam: Positive: Normal bowel sounds, Soft; Negative: Tenderness, Hepatospenomegaly Extremity Exam: Negative: Clubbing, Cyanosis, Edema Psych Exam: Positive: Memory Intact, Oriented x 3 Assessment /Plan Assessment 86-year-old female with a past medical history of hypertension, dementia, rheumatoid arthritis, GERD, hypercholesterolemia , anemia, OA, presented with persistent pain and erythema over the right lower extremity. She was recently admitted between February 21 and February 23 for the same. She describes the pain as sharp and burning particularly when walking. She received 3 days of IV vancomycin, which led to clinical improvement and was discharged home with a 5 day course of clindamycin. Rochelle came back on 03/02/21 complaining that the pain and swelling had not improved. She was unable to bear weight and walk. She was given cefazolin and subsequently changed to Cefuroxime . Her pain is now better controlled with ultracet and she was able to work with PT and OT. However she continues to have gait instability and is below her usual functional levels. It is felt that she would benefit from continued rehab after her discharge. At present she no longer needs hospital stay so is being discharged to Rehab unit for continued rehab. Right leg cellulitis improving Continue cefuroxime Hypertension Continue hydralazine Hyperkalemia Resolved Chronic anemia Continue ferrous sulfate, folic acid Gait instability/debility due to continued pain in her leg pain control with tramadol, Tylenol and gabapentin PT/OT Constipation Bowel regimen Plan/VTE VTE Prophylaxis Ordered?: Yes VS, I&O, 24H, Fishbone Vital Signs/I&O Vital Signs Date Time Temp Pulse Resp B/P (MAP) Pulse Ox O2 Delivery O2 Flow Rate FiO2 03/04/21 07:15 18 03/04/21 05:54 97.9 65 144/70 (94) 95 Room Air I&O- Last 24 Hours up to 6 AM 03/04/21 06:00 Intake Total 0 ml Balance 0 ml Laboratory Data 24H LABS Laboratory Tests 2 03/04/21 06:22: Bedside Glucose (Misc Panel) 82L 03/04/21 06:39: Immature Granulocyte % (Auto) 0.3, Neutrophils (%) (Auto) 33.0L, Lymphocytes (%) (Auto) 25.7, Monocytes (%) (Auto) 14.4H, Eosinophils (%) (Auto) 25.6H, Basophils (%) (Auto) 1.0, Neutrophils # (Auto) 2.6, Lymphocytes # (Auto) 2.0, Monocytes # (Auto) 1.1H, Eosinophils # (Auto) 2.0H, Basophils # (Auto) 0.1, Nucleated Red Blood Cells % (auto) 0.0, Anion Gap 6L, Glomerular Filtration Rate 47.6, Calcium Level 8.8, Magnesium Level 2.3, Total Bilirubin 0.2, Aspartate Amino Transf (AST/SGOT) 19, Alanine Aminotransferase (ALT/SGPT) 10L, Alkaline Phosphatase 102, Total Protein 6.7, Albumin 2.8L, Albumin/Globulin Ratio 0.7L CBC/BMP Laboratory Tests 03/04/21 06:39 Prema Calix MD Mar 04, 2021 10:34
[2021-03-04 14:00] VITALS: BP 130/60
[2021-03-04 20:00] VITALS: BP 135/60
[2021-03-04] MEDS: SENNA 8.6 MG TAB (SENOKOT) PO SCH (21:20)
[2021-03-05] MEDS: **hydrALAZINE HCL** 25 MG TAB PO SCH ×5 (00:41→23:55)
[2021-03-05 06:00] VITALS: BP 132/71
[2021-03-05] MEDS: LACTOBACILLUS ACIDOPHILUS CAP (BACID) PO SCH ×4 (08:22→19:50)
[2021-03-05] MEDS: CEFUROXIME 500 MG TAB PO SCH ×2 (08:22→19:49)
[2021-03-05] MEDS: CALCIUM/VITAMIN D 500 MG TAB PO SCH (08:22)
[2021-03-05] MEDS: HEPARIN SOD (PORCINE) 5000UNITS/ML 1ML VIAL/SYRINGE SC SCH ×2 (08:23→19:51)
[2021-03-05] MEDS: ASCORBIC ACID 500 MG TAB PO SCH (08:23)
[2021-03-05] MEDS: FOLIC ACID 1 MG TAB PO SCH (08:23)
[2021-03-05] MEDS: GABAPENTIN 100 MG CAP PO SCH ×2 (08:23→19:50)
[2021-03-05] MEDS: ACETAMINOPHEN 500 MG TAB PO SCH ×3 (08:24→19:51)
[2021-03-05] MEDS: DOCUSATE SODIUM 100MG CAPSULE PO SCH ×3 (08:24→19:53)
[2021-03-05 14:00] VITALS: BP 147/65
[2021-03-05] MEDS: CETIRIZINE (ZyrTEC) 10 MG TAB PO PRN (19:49)
[2021-03-05] MEDS: SENNA 8.6 MG TAB (SENOKOT) PO SCH (19:49)
[2021-03-05 20:00] VITALS: BP 144/63
[2021-03-06] MEDS: **hydrALAZINE HCL** 25 MG TAB PO SCH ×3 (05:03→17:31)
[2021-03-06 06:00] VITALS: BP 122/68
[2021-03-06 07:41] LABS: BASO # 0.1 10^3/uL (0.0-0.2); BASO % 1.9 % (0.0-1.0); EOS # 2.1 10^3/uL (0.0-0.5); HEMATOCRIT 34.4 % (36.0-47.0); HEMOGLOBIN 10.9 g/dl (12.0-15.5); LYMPH # 1.9 10^3/uL (1.5-5.0); LYMPH % 29.7 % (24.0-44.0); MEAN CORPUSCULAR HEMOGLOBIN 32.7 pg (27.0-33.0); MEAN CORPUSCULAR HGB CONC 31.7 g/dl (32.0-36.5); MEAN CORPUSCULAR VOLUME 103.3 fl (80.0-96.0); MONO # 0.8 10^3/uL (0.0-0.8); MONO % 12.2 % (2.0-8.0); NEUTROPHILS # 1.5 10^3/uL (1.5-8.5); NEUTROPHILS % 22.5 % (36.0-66.0); PLATELET COUNT, AUTOMATED 289 10^3/uL (150-450); RED BLOOD COUNT 3.33 10^6/uL (4.00-5.40); WHITE BLOOD COUNT 6.5 10^3/uL (4.0-10.0)
[2021-03-06] MEDS: LACTOBACILLUS ACIDOPHILUS CAP (BACID) PO SCH ×4 (08:00→21:00)
[2021-03-06 08:03] LABS: CALCIUM LEVEL 9.2 MG/DL (8.8-10.2); CREATININE FOR GFR 1.07 MG/DL (0.55-1.30); GLOMERULAR FILTRATION RATE 51.8 (>32); POTASSIUM SERUM 4.4 MEQ/L (3.5-5.1)
[2021-03-06 08:28] LABS: EOS % 33.1 % (0.0-3.0)
[2021-03-06] MEDS: DOCUSATE SODIUM 100MG CAPSULE PO SCH ×2 (09:00→21:00)
[2021-03-06] MEDS: CETIRIZINE (ZyrTEC) 10 MG TAB PO PRN (10:20)
[2021-03-06] MEDS: GABAPENTIN 100 MG CAP PO SCH ×3 (10:21→21:00)
[2021-03-06] MEDS: HEPARIN SOD (PORCINE) 5000UNITS/ML 1ML VIAL/SYRINGE SC SCH ×2 (10:21→21:00)
[2021-03-06] MEDS: ACETAMINOPHEN 500 MG TAB PO SCH ×3 (10:22→21:01)
[2021-03-06] MEDS: CEFUROXIME 500 MG TAB PO SCH ×2 (10:22→21:00)
[2021-03-06] MEDS: CALCIUM/VITAMIN D 500 MG TAB PO SCH (10:23)
[2021-03-06] MEDS: ASCORBIC ACID 500 MG TAB PO SCH (10:23)
[2021-03-06] MEDS: FOLIC ACID 1 MG TAB PO SCH (10:23)
--- NOTE | 2021-03-06 11:06 | IPNPDOC ---
PM&R Progress Note DATE OF SERVICE: Mar 06, 2021 Service Promoter Salesperson Progress Note Subjective: Patient seen in her room reporting her right leg is still painful and she is open to trying to go up on the gabapentin dosing. REVIEW OF SYSTEMS: The following is a completed review of systems and has been reviewed. Review of systems otherwise unremarkable. PAIN: Patient self reports RLE pain EYES: No recent vision changes EARS, NOSE, & THROAT: No throat pain, or dysphagia, or rhinorrhea CARDIOVASCULAR: Denies chest pain or palpitations PULMONARY: Denies shortness of breath GASTROINTESTINAL: Denies constipation/diarrhea GENITOURINARY: denies dysuria MUSCULOSKELETAL: generalized weakness NEUROLOGICAL:+ RLE neuropathic pain HEMATOLOGICAL: denies easy bruising SKIN: RLE cellulitis PSYCHIATRIC: Unremarkable All other review of systems found to be negative. PHYSICAL EXAMINATION: VITAL SIGNS: Please see below. GENERAL: Pleasant and cooperative. No acute distress. HEENT: PERRL. Extraocular movements intact. Clear conjunctiva CARDIOVASCULAR: Regular rate and rhythm. No murmurs, rubs, or gallops LUNGS: Clear to auscultation bilaterally. No wheezes. No rhonchi ABDOMEN: Soft, nontender, nondistended. Positive bowel sounds. Normal active bowel sounds NEUROLOGICAL: Alert and oriented times three. Cranial nerves II through XII grossly intact. Sensation grossly intact EXTREMITIES: 5\5 strength bilateral upper extremities. 5-\5 strength right lower extremity. 5-/5 strength in left lower extremity. +bilat LE edema (improving) SKIN: RLE calf erythema (much less), non-TTP, no warmth ASSESSMENT:86-year-old F with past medical history of RA, HTN, dementia who lives alone who presents with debility related to RLE cellulitis PLAN: 1. Rehab- PT/OT advance mobility and ADLs, strengthen/stretch/maintain ROM all 4 limbs 2. Neuro- patient with RLE neuropathic pain in setting of cellulitis will increase gabapentin dosing to 200 mg TID 3. Cardiac- hx of HTN cont BP meds adjust prn -ECHO from 2007 on record significant for diastolic CHF, will fluid restrict, daily weights, consider diuretic -medicine consulted to assist in overall management 4. Resp- monitor for infection 5. ID- cont Ceftin for RLE cellulitis, cont bacid 6. Pain- Tramadol and gabapentin 7. DVT ppx- heparin 8. Hyperkalemia- resolved following veltassa 9. DIspo- TBD Allergies Coded Allergies: clarithromycin (Verified Allergy, Intermediate, shakes and heart race, 06/27/20) pseudoephedrine (Verified Allergy, Intermediate, heart race, shakes, 06/27/20) Vital Signs Vital Signs Date Time Temp Pulse Resp B/P (MAP) Pulse Ox O2 Delivery O2 Flow Rate FiO2 03/06/21 10:22 122/68 03/06/21 06:00 97.0 72 18 95 Room Air Laboratory Data CBC/BMP Laboratory Tests 03/06/21 07:08 Labs 24H Laboratory Tests 2 03/06/21 07:08: Immature Granulocyte % (Auto) 0.6, Neutrophils (%) (Auto) 22.5L, Lymphocytes (%) (Auto) 29.7, Monocytes (%) (Auto) 12.2H, Eosinophils (%) (Auto) 33.1H, Basophils (%) (Auto) 1.9H, Neutrophils # (Auto) 1.5, Lymphocytes # (Auto) 1.9, Monocytes # (Auto) 0.8, Eosinophils # (Auto) 2.1H, Basophils # (Auto) 0.1, Nucleated Red Blood Cells % (auto) 0.0, Anion Gap 7L, Glomerular Filtration Rate 51.8, Calcium Level 9.2 Current Medications Current Medications Current Medications Medications (Trade) Dose Ordered Sig/Joanne Route PRN Reason Start Time Stop Time Status Last Admin Dose Admin Acetaminophen (Tylenol Tab) 650 mg Q4HP PRN PO MILD PAIN (PS 1-4) 03/03/21 14:45 03/03/21 16:44 DC Acetaminophen (Tylenol Tab) 1,000 mg TID PO 03/03/21 16:00 03/06/21 10:22 Al Hydrox/Mg Hydrox/Simethicone (Mylanta) 30 ml Q4HP PRN PO DYSPEPSIA 03/03/21 14:45 03/06/21 10:20 Ascorbic Acid (Vitamin C) 500 mg DAILY PO 03/04/21 09:00 03/06/21 10:23 Calcium/Vitamin D (Oscal D) 1,000 mg DAILY PO 03/04/21 09:00 03/06/21 10:23 Cefuroxime Axetil (Ceftin) 500 mg BID PO 03/03/21 21:00 03/08/21 09:01 03/06/21 10:22 Cetirizine HCl (ZyrTEC) 10 mg DAILY PRN PO sinus congestion 03/03/21 14:45 03/06/21 10:20 Docusate Sodium (Colace) 100 mg BID PO 03/03/21 21:00 03/04/21 21:20 Ferrous Gluconate (Fergon) 324 mg DAILY PO 03/04/21 09:00 03/03/21 16:44 DC Folic Acid (Folic Acid) 1 mg DAILY PO 03/04/21 09:00 03/06/21 10:23 Furosemide (Lasix) 20 mg DAILY PO 03/04/21 09:00 03/03/21 15:16 DC Gabapentin (Neurontin) 100 mg BID PO 03/03/21 21:00 03/06/21 10:21 Heparin Sodium (Porcine) (Heparin) 5,000 units Q12H SC 03/03/21 21:00 03/06/21 10:21 Home Med (Home Med List Complete!) ASDIRECTED XX 03/03/21 16:05 03/03/21 16:06 DC Hydralazine HCl (Apresoline) 25 mg Q6H PO 03/03/21 18:00 03/06/21 10:22 Lactobacillus Acidophilus (Bacid) 1 ea WMHS PO 03/03/21 18:00 03/05/21 19:50 Magnesium Gluconate (Magnesium Gluconate) 250 mg DAILY PO 03/04/21 09:00 03/03/21 15:15 DC Polyethylene Glycol (Miralax) 1 pkt DAILY PRN PO CONSTIPATION 03/03/21 14:45 Senna (Senokot) 1 tab QHS PO 03/03/21 21:00 03/05/21 19:49 Tramadol HCl (Ultram) 25 mg Q4HP PRN PO MODERATE PAIN (PS 5-7) 03/03/21 14:45 03/04/21 05:49 SAKSHI FENTON MD Mar 06, 2021 11:06
[2021-03-06 16:11] VITALS: BP 147/66
[2021-03-06] MEDS: traMADol 50 MG TAB PO PRN (18:44)
[2021-03-06 20:00] VITALS: BP 123/58
[2021-03-06] MEDS: SENNA 8.6 MG TAB (SENOKOT) PO SCH (21:00)
[2021-03-07] MEDS: **hydrALAZINE HCL** 25 MG TAB PO SCH ×4 (00:10→17:46)
[2021-03-07 06:00] VITALS: BP 142/58
[2021-03-07] MEDS: GABAPENTIN 100 MG CAP PO SCH ×3 (07:31→20:51)
[2021-03-07] MEDS: HEPARIN SOD (PORCINE) 5000UNITS/ML 1ML VIAL/SYRINGE SC SCH ×2 (07:31→20:52)
[2021-03-07] MEDS: FOLIC ACID 1 MG TAB PO SCH (07:31)
[2021-03-07] MEDS: ASCORBIC ACID 500 MG TAB PO SCH (07:32)
[2021-03-07] MEDS: CALCIUM/VITAMIN D 500 MG TAB PO SCH (07:32)
[2021-03-07] MEDS: CEFUROXIME 500 MG TAB PO SCH ×2 (07:32→20:51)
[2021-03-07] MEDS: LACTOBACILLUS ACIDOPHILUS CAP (BACID) PO SCH ×4 (07:32→20:50)
[2021-03-07] MEDS: ACETAMINOPHEN 500 MG TAB PO SCH ×3 (07:32→20:51)
[2021-03-07] MEDS: DOCUSATE SODIUM 100MG CAPSULE PO SCH ×2 (07:33→20:51)
[2021-03-07 12:19] VITALS: BP 141/58
[2021-03-07] MEDS: traMADol 50 MG TAB PO PRN ×2 (12:20→20:56)
[2021-03-07] MEDS: DICLOFENAC EPOLAMINE 1.3 % PATCH TOP SCH ×2 (12:20→20:52)
[2021-03-07 14:00] VITALS: BP 132/60
--- NOTE | 2021-03-07 14:28 | IPNPDOC ---
PM&R Progress Note DATE OF SERVICE: Mar 07, 2021 Community Liaison Progress Note Subjective: Patient seen in her room and reports that she does not believe she has Parkinson's Disease despite her family having concerns that she might and when asked if she ever felt like her feet were stuck or if her body gets stiff she says no. She states she sometimes stops walking because she feels tired and she shuffles when she walks because her right leg is stiff. REVIEW OF SYSTEMS: The following is a completed review of systems and has been reviewed. Review of systems otherwise unremarkable. PAIN: Patient self reports RLE pain EYES: No recent vision changes EARS, NOSE, & THROAT: No throat pain, or dysphagia, or rhinorrhea CARDIOVASCULAR: Denies chest pain or palpitations PULMONARY: Denies shortness of breath GASTROINTESTINAL: Denies constipation/diarrhea GENITOURINARY: denies dysuria MUSCULOSKELETAL: generalized weakness NEUROLOGICAL:+ RLE neuropathic pain HEMATOLOGICAL: denies easy bruising SKIN: RLE cellulitis PSYCHIATRIC: Unremarkable All other review of systems found to be negative. PHYSICAL EXAMINATION: VITAL SIGNS: Please see below. GENERAL: Pleasant and cooperative. No acute distress. HEENT: PERRL. Extraocular movements intact. Clear conjunctiva CARDIOVASCULAR: Regular rate and rhythm. No murmurs, rubs, or gallops LUNGS: Clear to auscultation bilaterally. No wheezes. No rhonchi ABDOMEN: Soft, nontender, nondistended. Positive bowel sounds. Normal active bowel sounds NEUROLOGICAL: Alert and oriented times three. Cranial nerves II through XII grossly intact. Sensation grossly intact +bilat intentional tremor, no cogwheel rigidity, no masked faces EXTREMITIES: 5\\5 strength bilateral upper extremities. 5-\\5 strength right lower extremity. 5-/5 strength in left lower extremity. +bilat LE edema (improving) SKIN: RLE calf erythema (much less), non-TTP, no warmth ASSESSMENT:86-year-old F with past medical history of RA, HTN, dementia who lives alone who presents with debility related to RLE cellulitis PLAN: 1. Rehab- PT/OT advance mobility and ADLs, strengthen/stretch/maintain ROM all 4 limbs -CASHIER GREETER for cog and swallow eval- per family she has on occasion choked on her food 2. Neuro- patient with RLE neuropathic pain in setting of cellulitis will increase gabapentin dosing to 200 mg TID -patient's family concerned she may have Parkinson's-although she shuffles when she walks, she does not appear to festinate, no rigidity noted on exam, no cog wheel rigidity, and no masked faces- it is possible she has a mild case, however patient declines a trial of Sinemet to see if this might help her gait speed which would help confirm this dx 3. Cardiac- hx of HTN cont BP meds adjust prn -ECHO from 2007 on record significant for diastolic CHF, will fluid restrict, daily weights, RLE with some edema that is causing discomfort, will start lasix -medicine consulted to assist in overall management 4. Resp- monitor for infection 5. ID- cont Ceftin for RLE cellulitis, cont bacid 6. Pain- Tramadol and gabapentin, will add flector patch to right medial ankle where there is some soft tissue swelling and patient reproting a feeling of "tightness" 7. DVT ppx- heparin 8. Hyperkalemia- resolved following veltassa 9. DIspo- 03/13/21 to home, progressing towards goals Allergies Coded Allergies: clarithromycin (Verified Allergy, Intermediate, shakes and heart race, 06/27/20) pseudoephedrine (Verified Allergy, Intermediate, heart race, shakes, 06/27/20) Vital Signs Vital Signs Date Time Temp Pulse Resp B/P (MAP) Pulse Ox O2 Delivery O2 Flow Rate FiO2 03/07/21 12:50 16 03/07/21 12:20 141/58 03/07/21 12:19 73 03/07/21 06:00 97.7 97 Room Air Current Medications Current Medications Current Medications Medications (Trade) Dose Ordered Sig/Joanne Route PRN Reason Start Time Stop Time Status Last Admin Dose Admin Acetaminophen (Tylenol Tab) 650 mg Q4HP PRN PO MILD PAIN (PS 1-4) 03/03/21 14:45 03/03/21 16:44 DC Acetaminophen (Tylenol Tab) 1,000 mg TID PO 03/03/21 16:00 03/07/21 07:32 Al Hydrox/Mg Hydrox/Simethicone (Mylanta) 30 ml Q4HP PRN PO DYSPEPSIA 03/03/21 14:45 03/06/21 10:20 Ascorbic Acid (Vitamin C) 500 mg DAILY PO 03/04/21 09:00 03/07/21 07:32 Calcium/Vitamin D (Oscal D) 1,000 mg DAILY PO 03/04/21 09:00 03/07/21 07:32 Cefuroxime Axetil (Ceftin) 500 mg BID PO 03/03/21 21:00 03/08/21 09:01 03/07/21 07:32 Cetirizine HCl (ZyrTEC) 10 mg DAILY PRN PO sinus congestion 03/03/21 14:45 03/06/21 10:20 Diclofenac Epolamine (Flector 1.3%) 1 patch Q12H TOP 03/07/21 09:00 03/07/21 12:20 Docusate Sodium (Colace) 100 mg BID PO 03/03/21 21:00 03/04/21 21:20 Ferrous Gluconate (Fergon) 324 mg DAILY PO 03/04/21 09:00 03/03/21 16:44 DC Folic Acid (Folic Acid) 1 mg DAILY PO 03/04/21 09:00 03/07/21 07:31 Furosemide (Lasix) 20 mg DAILY PO 03/04/21 09:00 03/03/21 15:16 DC Gabapentin (Neurontin) 100 mg BID PO 03/03/21 21:00 03/06/21 13:31 DC 03/06/21 10:21 Gabapentin (Neurontin) 200 mg TID PO 03/06/21 16:00 03/07/21 07:31 Heparin Sodium (Porcine) (Heparin) 5,000 units Q12H SC 03/03/21 21:00 03/07/21 07:31 Home Med (Home Med List Complete!) ASDIRECTED XX 03/03/21 16:05 03/03/21 16:06 DC Hydralazine HCl (Apresoline) 25 mg Q6H PO 03/03/21 18:00 03/07/21 12:20 Lactobacillus Acidophilus (Bacid) 1 ea WMHS PO 03/03/21 18:00 03/07/21 12:20 Magnesium Gluconate (Magnesium Gluconate) 250 mg DAILY PO 03/04/21 09:00 03/03/21 15:15 DC Polyethylene Glycol (Miralax) 1 pkt DAILY PRN PO CONSTIPATION 03/03/21 14:45 Senna (Senokot) 1 tab QHS PO 03/03/21 21:00 03/05/21 19:49 Tramadol HCl (Ultram) 25 mg Q4HP PRN PO MODERATE PAIN (PS 5-7) 03/03/21 14:45 03/07/21 12:20 SAKSHI FENTON MD Mar 07, 2021 14:28
[2021-03-07] MEDS: FUROSEMIDE 20 MG TAB PO SCH (14:36)
[2021-03-07 17:44] VITALS: BP 145/65
[2021-03-07 20:00] VITALS: BP 149/68
[2021-03-07] MEDS: SENNA 8.6 MG TAB (SENOKOT) PO SCH (20:51)
[2021-03-08] MEDS: **hydrALAZINE HCL** 25 MG TAB PO SCH ×2 (00:36→06:11)
[2021-03-08] MEDS: traMADol 50 MG TAB PO PRN (04:50)
[2021-03-08 06:00] VITALS: BP 162/70
[2021-03-08] MEDS: DOCUSATE SODIUM 100MG CAPSULE PO SCH ×3 (09:00→22:07)
[2021-03-08] MEDS: CEFUROXIME 500 MG TAB PO SCH (09:40)
[2021-03-08] MEDS: CALCIUM/VITAMIN D 500 MG TAB PO SCH (09:40)
[2021-03-08] MEDS: FOLIC ACID 1 MG TAB PO SCH (09:40)
[2021-03-08] MEDS: LACTOBACILLUS ACIDOPHILUS CAP (BACID) PO SCH ×4 (09:40→21:59)
[2021-03-08] MEDS: HEPARIN SOD (PORCINE) 5000UNITS/ML 1ML VIAL/SYRINGE SC SCH ×2 (09:41→22:01)
[2021-03-08] MEDS: ASCORBIC ACID 500 MG TAB PO SCH (09:41)
[2021-03-08] MEDS: ACETAMINOPHEN 500 MG TAB PO SCH ×3 (09:41→21:59)
[2021-03-08] MEDS: DICLOFENAC EPOLAMINE 1.3 % PATCH TOP SCH ×2 (09:41→22:00)
[2021-03-08] MEDS: GABAPENTIN 100 MG CAP PO SCH ×3 (09:41→21:59)
[2021-03-08] MEDS: FUROSEMIDE 20 MG TAB PO SCH (09:42)
[2021-03-08 10:33] LABS: BASO # 0.1 10^3/uL (0.0-0.2); BASO % 1.3 % (0.0-1.0); EOS # 2.4 10^3/uL (0.0-0.5); HEMATOCRIT 33.5 % (36.0-47.0); HEMOGLOBIN 10.6 g/dl (12.0-15.5); LYMPH # 1.7 10^3/uL (1.5-5.0); LYMPH % 21.6 % (24.0-44.0); MEAN CORPUSCULAR HGB CONC 31.6 g/dl (32.0-36.5); MEAN CORPUSCULAR VOLUME 104.4 fl (80.0-96.0); MONO # 1.1 10^3/uL (0.0-0.8); MONO % 13.8 % (2.0-8.0); NEUTROPHILS # 2.6 10^3/uL (1.5-8.5); PLATELET COUNT, AUTOMATED 273 10^3/uL (150-450); RED BLOOD COUNT 3.21 10^6/uL (4.00-5.40)
[2021-03-08 10:57] LABS: EOS % 30.3 % (0.0-3.0)
[2021-03-08 10:59] LABS: CALCIUM LEVEL 8.7 MG/DL (8.8-10.2); CREATININE FOR GFR 1.27 MG/DL (0.55-1.30); GLOMERULAR FILTRATION RATE 42.5 (>32); POTASSIUM SERUM 4.3 MEQ/L (3.5-5.1)
--- NOTE | 2021-03-08 11:32 | IPNPDOC ---
PM&R Progress Note DATE OF SERVICE: Mar 08, 2021 Cage Clerk Progress Note Subjective: Patient seen in the gym stating her leg is a little less painful. REVIEW OF SYSTEMS: The following is a completed review of systems and has been reviewed. Review of systems otherwise unremarkable. PAIN: Patient self reports RLE pain EYES: No recent vision changes EARS, NOSE, & THROAT: No throat pain, or dysphagia, or rhinorrhea CARDIOVASCULAR: Denies chest pain or palpitations PULMONARY: Denies shortness of breath GASTROINTESTINAL: Denies constipation/diarrhea GENITOURINARY: denies dysuria MUSCULOSKELETAL: generalized weakness NEUROLOGICAL:+ RLE neuropathic pain HEMATOLOGICAL: denies easy bruising SKIN: RLE cellulitis PSYCHIATRIC: Unremarkable All other review of systems found to be negative. PHYSICAL EXAMINATION: VITAL SIGNS: Please see below. GENERAL: Pleasant and cooperative. No acute distress. HEENT: PERRL. Extraocular movements intact. Clear conjunctiva CARDIOVASCULAR: Regular rate and rhythm. No murmurs, rubs, or gallops LUNGS: Clear to auscultation bilaterally. No wheezes. No rhonchi ABDOMEN: Soft, nontender, nondistended. Positive bowel sounds. Normal active bowel sounds NEUROLOGICAL: Alert and oriented times three. Cranial nerves II through XII grossly intact. Sensation grossly intact +bilat intentional tremor, no cogwheel rigidity, no masked faces EXTREMITIES: 5\\5 strength bilateral upper extremities. 5-\\5 strength right lower extremity. 5-/5 strength in left lower extremity. +bilat LE edema (improving) SKIN: RLE calf erythema (much less), non-TTP, no warmth ASSESSMENT:86-year-old F with past medical history of RA, HTN, dementia who lives alone who presents with debility related to RLE cellulitis PLAN: 1. 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 Neuro- patient with RLE neuropathic pain in setting of cellulitis will increase gabapentin dosing to 200 mg TID -patient's family concerned she may have Parkinson's-although she shuffles when she walks, she does not appear to festinate, no rigidity noted on exam, no cog wheel rigidity, and no masked faces- it is possible she has a mild case, however patient declines a trial of Sinemet to see if this might help her gait speed which would help confirm this dx 3. Cardiac- hx of HTN cont BP meds adjust prn -ECHO from 2007 on record significant for diastolic CHF, will fluid restrict, daily weights, RLE with some edema that is causing discomfort, will start lasix -medicine consulted to assist in overall management 4. Resp- monitor for infection 5. ID- cont Ceftin for RLE cellulitis, cont bacid 6. Pain- Tramadol and gabapentin, cont flector patch to right medial ankle where there is some soft tissue swelling and patient reporting a feeling of "tightness" (improving) 7. DVT ppx- heparin 8. Hyperkalemia- resolved following veltassa 9. DIspo- 03/13/21 to home, progressing towards goals Barriers to d/c: pain and mobility impairments Allergies Coded Allergies: clarithromycin (Verified Allergy, Intermediate, shakes and heart race, 06/27/20) pseudoephedrine (Verified Allergy, Intermediate, heart race, shakes, 06/27/20) Vital Signs Vital Signs Date Time Temp Pulse Resp B/P (MAP) Pulse Ox O2 Delivery O2 Flow Rate FiO2 03/08/21 06:12 18 03/08/21 06:11 162/70 03/08/21 06:00 97.9 79 96 Room Air Laboratory Data CBC/BMP Laboratory Tests 03/08/21 09:58 Labs 24H Laboratory Tests 2 03/08/21 09:58: Immature Granulocyte % (Auto) 1.0, Neutrophils (%) (Auto) 32.0L, Lymphocytes (%) (Auto) 21.6L, Monocytes (%) (Auto) 13.8H, Eosinophils (%) (Auto) 30.3H, Basophils (%) (Auto) 1.3H, Neutrophils # (Auto) 2.6, Lymphocytes # (Auto) 1.7, Monocytes # (Auto) 1.1H, Eosinophils # (Auto) 2.4H, Basophils # (Auto) 0.1, Nucleated Red Blood Cells % (auto) 0.0, Anion Gap 5L, Glomerular Filtration Rate 42.5, Calcium Level 8.7L Current Medications Current Medications Current Medications Medications (Trade) Dose Ordered Sig/Joanne Route PRN Reason Start Time Stop Time Status Last Admin Dose Admin Acetaminophen (Tylenol Tab) 650 mg Q4HP PRN PO MILD PAIN (PS 1-4) 03/03/21 14:45 03/03/21 16:44 DC Acetaminophen (Tylenol Tab) 1,000 mg TID PO 03/03/21 16:00 03/08/21 09:41 Al Hydrox/Mg Hydrox/Simethicone (Mylanta) 30 ml Q4HP PRN PO DYSPEPSIA 03/03/21 14:45 03/06/21 10:20 Ascorbic Acid (Vitamin C) 500 mg DAILY PO 03/04/21 09:00 03/08/21 09:41 Calcium/Vitamin D (Oscal D) 1,000 mg DAILY PO 03/04/21 09:00 03/08/21 09:40 Cefuroxime Axetil (Ceftin) 500 mg BID PO 03/03/21 21:00 03/08/21 09:01 DC 03/08/21 09:40 Cetirizine HCl (ZyrTEC) 10 mg DAILY PRN PO sinus congestion 03/03/21 14:45 03/06/21 10:20 Diclofenac Epolamine (Flector 1.3%) 1 patch Q12H TOP 03/07/21 09:00 03/08/21 09:41 Docusate Sodium (Colace) 100 mg BID PO 03/03/21 21:00 03/04/21 21:20 Ferrous Gluconate (Fergon) 324 mg DAILY PO 03/04/21 09:00 03/03/21 16:44 DC Folic Acid (Folic Acid) 1 mg DAILY PO 03/04/21 09:00 03/08/21 09:40 Furosemide (Lasix) 20 mg DAILY PO 03/04/21 09:00 03/03/21 15:16 DC Furosemide (Lasix) 20 mg DAILY PO 03/07/21 09:00 03/08/21 09:42 Gabapentin (Neurontin) 100 mg BID PO 03/03/21 21:00 03/06/21 13:31 DC 03/06/21 10:21 Gabapentin (Neurontin) 200 mg TID PO 03/06/21 16:00 03/08/21 09:41 Heparin Sodium (Porcine) (Heparin) 5,000 units Q12H SC 03/03/21 21:00 03/08/21 09:41 Home Med (Home Med List Complete!) ASDIRECTED XX 03/03/21 16:05 03/03/21 16:06 DC Hydralazine HCl (Apresoline) 25 mg Q6H PO 03/03/21 18:00 03/08/21 06:11 Lactobacillus Acidophilus (Bacid) 1 ea WMHS PO 03/03/21 18:00 03/08/21 09:40 Magnesium Gluconate (Magnesium Gluconate) 250 mg DAILY PO 03/04/21 09:00 03/03/21 15:15 DC Polyethylene Glycol (Miralax) 1 pkt DAILY PRN PO CONSTIPATION 03/03/21 14:45 Senna (Senokot) 1 tab QHS PO 03/03/21 21:00 03/05/21 19:49 Tramadol HCl (Ultram) 25 mg Q4HP PRN PO MODERATE PAIN (PS 5-7) 03/03/21 14:45 03/08/21 04:50 SAKSHI FENTON MD Mar 08, 2021 11:32
[2021-03-08 14:00] VITALS: BP 149/84
[2021-03-08] MEDS ORDERED: traMADol 50 MG TAB PO PRN (15:55)
[2021-03-08] MEDS: **hydrALAZINE** 50 MG TAB PO SCH ×2 (16:59→22:04)
[2021-03-08 20:00] VITALS: BP 175/74
[2021-03-08] MEDS: SENNA 8.6 MG TAB (SENOKOT) PO SCH (22:01)
[2021-03-08] MEDS: SODIUM CHLORIDE NASAL 0.65% SPRAY BTL (OCEAN) SCH (22:01)
[2021-03-08] MEDS: FLUTICASONE PROP 0.05% NASAL SPRAY 16 GM (FLONASE) NARES SCH (22:01)
[2021-03-09 06:00] VITALS: BP 143/79
[2021-03-09] MEDS: traMADol 50 MG TAB PO SCH ×2 (06:30→14:35)
--- NOTE | 2021-03-09 09:39 | IPNPDOC ---
PM&R Progress Note DATE OF SERVICE: Mar 09, 2021 Appeals Manager Progress Note Subjective: Patient seen in her room concerned about whether she will need to stay on antibiotics, she was told that for now she was finished with them. REVIEW OF SYSTEMS: The following is a completed review of systems and has been reviewed. Review of systems otherwise unremarkable. PAIN: Patient self reports RLE pain EYES: No recent vision changes EARS, NOSE, & THROAT: No throat pain, or dysphagia, or rhinorrhea CARDIOVASCULAR: Denies chest pain or palpitations PULMONARY: Denies shortness of breath GASTROINTESTINAL: Denies constipation/diarrhea GENITOURINARY: denies dysuria MUSCULOSKELETAL: generalized weakness NEUROLOGICAL:+ RLE neuropathic pain HEMATOLOGICAL: denies easy bruising SKIN: RLE cellulitis PSYCHIATRIC: Unremarkable All other review of systems found to be negative. PHYSICAL EXAMINATION: VITAL SIGNS: Please see below. GENERAL: Pleasant and cooperative. No acute distress. HEENT: PERRL. Extraocular movements intact. Clear conjunctiva CARDIOVASCULAR: Regular rate and rhythm. No murmurs, rubs, or gallops LUNGS: Clear to auscultation bilaterally. No wheezes. No rhonchi ABDOMEN: Soft, nontender, nondistended. Positive bowel sounds. Normal active bowel sounds NEUROLOGICAL: Alert and oriented times three. Cranial nerves II through XII gr ossly intact. Sensation grossly intact +bilat intentional tremor, no cogwheel rigidity, no masked faces EXTREMITIES: 5\\5 strength bilateral upper extremities. 5-\\5 strength right lower extremity. 5-/5 strength in left lower extremity. +bilat LE edema (improving) SKIN: RLE calf erythema (much less), non-TTP, no warmth ASSESSMENT:86-year-old F with past medical history of RA, HTN, dementia who li ves alone who presents with debility related to RLE cellulitis PLAN: 1. 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 Neuro- patient with RLE neuropathic pain in setting of cellulitis will increase gabapentin dosing to 200 mg TID -patient's family concerned she may have Parkinson's-although she shuffles when she walks, she does not appear to festinate, no rigidity noted on exam, no cog wheel rigidity, and no masked faces- it is possible she has a mild case, however patient declines a trial of Sinemet to see if this might help her gait speed which would help confirm this dx 3. Cardiac- hx of HTN cont BP meds adjust prn -ECHO from 2007 on record significant for diastolic CHF, will fluid restrict, daily weights, RLE with some edema that is causing discomfort, cont lasix -medicine consulted to assist in overall management 4. Resp- monitor for infection 5. ID- s/p course of Ceftin for RLE cellulitis, cont bacid 6. Pain- Tramadol and gabapentin, cont flector patch to right medial ankle where there is some soft tissue swelling and patient reporting a feeling of "tightness" (improving) 7. DVT ppx- heparin 8. Hyperkalemia- resolved following veltassa 9. DIspo- 03/13/21 to home, progressing towards goals Barriers to d/c: pain and mobility impairments Allergies Coded Allergies: clarithromycin (Verified Allergy, Intermediate, shakes and heart race, 06/27/20) pseudoephedrine (Verified Allergy, Intermediate, heart race, shakes, 06/27/20) Vital Signs Vital Signs Date Time Temp Pulse Resp B/P (MAP) Pulse Ox O2 Delivery O2 Flow Rate FiO2 03/09/21 06:30 18 03/09/21 06:00 98.8 76 143/79 (100) 98 Room Air Laboratory Data CBC/BMP Laboratory Tests 03/08/21 09:58 Labs 24H Laboratory Tests 2 03/08/21 09:58: Immature Granulocyte % (Auto) 1.0, Neutrophils (%) (Auto) 32.0L, Lymphocytes (%) (Auto) 21.6L, Monocytes (%) (Auto) 13.8H, Eosinophils (%) (Auto) 30.3H, Basophils (%) (Auto) 1.3H, Neutrophils # (Auto) 2.6, Lymphocytes # (Auto) 1.7, Monocytes # (Auto) 1.1H, Eosinophils # (Auto) 2.4H, Basophils # (Auto) 0.1, Nucleated Red Blood Cells % (auto) 0.0, Anion Gap 5L, Glomerular Filtration Rate 42.5, Calcium Level 8.7L Current Medications Current Medications Current Medications Medications (Trade) Dose Ordered Sig/Joanne Route PRN Reason Start Time Stop Time Status Last Admin Dose Admin Acetaminophen (Tylenol Tab) 650 mg Q4HP PRN PO MILD PAIN (PS 1-4) 03/03/21 14:45 03/03/21 16:44 DC Acetaminophen (Tylenol Tab) 1,000 mg TID PO 03/03/21 16:00 03/08/21 21:59 Al Hydrox/Mg Hydrox/Simethicone (Mylanta) 30 ml Q4HP PRN PO DYSPEPSIA 03/03/21 14:45 03/06/21 10:20 Ascorbic Acid (Vitamin C) 500 mg DAILY PO 03/04/21 09:00 03/08/21 09:41 Calcium/Vitamin D (Oscal D) 1,000 mg DAILY PO 03/04/21 09:00 03/08/21 09:40 Cefuroxime Axetil (Ceftin) 500 mg BID PO 03/03/21 21:00 03/08/21 09:01 DC 03/08/21 09:40 Cetirizine HCl (ZyrTEC) 10 mg DAILY PRN PO sinus congestion 03/03/21 14:45 03/06/21 10:20 Diclofenac Epolamine (Flector 1.3%) 1 patch Q12H TOP 03/07/21 09:00 03/08/21 22:00 Docusate Sodium (Colace) 100 mg BID PO 03/03/21 21:00 03/04/21 21:20 Ferrous Gluconate (Fergon) 324 mg DAILY PO 03/04/21 09:00 03/03/21 16:44 DC Fluticasone Propionate (Flonase 0.05% Nasal Harrell) 1 spray BID NARES 03/08/21 21:00 03/08/21 22:01 Folic Acid (Folic Acid) 1 mg DAILY PO 03/04/21 09:00 03/08/21 09:40 Furosemide (Lasix) 20 mg DAILY PO 03/04/21 09:00 03/03/21 15:16 DC Furosemide (Lasix) 20 mg DAILY PO 03/07/21 09:00 03/08/21 09:42 Gabapentin (Neurontin) 100 mg BID PO 03/03/21 21:00 03/06/21 13:31 DC 03/06/21 10:21 Gabapentin (Neurontin) 200 mg TID PO 03/06/21 16:00 03/08/21 21:59 Heparin Sodium (Porcine) (Heparin) 5,000 units Q12H SC 03/03/21 21:00 03/08/21 22:01 Home Med (Home Med List Complete!) ASDIRECTED XX 03/03/21 16:05 03/03/21 16:06 DC Hydralazine HCl (Apresoline) 25 mg Q6H PO 03/03/21 18:00 03/08/21 11:31 DC 03/08/21 06:11 Hydralazine HCl (Apresoline) 50 mg TID PO 03/08/21 16:00 03/08/21 16:59 Lactobacillus Acidophilus (Bacid) 1 ea WMHS PO 03/03/21 18:00 03/08/21 21:59 Magnesium Gluconate (Magnesium Gluconate) 250 mg DAILY PO 03/04/21 09:00 03/03/21 15:15 DC Polyethylene Glycol (Miralax) 1 pkt DAILY PRN PO CONSTIPATION 03/03/21 14:45 Senna (Senokot) 1 tab QHS PO 03/03/21 21:00 03/08/21 22:01 Sodium Chloride (Pisek Nasal Harrell) 2 spray TID NA 03/08/21 21:00 03/08/21 22:01 Tramadol HCl (Ultram) 25 mg 0700,1400 PO 03/09/21 07:00 03/09/21 06:30 Tramadol HCl (Ultram) 25 mg Q4HP PRN PO MODERATE PAIN (PS 5-7) 03/03/21 14:45 03/08/21 15:54 DC 03/08/21 04:50 Tramadol HCl (Ultram) 25 mg Q8HP PRN PO MODERATE PAIN (PS 5-7) 03/08/21 15:55 SAKSHI FENTON MD Mar 09, 2021 09:39
[2021-03-09] MEDS: LACTOBACILLUS ACIDOPHILUS CAP (BACID) PO SCH ×4 (09:44→21:09)
[2021-03-09] MEDS: FOLIC ACID 1 MG TAB PO SCH (09:45)
[2021-03-09] MEDS: GABAPENTIN 100 MG CAP PO SCH ×3 (09:45→21:09)
[2021-03-09] MEDS: **hydrALAZINE** 50 MG TAB PO SCH ×3 (09:45→21:09)
[2021-03-09] MEDS: FUROSEMIDE 20 MG TAB PO SCH (09:45)
[2021-03-09] MEDS: DOCUSATE SODIUM 100MG CAPSULE PO SCH ×2 (09:45→21:10)
[2021-03-09] MEDS: ASCORBIC ACID 500 MG TAB PO SCH (09:46)
[2021-03-09] MEDS: ACETAMINOPHEN 500 MG TAB PO SCH ×3 (09:46→21:10)
[2021-03-09] MEDS: CALCIUM/VITAMIN D 500 MG TAB PO SCH (09:46)
[2021-03-09] MEDS: HEPARIN SOD (PORCINE) 5000UNITS/ML 1ML VIAL/SYRINGE SC SCH ×2 (09:47→21:08)
[2021-03-09] MEDS: DICLOFENAC EPOLAMINE 1.3 % PATCH TOP SCH ×2 (09:47→21:08)
[2021-03-09] MEDS: FLUTICASONE PROP 0.05% NASAL SPRAY 16 GM (FLONASE) NARES SCH ×2 (09:48→21:10)
[2021-03-09] MEDS: SODIUM CHLORIDE NASAL 0.65% SPRAY BTL (OCEAN) SCH ×3 (09:48→21:10)
[2021-03-09] MEDS: CETIRIZINE (ZyrTEC) 10 MG TAB PO PRN (10:02)
[2021-03-09 14:00] VITALS: BP 152/67
[2021-03-09 20:00] VITALS: BP 152/67
[2021-03-09] MEDS: SENNA 8.6 MG TAB (SENOKOT) PO SCH (21:09)
[2021-03-10 06:17] VITALS: BP 138/72
[2021-03-10] MEDS: traMADol 50 MG TAB PO SCH ×2 (06:39→14:00)
[2021-03-10] MEDS: CETIRIZINE (ZyrTEC) 10 MG TAB PO PRN (06:39)
[2021-03-10 07:08] LABS: BASO # 0.1 10^3/uL (0.0-0.2); BASO % 1.3 % (0.0-1.0); EOS # 2.3 10^3/uL (0.0-0.5); HEMATOCRIT 30.7 % (36.0-47.0); HEMOGLOBIN 9.8 g/dl (12.0-15.5); LYMPH # 2.3 10^3/uL (1.5-5.0); MEAN CORPUSCULAR HEMOGLOBIN 33.2 pg (27.0-33.0); MEAN CORPUSCULAR HGB CONC 31.9 g/dl (32.0-36.5); MEAN CORPUSCULAR VOLUME 104.1 fl (80.0-96.0); MONO # 1.2 10^3/uL (0.0-0.8); MONO % 14.4 % (2.0-8.0); NEUTROPHILS # 2.4 10^3/uL (1.5-8.5); NEUTROPHILS % 27.8 % (36.0-66.0); PLATELET COUNT, AUTOMATED 257 10^3/uL (150-450); RED BLOOD COUNT 2.95 10^6/uL (4.00-5.40); WHITE BLOOD COUNT 8.5 10^3/uL (4.0-10.0)
[2021-03-10 07:34] LABS: CALCIUM LEVEL 8.5 MG/DL (8.8-10.2); CREATININE FOR GFR 1.23 MG/DL (0.55-1.30); GLOMERULAR FILTRATION RATE 44.1 (>32); POTASSIUM SERUM 5.1 MEQ/L (3.5-5.1)
[2021-03-10 07:38] LABS: EOS % 27.5 % (0.0-3.0)
[2021-03-10] MEDS: HEPARIN SOD (PORCINE) 5000UNITS/ML 1ML VIAL/SYRINGE SC SCH ×2 (09:25→20:46)
[2021-03-10] MEDS: GABAPENTIN 100 MG CAP PO SCH ×3 (09:26→20:46)
[2021-03-10] MEDS: ACETAMINOPHEN 500 MG TAB PO SCH ×3 (09:26→20:45)
[2021-03-10] MEDS: LACTOBACILLUS ACIDOPHILUS CAP (BACID) PO SCH ×4 (09:27→20:45)
[2021-03-10] MEDS: DICLOFENAC EPOLAMINE 1.3 % PATCH TOP SCH ×2 (09:27→20:45)
[2021-03-10] MEDS: ASCORBIC ACID 500 MG TAB PO SCH (09:27)
[2021-03-10] MEDS: CALCIUM/VITAMIN D 500 MG TAB PO SCH (09:27)
[2021-03-10] MEDS: FUROSEMIDE 20 MG TAB PO SCH (09:28)
[2021-03-10] MEDS: DOCUSATE SODIUM 100MG CAPSULE PO SCH ×2 (09:28→20:46)
[2021-03-10] MEDS: **hydrALAZINE** 50 MG TAB PO SCH ×3 (09:28→20:44)
[2021-03-10] MEDS: FOLIC ACID 1 MG TAB PO SCH (09:28)
[2021-03-10] MEDS: SODIUM CHLORIDE NASAL 0.65% SPRAY BTL (OCEAN) SCH ×3 (09:29→20:47)
[2021-03-10] MEDS: FLUTICASONE PROP 0.05% NASAL SPRAY 16 GM (FLONASE) NARES SCH ×2 (09:29→20:47)
--- NOTE | 2021-03-10 13:34 | REP ---
INDICATION: r/o infiltrate COMPARISON: None. TECHNIQUE: PA and lateral. FINDINGS: The mediastinum and cardiac silhouette are normal. The lung bell demonstrate chronic appearing changes. Linear platelike atelectasis at the basilar right upper lobe as well as left infrahilar atelectasis cannot be excluded. No effusion. No pneumothorax. The skeletal structures are intact and normal. IMPRESSION: Progressive chronic appearing changes suggested. Cannot exclude superimposed acute platelike atelectasis in the basilar right upper lobe and left lower lobe atelectasis. <Electronically signed by Jacinto Wolff > 03/10/21 [id number]
[2021-03-10 14:00] VITALS: BP 132/68
[2021-03-10 15:51] LABS: C REACTIVE PROTEIN QUANTITATIV 1.23 MG/DL (0.00-0.30)
[2021-03-10] MEDS: guaiFENesin 200 MG TAB PO SCH ×2 (17:39→20:46)
[2021-03-10 20:00] VITALS: BP 124/60
[2021-03-10] MEDS: SENNA 8.6 MG TAB (SENOKOT) PO SCH (20:46)
[2021-03-11 06:00] VITALS: BP 155/69
[2021-03-11] MEDS: traMADol 50 MG TAB PO SCH ×2 (06:42→13:41)
[2021-03-11] MEDS: guaiFENesin 200 MG TAB PO SCH ×3 (08:24→21:53)
[2021-03-11] MEDS: ACETAMINOPHEN 500 MG TAB PO SCH ×3 (08:24→21:54)
[2021-03-11] MEDS: GABAPENTIN 100 MG CAP PO SCH ×3 (08:24→21:53)
[2021-03-11] MEDS: LACTOBACILLUS ACIDOPHILUS CAP (BACID) PO SCH ×4 (08:25→21:53)
[2021-03-11] MEDS: DOCUSATE SODIUM 100MG CAPSULE PO SCH ×2 (08:25→21:00)
[2021-03-11] MEDS: FUROSEMIDE 20 MG TAB PO SCH (08:25)
[2021-03-11] MEDS: FOLIC ACID 1 MG TAB PO SCH (08:25)
[2021-03-11] MEDS: **hydrALAZINE** 50 MG TAB PO SCH ×3 (08:25→21:54)
[2021-03-11] MEDS: CALCIUM/VITAMIN D 500 MG TAB PO SCH (08:25)
[2021-03-11] MEDS: ASCORBIC ACID 500 MG TAB PO SCH (08:25)
[2021-03-11] MEDS: SODIUM CHLORIDE NASAL 0.65% SPRAY BTL (OCEAN) SCH ×3 (08:26→21:56)
[2021-03-11] MEDS: DICLOFENAC EPOLAMINE 1.3 % PATCH TOP SCH ×2 (08:26→21:55)
[2021-03-11] MEDS: HEPARIN SOD (PORCINE) 5000UNITS/ML 1ML VIAL/SYRINGE SC SCH ×2 (08:26→21:55)
[2021-03-11] MEDS: FLUTICASONE PROP 0.05% NASAL SPRAY 16 GM (FLONASE) NARES SCH ×2 (08:26→21:56)
--- NOTE | 2021-03-11 13:10 | CR.PDOC ---
General Date of Consultation: Mar 10, 2021 Referring Provider: SAKSHI FENTON MD Attending Physician: Shashi Benites MD Consultation REASON FOR CONSULTATION/CHIEF COMPLAINT: Pain and swelling due to cellulitis of the right lower leg. HISTORY OF PRESENT ILLNESS: The patient is an 86 year old female complaining of pain and swelling in the right leg for the last month. This has resulted in a previous hospitalization during which she was given IV Vancomycin for three days and sent home with clindamycin for 5 days. She returned on 03/02 with continued pain and difficulty walking. She was given IV cefazolin and the ED tried to discharge her, but she and her family requested admission. She was admitted and IV cefazolin was continued. Today she reports her pain is better, although it is still sometimes present with movement or walking. ALLERGIES: Please see below. HOME MEDICATIONS: Please see below. PAST MEDICAL HISTORY: 1. HTN 2. Dementia 3. RA 4. GERD 5. Hyperlipidemia PAST SURGICAL HISTORY: 1. Tonsillectomy FAMILY HISTORY:Diabetes mellitus, cardiac failure, renal failure. SOCIAL HISTORY: Marital status and/or living arrangements: , lives alone, does not drive but is assisted by children living nearby. Children: 4 Tobacco use: denies use ETOH: denies use Illicit drug use: denies use IV drug use: denies use REVIEW OF SYSTEMS: Patient denies fevers, chills, headache, loss of appetite, nausea, vomiting, abdominal pain, and any other pains. There is history of dementia but the patient appears alert and answers appropriately. PHYSICAL EXAMINATION: VITAL SIGNS: Please see below. GENERAL APPEARANCE: Elderly female resting comfortably in bed with feet e levated, in no acute distress. Alert, oriented, and cooperative. RESPIRATORY: CTA CARDIOVASCULAR: Regular rate and rhythm with a systolic murmur present. Patient states she was aware of this. EXTREMITIES: Joint deformations and rheumatoid nodules present in both hands due to history of RA. The lower extremities appear slightly swollen and toe deformities and thick and overgrown toenails are present on both feet. The right lower leg is bandaged anteriorly. No redness or drainage is visible surrounding the dressing. LABORATORY DATA: Please see below. ASSESSMENT/PLAN: The patient has resolving cellulitis in the lower right leg after multiple courses of antibiotics. This problem is exacerbated by fluid retention and poor circulation in the area. 1. Discontinue antibiotics 2. Patient advised to elevate feet in order to improve circulation and lessen swelling and pain 3. See podiatry or nursing to provide foot care Vital Signs/I&O Vital Signs Date Time Temp Pulse Resp B/P (MAP) Pulse Ox O2 Delivery O2 Flow Rate FiO2 03/11/21 08:25 155/69 03/11/21 06:42 18 Room Air 03/11/21 06:00 97.8 70 96 I&O- Last 24 Hours up to 6 AM 03/11/21 06:00 Intake Total 1520 ml Balance 1520 ml Laboratory Data CBC/BMP RBCs decreased at 2.95, Hgb at 9.8, Hct at 30.7, and MCHC at 31.9. These are lower than previous values. The MCV is elevated at 104.1. The neutrophils are decreased at 27.8%, while the Monocytes [14.4%], Eosinophils [27.5%], and Basophils [1.3%] are elevated. Anion gap is low at 6, BUN is elevated at 41 and has been increasing over the past 4 days, calcium is low at 8.5, and the c-reactive protein is increased at 1.23. Allergies Coded Allergies: clarithromycin (Verified Allergy, Intermediate, shakes and heart race, 06/27/20) pseudoephedrine (Verified Allergy, Intermediate, heart race, shakes, 06/27/20) Home Medications Scheduled Ascorbic Acid (Vitamin C) 100 Mg Tablet, 100 MG PO DAILY, (Reported) Calcium Carbonate/Vitamin D3 (Calcium 600+D Softgel) 1 Each Capsule, 3 CAP PO DAILY, (Reported) Cefuroxime Axetil (Cefuroxime) 500 Mg Tablet, 500 MG PO BID, #10 Magnesium Oxide (Magnesium) 250 Mg Tablet, 250 MG PO DAILY, (Reported) Pnv,Calcium 72/Iron/Folic Acid ( Vitamin Plus Low Iron) 1 Each Tablet, 1 TAB PO DAILY, (Reported) Tramadol HCl/Acetaminophen (Tramadol-Acetaminophn 37.5-325) 1 Each Tablet, 1 TAB PO TID, #15 Scheduled PRN Acetaminophen (Acetaminophen) 325 Mg Tablet, 650 MG PO Q4H PRN for MILD PAIN or TEMP > 101, #15 Cetirizine HCl (ZyrTEC) 10 Mg Capsule, 10 MG PO DAILYPRN PRN for HEADACHE, (Reported) RANDY FISH OMS-3 Mar 11, 2021 13:10
[2021-03-11 14:00] VITALS: BP 146/65
[2021-03-11 20:00] VITALS: BP 152/70
[2021-03-11] MEDS: SENNA 8.6 MG TAB (SENOKOT) PO SCH (21:00)
[2021-03-12 06:00] VITALS: BP 139/76
[2021-03-12] MEDS: traMADol 50 MG TAB PO SCH ×2 (06:05→13:04)
[2021-03-12] MEDS: DOCUSATE SODIUM 100MG CAPSULE PO SCH ×2 (07:08→20:33)
[2021-03-12] MEDS: FOLIC ACID 1 MG TAB PO SCH (07:14)
[2021-03-12] MEDS: GABAPENTIN 100 MG CAP PO SCH ×3 (07:14→20:32)
[2021-03-12] MEDS: guaiFENesin 200 MG TAB PO SCH ×3 (07:14→20:32)
[2021-03-12] MEDS: HEPARIN SOD (PORCINE) 5000UNITS/ML 1ML VIAL/SYRINGE SC SCH ×2 (07:14→20:33)
[2021-03-12] MEDS: ACETAMINOPHEN 500 MG TAB PO SCH ×3 (07:15→20:33)
[2021-03-12] MEDS: **hydrALAZINE** 50 MG TAB PO SCH ×3 (07:15→20:32)
[2021-03-12] MEDS: CALCIUM/VITAMIN D 500 MG TAB PO SCH (07:15)
[2021-03-12] MEDS: LACTOBACILLUS ACIDOPHILUS CAP (BACID) PO SCH ×4 (07:15→20:32)
[2021-03-12] MEDS: ASCORBIC ACID 500 MG TAB PO SCH (07:15)
[2021-03-12] MEDS: CETIRIZINE (ZyrTEC) 10 MG TAB PO PRN (07:16)
[2021-03-12] MEDS: FUROSEMIDE 20 MG TAB PO SCH (07:16)
[2021-03-12] MEDS: DICLOFENAC EPOLAMINE 1.3 % PATCH TOP SCH ×2 (07:16→20:32)
[2021-03-12] MEDS: SODIUM CHLORIDE NASAL 0.65% SPRAY BTL (OCEAN) SCH ×3 (07:17→20:39)
[2021-03-12] MEDS: FLUTICASONE PROP 0.05% NASAL SPRAY 16 GM (FLONASE) NARES SCH ×2 (07:17→20:39)
[2021-03-12 14:00] VITALS: BP 146/64
[2021-03-12 20:00] VITALS: BP 133/62
[2021-03-12] MEDS: SENNA 8.6 MG TAB (SENOKOT) PO SCH (20:33)
[2021-03-13 06:00] VITALS: BP 146/70
[2021-03-13] MEDS: traMADol 50 MG TAB PO SCH (06:23)
[2021-03-13] MEDS: LACTOBACILLUS ACIDOPHILUS CAP (BACID) PO SCH (08:25)
[2021-03-13] MEDS: CALCIUM/VITAMIN D 500 MG TAB PO SCH (08:34)
[2021-03-13] MEDS: GABAPENTIN 100 MG CAP PO SCH (08:34)
[2021-03-13] MEDS: ACETAMINOPHEN 500 MG TAB PO SCH (08:35)
[2021-03-13] MEDS: CETIRIZINE (ZyrTEC) 10 MG TAB PO PRN (08:35)
[2021-03-13] MEDS: guaiFENesin 200 MG TAB PO SCH (08:35)
[2021-03-13] MEDS: ASCORBIC ACID 500 MG TAB PO SCH (08:35)
[2021-03-13] MEDS: HEPARIN SOD (PORCINE) 5000UNITS/ML 1ML VIAL/SYRINGE SC SCH (08:36)
[2021-03-13] MEDS: FUROSEMIDE 20 MG TAB PO SCH (08:36)
[2021-03-13 08:37] VITALS: BP 146/70
[2021-03-13] MEDS: DOCUSATE SODIUM 100MG CAPSULE PO SCH (08:37)
[2021-03-13] MEDS: **hydrALAZINE** 50 MG TAB PO SCH (08:37)
[2021-03-13] MEDS: DICLOFENAC EPOLAMINE 1.3 % PATCH TOP SCH (08:39)
[2021-03-13] MEDS ORDERED: ONDANSETRON 4 MG ORAL DISINTEGRATING TAB PO ONE (08:45)
[2021-03-13] MEDS ORDERED: TRAM50TA2 PO (09:28)
[2021-03-13] MEDS ORDERED: GABA-1171 PO (09:28)
[2021-03-13] MEDS ORDERED: MAALOX 30 ML SUSP *UDC PO ONE (09:50)
--- NOTE | 2021-03-13 10:22 | IPNPDOC ---
PM&R Progress Note DATE OF SERVICE: Mar 10, 2021 Information Coder Progress Note Subjective: Patient seen in her room stating she is very anxious about having been exposed to Covid on the unit and is worried she will give it to one of her family members. REVIEW OF SYSTEMS: The following is a completed review of systems and has been reviewed. Review of systems otherwise unremarkable. PAIN: Patient self reports RLE pain EYES: No recent vision changes EARS, NOSE, & THROAT: No throat pain, or dysphagia, or rhinorrhea CARDIOVASCULAR: Denies chest pain or palpitations PULMONARY: Denies shortness of breath GASTROINTESTINAL: Denies constipation/diarrhea GENITOURINARY: denies dysuria MUSCULOSKELETAL: generalized weakness NEUROLOGICAL:+ RLE neuropathic pain HEMATOLOGICAL: denies easy bruising SKIN: RLE cellulitis PSYCHIATRIC: Unremarkable All other review of systems found to be negative. PHYSICAL EXAMINATION: VITAL SIGNS: Please see below. GENERAL: Pleasant and cooperative. No acute distress. HEENT: PERRL. Extraocular movements intact. Clear conjunctiva CARDIOVASCULAR: Regular rate and rhythm. No murmurs, rubs, or gallops LUNGS: Clear to auscultation bilaterally. No wheezes. No rhonchi ABDOMEN: Soft, nontender, nondistended. Positive bowel sounds. Normal active bowel sounds NEUROLOGICAL: Alert and oriented times three. Cranial nerves II through XII grossly intact. Sensation grossly intact +bilat intentional tremor, no cogwheel rigidity, no masked faces EXTREMITIES: 5\\5 strength bilateral upper extremities. 5-\\5 strength right lower extremity. 5-/5 strength in left lower extremity. +bilat LE edema (improving) SKIN: RLE calf erythema (much less), non-TTP, no warmth ASSESSMENT:86-year-old F with past medical history of RA, HTN, dementia who lives alone who presents with debility related to RLE cellulitis PLAN: 1. Rehab- PT/OT advance mobility and ADLs, strengthen/stretch/maintain ROM all 4 limbs, ambulating with RW -[employer] for cog and swallow eval- per family she has on occasion choked on her food 2. Neuro- patient with RLE neuropathic pain in setting of cellulitis will increase gabapentin dosing to 200 mg TID -patient's family concerned she may have Parkinson's-although she shuffles when she walks, she does not appear to festinate, no rigidity noted on exam, no cog wheel rigidity, and no masked faces- it is possible she has a mild case, however patient declines a trial of Sinemet to see if this might help her gait speed which would help confirm this dx 3. Cardiac- hx of HTN cont BP meds adjust prn -ECHO from 2007 on record significant for diastolic CHF, will fluid restrict, daily weights, RLE with some edema that is causing discomfort, cont lasix -medicine consulted to assist in overall management 4. Resp- monitor for infection, encourage incentive spirometry 5. ID- s/p course of Ceftin for RLE cellulitis, cont bacid -covid exposure- patient reporting mild intermittent dry cough, states she get this on and off, will order resp panel and CXR to r/o PNA 6. Pain- Tramadol and gabapentin, cont flector patch to right medial ankle where there is some soft tissue swelling and patient reporting a feeling of "tightness" (improving) 7. DVT ppx- heparin 8. Hyperkalemia- resolved following veltassa 9. DIspo- 03/13/21 to home, progressing towards goals Barriers to d/c: pain and mobility impairments Allergies Coded Allergies: clarithromycin (Verified Allergy, Intermediate, shakes and heart race, 06/27/20) pseudoephedrine (Verified Allergy, Intermediate, heart race, shakes, 06/27/20) Vital Signs Vital Signs Date Time Temp Pulse Resp B/P (MAP) Pulse Ox O2 Delivery O2 Flow Rate FiO2 03/13/21 08:37 146/70 03/13/21 06:23 18 Room Air 03/13/21 06:00 97.9 76 95 Current Medications Current Medications Current Medications Medications (Trade) Dose Ordered Sig/Joanne Route PRN Reason Start Time Stop Time Status Last Admin Dose Admin Acetaminophen (Tylenol Tab) 650 mg Q4HP PRN PO MILD PAIN (PS 1-4) 03/03/21 14:45 03/03/21 16:44 DC Acetaminophen (Tylenol Tab) 1,000 mg TID PO 03/03/21 16:00 03/13/21 08:35 Al Hydrox/Mg Hydrox/Simethicone (Mylanta) 30 ml Q4HP PRN PO DYSPEPSIA 03/03/21 14:45 03/06/21 10:20 Ascorbic Acid (Vitamin C) 500 mg DAILY PO 03/04/21 09:00 11/22/21 08:35 Calcium/Vitamin D (Oscal D) 1,000 mg DAILY PO 03/04/21 09:00 03/13/21 08:34 Cefuroxime Axetil (Ceftin) 500 mg BID PO 03/03/21 21:00 03/08/21 09:01 DC 03/08/21 09:40 Cetirizine HCl (ZyrTEC) 10 mg DAILY PRN PO sinus congestion 03/03/21 14:45 03/13/21 08:35 Diclofenac Epolamine (Flector 1.3%) 1 patch Q12H TOP 03/07/21 09:00 03/13/21 08:39 Docusate Sodium (Colace) 100 mg BID PO 03/03/21 21:00 03/13/21 08:37 Ferrous Gluconate (Fergon) 324 mg DAILY PO 03/04/21 09:00 03/03/21 16:44 DC Fluticasone Propionate (Flonase 0.05% Nasal [place]) 1 spray BID NARES 03/08/21 21:00 03/12/21 20:39 Folic Acid (Folic Acid) 1 mg DAILY PO 03/04/21 09:00 03/12/21 07:14 Furosemide (Lasix) 20 mg DAILY PO 03/04/21 09:00 03/03/21 15:16 DC Furosemide (Lasix) 20 mg DAILY PO 03/07/21 09:00 03/13/21 08:36 Gabapentin (Neurontin) 100 mg BID PO 03/03/21 21:00 03/06/21 13:31 DC 03/06/21 10:21 Gabapentin (Neurontin) 200 mg TID PO 03/06/21 16:00 03/13/21 08:34 Guaifenesin (Robitussin Tab) 400 mg TID PO 03/10/21 16:00 03/13/21 08:35 Heparin Sodium (Porcine) (Heparin) 5,000 units Q12H SC 03/03/21 21:00 03/13/21 08:36 Home Med (Home Med List Complete!) ASDIRECTED XX 03/03/21 16:05 03/03/21 16:06 DC Hydralazine HCl (Apresoline) 25 mg Q6H PO 03/03/21 18:00 03/08/21 11:31 DC 03/08/21 06:11 Hydralazine HCl (Apresoline) 50 mg TID PO 03/08/21 16:00 03/13/21 08:37 Lactobacillus Acidophilus (Bacid) 1 ea WMHS PO 03/03/21 18:00 03/13/21 08:25 Magnesium Gluconate (Magnesium Gluconate) 250 mg DAILY PO 03/04/21 09:00 03/03/21 15:15 DC Polyethylene Glycol (Miralax) 1 pkt DAILY PRN PO CONSTIPATION 03/03/21 14:45 03/10/21 09:27 Senna (Senokot) 1 tab QHS PO 03/03/21 21:00 03/09/21 21:09 Sodium Chloride (Luna Nasal [place]) 2 spray TID NA 03/08/21 21:00 03/12/21 20:39 Tramadol HCl (Ultram) 25 mg 0700,1400 PO 03/09/21 07:00 03/13/21 06:23 Tramadol HCl (Ultram) 25 mg Q4HP PRN PO MODERATE PAIN (PS 5-7) 03/03/21 14:45 03/08/21 15:54 DC 03/08/21 04:50 Tramadol HCl (Ultram) 25 mg Q8HP PRN PO MODERATE PAIN (PS 5-7) 03/08/21 15:55 SAKSHI FENTON MD Mar 13, 2021 10:22
[2021-03-13 11:13] LABS: BASO # 0.1 10^3/uL (0.0-0.2); BASO % 1.1 % (0.0-1.0); EOS # 2.1 10^3/uL (0.0-0.5); HEMATOCRIT 30.9 % (36.0-47.0); HEMOGLOBIN 9.8 g/dl (12.0-15.5); LYMPH # 1.8 10^3/uL (1.5-5.0); MEAN CORPUSCULAR HEMOGLOBIN 33.1 pg (27.0-33.0); MEAN CORPUSCULAR HGB CONC 31.7 g/dl (32.0-36.5); MEAN CORPUSCULAR VOLUME 104.4 fl (80.0-96.0); NEUTROPHILS # 3.8 10^3/uL (1.5-8.5); NEUTROPHILS % 42.4 % (36.0-66.0); PLATELET COUNT, AUTOMATED 238 10^3/uL (150-450); RED BLOOD COUNT 2.96 10^6/uL (4.00-5.40); WHITE BLOOD COUNT 8.9 10^3/uL (4.0-10.0)
[2021-03-13 11:31] LABS: EOS % 23.9 % (0.0-3.0)
[2021-03-13 11:36] LABS: CALCIUM LEVEL 9.1 MG/DL (8.8-10.2); CREATININE FOR GFR 1.35 MG/DL (0.55-1.30); GLOMERULAR FILTRATION RATE 39.6 (>32); POTASSIUM SERUM 4.9 MEQ/L (3.5-5.1)
[2021-03-13] MEDS ORDERED: NS 1,000 ML IV SCH (11:45)
== END 2021-03-13 12:25 | disposition home health service (06) | DRG 603 ==
LOC: M PM&R 15:22
PROVIDERS: ADMIT Physical Medicine & Rehabilitation; ATTEND Physical Medicine & Rehabilitation
DX: L03.115 Cellulitis of right lower limb (principal); I50.32 Chronic diastolic (congestive) heart failure; R53.81 Other malaise; I11.0 Hypertensive heart disease with heart failure; F03.90 Unspecified dementia, unspecified severity, without behavioral disturbance, psychotic disturbance, mood disturbance, and anxiety; M06.9 Rheumatoid arthritis, unspecified; E78.5 Hyperlipidemia, unspecified; Z74.09 Other reduced mobility; Z74.1 Need for assistance with personal care; R53.1 Weakness; M79.2 Neuralgia and neuritis, unspecified; E87.5 Hyperkalemia; Z79.891 Long term (current) use of opiate analgesic; Z79.899 Other long term (current) drug therapy; Z88.1 Allergy status to other antibiotic agents; Z88.8 Allergy status to other drugs, medicaments and biological substances; K21.9 Gastro-esophageal reflux disease without esophagitis; M19.90 Unspecified osteoarthritis, unspecified site; D64.9 Anemia, unspecified

== ENCOUNTER 2021-05-10 09:37 | Emergency (ER) | payer MEDICARE ==
[~2021-05-10] VITALS: Ht 149.9 cm; Wt 65.0 kg
[~2021-05-10 09:37] MED LIST changes: +ACET1TAB55 PO; +CEFU50TA PO; +GABA-1171 PO; -LISI-898 PO; +LISI5TAB11 PO; +TRAM37.53 PO; +TRAM50TA2 PO
[2021-05-10 13:05] VITALS: BP 128/82
== END 2021-05-10 13:07 | disposition home or self-care (01) ==
LOC: M ED 11:22
DX: M51.37 Other intervertebral disc degeneration, lumbosacral region (principal); M25.78 Osteophyte, vertebrae

== ENCOUNTER → 2021-08-22 | Outpatient (REF) | payer MEDICARE | LOC: M LAB REF 16:15 | PROVIDERS: ATTEND Internal Medicine | DX: M06.9 Rheumatoid arthritis, unspecified (principal) ==

== ENCOUNTER → 2023-03-26 | Outpatient (REF) | payer MEDICARE | LOC: M LAB REF 16:36 | PROVIDERS: ATTEND Internal Medicine | DX: M06.9 Rheumatoid arthritis, unspecified (principal) ==

== ENCOUNTER 2023-06-01 11:29 | Emergency (ER) | payer MEDICARE ==
[~2023-06-01] VITALS: Ht 149.9 cm; Wt 54.5 kg
[2023-06-01] MEDS: LIDOCAINE 5% (LIDODERM) PATCH TD ONE (12:28)
[2023-06-01] MEDS: ULTRACET TAB PO STA (12:46)
[2023-06-01] MEDS ORDERED: [UNRECOGNIZED DRUG - OTHER] (12:50)
[2023-06-01 14:15] VITALS: BP 186/86; O2SAT 95
[2023-06-01] MEDS ORDERED: LIDO5DIS41 TD (14:18)
[2023-06-01] MEDS ORDERED: TRAM37.53 PO ×2 (14:19→14:28)
[2023-06-01 14:49] VITALS: TEMP 97.5
== END 2023-06-01 15:23 | disposition home or self-care (01) ==
LOC: M ED 11:29
DX: U07.1 COVID-19 (principal); S29.011A Strain of muscle and tendon of front wall of thorax, initial encounter; I10 Essential (primary) hypertension; E78.5 Hyperlipidemia, unspecified; F03.90 Unspecified dementia, unspecified severity, without behavioral disturbance, psychotic disturbance, mood disturbance, and anxiety; Z88.1 Allergy status to other antibiotic agents; Z88.8 Allergy status to other drugs, medicaments and biological substances; Y92.9 Unspecified place or not applicable; Y93.9 Activity, unspecified; Y99.9 Unspecified external cause status; Z79.1 Long term (current) use of non-steroidal anti-inflammatories (NSAID); Z79.891 Long term (current) use of opiate analgesic; Z79.899 Other long term (current) drug therapy

== ENCOUNTER 2023-06-05 09:07 | Emergency (ER) | payer MEDICARE ==
[~2023-06-05] VITALS: Ht 149.9 cm; Wt 54.4 kg
[~2023-06-05 09:07] MED LIST changes: +LIDO5DIS41 TD; +[UNRECOGNIZED DRUG - OTHER]
[2023-06-05 09:23] VITALS: TEMP 97.6
[2023-06-05 09:48] LABS: BASO # 0.1 10^3/uL (0.0-0.2); BASO % 0.8 % (0.0-1.0); EOS # 0.1 10^3/uL (0.0-0.5); EOS % 0.9 % (0.0-3.0); HEMATOCRIT 37.9 % (36.0-47.0); HEMOGLOBIN 12.5 g/dl (12.0-15.5); LYMPH # 1.1 10^3/uL (1.5-5.0); LYMPH % 11.8 % (24.0-44.0); MEAN CORPUSCULAR HEMOGLOBIN 33.2 pg (27.0-33.0); MEAN CORPUSCULAR VOLUME 100.5 fl (80.0-96.0); MONO # 0.4 10^3/uL (0.0-0.8); NEUTROPHILS # 7.6 10^3/uL (1.5-8.5); NEUTROPHILS % 81.3 % (36.0-66.0); PLATELET COUNT, AUTOMATED 316 10^3/uL (150-450); RED BLOOD COUNT 3.77 10^6/uL (4.00-5.40); WHITE BLOOD COUNT 9.3 10^3/uL (4.0-10.0)
[2023-06-05 10:04] LABS: INR 1.05; PROTHROMBIN TIME 13.4 SECONDS (12.5-14.5)
[2023-06-05 10:05] LABS: PARTIAL THROMBOPLASTIN TIME 29.1 SECONDS (24.8-34.2)
[2023-06-05 10:16] LABS: ALBUMIN 2.8 G/DL (3.2-5.2); ALKALINE PHOSPHATASE 114 U/L (46-116); ALT/SGPT 17 U/L (7.0-40); AST/SGOT 46 U/L (<34); BILIRUBIN,DIRECT 0.2 MG/DL (<0.4); BILIRUBIN,TOTAL 0.6 MG/DL (0.3-1.2); BLOOD UREA NITROGEN 27 MG/DL (9-23); CARBON DIOXIDE LEVEL 22 MMOL/L (20-31); CHLORIDE LEVEL 98 MMOL/L (98-107); CK-MB VALUE MASS 12.7 NG/ML (<3.6); CREATININE FOR GFR 0.87 MG/DL (0.55-1.30); GLOMERULAR FILTRATION RATE > 60.0 (>32); GLUCOSE, FASTING 236 MG/DL (74-106); POTASSIUM SERUM 4.4 MMOL/L (3.5-5.1); SODIUM LEVEL 130 MMOL/L (136-145); TOTAL PROTEIN 6.4 G/DL (5.7-8.2)
[2023-06-05 10:20] LABS: THYROID STIMULATING HORMONE 2.575 uIU/ML (0.55-4.78)
[2023-06-05 10:28] LABS: CPK CREATINE PHOSPHOKINASE 162 U/L (34-145); MB/CK RELATIVE INDEX 7.83 (< OR =4)
[2023-06-05] MEDS: ASPIRIN 81MG CHEW TABLET PO ONE (10:32)
[2023-06-05] MEDS ORDERED: LIDO5DIS41 TD (11:15)
[2023-06-05] MEDS ORDERED: TRAM37.53 PO (11:15)
[2023-06-05] MEDS ORDERED: OMEP-173 PO (11:19)
[2023-06-05] MEDS: HEPARIN SOD (PORCINE) 5000UNITS/ML 1ML VIAL/SYRINGE IV ONE (11:51)
[2023-06-05] MEDS: HEPARIN DRIP 25,000 UNITS in IV 1 EA IV SCH (11:53)
[2023-06-05] MEDS: VANCOMYCIN HCL 1,000 MG, VIAL MATE ADAPTER 1 EACH in D5W 250 ML IV ONE (11:55)
[2023-06-05] MEDS ORDERED: HOME MED LIST COMPLETE! XX SCH (11:55)
[2023-06-05] MEDS: PIPERACILLIN/TAZOBACTAM SOD 4.5 GM in D5W MINI-BAG PLUS 50 ML IV ONE (13:06)
[2023-06-05 16:15] VITALS: BP 180/112; O2SAT 99
== END 2023-06-05 16:18 | disposition short-term general hospital (02) ==
LOC: M ED 09:07 → EDBD 09:07 → M ED 16:18
DX: I21.4 Non-ST elevation (NSTEMI) myocardial infarction (principal); U07.1 COVID-19; J18.9 Pneumonia, unspecified organism; R00.0 Tachycardia, unspecified; I10 Essential (primary) hypertension; E78.5 Hyperlipidemia, unspecified; K21.9 Gastro-esophageal reflux disease without esophagitis; M06.9 Rheumatoid arthritis, unspecified; F03.90 Unspecified dementia, unspecified severity, without behavioral disturbance, psychotic disturbance, mood disturbance, and anxiety; M19.90 Unspecified osteoarthritis, unspecified site; Z88.1 Allergy status to other antibiotic agents; Z88.8 Allergy status to other drugs, medicaments and biological substances; Z79.83 Long term (current) use of bisphosphonates; Z79.891 Long term (current) use of opiate analgesic; Z79.899 Other long term (current) drug therapy
CPT/HCPCS: 71046; 80048; 80076; 82550; 82553; 84439; 84443; 84484; 85025; 85610; 85730; 87040; 87077; 87186; 87486; 87581; 87633; 87798; 93005; 93041; 94760; 96365; 96366; 96375; 99285; J2543; J3370

== ENCOUNTER → 2023-06-14 | Outpatient (REF) ==
[~2023-06-14] MED LIST changes: +OMEP-173 PO
[2023-06-14 12:46] LABS: HEMATOCRIT 32.5 % (36.0-47.0); HEMOGLOBIN 10.5 g/dl (12.0-15.5); MEAN CORPUSCULAR HEMOGLOBIN 32.4 pg (27.0-33.0); MEAN CORPUSCULAR HGB CONC 32.3 g/dl (32.0-36.5); MEAN CORPUSCULAR VOLUME 100.3 fl (80.0-96.0); PLATELET COUNT, AUTOMATED 282 10^3/uL (150-450); RED BLOOD COUNT 3.24 10^6/uL (4.00-5.40)
[2023-06-14 12:56] LABS: CREATININE FOR GFR 1.22 MG/DL (0.55-1.30); GLOMERULAR FILTRATION RATE 44.3 (>32); POTASSIUM SERUM 3.8 MMOL/L (3.5-5.1)
== END ==
LOC: SKLAB3 07:14
PROVIDERS: ATTEND Internal Medicine
DX: N18.30 Chronic kidney disease, stage 3 unspecified (principal)

== ENCOUNTER → 2023-06-17 | Outpatient (REF) | payer MEDICARE ==
[2023-06-17 08:50] LABS: CALCIUM LEVEL 8.3 MG/DL (8.3-10.6); CREATININE FOR GFR 1.18 MG/DL (0.55-1.30); PHOSPHORUS LEVEL 4.4 MG/DL (2.4-5.1); PTH INTACT 96.3 PG/ML (18.5-88.0)
== END ==
LOC: SKLAB7 03:59
PROVIDERS: ATTEND Internal Medicine
DX: I50.9 Heart failure, unspecified (principal); N18.9 Chronic kidney disease, unspecified

== ENCOUNTER → 2023-06-21 | Outpatient (REF) ==
[2023-06-21 09:08] LABS: HEMATOCRIT 38.7 % (36.0-47.0); HEMOGLOBIN 12.3 g/dl (12.0-15.5); MEAN CORPUSCULAR HEMOGLOBIN 32.6 pg (27.0-33.0); MEAN CORPUSCULAR HGB CONC 31.8 g/dl (32.0-36.5); MEAN CORPUSCULAR VOLUME 102.7 fl (80.0-96.0); PLATELET COUNT, AUTOMATED 273 10^3/uL (150-450); RED BLOOD COUNT 3.77 10^6/uL (4.00-5.40)
[2023-06-21 09:19] LABS: CALCIUM LEVEL 8.5 MG/DL (8.3-10.6); CREATININE FOR GFR 1.47 MG/DL (0.55-1.30); GLOMERULAR FILTRATION RATE 35.7 (>32); POTASSIUM SERUM 4.3 MMOL/L (3.5-5.1)
== END ==
LOC: SKLAB7 07:00
PROVIDERS: ATTEND Internal Medicine
DX: N18.9 Chronic kidney disease, unspecified (principal)

== ENCOUNTER → 2023-06-28 | Outpatient (REF) | payer MEDICARE ==
[2023-06-28 09:04] LABS: HEMATOCRIT 38.8 % (36.0-47.0); HEMOGLOBIN 12.4 g/dl (12.0-15.5); MEAN CORPUSCULAR HEMOGLOBIN 32.3 pg (27.0-33.0); PLATELET COUNT, AUTOMATED 277 10^3/uL (150-450); RED BLOOD COUNT 3.84 10^6/uL (4.00-5.40); WHITE BLOOD COUNT 9.4 10^3/uL (4.0-10.0)
[2023-06-28 09:24] LABS: CALCIUM LEVEL 7.8 MG/DL (8.3-10.6); CREATININE FOR GFR 3.39 MG/DL (0.55-1.30); GLOMERULAR FILTRATION RATE 13.6 (>32); POTASSIUM SERUM 4.7 MMOL/L (3.5-5.1)
== END ==
LOC: SKLAB7 07:00
PROVIDERS: ATTEND Internal Medicine
DX: N18.9 Chronic kidney disease, unspecified (principal)

== ENCOUNTER → 2023-07-01 | Outpatient (REF) | payer MEDICARE | LOC: SKLAB7 14:23 | PROVIDERS: ATTEND Internal Medicine | DX: Z53.8 Procedure and treatment not carried out for other reasons (principal) ==

== ENCOUNTER → 2023-07-01 | Outpatient (REF) | payer MEDICARE ==
[2023-07-01 15:40] LABS: CREATININE, URINE 149.3 MG/DL
[2023-07-01 15:41] LABS: MAU/CREAT RATIO 2.6 MCG/MG (0.0-30.0)
== END ==
LOC: SKLAB7 07:00
PROVIDERS: ATTEND Internal Medicine
DX: N18.9 Chronic kidney disease, unspecified (principal)

== ENCOUNTER → 2023-07-01 | Outpatient (REF) | payer MEDICARE ==
[2023-07-01 13:10] LABS: CALCIUM LEVEL 8.5 MG/DL (8.3-10.6); CREATININE FOR GFR 2.43 MG/DL (0.55-1.30); POTASSIUM SERUM 4.8 MMOL/L (3.5-5.1)
== END ==
LOC: SKLAB7 06:05
PROVIDERS: ATTEND Internal Medicine
DX: I50.9 Heart failure, unspecified (principal)

== ENCOUNTER → 2023-07-02 | Outpatient (REF) | payer MEDICARE ==
[2023-07-02 14:08] LABS: CALCIUM LEVEL 7.8 MG/DL (8.3-10.6); CREATININE FOR GFR 2.25 MG/DL (0.55-1.30); GLOMERULAR FILTRATION RATE 21.9 (>32)
== END ==
LOC: SKLAB7 12:44
PROVIDERS: ATTEND Internal Medicine
DX: I50.9 Heart failure, unspecified (principal)

== ENCOUNTER → 2023-07-03 | Outpatient (REF) | payer MEDICARE ==
[2023-07-03 12:18] LABS: CREATININE FOR GFR 1.55 MG/DL (0.55-1.30); GLOMERULAR FILTRATION RATE 33.6 (>32); POTASSIUM SERUM 4.2 MMOL/L (3.5-5.1)
== END ==
LOC: SKLAB7 09:16
PROVIDERS: ATTEND Internal Medicine
DX: I50.9 Heart failure, unspecified (principal)

== ENCOUNTER → 2023-07-04 | Outpatient (REF) | LOC: SKLAB7 14:32 | PROVIDERS: ATTEND Internal Medicine | DX: R00.1 Bradycardia, unspecified (principal) ==

== ENCOUNTER → 2023-07-04 | Outpatient (REF) | payer MEDICARE ==
[2023-07-04 09:31] LABS: HEMATOCRIT 37.1 % (36.0-47.0); HEMOGLOBIN 12.1 g/dl (12.0-15.5); MEAN CORPUSCULAR HEMOGLOBIN 32.7 pg (27.0-33.0); MEAN CORPUSCULAR HGB CONC 32.6 g/dl (32.0-36.5); MEAN CORPUSCULAR VOLUME 100.3 fl (80.0-96.0); PLATELET COUNT, AUTOMATED 242 10^3/uL (150-450); WHITE BLOOD COUNT 7.8 10^3/uL (4.0-10.0)
[2023-07-04 10:07] LABS: CALCIUM LEVEL 8.3 MG/DL (8.3-10.6); CREATININE FOR GFR 1.53 MG/DL (0.55-1.30); GLOMERULAR FILTRATION RATE 34.1 (>32); POTASSIUM SERUM 4.2 MMOL/L (3.5-5.1)
== END ==
LOC: SKLAB7 07:00
PROVIDERS: ATTEND Internal Medicine
DX: N17.9 Acute kidney failure, unspecified (principal)

== ENCOUNTER → 2023-07-08 | Outpatient (REF) ==
[2023-07-08 12:47] LABS: CALCIUM LEVEL 8.2 MG/DL (8.3-10.6); CREATININE FOR GFR 1.03 MG/DL (0.55-1.30); GLOMERULAR FILTRATION RATE 53.8 (>32); POTASSIUM SERUM 4.8 MMOL/L (3.5-5.1)
== END ==
LOC: SKLAB7 07:45
PROVIDERS: ATTEND Internal Medicine
DX: I50.9 Heart failure, unspecified (principal)

== ENCOUNTER 2023-08-21 10:01 | Emergency (ER) | payer MEDICARE ==
[~2023-08-21] VITALS: Ht 149.9 cm; Wt 54.4 kg
[2023-08-21 10:58] LABS: VENOUS BASE EXCESS -6.8 (-2.0-2.0); VENOUS HCO3 20.6 MMOL/L (23.0-27.0); VENOUS O2 SATURATION 33.4 % (60.0-80.0); VENOUS PARTIAL PRESSURE CO2 48.3 mmHg (38.0-50.0); VENOUS PH 7.248 UNITS (7.330-7.430); VENOUS STANDARD HCO3 17.7 MMOL/L; VENOUS TOTAL CO2 22.1 MMOL/L (24.0-28.0)
[2023-08-21 11:16] LABS: BASO # 0.1 10^3/uL (0.0-0.2); BASO % 1.1 % (0.0-1.0); EOS # 0.6 10^3/uL (0.0-0.5); HEMATOCRIT 41.8 % (36.0-47.0); HEMOGLOBIN 13.3 g/dl (12.0-15.5); LYMPH # 1.6 10^3/uL (1.5-5.0); LYMPH % 25.9 % (24.0-44.0); MEAN CORPUSCULAR HEMOGLOBIN 31.9 pg (27.0-33.0); MEAN CORPUSCULAR HGB CONC 31.8 g/dl (32.0-36.5); MEAN CORPUSCULAR VOLUME 100.2 fl (80.0-96.0); MONO # 0.7 10^3/uL (0.0-0.8); MONO % 10.8 % (2.0-8.0); NEUTROPHILS # 3.3 10^3/uL (1.5-8.5); NEUTROPHILS % 52.6 % (36.0-66.0); PLATELET COUNT, AUTOMATED 250 10^3/uL (150-450); RED BLOOD COUNT 4.17 10^6/uL (4.00-5.40); WHITE BLOOD COUNT 6.2 10^3/uL (4.0-10.0)
[2023-08-21 11:34] LABS: ALBUMIN 3.3 G/DL (3.2-5.2); ALKALINE PHOSPHATASE 151 U/L (46-116); ALT/SGPT 18 U/L (7.0-40); AST/SGOT 28 U/L (<34); BILIRUBIN,DIRECT 0.2 MG/DL (<0.4); BILIRUBIN,TOTAL 0.5 MG/DL (0.3-1.2); BLOOD UREA NITROGEN 24 MG/DL (9-23); CALCIUM LEVEL 8.6 MG/DL (8.3-10.6); CARBON DIOXIDE LEVEL 23 MMOL/L (20-31); CHLORIDE LEVEL 100 MMOL/L (98-107); CREATININE FOR GFR 0.83 MG/DL (0.55-1.30); GLOMERULAR FILTRATION RATE > 60.0 (>32); GLUCOSE, FASTING 82 MG/DL (74-106); POTASSIUM SERUM 4.1 MMOL/L (3.5-5.1); SODIUM LEVEL 133 MMOL/L (136-145); TOTAL PROTEIN 7.4 G/DL (5.7-8.2)
[2023-08-21 11:36] LABS: THYROID STIMULATING HORMONE 3.588 uIU/ML (0.55-4.78)
[2023-08-21 13:50] VITALS: O2SAT 93
[2023-08-21 14:00] VITALS: BP 134/65
[2023-08-21 14:20] VITALS: TEMP 97.8
== END 2023-08-21 14:42 | disposition home or self-care (01) ==
LOC: M ED 10:01 → EDBD 10:01 → M ED 14:42
DX: J06.9 Acute upper respiratory infection, unspecified (principal); I51.7 Cardiomegaly; I10 Essential (primary) hypertension; E78.5 Hyperlipidemia, unspecified; F03.90 Unspecified dementia, unspecified severity, without behavioral disturbance, psychotic disturbance, mood disturbance, and anxiety; M06.9 Rheumatoid arthritis, unspecified; Z88.1 Allergy status to other antibiotic agents; Z88.8 Allergy status to other drugs, medicaments and biological substances; Z79.891 Long term (current) use of opiate analgesic; Z79.899 Other long term (current) drug therapy

== ENCOUNTER → 2023-09-30 | Outpatient (REF) | payer MEDICARE ==
[2023-09-30 19:19] LABS: RHEUMATOID FACTOR QUANT < 3.5 IU/ML (<14)
[2023-10-01 13:04] LABS: IRON (FE) 31 UG/DL (50-170); PERCENT SATURATION 13.4 % (13.2-45.0); TOTAL IRON BINDING CAPACITY 232 UG/DL (250-425)
[2023-10-01 13:06] LABS: FERRITIN 170.6 NG/ML (7.3-270.7)
[2023-10-01 13:07] LABS: VITAMIN B12 LEVEL 330 PG/ML (211-911)
== END ==
LOC: M LAB REF 17:50
PROVIDERS: ATTEND Internal Medicine
DX: M06.9 Rheumatoid arthritis, unspecified (principal)

== ENCOUNTER 2024-01-28 21:18 | Inpatient (IN) | payer MEDICARE ==
[~2024-01-28 21:18] MED LIST changes: +TRAM1TAB42 PO; -TRAM37.53 PO
[2024-01-28] MEDS: LABETALOL 100MG/20ML VIAL IV STA (22:18)
[2024-01-28 22:28] LABS: BASO # 0.1 10^3/uL (0.0-0.2); EOS # 0.9 10^3/uL (0.0-0.5); EOS % 11.2 % (0.0-3.0); HEMATOCRIT 38.1 % (36.0-47.0); HEMOGLOBIN 12.3 g/dl (12.0-15.5); LYMPH # 1.6 10^3/uL (1.5-5.0); LYMPH % 20.5 % (24.0-44.0); MEAN CORPUSCULAR HEMOGLOBIN 31.5 pg (27.0-33.0); MEAN CORPUSCULAR HGB CONC 32.3 g/dl (32.0-36.5); MEAN CORPUSCULAR VOLUME 97.4 fl (80.0-96.0); MONO % 13.3 % (2.0-8.0); NEUTROPHILS # 4.2 10^3/uL (1.5-8.5); NEUTROPHILS % 53.6 % (36.0-66.0); PLATELET COUNT, AUTOMATED 199 10^3/uL (150-450); RED BLOOD COUNT 3.91 10^6/uL (4.00-5.40); WHITE BLOOD COUNT 7.8 10^3/uL (4.0-10.0)
[2024-01-28 22:48] LABS: ALBUMIN 3.2 G/DL (3.2-5.2); ALKALINE PHOSPHATASE 169 U/L (46-116); ALT/SGPT < 9 U/L (7.0-40); AST/SGOT 21 U/L (<34); BILIRUBIN,DIRECT 0.2 MG/DL (<0.4); BILIRUBIN,TOTAL 0.4 MG/DL (0.3-1.2); BLOOD UREA NITROGEN 30 MG/DL (9-23); CALCIUM LEVEL 8.8 MG/DL (8.3-10.6); CARBON DIOXIDE LEVEL 26 MMOL/L (20-31); CHLORIDE LEVEL 103 MMOL/L (98-107); CK-MB VALUE MASS < 1.0 NG/ML (<3.6); CPK CREATINE PHOSPHOKINASE 29 U/L (34-145); GLOMERULAR FILTRATION RATE > 60.0 (>32); GLUCOSE, FASTING 99 MG/DL (74-106); MB/CK RELATIVE INDEX 3.44 (< OR =4); POTASSIUM SERUM 4.7 MMOL/L (3.5-5.1); SODIUM LEVEL 135 MMOL/L (136-145); TOTAL PROTEIN 7.1 G/DL (5.7-8.2)
[2024-01-29] VITALS (9 sets, daily range): BP systolic 128–198; BP diastolic 51–134; TEMP 97.2–98.6; O2SAT 96–98
[2024-01-29 00:01] LABS: CK-MB VALUE MASS < 1.0 NG/ML (<3.6)
[2024-01-29 00:03] LABS: CPK CREATINE PHOSPHOKINASE 36 U/L (34-145); MB/CK RELATIVE INDEX 2.77 (< OR =4)
[2024-01-29] MEDS ORDERED: BUSP5TA PO (00:30)
[2024-01-29] MEDS ORDERED: NITR0.4S14 PO (00:30)
[2024-01-29] MEDS ORDERED: CLOP75TA2 PO (00:30)
[2024-01-29] MEDS ORDERED: HOME MED LIST COMPLETE! XX SCH (00:30)
[2024-01-29] MEDS ORDERED: METO1TAB32 PO (00:30)
[2024-01-29] MEDS ORDERED: ASPI81TA26 PO (00:30)
[2024-01-29] MEDS ORDERED: ERGO500029 PO (00:30)
[2024-01-29] MEDS ORDERED: CARB25TA9 PO (00:30)
[2024-01-29] MEDS ORDERED: ATOR40TA75 PO (00:30)
[2024-01-29] MEDS ORDERED: ISOS1TAB36 PO (00:30)
[2024-01-29] MEDS: DOXYCYCLINE HYCLATE 100MG TABLET PO ONE (01:11)
[2024-01-29] MEDS: cefTRIAXone SOD 1 GM in D5W MINI-BAG PLUS 50 ML IV ONE (01:11)
[2024-01-29] MEDS ORDERED: MAALOX 30 ML SUSP *UDC PO PRN (01:25)
[2024-01-29] MEDS ORDERED: MOM 30ML SUSPENSION UDC PO PRN (01:25)
[2024-01-29] MEDS: LR 1,000 ML IV SCH (03:12)
[2024-01-29] MEDS: ACETAMINOPHEN 325 MG TAB PO PRN (03:49)
[2024-01-29] MEDS ORDERED: LABETALOL 100MG/20ML VIAL IV ONE (04:00)
[2024-01-29] MEDS: ISOSORBIDE MON. (IMDUR) 60MG XR TAB PO SCH ×2 (04:48→21:00)
[2024-01-29] MEDS: HEPARIN SOD (PORCINE) 5000UNITS/ML 1ML VIAL/SYRINGE SC SCH (09:14)
[2024-01-29] MEDS: DOXYCYCLINE HYCLATE 100MG TABLET PO SCH (09:15)
[2024-01-29] MEDS: DOCUSATE SODIUM 100MG CAPSULE PO SCH (09:15)
[2024-01-29] MEDS: ATORVASTATIN 20 MG TAB PO SCH (09:16)
[2024-01-29] MEDS: ASPIRIN 81MG ENTERIC TABLET PO SCH (09:16)
[2024-01-29] MEDS: METOPROLOL TART 12.5 MG PER 1/2 TAB PO SCH (10:47)
[2024-01-29 11:06] LABS: BASO # 0.1 10^3/uL (0.0-0.2); BASO % 1.1 % (0.0-1.0); EOS # 0.7 10^3/uL (0.0-0.5); EOS % 8.9 % (0.0-3.0); HEMATOCRIT 33.1 % (36.0-47.0); HEMOGLOBIN 10.5 g/dl (12.0-15.5); LYMPH # 1.6 10^3/uL (1.5-5.0); LYMPH % 21.4 % (24.0-44.0); MEAN CORPUSCULAR HEMOGLOBIN 31.3 pg (27.0-33.0); MEAN CORPUSCULAR HGB CONC 31.7 g/dl (32.0-36.5); MEAN CORPUSCULAR VOLUME 98.8 fl (80.0-96.0); MONO # 0.8 10^3/uL (0.0-0.8); MONO % 11.1 % (2.0-8.0); NEUTROPHILS # 4.2 10^3/uL (1.5-8.5); PLATELET COUNT, AUTOMATED 174 10^3/uL (150-450); RED BLOOD COUNT 3.35 10^6/uL (4.00-5.40); WHITE BLOOD COUNT 7.3 10^3/uL (4.0-10.0)
[2024-01-29 11:33] LABS: BLOOD UREA NITROGEN 27 MG/DL (9-23); CALCIUM LEVEL 8.2 MG/DL (8.3-10.6); CARBON DIOXIDE LEVEL 25 MMOL/L (20-31); CHLORIDE LEVEL 101 MMOL/L (98-107); CREATININE FOR GFR 0.86 MG/DL (0.55-1.30); GLOMERULAR FILTRATION RATE > 60.0 (>32); GLUCOSE, FASTING 159 MG/DL (74-106); POTASSIUM SERUM 4.2 MMOL/L (3.5-5.1); SODIUM LEVEL 134 MMOL/L (136-145)
[2024-01-29 11:45] LABS: PROCALCITONIN 0.11 ng/ml
[2024-01-29] MEDS ORDERED: ISOVUE-370 76% 100ML VIAL As Ordered ONE (11:56)
[2024-01-29] MEDS: busPIRone 5 MG TAB PO SCH (13:09)
[2024-01-29] MEDS: CLOPIDOGREL 75 MG TAB PO SCH (13:09)
[2024-01-29] MEDS ORDERED: **hydrALAZINE** 10 MG TAB PO PRN (14:40)
[2024-01-29] MEDS ORDERED: PILL CUTTER 1 EACH XX PRN (15:05)
[2024-01-29] MEDS: FUROSEMIDE 40MG/4ML VIAL IV ONE (16:34)
[2024-01-29] MEDS ORDERED: cefTRIAXone SOD 1 GM in D5W MINI-BAG PLUS 50 ML IV SCH (21:00)
[2024-01-29] MEDS: SINEMET 25-100 MG TAB PO SCH (21:00)
[2024-01-30 04:59] VITALS: BP 146/50; TEMP 97.7; O2SAT 96
[2024-01-30 08:47] VITALS: BP 180/88
[2024-01-30] MEDS: METOPROLOL TART 12.5 MG PER 1/2 TAB PO SCH (08:47)
[2024-01-30] MEDS ORDERED: METOPROLOL TART 25 MG TABLET PO SCH (09:00)
[2024-01-30 11:20] VITALS: BP 168/88
[2024-01-30 12:41] LABS: CREATININE FOR GFR 0.99 MG/DL (0.55-1.30); GLOMERULAR FILTRATION RATE 56.4 (>32)
[2024-01-30] MEDS ORDERED: HYDR25TA87 PO (13:06)
[2024-01-30] MEDS ORDERED: TOPR25TA PO (13:06)
[2024-01-30] MEDS ORDERED: LISI20TA33 PO (13:06)
== END 2024-01-30 14:15 | disposition home or self-care (01) | DRG 195 ==
LOC: M ED 21:18 → M ED INP 01-29 01:24 → M MS5PR 01-29 03:25
PROVIDERS: ADMIT Internal Medicine; ATTEND Internal Medicine
DX: J18.9 Pneumonia, unspecified organism (principal); F02.80 Dementia in other diseases classified elsewhere, unspecified severity, without behavioral disturbance, psychotic disturbance, mood disturbance, and anxiety; M06.9 Rheumatoid arthritis, unspecified; I10 Essential (primary) hypertension; E78.5 Hyperlipidemia, unspecified; I25.10 Atherosclerotic heart disease of native coronary artery without angina pectoris; K21.9 Gastro-esophageal reflux disease without esophagitis; I16.0 Hypertensive urgency; G20.A1 Parkinson's disease without dyskinesia, without mention of fluctuations; F39 Unspecified mood [affective] disorder; I25.2 Old myocardial infarction; Z88.8 Allergy status to other drugs, medicaments and biological substances; Z79.82 Long term (current) use of aspirin; Z79.899 Other long term (current) drug therapy; Z99.3 Dependence on wheelchair

== ENCOUNTER → 2024-03-26 | Outpatient (REF) | payer MEDICARE ==
[~2024-03-26] MED LIST changes: +ASPI81TA26 PO; +ATOR40TA75 PO; +BUSP5TA PO; +CARB25TA9 PO; +CLOP75TA2 PO; +ERGO500029 PO; +HYDR25TA87 PO; +ISOS1TAB36 PO; +LISI20TA33 PO; +METO1TAB32 PO; +NITR0.4S14 PO; +TOPR25TA PO
[2024-03-26 13:58] LABS: C REACTIVE PROTEIN QUANTITATIV < 0.50 MG/DL (<1.0)
[2024-03-26 14:00] LABS: FERRITIN 116.8 NG/ML (7.3-270.7)
[2024-03-26 14:01] LABS: RHEUMATOID FACTOR QUANT < 3.5 IU/ML (<14)
[2024-03-27 14:17] LABS: PERCENT SATURATION 21.5 % (13.2-45.0)
[2024-03-27 14:20] LABS: FOLATE 5.3 NG/ML (>5.4)
== END ==
LOC: M LAB REF 12:59
PROVIDERS: ATTEND Internal Medicine
DX: N18.32 Chronic kidney disease, stage 3b (principal); D63.1 Anemia in chronic kidney disease; M06.9 Rheumatoid arthritis, unspecified; M19.90 Unspecified osteoarthritis, unspecified site; R74.8 Abnormal levels of other serum enzymes

== ENCOUNTER → 2024-04-13 | Outpatient (REF) | payer MEDICARE ==
[2024-04-13 16:44] LABS: HEMATOCRIT 33.6 % (36.0-47.0)
[2024-04-13 17:12] LABS: FERRITIN 102.2 NG/ML (7.3-270.7)
== END ==
LOC: M LAB REF 16:07
PROVIDERS: ATTEND Internal Medicine
DX: R74.8 Abnormal levels of other serum enzymes (principal); D63.1 Anemia in chronic kidney disease; F03.90 Unspecified dementia, unspecified severity, without behavioral disturbance, psychotic disturbance, mood disturbance, and anxiety; N18.9 Chronic kidney disease, unspecified

== ENCOUNTER 2024-04-25 12:52 | Inpatient (IN) | payer MEDICARE ==
[~2024-04-25] VITALS: Ht 149.9 cm; Wt 54.0 kg
[2024-04-25 15:06] LABS: BASO # 0.1 10^3/uL (0.0-0.2); BASO % 0.6 % (0.0-1.0); EOS # 0.1 10^3/uL (0.0-0.5); HEMATOCRIT 35.6 % (36.0-47.0); HEMOGLOBIN 11.6 g/dl (12.0-15.5); LYMPH # 0.7 10^3/uL (1.5-5.0); LYMPH % 6.7 % (24.0-44.0); MEAN CORPUSCULAR HEMOGLOBIN 31.9 pg (27.0-33.0); MEAN CORPUSCULAR HGB CONC 32.6 g/dl (32.0-36.5); MEAN CORPUSCULAR VOLUME 97.8 fl (80.0-96.0); MONO % 8.9 % (2.0-8.0); NEUTROPHILS # 8.9 10^3/uL (1.5-8.5); NEUTROPHILS % 82.2 % (36.0-66.0); PLATELET COUNT, AUTOMATED 225 10^3/uL (150-450); RED BLOOD COUNT 3.64 10^6/uL (4.00-5.40); WHITE BLOOD COUNT 10.9 10^3/uL (4.0-10.0)
[2024-04-25 15:36] LABS: BLOOD UREA NITROGEN 32 MG/DL (9-23); CALCIUM LEVEL 9.2 MG/DL (8.3-10.6); CARBON DIOXIDE LEVEL 24 MMOL/L (20-31); CHLORIDE LEVEL 104 MMOL/L (98-107); CREATININE FOR GFR 0.75 MG/DL (0.55-1.30); GLOMERULAR FILTRATION RATE > 60.0 (>32); GLUCOSE, FASTING 139 MG/DL (74-106); POTASSIUM SERUM 4.6 MMOL/L (3.5-5.1); SODIUM LEVEL 139 MMOL/L (136-145)
[2024-04-25] MEDS: FUROSEMIDE 40MG/4ML VIAL IV ONE (17:04)
[2024-04-25] MEDS ORDERED: LISI30TA4 PO (17:52)
[2024-04-25] MEDS ORDERED: FOLI1TAB11 PO (17:52)
[2024-04-25] MEDS ORDERED: VITA500045 PO (17:52)
[2024-04-25] MEDS ORDERED: HYDR25TA87 PO (17:54)
[2024-04-25] MEDS ORDERED: MIRA3350 PO (17:54)
[2024-04-25] MEDS ORDERED: NITROGLYCERIN 0.4MG SUBL TABLET SL PRN (17:55)
[2024-04-25] MEDS ORDERED: MOM 30ML SUSPENSION UDC PO PRN (17:55)
[2024-04-25] MEDS ORDERED: HOME MED LIST COMPLETE! XX SCH (17:55)
[2024-04-25] MEDS ORDERED: LABETALOL 100MG/20ML VIAL IV PRN (18:05)
[2024-04-25] MEDS ORDERED: PILL CUTTER 1 EACH XX PRN (18:10)
[2024-04-25] MEDS: LABETALOL 100MG/20ML VIAL IV STA (18:13)
[2024-04-25] MEDS: NITROGLYCERIN 0.2 MG/HR PATCH TD SCH (18:31)
[2024-04-25 18:32] LABS: KETONE, URINE AUTO RFX NEGATIVE (NEGATIVE); LEUKOCYTE ESTERASE UR AUTO RFX NEGATIVE (NEGATIVE); NITRITE, URINE AUTO RFX NEGATIVE (NEGATIVE); RBC, URINE AUTO RFX 3 /HPF (0-3); SQUAM EPITHELIAL CELL UR AURFX 1 /HPF (0-6); WBC, URINE AUTO RFX 0 /HPF (0-3)
[2024-04-25] MEDS: UNRESOLVED CLARIFICATION ENTRY XX SCH (18:32)
[2024-04-25 18:57] LABS: PROCALCITONIN 0.36 ng/ml
[2024-04-25] MEDS: busPIRone 5 MG TAB PO SCH (21:07)
[2024-04-25] MEDS: DOCUSATE SODIUM 100MG CAPSULE PO SCH (21:08)
[2024-04-25] MEDS: ATORVASTATIN 20 MG TAB PO SCH (21:08)
[2024-04-25] MEDS: HEPARIN SOD (PORCINE) 5000UNITS/ML 1ML VIAL/SYRINGE SQ SCH (21:10)
[2024-04-25] MEDS: CAPTOpril 6.25 MG PER 1/2 TABLET PO SCH (22:00)
[2024-04-25] MEDS: SINEMET 25-100 MG TAB PO SCH (22:17)
[2024-04-26] MEDS ORDERED: METOPROLOL SUCC *XL* 25MG TAB (TopROL *XL*) PO SCH (09:00)
[2024-04-26] MEDS ORDERED: ENOXAPARIN 40MG/0.4ML SYRINGE (J1650 PER 10MG) SC SCH (09:00)
[2024-04-26] MEDS: ASPIRIN 81MG ENTERIC TABLET PO SCH (09:39)
[2024-04-26] MEDS: CLOPIDOGREL 75 MG TAB PO SCH (09:39)
[2024-04-26] MEDS: FOLIC ACID 1MG TAB PO SCH (09:39)
[2024-04-26] MEDS: METOPROLOL SUCC *XL* 12.5MG PER 1/2 TAB (TopROL *XL*) PO SCH (09:40)
[2024-04-26] MEDS: MIRALAX *UNIT DOSE* 17GM PACKET PO SCH (09:41)
[2024-04-26] MEDS: SINEMET 12.5MG/50MG PER 1/2 TABLET PO SCH (10:08)
[2024-04-26] MEDS: QUEtiapine FUMARATE 50MG TAB PO ONE (10:08)
[2024-04-26 10:42] LABS: HEMATOCRIT 33.7 % (36.0-47.0); MEAN CORPUSCULAR HEMOGLOBIN 31.8 pg (27.0-33.0); MEAN CORPUSCULAR HGB CONC 32.6 g/dl (32.0-36.5); MEAN CORPUSCULAR VOLUME 97.4 fl (80.0-96.0); PLATELET COUNT, AUTOMATED 206 10^3/uL (150-450); RED BLOOD COUNT 3.46 10^6/uL (4.00-5.40); WHITE BLOOD COUNT 8.6 10^3/uL (4.0-10.0)
[2024-04-26 11:18] LABS: BLOOD UREA NITROGEN 34 MG/DL (9-23); CALCIUM LEVEL 8.8 MG/DL (8.3-10.6); CARBON DIOXIDE LEVEL 25 MMOL/L (20-31); CHLORIDE LEVEL 103 MMOL/L (98-107); CREATININE FOR GFR 0.92 MG/DL (0.55-1.30); GLOMERULAR FILTRATION RATE > 60.0 (>32); GLUCOSE, FASTING 97 MG/DL (74-106); MAGNESIUM LEVEL 1.8 MG/DL (1.8-2.4); POTASSIUM SERUM 4.6 MMOL/L (3.5-5.1); SODIUM LEVEL 139 MMOL/L (136-145)
[2024-04-26 14:16] VITALS: BP 158/65; TEMP 98.2; O2SAT 97
[2024-04-26] MEDS: CAPTOpril 12.5 MG TAB PO SCH (14:39)
[2024-04-26] MEDS: ACETAMINOPHEN 325 MG TAB PO PRN (14:40)
[2024-04-26 16:12] VITALS: BP 158/65; TEMP 98.2; O2SAT 97
[2024-04-26 20:00] VITALS: BP 153/68; TEMP 97.9; O2SAT 98
[2024-04-26] MEDS: ISOSORBIDE MON. (IMDUR) 60MG XR TAB PO SCH (21:00)
[2024-04-26] MEDS: RAMELTEON 8 MG TAB (ROZEREM) PO SCH (21:00)
[2024-04-27] VITALS (8 sets, daily range): BP systolic 93–183; BP diastolic 41–76; TEMP 97.2–98; O2SAT 93–98
[2024-04-27 06:35] LABS: HEMATOCRIT 32.4 % (36.0-47.0); HEMOGLOBIN 10.5 g/dl (12.0-15.5); MEAN CORPUSCULAR HEMOGLOBIN 31.3 pg (27.0-33.0); MEAN CORPUSCULAR HGB CONC 32.4 g/dl (32.0-36.5); MEAN CORPUSCULAR VOLUME 96.7 fl (80.0-96.0); PLATELET COUNT, AUTOMATED 204 10^3/uL (150-450); RED BLOOD COUNT 3.35 10^6/uL (4.00-5.40); WHITE BLOOD COUNT 8.5 10^3/uL (4.0-10.0)
[2024-04-27 07:26] LABS: ERYTHROCYTE SEDIMENTATION RATE 97 mm/hr (0-30)
[2024-04-27 07:43] LABS: CALCIUM LEVEL 8.6 MG/DL (8.3-10.6); CREATININE FOR GFR 1.1 MG/DL (0.55-1.30); GLOMERULAR FILTRATION RATE 49.8 (>32); MAGNESIUM LEVEL 1.8 MG/DL (1.8-2.4); POTASSIUM SERUM 4.3 MMOL/L (3.5-5.1)
[2024-04-27 07:58] LABS: C REACTIVE PROTEIN QUANTITATIV 17.17 MG/DL (<1.0)
[2024-04-27] MEDS: QUEtiapine FUMARATE 25 MG TAB PO SCH (08:53)
[2024-04-27] MEDS: lisinopriL 40MG TAB PO SCH (09:00)
[2024-04-27] MEDS: ACETAMINOPHEN 500 MG TAB PO PRN (20:38)
[2024-04-27] MEDS: QUEtiapine FUMARATE 12.5 MG HALF-TAB PO SCH (20:39)
[2024-04-27] MEDS ORDERED: QUEtiapine FUMARATE 12.5 MG HALF-TAB PO SCH (21:00)
[2024-04-28] VITALS (10 sets, daily range): BP systolic 80–128; BP diastolic 36–73; TEMP 97.2–98.6; O2SAT 91–96
[2024-04-28 05:53] LABS: HEMATOCRIT 29.3 % (36.0-47.0); HEMOGLOBIN 9.5 g/dl (12.0-15.5); MEAN CORPUSCULAR HEMOGLOBIN 31.8 pg (27.0-33.0); MEAN CORPUSCULAR HGB CONC 32.4 g/dl (32.0-36.5); PLATELET COUNT, AUTOMATED 226 10^3/uL (150-450); RED BLOOD COUNT 2.99 10^6/uL (4.00-5.40)
[2024-04-28 06:17] LABS: CALCIUM LEVEL 8.6 MG/DL (8.3-10.6); CREATININE FOR GFR 1.76 MG/DL (0.55-1.30); GLOMERULAR FILTRATION RATE 28.9 (>32); POTASSIUM SERUM 4.4 MMOL/L (3.5-5.1)
[2024-04-28] MEDS: LR 1,000 ML IV ONE ×2 (07:36→17:36)
[2024-04-28] MEDS: LR 1,000 ML IV SCH (08:58)
[2024-04-28 13:30] LABS: HEMOGLOBIN 11.1 g/dl (12.0-15.5); MEAN CORPUSCULAR HEMOGLOBIN 31.7 pg (27.0-33.0); MEAN CORPUSCULAR HGB CONC 31.7 g/dl (32.0-36.5); PLATELET COUNT, AUTOMATED 225 10^3/uL (150-450)
[2024-04-28] MEDS ORDERED: HEPARIN SOD (PORCINE) 5000UNITS/ML 1ML VIAL/SYRINGE SQ SCH (14:00)
[2024-04-28 14:01] LABS: CALCIUM LEVEL 8.8 MG/DL (8.3-10.6); CREATININE FOR GFR 1.32 MG/DL (0.55-1.30); GLOMERULAR FILTRATION RATE 40.3 (>32); POTASSIUM SERUM 4.8 MMOL/L (3.5-5.1)
[2024-04-28 14:09] LABS: PROCALCITONIN 1.41 ng/ml
[2024-04-28] MEDS: oxyCODONE 5MG TAB PO ONE (14:21)
[2024-04-28] MEDS ORDERED: ISOVUE-370 76% 100ML VIAL As Ordered ONE (14:33)
[2024-04-28] MEDS: QUEtiapine FUMARATE 25 MG TAB PO ONE (17:24)
[2024-04-28] MEDS: cefTRIAXone SOD 2 GM in DEXTROSE 5% (D5W) ADV/MINI-BAG 50 ML IV SCH (18:20)
[2024-04-28] MEDS: LR 300 ML IV ONE (21:07)
[2024-04-28 21:28] LABS: MEAN CORPUSCULAR HEMOGLOBIN 31.4 pg (27.0-33.0); MEAN CORPUSCULAR HGB CONC 32.5 g/dl (32.0-36.5); MEAN CORPUSCULAR VOLUME 96.6 fl (80.0-96.0); PLATELET COUNT, AUTOMATED 228 10^3/uL (150-450); WHITE BLOOD COUNT 10.4 10^3/uL (4.0-10.0)
[2024-04-28 21:51] LABS: HEMOGLOBIN 9.1 g/dl (12.0-15.5)
[2024-04-28 22:05] LABS: CREATININE FOR GFR 1.23 MG/DL (0.55-1.30); GLOMERULAR FILTRATION RATE 43.8 (>32); POTASSIUM SERUM 4.3 MMOL/L (3.5-5.1)
[2024-04-29 01:50] LABS: KETONE, URINE AUTO RFX NEGATIVE (NEGATIVE); LEUKOCYTE ESTERASE UR AUTO RFX NEGATIVE (NEGATIVE); MUCUS, URINE RFX SMALL (NEGATIVE); NITRITE, URINE AUTO RFX NEGATIVE (NEGATIVE); RBC, URINE AUTO RFX 1 /HPF (0-3); SQUAM EPITHELIAL CELL UR AURFX 2 /HPF (0-6); WBC, URINE AUTO RFX 3 /HPF (0-3)
[2024-04-29 06:21] VITALS: BP 143/86; TEMP 98.2; O2SAT 99
[2024-04-29 06:21] LABS: HEMATOCRIT 31.7 % (36.0-47.0); HEMOGLOBIN 10.2 g/dl (12.0-15.5); MEAN CORPUSCULAR HEMOGLOBIN 31.2 pg (27.0-33.0); MEAN CORPUSCULAR HGB CONC 32.2 g/dl (32.0-36.5); MEAN CORPUSCULAR VOLUME 96.9 fl (80.0-96.0); PLATELET COUNT, AUTOMATED 254 10^3/uL (150-450); RED BLOOD COUNT 3.27 10^6/uL (4.00-5.40); WHITE BLOOD COUNT 12.8 10^3/uL (4.0-10.0)
[2024-04-29 06:51] LABS: CALCIUM LEVEL 8.7 MG/DL (8.3-10.6); CREATININE FOR GFR 1.14 MG/DL (0.55-1.30); GLOMERULAR FILTRATION RATE 47.8 (>32); MAGNESIUM LEVEL 1.8 MG/DL (1.8-2.4); POTASSIUM SERUM 5.2 MMOL/L (3.5-5.1)
[2024-04-29] MEDS ORDERED: DOXYCYCLINE HYCLATE 100 MG in DEXTROSE 5% (D5W) MINI-BAG PLU 100 ML IV SCH (07:40)
[2024-04-29 07:57] VITALS: BP 157/67; TEMP 98.2; O2SAT 98
[2024-04-29] MEDS: DOXYCYCLINE HYCLATE 100MG TABLET PO SCH (09:46)
[2024-04-29] MEDS: QUEtiapine FUMARATE 25 MG TAB PO ONE (11:36)
[2024-04-29] MEDS ORDERED: PROHANCE 279.3MG/ML 15ML VIAL As Ordered ONE (12:12)
[2024-04-29] MEDS: PATIROMER SORBITEX CALCIUM 8.4 GM POWDER PACKET (VELTASSA) PO ONE (13:41)
[2024-04-29] MEDS ORDERED: VANCOMYCIN HCL 750 MG in IV FLUID PLACE HOLDER 1 EA IV SCH (15:00)
[2024-04-29] MEDS ORDERED: VANCOMYCIN INTERMITTENT/PULSE DOSING BY CLINICAL PHARMACIST PER DOSING PROTOCOL XX SCH (15:30)
[2024-04-29 16:03] VITALS: BP 102/58; TEMP 98.4; O2SAT 92
[2024-04-29] MEDS: dexAMETHasone 20MG/5ML VIAL IV SCH (16:33)
[2024-04-29] MEDS: LACTOBACILLUS ACIDOPHILUS CAP (BACID) PO SCH (16:34)
[2024-04-29] MEDS: cefTRIAXone SOD 2 GM in DEXTROSE 5% (D5W) ADV/MINI-BAG 50 ML IV SCH (16:34)
[2024-04-29] MEDS: AMPICILLIN SOD 2 GM in DEXTROSE 5% (D5W) MINI-BAG PLU 100 ML IV SCH (17:45)
[2024-04-29] MEDS ORDERED: VANCOMYCIN 1,250 MG/250 ML IV BAG *LOAD IV ONE (18:00)
[2024-04-29] MEDS: VANCOMYCIN HCL 1,250 MG, VIAL MATE ADAPTER 1 EACH in NS 250 ML IV ONE (19:01)
[2024-04-29] MEDS ORDERED: FLUID PLACE HOLDER IV SCH (19:05)
[2024-04-29] MEDS ORDERED: ACYCLOVIR IV SCH (19:05)
[2024-04-29 20:00] VITALS: BP 140/70; TEMP 97.9; O2SAT 92
[2024-04-30] VITALS (8 sets, daily range): BP systolic 162–189; BP diastolic 80–101; TEMP 97.5–98.6; O2SAT 18–96
[2024-04-30] MEDS: cloNIDine HCL 0.1 MG/24 HR PATCH TOP ONE (05:22)
[2024-04-30 07:11] LABS: HEMATOCRIT 31.7 % (36.0-47.0); HEMOGLOBIN 10.3 g/dl (12.0-15.5); MEAN CORPUSCULAR HEMOGLOBIN 31.4 pg (27.0-33.0); MEAN CORPUSCULAR HGB CONC 32.5 g/dl (32.0-36.5); MEAN CORPUSCULAR VOLUME 96.6 fl (80.0-96.0); PLATELET COUNT, AUTOMATED 295 10^3/uL (150-450); RED BLOOD COUNT 3.28 10^6/uL (4.00-5.40); WHITE BLOOD COUNT 9.5 10^3/uL (4.0-10.0)
[2024-04-30 07:49] LABS: CALCIUM LEVEL 8.7 MG/DL (8.3-10.6); CREATININE FOR GFR 1.08 MG/DL (0.55-1.30); GLOMERULAR FILTRATION RATE 50.9 (>32); MAGNESIUM LEVEL 1.9 MG/DL (1.8-2.4)
[2024-04-30] MEDS: VANCOMYCIN HCL 500 MG in DEXTROSE 5% (D5W) MINI-BAG PLU 100 ML IV SCH (12:40)
[2024-04-30] MEDS: lisinopriL 40MG TAB PO ONE (12:54)
[2024-04-30] MEDS: QUEtiapine FUMARATE 12.5 MG HALF-TAB PO SCH (20:06)
[2024-05-01 04:59] VITALS: BP 190/80; TEMP 98.2
[2024-05-01] MEDS: amLODIPine 5 MG TAB PO ONE (06:07)
[2024-05-01] MEDS: cloNIDine HCL 0.1 MG/24 HR PATCH TOP ONE (06:53)
[2024-05-01 08:23] LABS: HEMATOCRIT 31.4 % (36.0-47.0); HEMOGLOBIN 10.1 g/dl (12.0-15.5); MEAN CORPUSCULAR HEMOGLOBIN 31.1 pg (27.0-33.0); MEAN CORPUSCULAR HGB CONC 32.2 g/dl (32.0-36.5); MEAN CORPUSCULAR VOLUME 96.6 fl (80.0-96.0); PLATELET COUNT, AUTOMATED 352 10^3/uL (150-450); RED BLOOD COUNT 3.25 10^6/uL (4.00-5.40)
[2024-05-01 08:46] LABS: C REACTIVE PROTEIN QUANTITATIV 14.48 MG/DL (<1.0); CALCIUM LEVEL 8.7 MG/DL (8.3-10.6); CREATININE FOR GFR 1.11 MG/DL (0.55-1.30); GLOMERULAR FILTRATION RATE 49.3 (>32); POTASSIUM SERUM 5.3 MMOL/L (3.5-5.1)
[2024-05-01 12:00] VITALS: BP 165/74; TEMP 98.6; O2SAT 96
[2024-05-01] MEDS: LR 1,000 ML IV SCH (13:40)
[2024-05-01] MEDS: PATIROMER SORBITEX CALCIUM 8.4 GM POWDER PACKET (VELTASSA) PO ONE (15:40)
[2024-05-01 16:00] VITALS: BP 149/69; TEMP 98.6; O2SAT 96
[2024-05-01] MEDS: VANCOMYCIN HCL 500 MG in DEXTROSE 5% (D5W) MINI-BAG PLU 100 ML IV SCH (16:24)
[2024-05-01 20:00] VITALS: BP 142/66; TEMP 98.1; O2SAT 93
[2024-05-02 04:00] VITALS: BP 138/76; TEMP 97.9; O2SAT 95
[2024-05-02 05:54] LABS: BASO % 0.3 % (0.0-1.0); EOS # 0.1 10^3/uL (0.0-0.5); EOS % 0.9 % (0.0-3.0); HEMATOCRIT 30.4 % (36.0-47.0); HEMOGLOBIN 9.6 g/dl (12.0-15.5); LYMPH # 2.7 10^3/uL (1.5-5.0); LYMPH % 20.8 % (24.0-44.0); MEAN CORPUSCULAR HEMOGLOBIN 30.2 pg (27.0-33.0); MEAN CORPUSCULAR HGB CONC 31.6 g/dl (32.0-36.5); MEAN CORPUSCULAR VOLUME 95.6 fl (80.0-96.0); MONO # 1.4 10^3/uL (0.0-0.8); MONO % 10.9 % (2.0-8.0); NEUTROPHILS # 8.5 10^3/uL (1.5-8.5); NEUTROPHILS % 66.2 % (36.0-66.0); PLATELET COUNT, AUTOMATED 336 10^3/uL (150-450); RED BLOOD COUNT 3.18 10^6/uL (4.00-5.40); WHITE BLOOD COUNT 12.8 10^3/uL (4.0-10.0)
[2024-05-02 05:59] LABS: ERYTHROCYTE SEDIMENTATION RATE 66 mm/hr (0-30)
[2024-05-02 06:17] LABS: ALBUMIN 2.4 G/DL (3.2-5.2); ALKALINE PHOSPHATASE 127 U/L (35-104); ALT/SGPT 24 U/L (7.0-40); AST/SGOT 26 U/L (<34); BILIRUBIN,DIRECT < 0.1 MG/DL (<0.4); BILIRUBIN,TOTAL < 0.2 MG/DL (0.3-1.2); BLOOD UREA NITROGEN 43 MG/DL (9-23); C REACTIVE PROTEIN QUANTITATIV 7.55 MG/DL (<1.0); CALCIUM LEVEL 8.7 MG/DL (8.3-10.6); CARBON DIOXIDE LEVEL 25 MMOL/L (20-31); CHLORIDE LEVEL 105 MMOL/L (98-107); GLOMERULAR FILTRATION RATE 55.6 (>32); GLUCOSE, FASTING 97 MG/DL (74-106); POTASSIUM SERUM 4.5 MMOL/L (3.5-5.1); SODIUM LEVEL 140 MMOL/L (136-145); TOTAL PROTEIN 6.4 G/DL (5.7-8.2)
[2024-05-02] MEDS ORDERED: SINEMET 12.5MG/50MG PER 1/2 TABLET PO SCH (09:00)
[2024-05-02] MEDS: SINEMET 25-100 MG TAB PO SCH (09:00)
[2024-05-02 12:00] VITALS: BP 130/50; TEMP 98.1; O2SAT 97
[2024-05-02] MEDS: HEPARIN SOD (PORCINE) 5000UNITS/ML 1ML VIAL/SYRINGE SQ SCH (14:42)
[2024-05-02 16:00] VITALS: BP 140/62; TEMP 98.6; O2SAT 97
[2024-05-02 19:35] VITALS: BP 152/84; TEMP 98.1; O2SAT 94
[2024-05-02 23:46] VITALS: BP 146/84; TEMP 97.7; O2SAT 97
[2024-05-03 04:40] VITALS: BP 154/86; TEMP 97.9; O2SAT 95
[2024-05-03 10:00] VITALS: BP 130/62; TEMP 98.2; O2SAT 97
[2024-05-03] MEDS: EMLA CREAM 5GM TUBE (LIDOCAINE/PRILOCAINE) TOP SCH (13:04)
[2024-05-03 15:18] LABS: BASO # 0.1 10^3/uL (0.0-0.2); BASO % 0.7 % (0.0-1.0); EOS # 1.3 10^3/uL (0.0-0.5); HEMATOCRIT 27.2 % (36.0-47.0); HEMOGLOBIN 8.7 g/dl (12.0-15.5); LYMPH # 2.1 10^3/uL (1.5-5.0); LYMPH % 19.8 % (24.0-44.0); MEAN CORPUSCULAR HEMOGLOBIN 30.7 pg (27.0-33.0); MEAN CORPUSCULAR VOLUME 96.1 fl (80.0-96.0); MONO # 1.7 10^3/uL (0.0-0.8); MONO % 15.7 % (2.0-8.0); NEUTROPHILS # 5.4 10^3/uL (1.5-8.5); PLATELET COUNT, AUTOMATED 313 10^3/uL (150-450); RED BLOOD COUNT 2.83 10^6/uL (4.00-5.40); WHITE BLOOD COUNT 10.6 10^3/uL (4.0-10.0)
[2024-05-03 15:25] VITALS: BP 130/60; TEMP 98.1; O2SAT 97
[2024-05-03 15:42] LABS: BLOOD UREA NITROGEN 30 MG/DL (9-23); CALCIUM LEVEL 8.3 MG/DL (8.3-10.6); CARBON DIOXIDE LEVEL 28 MMOL/L (20-31); CHLORIDE LEVEL 106 MMOL/L (98-107); CREATININE FOR GFR 0.88 MG/DL (0.55-1.30); GLOMERULAR FILTRATION RATE > 60.0 (>32); GLUCOSE, FASTING 127 MG/DL (74-106); POTASSIUM SERUM 4.1 MMOL/L (3.5-5.1); SODIUM LEVEL 141 MMOL/L (136-145)
[2024-05-03 20:00] VITALS: BP 119/66; TEMP 97.9; O2SAT 95
[2024-05-04] VITALS (8 sets, daily range): BP systolic 121–180; BP diastolic 58–78; TEMP 97.9–99; O2SAT 90–98
[2024-05-04 05:48] LABS: BASO # 0.1 10^3/uL (0.0-0.2); BASO % 0.5 % (0.0-1.0); EOS # 1.7 10^3/uL (0.0-0.5); EOS % 15.1 % (0.0-3.0); HEMATOCRIT 29.9 % (36.0-47.0); HEMOGLOBIN 9.5 g/dl (12.0-15.5); LYMPH # 2.3 10^3/uL (1.5-5.0); LYMPH % 20.1 % (24.0-44.0); MEAN CORPUSCULAR HEMOGLOBIN 31.4 pg (27.0-33.0); MEAN CORPUSCULAR HGB CONC 31.8 g/dl (32.0-36.5); MEAN CORPUSCULAR VOLUME 98.7 fl (80.0-96.0); MONO # 1.6 10^3/uL (0.0-0.8); MONO % 13.9 % (2.0-8.0); NEUTROPHILS # 5.6 10^3/uL (1.5-8.5); NEUTROPHILS % 49.3 % (36.0-66.0); PLATELET COUNT, AUTOMATED 320 10^3/uL (150-450); RED BLOOD COUNT 3.03 10^6/uL (4.00-5.40); WHITE BLOOD COUNT 11.4 10^3/uL (4.0-10.0)
[2024-05-04 05:55] LABS: ERYTHROCYTE SEDIMENTATION RATE 71 mm/hr (0-30)
[2024-05-04 06:07] LABS: C REACTIVE PROTEIN QUANTITATIV 8.6 MG/DL (<1.0)
[2024-05-04 06:08] LABS: CALCIUM LEVEL 8.2 MG/DL (8.3-10.6); CREATININE FOR GFR 0.96 MG/DL (0.55-1.30); GLOMERULAR FILTRATION RATE 58.3 (>32); POTASSIUM SERUM 4.5 MMOL/L (3.5-5.1)
[2024-05-04 06:14] LABS: PROCALCITONIN 0.2 ng/ml
[2024-05-04] MEDS: LORazepam 0.5 MG TAB PO ONE (09:58)
[2024-05-04] MEDS: LORazepam 2 MG/ML 1ML VIAL IV ONE ×2 (10:15→13:05)
[2024-05-05 04:34] VITALS: BP 174/75; TEMP 98.4; O2SAT 92
[2024-05-05 06:10] LABS: BASO # 0.1 10^3/uL (0.0-0.2); BASO % 0.5 % (0.0-1.0); EOS # 1.8 10^3/uL (0.0-0.5); HEMATOCRIT 28.7 % (36.0-47.0); LYMPH # 1.8 10^3/uL (1.5-5.0); LYMPH % 19.4 % (24.0-44.0); MEAN CORPUSCULAR HEMOGLOBIN 30.6 pg (27.0-33.0); MEAN CORPUSCULAR HGB CONC 31.4 g/dl (32.0-36.5); MEAN CORPUSCULAR VOLUME 97.6 fl (80.0-96.0); MONO # 1.3 10^3/uL (0.0-0.8); MONO % 14.1 % (2.0-8.0); NEUTROPHILS # 4.3 10^3/uL (1.5-8.5); NEUTROPHILS % 46.2 % (36.0-66.0); PLATELET COUNT, AUTOMATED 294 10^3/uL (150-450); RED BLOOD COUNT 2.94 10^6/uL (4.00-5.40); WHITE BLOOD COUNT 9.3 10^3/uL (4.0-10.0)
[2024-05-05 06:34] LABS: BLOOD UREA NITROGEN 18 MG/DL (9-23); CALCIUM LEVEL 7.7 MG/DL (8.3-10.6); CARBON DIOXIDE LEVEL 28 MMOL/L (20-31); CHLORIDE LEVEL 105 MMOL/L (98-107); CREATININE FOR GFR 0.83 MG/DL (0.55-1.30); GLOMERULAR FILTRATION RATE > 60.0 (>32); GLUCOSE, FASTING 79 MG/DL (74-106); POTASSIUM SERUM 4.2 MMOL/L (3.5-5.1); SODIUM LEVEL 141 MMOL/L (136-145)
[2024-05-05 08:11] VITALS: BP 140/72; TEMP 98.6; O2SAT 93
[2024-05-05] MEDS: LORazepam 2 MG/ML 1ML VIAL IM ONE (08:19)
[2024-05-05 12:15] VITALS: BP 128/52; TEMP 98.1
[2024-05-05 16:30] VITALS: BP 130/68; TEMP 98.6; O2SAT 90
[2024-05-05 21:09] VITALS: BP 152/82; TEMP 99; O2SAT 94
[2024-05-06 00:01] VITALS: BP 132/70; TEMP 98.5; O2SAT 92
[2024-05-06 04:01] VITALS: BP 138/80; TEMP 98.1; O2SAT 94
[2024-05-06 06:27] LABS: BASO # 0.1 10^3/uL (0.0-0.2); BASO % 0.6 % (0.0-1.0); EOS # 1.4 10^3/uL (0.0-0.5); EOS % 12.8 % (0.0-3.0); HEMATOCRIT 27.9 % (36.0-47.0); HEMOGLOBIN 9.1 g/dl (12.0-15.5); LYMPH # 1.6 10^3/uL (1.5-5.0); LYMPH % 15.2 % (24.0-44.0); MEAN CORPUSCULAR HEMOGLOBIN 31.3 pg (27.0-33.0); MEAN CORPUSCULAR HGB CONC 32.6 g/dl (32.0-36.5); MEAN CORPUSCULAR VOLUME 95.9 fl (80.0-96.0); MONO # 1.5 10^3/uL (0.0-0.8); MONO % 14.1 % (2.0-8.0); NEUTROPHILS # 6.1 10^3/uL (1.5-8.5); NEUTROPHILS % 56.4 % (36.0-66.0); PLATELET COUNT, AUTOMATED 292 10^3/uL (150-450); RED BLOOD COUNT 2.91 10^6/uL (4.00-5.40); WHITE BLOOD COUNT 10.8 10^3/uL (4.0-10.0)
[2024-05-06 06:46] LABS: ERYTHROCYTE SEDIMENTATION RATE 69 mm/hr (0-30)
[2024-05-06 06:54] LABS: BLOOD UREA NITROGEN 19 MG/DL (9-23); C REACTIVE PROTEIN QUANTITATIV 7.19 MG/DL (<1.0); CALCIUM LEVEL 7.9 MG/DL (8.3-10.6); CARBON DIOXIDE LEVEL 30 MMOL/L (20-31); CHLORIDE LEVEL 102 MMOL/L (98-107); CREATININE FOR GFR 0.93 MG/DL (0.55-1.30); GLOMERULAR FILTRATION RATE > 60.0 (>32); GLUCOSE, FASTING 97 MG/DL (74-106); POTASSIUM SERUM 4.3 MMOL/L (3.5-5.1); SODIUM LEVEL 139 MMOL/L (136-145)
[2024-05-06 06:59] LABS: PROCALCITONIN 0.29 ng/ml
[2024-05-06 07:55] VITALS: BP 188/92; TEMP 97.5; O2SAT 90
[2024-05-06 11:55] VITALS: BP 148/56; TEMP 97.9; O2SAT 88
[2024-05-06 21:01] VITALS: BP 157/76; TEMP 98.8; O2SAT 92
[2024-05-07 03:51] VITALS: BP 146/68; TEMP 98.1; O2SAT 95
[2024-05-07 08:00] VITALS: BP 174/89; TEMP 98.1; O2SAT 96
[2024-05-07 09:12] VITALS: BP 174/89
[2024-05-07] MEDS: **hydrALAZINE** 10 MG TAB PO SCH (09:12)
[2024-05-07] MEDS ORDERED: CARB25TA9 PO (11:12)
[2024-05-07] MEDS ORDERED: AMLO1TAB25 PO (11:12)
[2024-05-07] MEDS ORDERED: QUET1TAB17 PO (11:13)
[2024-05-07 12:00] VITALS: BP 162/70; TEMP 98.1; O2SAT 95
== END 2024-05-07 16:05 | disposition home health service (06) | DRG 70 ==
LOC: EDBD 12:52 → M ED 12:52 → M ED INP 17:53 → M ICU 04-26 16:00 → M MSPAV 04-27 17:15
PROVIDERS: ADMIT Student in an Organized Health Care Education/Training Program; ATTEND Student in an Organized Health Care Education/Training Program
PROC: 009U3ZX Drainage of Spinal Canal, Percutaneous Approach, Diagnostic (ICD-10-PCS; principal; 2024-05-05 15:00)
DX: G93.41 Metabolic encephalopathy (principal); J81.0 Acute pulmonary edema; I16.1 Hypertensive emergency; R44.3 Hallucinations, unspecified; N17.9 Acute kidney failure, unspecified; E78.5 Hyperlipidemia, unspecified; G20.A1 Parkinson's disease without dyskinesia, without mention of fluctuations; M06.9 Rheumatoid arthritis, unspecified; I11.9 Hypertensive heart disease without heart failure; M54.9 Dorsalgia, unspecified; F02.80 Dementia in other diseases classified elsewhere, unspecified severity, without behavioral disturbance, psychotic disturbance, mood disturbance, and anxiety; I25.10 Atherosclerotic heart disease of native coronary artery without angina pectoris; K21.9 Gastro-esophageal reflux disease without esophagitis; E87.5 Hyperkalemia; F41.9 Anxiety disorder, unspecified; Z79.899 Other long term (current) drug therapy; I25.2 Old myocardial infarction; Z66 Do not resuscitate; Z79.82 Long term (current) use of aspirin; Z88.8 Allergy status to other drugs, medicaments and biological substances; K59.00 Constipation, unspecified

== ENCOUNTER 2024-05-10 07:45 | Observation (INO) | payer MEDICARE ==
[~2024-05-10] VITALS: Ht 149.9 cm; Wt 54.0 kg
[~2024-05-10 07:45] MED LIST changes: +AMLO1TAB25 PO; +FOLI1TAB11 PO; +LISI30TA4 PO; +MIRA3350 PO; +QUET1TAB17 PO; +VITA500045 PO
[2024-05-10 08:36] LABS: VENOUS BASE EXCESS -0.2 (-2.0-2.0); VENOUS HCO3 25.5 MMOL/L (23.0-27.0); VENOUS O2 SATURATION 96.5 % (60.0-80.0); VENOUS PARTIAL PRESSURE CO2 46.5 mmHg (38.0-50.0); VENOUS PARTIAL PRESSURE O2 92.4 mmHg (30.0-50.0); VENOUS PH 7.357 UNITS (7.330-7.430); VENOUS STANDARD HCO3 24.3 MMOL/L; VENOUS TOTAL CO2 26.9 MMOL/L (24.0-28.0)
[2024-05-10 08:45] LABS: BASO # 0.1 10^3/uL (0.0-0.2); BASO % 1.8 % (0.0-1.0); EOS # 0.9 10^3/uL (0.0-0.5); EOS % 11.4 % (0.0-3.0); HEMATOCRIT 29.6 % (36.0-47.0); HEMOGLOBIN 9.3 g/dl (12.0-15.5); LYMPH # 1.3 10^3/uL (1.5-5.0); LYMPH % 17.1 % (24.0-44.0); MEAN CORPUSCULAR HEMOGLOBIN 30.8 pg (27.0-33.0); MEAN CORPUSCULAR HGB CONC 31.4 g/dl (32.0-36.5); MONO # 1.1 10^3/uL (0.0-0.8); MONO % 13.7 % (2.0-8.0); NEUTROPHILS # 4.3 10^3/uL (1.5-8.5); NEUTROPHILS % 55.1 % (36.0-66.0); PLATELET COUNT, AUTOMATED 299 10^3/uL (150-450); RED BLOOD COUNT 3.02 10^6/uL (4.00-5.40); WHITE BLOOD COUNT 7.8 10^3/uL (4.0-10.0)
[2024-05-10] MEDS: cefTRIAXone SOD 1 GM in DEXTROSE 5% (D5W) ADV/MINI-BAG 50 ML IV ONE (09:00)
[2024-05-10] MEDS: DOXYCYCLINE HYCLATE 100MG TABLET PO ONE (09:00)
[2024-05-10] MEDS: FOLIC ACID 1MG TAB PO SCH (09:00)
[2024-05-10] MEDS: METOPROLOL SUCC *XL* 12.5MG PER 1/2 TAB (TopROL *XL*) PO SCH (09:00)
[2024-05-10] MEDS: ASPIRIN 81MG ENTERIC TABLET PO SCH (09:00)
[2024-05-10] MEDS: CLOPIDOGREL 75 MG TAB PO SCH (09:00)
[2024-05-10 09:15] LABS: ALKALINE PHOSPHATASE 135 U/L (35-104); ALT/SGPT 9 U/L (7.0-40); AST/SGOT 24 U/L (<34); BILIRUBIN,DIRECT 0.1 MG/DL (<0.4); BILIRUBIN,TOTAL 0.4 MG/DL (0.3-1.2); BLOOD UREA NITROGEN 19 MG/DL (9-23); CALCIUM LEVEL 8.7 MG/DL (8.3-10.6); CARBON DIOXIDE LEVEL 24 MMOL/L (20-31); CHLORIDE LEVEL 107 MMOL/L (98-107); CREATININE FOR GFR 0.81 MG/DL (0.55-1.30); GLOMERULAR FILTRATION RATE > 60.0 (>32); GLUCOSE, FASTING 89 MG/DL (74-106); POTASSIUM SERUM 4.9 MMOL/L (3.5-5.1); SODIUM LEVEL 142 MMOL/L (136-145); TOTAL PROTEIN 6.8 G/DL (5.7-8.2)
[2024-05-10 09:17] LABS: THYROID STIMULATING HORMONE 5.825 uIU/ML (0.55-4.78)
[2024-05-10] MEDS ORDERED: BENZONATATE 100MG CAPSULE PO PRN (11:00)
[2024-05-10] MEDS: FUROSEMIDE 40MG/4ML VIAL IV ONE (11:30)
[2024-05-10] MEDS: IPRATROPIUM 0.5MG/ALBUTEROL 2.5MG INH SOL UD 3ML (DUONEB) NEB SCH (12:19)
[2024-05-10 12:28] LABS: PROCALCITONIN 0.19 ng/ml
[2024-05-10] MEDS ORDERED: **hydrALAZINE HCL** 25 MG TAB PO PRN (12:55)
[2024-05-10] MEDS ORDERED: CARB25TA9 PO (13:43)
[2024-05-10] MEDS ORDERED: AMLO1TAB25 PO (13:43)
[2024-05-10] MEDS ORDERED: HOME MED LIST COMPLETE! XX SCH (13:45)
[2024-05-10] MEDS ORDERED: MIRALAX *UNIT DOSE* 17GM PACKET PO PRN (15:15)
[2024-05-10] MEDS: busPIRone 5 MG TAB PO SCH (16:00)
[2024-05-10] MEDS ORDERED: SINEMET 12.5MG/50MG PER 1/2 TABLET PO SCH (21:00)
[2024-05-10 22:23] VITALS: BP 174/86; TEMP 97.9; O2SAT 97
[2024-05-10] MEDS: ENOXAPARIN 30MG/0.3ML SYRINGE (J1650 PER 10MG) SC SCH (23:40)
[2024-05-10] MEDS: SINEMET 12.5MG/50MG PER 1/2 TABLET PO SCH (23:40)
[2024-05-10] MEDS: ATORVASTATIN 20 MG TAB PO SCH (23:41)
[2024-05-10] MEDS: ISOSORBIDE MON. (IMDUR) 60MG XR TAB PO SCH (23:41)
[2024-05-11 04:00] VITALS: BP 150/61; TEMP 97.5; O2SAT 95
[2024-05-11 09:57] VITALS: BP 173/64
[2024-05-11 12:00] VITALS: BP 105/37; TEMP 97.7; O2SAT 95
[2024-05-11 12:23] LABS: BLOOD UREA NITROGEN 21 MG/DL (9-23); CALCIUM LEVEL 8.6 MG/DL (8.3-10.6); CARBON DIOXIDE LEVEL 27 MMOL/L (20-31); CHLORIDE LEVEL 104 MMOL/L (98-107); CREATININE FOR GFR 0.93 MG/DL (0.55-1.30); GLOMERULAR FILTRATION RATE > 60.0 (>32); GLUCOSE, FASTING 96 MG/DL (74-106); POTASSIUM SERUM 4.6 MMOL/L (3.5-5.1); SODIUM LEVEL 140 MMOL/L (136-145)
[2024-05-11 14:02] VITALS: BP 155/57
[2024-05-11] MEDS: FUROSEMIDE 40MG/4ML VIAL IV ONE (14:04)
[2024-05-11 14:32] LABS: BASO # 0.2 10^3/uL (0.0-0.2); BASO % 2.3 % (0.0-1.0); EOS # 0.7 10^3/uL (0.0-0.5); EOS % 10.1 % (0.0-3.0); HEMOGLOBIN 9.3 g/dl (12.0-15.5); LYMPH # 1.3 10^3/uL (1.5-5.0); LYMPH % 19.1 % (24.0-44.0); MEAN CORPUSCULAR HEMOGLOBIN 31.6 pg (27.0-33.0); MEAN CORPUSCULAR HGB CONC 32.1 g/dl (32.0-36.5); MEAN CORPUSCULAR VOLUME 98.6 fl (80.0-96.0); MONO # 1.3 10^3/uL (0.0-0.8); MONO % 19.1 % (2.0-8.0); NEUTROPHILS # 3.2 10^3/uL (1.5-8.5); NEUTROPHILS % 48.6 % (36.0-66.0); PLATELET COUNT, AUTOMATED 278 10^3/uL (150-450); RED BLOOD COUNT 2.94 10^6/uL (4.00-5.40); WHITE BLOOD COUNT 6.6 10^3/uL (4.0-10.0)
[2024-05-11 17:42] VITALS: BP 143/56
[2024-05-11 20:00] VITALS: BP 132/55; TEMP 97.5; O2SAT 96
[2024-05-12 04:00] VITALS: BP 134/56; TEMP 97.5; O2SAT 94
[2024-05-12 07:24] LABS: CALCIUM LEVEL 8.9 MG/DL (8.3-10.6); CREATININE FOR GFR 0.94 MG/DL (0.55-1.30); GLOMERULAR FILTRATION RATE 59.7 (>32); POTASSIUM SERUM 4.8 MMOL/L (3.5-5.1)
[2024-05-12] MEDS ORDERED: FURO20TA2 PO (07:44)
[2024-05-12] MEDS ORDERED: LISI20TA33 PO (07:44)
[2024-05-12 09:31] VITALS: BP 135/61
[2024-05-12] MEDS: FUROSEMIDE 20 MG TAB PO SCH (09:31)
[2024-05-12 12:00] VITALS: BP 131/65; TEMP 97.7; O2SAT 95
== END 2024-05-12 14:30 | disposition home health service (06) ==
LOC: M ED 07:45 → EDBD 07:45 → M ED INP 07:46 → M MSPAV 22:21 → UNDODISOB 05-12 14:30
PROVIDERS: ADMIT Internal Medicine; ATTEND Internal Medicine
DX: I16.1 Hypertensive emergency (principal); G93.41 Metabolic encephalopathy; E87.5 Hyperkalemia; Z66 Do not resuscitate; J90 Pleural effusion, not elsewhere classified; N17.9 Acute kidney failure, unspecified; G20.C Parkinsonism, unspecified; F02.80 Dementia in other diseases classified elsewhere, unspecified severity, without behavioral disturbance, psychotic disturbance, mood disturbance, and anxiety; I11.0 Hypertensive heart disease with heart failure; I50.32 Chronic diastolic (congestive) heart failure; M06.9 Rheumatoid arthritis, unspecified; K21.9 Gastro-esophageal reflux disease without esophagitis; F41.9 Anxiety disorder, unspecified; I25.10 Atherosclerotic heart disease of native coronary artery without angina pectoris; I25.2 Old myocardial infarction; D64.9 Anemia, unspecified; Z99.3 Dependence on wheelchair; Z79.82 Long term (current) use of aspirin; Z79.899 Other long term (current) drug therapy; Z88.1 Allergy status to other antibiotic agents; Z88.8 Allergy status to other drugs, medicaments and biological substances; R06.02 Shortness of breath
CPT/HCPCS: 36415; 71045; 71046; 80048; 80076; 82803; 83605; 83880; 84145; 84443; 85025; 87040; 87486; 87581; 87633; 87798; 92526; 92610; 93005; 93041; 93971; 94640; 94760; 96372; 96374; 96375; 96376; 99285; G0378; J0696; J1650; J1940

== ENCOUNTER → 2024-06-02 | Outpatient (REF) | payer MEDICARE ==
[~2024-06-02] MED LIST changes: +FURO20TA2 PO
[2024-06-02 14:12] LABS: HEMATOCRIT 33.6 % (36.0-47.0); HEMOGLOBIN 10.4 g/dl (12.0-15.5); MEAN CORPUSCULAR HEMOGLOBIN 29.9 pg (27.0-33.0); MEAN CORPUSCULAR VOLUME 96.6 fl (80.0-96.0); PLATELET COUNT, AUTOMATED 249 10^3/uL (150-450); RED BLOOD COUNT 3.48 10^6/uL (4.00-5.40); WHITE BLOOD COUNT 7.2 10^3/uL (4.0-10.0)
== END ==
LOC: M SHH 13:13
PROVIDERS: ATTEND Internal Medicine
DX: I13.0 Hypertensive heart and chronic kidney disease with heart failure and stage 1 through stage 4 chronic kidney disease, or unspecified chronic kidney disease (principal)

== ENCOUNTER 2024-07-03 12:11 | Emergency (ER) | payer MEDICARE ==
[2024-07-03] MEDS: ACETAMINOPHEN 325 MG TAB PO ONE (13:28)
[2024-07-03 14:04] LABS: BASO # 0.1 10^3/uL (0.0-0.2); BASO % 0.8 % (0.0-1.0); EOS # 1.5 10^3/uL (0.0-0.5); EOS % 15.7 % (0.0-3.0); HEMATOCRIT 32.7 % (36.0-47.0); HEMOGLOBIN 10.2 g/dl (12.0-15.5); LYMPH # 1.2 10^3/uL (1.5-5.0); LYMPH % 12.8 % (24.0-44.0); MEAN CORPUSCULAR HEMOGLOBIN 30.8 pg (27.0-33.0); MEAN CORPUSCULAR HGB CONC 31.2 g/dl (32.0-36.5); MEAN CORPUSCULAR VOLUME 98.8 fl (80.0-96.0); MONO # 1.1 10^3/uL (0.0-0.8); MONO % 11.3 % (2.0-8.0); NEUTROPHILS # 5.6 10^3/uL (1.5-8.5); NEUTROPHILS % 59.1 % (36.0-66.0); PLATELET COUNT, AUTOMATED 197 10^3/uL (150-450); RED BLOOD COUNT 3.31 10^6/uL (4.00-5.40); WHITE BLOOD COUNT 9.5 10^3/uL (4.0-10.0)
[2024-07-03 14:18] LABS: KETONE, URINE AUTO RFX NEGATIVE (NEGATIVE); LEUKOCYTE ESTERASE UR AUTO RFX 3+ (NEGATIVE); MUCUS, URINE RFX SMALL (NEGATIVE); NITRITE, URINE AUTO RFX NEGATIVE (NEGATIVE); RBC, URINE AUTO RFX 23 /HPF (0-3); SQUAM EPITHELIAL CELL UR AURFX 9 /HPF (0-6); WBC, URINE AUTO RFX 180 /HPF (0-3)
[2024-07-03 14:19] LABS: ALBUMIN 3.4 G/DL (3.2-5.2); ALKALINE PHOSPHATASE 135 U/L (35-104); ALT/SGPT 13 U/L (7.0-40); AST/SGOT 22 U/L (<34); BILIRUBIN,DIRECT < 0.1 MG/DL (<0.4); BILIRUBIN,TOTAL 0.2 MG/DL (0.3-1.2); BLOOD UREA NITROGEN 60 MG/DL (9-23); CALCIUM LEVEL 8.6 MG/DL (8.3-10.6); CARBON DIOXIDE LEVEL 20 MMOL/L (20-31); CHLORIDE LEVEL 108 MMOL/L (98-107); CREATININE FOR GFR 1.48 MG/DL (0.55-1.30); GLOMERULAR FILTRATION RATE 35.4 (>32); GLUCOSE, FASTING 103 MG/DL (74-106); POTASSIUM SERUM 5.4 MMOL/L (3.5-5.1); SODIUM LEVEL 139 MMOL/L (136-145); TOTAL PROTEIN 7.2 G/DL (5.7-8.2)
[2024-07-03 14:22] LABS: THYROID STIMULATING HORMONE 3.151 uIU/ML (0.55-4.78)
[2024-07-03] MEDS ORDERED: BUSP7.5T7 PO (14:51)
[2024-07-03] MEDS ORDERED: FURO20TA2 PO (14:51)
[2024-07-03] MEDS ORDERED: ACET-683 PO (14:51)
[2024-07-03] MEDS ORDERED: LISI10TA22 PO (14:51)
[2024-07-03] MEDS ORDERED: HOME MED LIST COMPLETE! XX SCH (14:55)
[2024-07-03] MEDS: cefTRIAXone SOD 1 GM in DEXTROSE 5% (D5W) ADV/MINI-BAG 50 ML IV ONE (15:22)
[2024-07-03] MEDS: NS 500 ML IV ONE (15:23)
[2024-07-03] MEDS ORDERED: FLON27.5 NARES (15:51)
[2024-07-03] MEDS ORDERED: CEFD1CAP9 PO (15:51)
[2024-07-03 16:30] VITALS: BP 166/81; TEMP 98; O2SAT 100
== END 2024-07-03 16:30 | disposition home or self-care (01) ==
LOC: EDBD 12:11 → M ED 12:11
DX: H65.02 Acute serous otitis media, left ear (principal); E86.0 Dehydration; R51.9 Headache, unspecified; N39.0 Urinary tract infection, site not specified; I49.1 Atrial premature depolarization; I25.2 Old myocardial infarction; K21.9 Gastro-esophageal reflux disease without esophagitis; F41.9 Anxiety disorder, unspecified; F32.A Depression, unspecified; Z86.79 Personal history of other diseases of the circulatory system; Z88.1 Allergy status to other antibiotic agents; Z88.8 Allergy status to other drugs, medicaments and biological substances; Z79.82 Long term (current) use of aspirin; Z79.02 Long term (current) use of antithrombotics/antiplatelets; Z79.2 Long term (current) use of antibiotics; Z79.899 Other long term (current) drug therapy
CPT/HCPCS: 51701; 70450; 72125; 80048; 80076; 81001; 82140; 83605; 84443; 85025; 87086; 93005; 93041; 94760; 96365; 99285; J0696

== ENCOUNTER 2024-10-24 16:15 | Inpatient (IN) | payer MEDICARE ==
[~2024-10-24 16:15] MED LIST changes: +ACET-683 PO; +BUSP7.5T7 PO; +CEFD1CAP9 PO; +FLON27.5 NARES; +LIDO1ADH93 TD; -LIDO5DIS41 TD; +LISI10TA22 PO
[2024-10-24 17:27] LABS: KETONE, URINE AUTO RFX NEGATIVE (NEGATIVE); MUCUS, URINE RFX SMALL (NEGATIVE); NITRITE, URINE AUTO RFX NEGATIVE (NEGATIVE); RBC, URINE AUTO RFX 9 /HPF (0-3); SQUAM EPITHELIAL CELL UR AURFX 2 /HPF (0-6)
[2024-10-24 17:28] LABS: LEUKOCYTE ESTERASE UR AUTO RFX 3+ (NEGATIVE); WBC, URINE AUTO RFX 107 /HPF (0-3)
[2024-10-24] MEDS: NS 500 ML IV ONE (17:45)
[2024-10-24 17:49] LABS: BASO # 0.1 10^3/uL (0.0-0.2); BASO % 1.0 % (0.0-1.0); EOS # 1.8 10^3/uL (0.0-0.5); EOS % 19.5 % (0.0-3.0); LYMPH # 1.6 10^3/uL (1.5-5.0); LYMPH % 17.0 % (24.0-44.0); MONO # 1.2 10^3/uL (0.0-0.8); MONO % 13.4 % (2.0-8.0); NEUTROPHILS # 4.4 10^3/uL (1.5-8.5); NEUTROPHILS % 48.7 % (36.0-66.0); PLATELET COUNT, AUTOMATED 175 10^3/uL (150-450)
[2024-10-24] MEDS: cefTRIAXone SOD 1 GM in DEXTROSE 5% (D5W) ADV/MINI-BAG 50 ML IV ONE (18:44)
[2024-10-24 18:48] LABS: CK-MB VALUE MASS 2.2 NG/ML (<3.6)
[2024-10-24 18:50] LABS: CPK CREATINE PHOSPHOKINASE 30 U/L (34-145); MB/CK RELATIVE INDEX 7.33 (< OR =4)
[2024-10-24 19:22] LABS: ALT/SGPT 12 U/L (7.0-40); AST/SGOT 27 U/L (<34); CALCIUM LEVEL 8.6 MG/DL (8.3-10.6); CARBON DIOXIDE LEVEL 19 MMOL/L (20-31); CHLORIDE LEVEL 107 MMOL/L (98-107); CREATININE FOR GFR 1.75 MG/DL (0.55-1.30); GLOMERULAR FILTRATION RATE 27.5 (>32); POTASSIUM SERUM 5.2 MMOL/L (3.5-5.1); SODIUM LEVEL 141 MMOL/L (136-145)
[2024-10-24 20:27] LABS: CK-MB VALUE MASS 1.9 NG/ML (<3.6); CPK CREATINE PHOSPHOKINASE 44.0 U/L (34-145); MB/CK RELATIVE INDEX 4.31 (< OR =4); POTASSIUM SERUM 6.3 MMOL/L (3.5-5.1)
[2024-10-24] MEDS: NS (Normal Saline) 0.9% 1,000 ML IV SCH (21:01)
[2024-10-24] MEDS ORDERED: GLUCAGON INJ 1 MG VIAL SC PRN (22:35)
[2024-10-24] MEDS ORDERED: GLUCOSE 4 GM CHEW PO PRN (22:35)
[2024-10-24] MEDS ORDERED: DEXTROSE 50% 50 ML SYRINGE IV PRN (22:35)
[2024-10-24] MEDS: CALCIUM GLUCONATE 1,000 MG in DEXTROSE 5% (D5W) MINI-BAG PLU 100 ML IV ONE (22:38)
[2024-10-24] MEDS ORDERED: MOM 30 ML SUSPENSION UDC PO PRN (22:40)
[2024-10-24] MEDS ORDERED: MAALOX 30 ML SUSP *UDC PO PRN (22:40)
[2024-10-24] MEDS: DEXTROSE 50% 50 ML SYRINGE IV STA (22:41)
[2024-10-24] MEDS: HumuLIN R (REGULAR) INSULIN (NovoLIN R) **100 U/ML** PER UNIT IV ONE (22:41)
[2024-10-25 00:45] VITALS: BP 139/68; TEMP 98.1; O2SAT 97
[2024-10-25 00:50] LABS: INR 1.02
[2024-10-25] MEDS: NS (Normal Saline) 0.9% 1,000 ML IV ONE (01:47)
[2024-10-25] MEDS: ACETAMINOPHEN 325 MG TAB PO PRN (02:08)
[2024-10-25] MEDS: NS (Normal Saline) 0.9% 1,000 ML IV SCH (02:54)
[2024-10-25 06:15] VITALS: BP 92/62; TEMP 97.5; O2SAT 92
[2024-10-25 08:03] LABS: PLATELET COUNT, AUTOMATED 131 10^3/uL (150-450)
[2024-10-25 08:39] LABS: ALT/SGPT 15.0 U/L (7.0-40); AST/SGOT 25.0 U/L (<34); CALCIUM LEVEL 8.4 MG/DL (8.3-10.6); CARBON DIOXIDE LEVEL 19.0 MMOL/L (20-31); CHLORIDE LEVEL 114.0 MMOL/L (98-107); CREATININE FOR GFR 1.38 MG/DL (0.55-1.30); GLOMERULAR FILTRATION RATE 36.6 (>32); MAGNESIUM LEVEL 1.7 MG/DL (1.8-2.4); POTASSIUM SERUM 5.7 MMOL/L (3.5-5.1); SODIUM LEVEL 143.0 MMOL/L (136-145)
[2024-10-25] MEDS: BISACODYL 10 MG SUPP PR SCH (09:00)
[2024-10-25] MEDS: PATIROMER SORBITEX CALCIUM 8.4GM POWDER PACKET PO ONE (09:32)
[2024-10-25] MEDS: MIRALAX *UNIT DOSE* 17 GM PACKET PO SCH (09:32)
[2024-10-25] MEDS: DOCUSATE SODIUM 100 MG CAPSULE PO SCH (09:32)
[2024-10-25] MEDS: HEPARIN SOD 5000 UNITS/ML 1 ML VIAL/SYRINGE SC SCH (09:33)
[2024-10-25] MEDS ORDERED: FLON27.5 NARES (09:42)
[2024-10-25] MEDS ORDERED: HOME MED LIST COMPLETE! XX SCH (09:45)
[2024-10-25] MEDS: SODIUM BICARBONATE 150 MEQ in D5W 1,000 ML IV SCH (11:33)
[2024-10-25] MEDS ORDERED: PILL CUTTER 1 EACH XX PRN (11:40)
[2024-10-25 12:00] VITALS: BP 132/48; TEMP 97.5; O2SAT 93
[2024-10-25] MEDS: MAG SULF 1GM/100ML (MAG RUN) 1 GM in IV 1 EA IV SCH (13:21)
[2024-10-25 16:00] VITALS: BP 130/58; TEMP 98.1; O2SAT 87
[2024-10-25] MEDS: busPIRone 5 MG TAB PO SCH (17:18)
[2024-10-25] MEDS: cefTRIAXone SOD 1 GM in DEXTROSE 5% (D5W) ADV/MINI-BAG 50 ML IV SCH (17:18)
[2024-10-25 20:14] VITALS: BP 123/75; TEMP 97.2; O2SAT 98
[2024-10-25] MEDS: SENNOSIDES/DOCUSATE SODIUM 8.6 MG/50MG TAB PO SCH (20:49)
[2024-10-25 23:49] VITALS: BP 131/81; TEMP 98.1; O2SAT 98
[2024-10-26 05:59] VITALS: BP 145/68; TEMP 97.9; O2SAT 98
[2024-10-26 08:00] VITALS: BP 154/81; TEMP 97.9; O2SAT 99
[2024-10-26] MEDS: **hydrALAZINE HCL** 25 MG TAB PO SCH (09:00)
[2024-10-26] MEDS: METOPROLOL SUCC. 25 MG *XL* TAB PO SCH (09:13)
[2024-10-26 10:30] VITALS: BP 106/62
[2024-10-26 11:25] LABS: BASO # 0.1 10^3/uL (0.0-0.2); BASO % 0.6 % (0.0-1.0); EOS # 1.9 10^3/uL (0.0-0.5); EOS % 18.9 % (0.0-3.0); LYMPH # 1.5 10^3/uL (1.5-5.0); LYMPH % 14.7 % (24.0-44.0); MONO # 1.4 10^3/uL (0.0-0.8); MONO % 13.2 % (2.0-8.0); NEUTROPHILS # 5.4 10^3/uL (1.5-8.5); NEUTROPHILS % 52.3 % (36.0-66.0)
[2024-10-26 11:47] LABS: CALCIUM LEVEL 8.5 MG/DL (8.3-10.6); CARBON DIOXIDE LEVEL 30.0 MMOL/L (20-31); CHLORIDE LEVEL 104.0 MMOL/L (98-107); CREATININE FOR GFR 1.13 MG/DL (0.55-1.30); GLOMERULAR FILTRATION RATE 46.5 (>32); POTASSIUM SERUM 4.9 MMOL/L (3.5-5.1); SODIUM LEVEL 145.0 MMOL/L (136-145)
[2024-10-26 12:00] VITALS: BP 137/85; TEMP 98.1; O2SAT 97
[2024-10-26] MEDS: PATIROMER SORBITEX CALCIUM 8.4GM POWDER PACKET PO ONE (12:15)
[2024-10-26 20:53] VITALS: BP 149/69; TEMP 98.2; O2SAT 97
[2024-10-26] MEDS: ISOSORBIDE MONONITRATE 60 MG XR TAB PO SCH (21:23)
[2024-10-27 06:40] VITALS: BP 148/62; TEMP 97.9; O2SAT 96
[2024-10-27 08:57] VITALS: BP 168/64
[2024-10-27 09:13] LABS: BASO # 0.1 10^3/uL (0.0-0.2); BASO % 1.1 % (0.0-1.0); EOS # 2.0 10^3/uL (0.0-0.5); EOS % 19.9 % (0.0-3.0); LYMPH # 1.8 10^3/uL (1.5-5.0); LYMPH % 18.2 % (24.0-44.0); MONO # 1.6 10^3/uL (0.0-0.8); MONO % 15.7 % (2.0-8.0); NEUTROPHILS # 4.5 10^3/uL (1.5-8.5); NEUTROPHILS % 44.8 % (36.0-66.0)
[2024-10-27 09:31] LABS: CALCIUM LEVEL 8.4 MG/DL (8.3-10.6); CARBON DIOXIDE LEVEL 30.0 MMOL/L (20-31); CHLORIDE LEVEL 107.0 MMOL/L (98-107); CREATININE FOR GFR 1.02 MG/DL (0.55-1.30); GLOMERULAR FILTRATION RATE 52.6 (>32); POTASSIUM SERUM 5.1 MMOL/L (3.5-5.1); SODIUM LEVEL 144.0 MMOL/L (136-145)
[2024-10-27] MEDS ORDERED: CEFD1CAP9 PO (10:50)
[2024-10-27] MEDS ORDERED: MIRA3350 PO (10:50)
[2024-10-27] MEDS: PATIROMER SORBITEX CALCIUM 8.4GM POWDER PACKET PO ONE (11:40)
[2024-10-27 12:00] VITALS: BP 128/62; TEMP 98.1; O2SAT 98
[2024-10-28] MEDS ORDERED: CEFD1CAP9 PO (13:05)
[2024-10-28] MEDS ORDERED: HYDR25TA87 PO (18:38)
[2024-10-28] MEDS ORDERED: LASI20TA3 PO (18:38)
== END 2024-10-27 17:07 | disposition home or self-care (01) | DRG 683 ==
LOC: M ED 16:15 → EDBD 16:15 → M ED INP 22:40 → M MSPAV 10-25 00:41
PROVIDERS: ADMIT Family Medicine; ATTEND Internal Medicine
DX: N17.9 Acute kidney failure, unspecified (principal); N39.0 Urinary tract infection, site not specified; E87.20 Acidosis, unspecified; E87.5 Hyperkalemia; K21.9 Gastro-esophageal reflux disease without esophagitis; F39 Unspecified mood [affective] disorder; N18.9 Chronic kidney disease, unspecified; K59.00 Constipation, unspecified; E78.5 Hyperlipidemia, unspecified; F02.80 Dementia in other diseases classified elsewhere, unspecified severity, without behavioral disturbance, psychotic disturbance, mood disturbance, and anxiety; I95.9 Hypotension, unspecified; R41.82 Altered mental status, unspecified; G20.A1 Parkinson's disease without dyskinesia, without mention of fluctuations; I25.2 Old myocardial infarction; I12.9 Hypertensive chronic kidney disease with stage 1 through stage 4 chronic kidney disease, or unspecified chronic kidney disease; I25.10 Atherosclerotic heart disease of native coronary artery without angina pectoris; M06.9 Rheumatoid arthritis, unspecified; Z88.8 Allergy status to other drugs, medicaments and biological substances; Z66 Do not resuscitate; Z79.899 Other long term (current) drug therapy; Z79.82 Long term (current) use of aspirin

== ENCOUNTER 2024-10-28 12:00 | Emergency (ER) | payer MEDICARE ==
[~2024-10-28] VITALS: Ht 149.9 cm; Wt 50.6 kg
[2024-10-28] MEDS ORDERED: CEFD1CAP9 PO (13:05)
[2024-10-28] MEDS ORDERED: HOME MED LIST COMPLETE! XX SCH (14:10)
[2024-10-28 16:30] LABS: PLATELET COUNT, AUTOMATED 146 10^3/uL (150-450)
[2024-10-28 16:56] LABS: CALCIUM LEVEL 8.9 MG/DL (8.3-10.6); CARBON DIOXIDE LEVEL 28.0 MMOL/L (20-31); CHLORIDE LEVEL 104.0 MMOL/L (98-107); CREATININE FOR GFR 1.08 MG/DL (0.55-1.30); GLOMERULAR FILTRATION RATE 49.1 (>32); POTASSIUM SERUM 5.3 MMOL/L (3.5-5.1); SODIUM LEVEL 141.0 MMOL/L (136-145)
[2024-10-28 17:29] VITALS: BP 185/65
[2024-10-28] MEDS: FUROSEMIDE 20 MG TAB PO ONE (17:29)
[2024-10-28] MEDS: **hydrALAZINE HCL** 25 MG TAB PO ONE (17:29)
[2024-10-28] MEDS ORDERED: HYDR25TA87 PO (18:38)
[2024-10-28] MEDS ORDERED: LASI20TA3 PO (18:38)
[2024-10-28 20:11] VITALS: TEMP 98.2
[2024-10-28 20:41] VITALS: BP 112/68; O2SAT 95
== END 2024-10-28 22:30 | disposition home or self-care (01) ==
LOC: M ED 12:00 → EDSEX 12:00 → EDBD 12:00 → M ED 22:30
DX: I10 Essential (primary) hypertension (principal); F03.90 Unspecified dementia, unspecified severity, without behavioral disturbance, psychotic disturbance, mood disturbance, and anxiety; G20.C Parkinsonism, unspecified; Z86.79 Personal history of other diseases of the circulatory system; Z88.1 Allergy status to other antibiotic agents; Z88.8 Allergy status to other drugs, medicaments and biological substances; Z79.1 Long term (current) use of non-steroidal anti-inflammatories (NSAID); Z79.82 Long term (current) use of aspirin; Z79.02 Long term (current) use of antithrombotics/antiplatelets; Z79.899 Other long term (current) drug therapy